=== PATIENT | male | born 1935 | race Caucasian/White ===

== ENCOUNTER → 2016-12-24 | Outpatient (CLI) | payer MEDICARE, OTHER ==
[~2016-12-24] MED LIST: AMIO400T4 PO; AML5T; AMLO10TA2 PO; AMLO10TA82 PO; APIX5TAB PO; ASP81TEC PO; ASPI-983 PO; ATOR10TA66 PO; ATOR40TA; ATOR40TA PO; ATOR80TA PO; BETH25TA PO; CHOL10003 PO; CIPR-226 PO; CIPR500T4 PO; CLOP75TA28 PO; CLPD75T; FRS325T; LEVO500T80 PO; MULT1TAB63 PO; NAPR220C PO; NITR-65 PO; NITR4.9S6 TL; NITROSPRAY; OMEP-10 PO; OMEP20CA12 PO; OMG1KC PO; PANT40TA3 PO; PEPPERMINT OIL; TAMS0.4C2 PO; TAMS0.4C98 PO; TICA90TA PO; ZLP5T
--- NOTE | 2016-12-24 13:29 | ECHOCARDIOGRAPHY REPORT ---
DATE OF SERVICE: 12/24/2016 REFERRING PHYSICIAN: Dr. Frey MEASUREMENT: LVID end diastolic 4.5. IVS thickness 0.9. LVPW thickness 1.0. Left atrial diameter 4.0. Ejection fraction 60%. FINDINGS: 1. Technical quality is good. 2. The left ventricle is normal in size with normal contractility. Systolic function appeared to be normal. Estimated ejection fraction 60%. 3. The left atrium is normal in size. No clot or thrombus was seen within the left atrium. 4. The right atrium and right ventricle are normal in size. No clot or thrombus was seen within the right side. 5. Mitral valve is normal in morphology with mild mitral regurgitation noted by color Doppler flow. No mitral valve prolapse. No mitral valve stenosis. 6. Aortic valve is trileaflet with normal opening and closing pattern. No significant aortic stenosis or regurgitation was seen. 7. Tricuspid valve is normal in morphology with mild tricuspid regurgitation noted by color Doppler flow. Doppler across the tricuspid valve estimated pulmonary artery pressure of 27 plus right atrial pressure. 8. Pulmonic valve is functioning normally. 9. No pericardial effusion. CONCLUSION: 1. Normal left ventricular size and systolic function, estimated ejection fraction 60%. 2. Mild mitral and tricuspid regurgitation. 3. Estimated pulmonary artery pressure of 35 mmHg. Job ID: [id number] DocumentID: [id number] Dictated Date: 12/24/2016 12:27:04 [employer] Date: 12/24/2016 12:57:13 Dictated By: JEFF ROMEO MD
== END ==
LOC: CARD 08:39
PROVIDERS: ATTEND Internal Medicine Cardiovascular Disease
DX: I48.0 Paroxysmal atrial fibrillation (principal); I25.10 Atherosclerotic heart disease of native coronary artery without angina pectoris; I10 Essential (primary) hypertension; E78.2 Mixed hyperlipidemia; I08.1 Rheumatic disorders of both mitral and tricuspid valves
CPT/HCPCS: 93306

== ENCOUNTER → 2016-12-28 | Outpatient (CLI) | payer MEDICARE, OTHER ==
[~2016-12-28] MED LIST changes: +REGADENOSON 0.4 MG/5 ML SYR (LEXISCAN) IV ONE
[2016-12-28] MEDS: CATHETER FLUSH 10 ML SYR IV PRN ×2 (07:58→09:23)
[2016-12-28 09:21] VITALS: BP 145/66
--- NOTE | 2016-12-29 07:45 | STRESS TEST ---
DATE OF SERVICE: 12/28/2016 PROCEDURE: Lexiscan Myoview stress test. REFERRING PHYSICIAN: Dr. Peguero INDICATION: Baseline heart rate is 47, baseline blood pressure 145/66. Baseline EKG is atrial fibrillation with bradycardia. IN SUMMARY: The patient was injected with 10.81 mCi of technetium-99 Myoview and the resting images were obtained. Then, the patient received 0.4 mg of Lexiscan followed by 31.8 mCi of technetium-99 Myoview. Throughout the test, there were no EKG changes. The resting and stress images were reviewed and compared in the short axis, horizontal long axis, and vertical long axis views. Review of the images showed diaphragmatic attenuation with typical male pattern. No significant ischemia or infarction on SPECT images. SSS is 0, TID value is 0.91. On the gated images, the left ventricle appeared to be normal size with normal contractility, calculated ejection fraction 58%. CONCLUSION: 1. The patient tolerated Lexiscan well. 2. Baseline atrial fibrillation with bradycardia at the beginning of the test, asymptomatic. 3. Typical male pattern with no significant ischemia or infarction on SPECT images. 4. Normal left ventricular size with normal contractility. Calculated ejection fraction 58%. Job ID: [id number] DocumentID: [id number] Dictated Date: 12/28/2016 16:02:24 Hourly Manager Date: 12/28/2016 22:25:21 Dictated By: JEFF ROMEO MD
== END ==
LOC: CARD 07:43
PROVIDERS: ATTEND Internal Medicine Cardiovascular Disease
DX: I48.0 Paroxysmal atrial fibrillation (principal); I25.10 Atherosclerotic heart disease of native coronary artery without angina pectoris; I10 Essential (primary) hypertension; E78.2 Mixed hyperlipidemia
CPT/HCPCS: 78452; 93017

== ENCOUNTER 2017-05-13 07:49 | Day surgery (SDC) | payer MEDICARE, OTHER ==
[~2017-05-13] VITALS: Ht 167.6 cm; Wt 68.9 kg
[~2017-05-13 07:49] MED LIST changes: -REGADENOSON 0.4 MG/5 ML SYR (LEXISCAN) IV ONE
[2017-05-13] MEDS ORDERED: NS IV 1000 ML 1,000 ML IV SCH (07:50)
[2017-05-13 08:02] VITALS: BP 154/80
[2017-05-13 08:17] LABS: MEAN PLATELET VOLUME 11.9 FL (7.4-10.4); RED BLOOD COUNT 4.28 10^6/uL (4.35-5.85); RED CELL DISTRIBUTION WIDTH 13.4 % (10.0-14.5); WHITE BLOOD COUNT 5.9 10^3/uL (4.3-11.0)
[2017-05-13] MEDS ORDERED: fentaNYL INJECTION 100 MCG/2 ML AMP ONE (08:29)
[2017-05-13] MEDS ORDERED: MIDAZOLAM 5 MG/5 ML (VERSED) VIAL ONE (08:29)
[2017-05-13] MEDS ORDERED: proPOfol 200 MG/20 ML (DIPRIVAN) VIAL IV ONE ×2 (08:29→08:40)
[2017-05-13 08:30] LABS: INR 1.4 (0.8-1.4); PROTHROMBIN TIME PATIENT 16.8 SEC (12.2-14.7)
[2017-05-13 08:37] LABS: ALBUMIN 4.1 GM/DL (3.2-4.5); BILIRUBIN,TOTAL 0.9 MG/DL (0.1-1.0); CALCIUM 9.3 MG/DL (8.5-10.1); CREATININE SERUM 1.28 MG/DL (0.60-1.30); POTASSIUM 4.3 MMOL/L (3.6-5.0); TOTAL PROTEIN 7.2 GM/DL (6.4-8.2)
[2017-05-13 09:34] VITALS: BP 166/74
[2017-05-13 09:37] VITALS: BP 148/75
[2017-05-13 09:45] VITALS: BP 154/74
--- NOTE | 2017-05-13 09:58 | Progress Note-Standard ---
Standard Progress Note Progress Notes/Assess & Plan Date Seen by Provider: May 13, 2017 Time Seen by Provider: 09:35 Progress/Assessment & Plan Anesthesia Note ([id number]) Called to shipyard laborer for sedation (MAC) for cardioversion. Pt S/E. Propofol 70 mg in divided doses for sedation. VSS and + ETCO2 throughout procedure. Cardioversion attempted x 3 without a return to SR. Will be available if needed. JESSENIA NICK DO May 13, 2017 09:58
[2017-05-13] MEDS ORDERED: DILT120T11 PO (10:02)
[2017-05-13 10:05] VITALS: BP 131/75
[2017-05-13 10:39] VITALS: BP 130/68
--- NOTE | 2017-05-13 11:49 | Cardiology Post Procedure Note ---
Post-Procedure Note Physician (s)/Digital Marketing Strategist (s) Physician Alesha SKY MD Pre-Procedure Diagnosis Pre-Procedure Diagnosis: atrial fibrillation Post-Procedure Note Procedure Start Date: May 13, 2017 Procedure Start Time: 09:30 Name of Procedure: direct electrical cardioversion Findings/Procedure Note atrial fibrillation with slow ventricular response. 3 shocks given with synchronized 200 J. Unsuccessful. Estimated blood loss (mL): none Contrast Amount: none Post-Procedure Diagnosis Post-operative diagnosis: unsuccessful electrical cardioversion. Patient continues to be in atrial fibrillation with controlled ventricular response. Alesha SKY MD May 13, 2017 11:49 am
--- NOTE | 2017-05-14 06:01 | OPERATIVE REPORT ---
DATE OF SERVICE: 05/13/2017 DIRECT ELECTRICAL CARDIOVERSION PREOPERATIVE DIAGNOSIS: Atrial fibrillation. INDICATION: Atrial fibrillation. POSTOPERATIVE DIAGNOSIS: Unsuccessful cardioversion. PROCEDURE DETAILS: The patient was brought to the lab after informed consent was taken. All the risks and complications were explained. With anesthesia support, three 200 joules synchronized shocks were given. However, the patient continued to stay in atrial fibrillation. The patient tolerated the procedure well and did not have any complications. IMPRESSION/CONCLUSION: 1. Atrial fibrillation. Three unsuccessful attempts at cardioversion with 200 joules. 2. Discontinue Multaq. Continue oral anticoagulation and rate controlling agents. Job ID: [id number] DocumentID: [id number] Dictated Date: 05/13/2017 13:14:06 Strip Catcher Date: 05/13/2017 20:01:12 Dictated By: JESSIE SKY MD
== END 2017-05-13 10:41 | disposition home or self-care (01) ==
LOC: CATH 07:49
PROVIDERS: ATTEND Internal Medicine Interventional Cardiology
DX: I48.91 Unspecified atrial fibrillation (principal); I25.10 Atherosclerotic heart disease of native coronary artery without angina pectoris; I65.23 Occlusion and stenosis of bilateral carotid arteries; I10 Essential (primary) hypertension; E78.2 Mixed hyperlipidemia; G47.33 Obstructive sleep apnea (adult) (pediatric); Z85.46 Personal history of malignant neoplasm of prostate; Z95.1 Presence of aortocoronary bypass graft; Z95.5 Presence of coronary angioplasty implant and graft; Z87.891 Personal history of nicotine dependence; Z79.01 Long term (current) use of anticoagulants; Z79.899 Other long term (current) drug therapy
CPT/HCPCS: 36415; 80053; 85027; 85610; 85730; 87081; 92960; 93005

== ENCOUNTER → 2018-03-28 | Outpatient (CLI) | payer MEDICARE, OTHER ==
[~2018-03-28] MED LIST changes: -AMIO400T4 PO; +AMIO400T5 PO; -AMLO10TA2 PO; +AMLO10TA6 PO; +DILT120T11 PO
--- NOTE | 2018-03-28 11:14 | Diagnostic Imaging Report ---
INDICATION: Chronic cough PA and lateral views of the chest were obtained with comparison made to study of 01/29/2016. Heart size and pulmonary vascularity are within normal limits. There is no evidence of pneumothorax or consolidation. Electronic device is now seen anterior to the sternum in the left chest. Otherwise mediastinal surgical findings are stable. There is no evidence of focal consolidation. Sclerotic focus in the proximal right humerus is partially visualized. IMPRESSION: No acute abnormality or significant adverse change is detected. Dictated by: Dictated on workstation # [id number]
== END ==
LOC: RAD 10:17
PROVIDERS: ATTEND Nurse Practitioner
DX: R05 Cough (principal)
CPT/HCPCS: 71046

== ENCOUNTER → 2018-09-21 | Outpatient (CLI) | payer MEDICARE, OTHER ==
[~2018-09-21] VITALS: Ht 167.6 cm; Wt 75.3 kg
[~2018-09-21] MED LIST changes: -AMLO10TA6 PO; +AMLO10TA7 PO; +CATHETER FLUSH 10 ML SYR IV PRN
[2018-09-21 09:27] VITALS: BP 150/76
--- NOTE | 2018-09-21 14:28 | STRESS TEST ---
DATE OF SERVICE: 09/21/2018 EXERCISE MYOVIEW STRESS TEST REPORT REFERRING PHYSICIAN: Dr. Frey. Baseline heart rate is 59, baseline blood pressure 135/70. Baseline EKG is sinus rhythm with no ischemic changes. In summary, the patient was injected with 10.37 mCi of technetium-99 Myoview and the resting images were obtained. Then, the patient started exercising with a baseline heart rate, blood pressure and EKG as mentioned above. The patient was able to exercise for 3 minutes on standard Avelino protocol. With peak exercise level, EKG was showing nondiagnostic changes and blood pressure 178/80. During recovery, heart rate and blood pressure returned to baseline and EKG returned to baseline. The resting and stress images were reviewed and compared in the short axis, horizontal long axis and vertical long axis views. Review of the images showed diaphragmatic attenuation with decreased uptake at the inferior wall with subtle reversibility, no significant ischemia was noted. SSS is 1, SDS 1 and TID value 1.06. On the gated images, the left ventricle appeared to be in normal size with normal contractility. Calculated ejection fraction is 75%. CONCLUSION: 1. Poor exercise tolerance, a total of 3 minutes on standard Avelino protocol, total of 4.6 METS achieving 100% of maximum expected heart rate. 2. Appropriate heart rate response to exercise with hypertensive response to exercise, peak blood pressure recorded was 199/75. 3. Diaphragmatic attenuation with typical male pattern with no significant ischemia or infarction on SPECT images. 4. Normal left ventricular size with normal contractility and calculated ejection fraction is 75%. Job ID: [id number] DocumentID: [id number] Dictated Date: 09/21/2018 11:42:53 Bench Assembly Inspector Date: 09/21/2018 12:38:06 Dictated By: JEFF ROMEO MD
== END ==
LOC: CARD 07:18
PROVIDERS: ATTEND Internal Medicine Cardiovascular Disease
DX: I25.10 Atherosclerotic heart disease of native coronary artery without angina pectoris (principal); I48.91 Unspecified atrial fibrillation; I10 Essential (primary) hypertension; E78.2 Mixed hyperlipidemia
CPT/HCPCS: 78452; 93017

== ENCOUNTER → 2019-09-13 | Outpatient (CLI) | payer MEDICARE, OTHER ==
[~2019-09-13] MED LIST changes: -CATHETER FLUSH 10 ML SYR IV PRN; -OMEP20CA12 PO; +OMEP20CA18 PO; -TAMS0.4C98 PO; +TMSL.4C PO
== END ==
LOC: CARD 08:50
PROVIDERS: ATTEND Physician Assistant
DX: I48.91 Unspecified atrial fibrillation (principal); I25.10 Atherosclerotic heart disease of native coronary artery without angina pectoris; I65.29 Occlusion and stenosis of unspecified carotid artery; I10 Essential (primary) hypertension; E78.2 Mixed hyperlipidemia; I34.0 Nonrheumatic mitral (valve) insufficiency
CPT/HCPCS: 93306

== ENCOUNTER 2019-10-30 17:20 | Emergency (ER) | payer MEDICARE, OTHER ==
[~2019-10-30] VITALS: Ht 167.6 cm; Wt 71.7 kg
[2019-10-30] MEDS ORDERED: IBUPROFEN TABLET 200 MG TAB PO STA (17:39)
[2019-10-30 17:41] LABS: BILIRUBIN,URINE NEGATIVE (NEGATIVE); CLARITY,URINE CLEAR; COLOR,URINE YELLOW; GLUCOSE, URINE (UA) NEGATIVE (NEGATIVE); KETONES,URINE NEGATIVE (NEGATIVE); LEUKOCYTE ESTERASE ,URINE NEGATIVE (NEGATIVE); NITRITE,URINE NEGATIVE (NEGATIVE); PH,URINE 5.5 (5-9); PROTEIN,URINE NEGATIVE (NEGATIVE)
--- NOTE | 2019-10-30 17:47 | ED Back Pain ---
General Chief Complaint: Back Problems Stated Complaint: BACK PAIN / FEVER History of Present Illness Date Seen by Provider: Oct 30, 2019 Time Seen by Provider: 17:30 Initial Comments 84 year old male presents for low back pain and intermittent fever today, high of 99.8* He last took Tylenol at 1200. No N/V. History of prostate Cancer and Sciatica, in the past. He did a significant of lifting for yard work last and Wed, carrying soil bags and mulch. History of 2 UTIs in the last few months, finished an antibiotic about a week ago. Location: Lumbar Spine, Paraspinous Muscles Timing/Duration: 4-6 Hours Severity: Mild Pain/Injury Location: Back Associated Symptoms: muscle spasms, fever; No numbness in legs/feet, No tingling in legs/feet, No sensory/motor loss; lower back pain; No loss of bladder control, No loss of bowel control Allergies and Home Medications Allergies Uncoded Allergies: Beta Blockers (Adverse Reaction, Mild, Intolerance, 06/23/11) Home Medications Amlodipine Besylate 10 Mg Tablet, 10 MG PO DAILY, (Reported) Apixaban 5 Mg Tablet, 5 MG PO BID, (Reported) Aspirin 81 Mg Tablet.dr, 81 MG PO DAILY, (Reported) Atorvastatin Calcium 10 Mg Tablet, 10 MG PO HS, (Reported) Cholecalciferol 1,000 Unit Tablet, 1,000 UNIT PO DAILY, (Reported) Diltiazem HCl 120 Mg Tablet, 120 MG PO DAILY, (Reported) Multivitamins/Minerals Therap 1 Ea Tablet, 1 TAB PO DAILY, (Reported) Nitroglycerin 4.9 Gm [place], 1 SPRAY TL UD PRN for CHEST PAIN, (Reported) [place] 3 Polyunsat Fatty Acids 1,000 Mg Cap, 1,000 MG PO DAILY, (Reported) Pantoprazole Sodium 40 Mg Tablet.dr, 40 MG PO DAILY, (Reported) Tamsulosin HCl 0.4 Mg Cap.er.24h, 0.4 MG PO EVERY 3 DAYS, (Reported) Patient Home Medication List Home Medication List Reviewed: Yes Review of Systems Constitutional: see HPI, fever Genitourinary: see HPI; No decreased output, No dysuria, No frequency, No hematuria, No pain Musculoskeletal: see HPI, back pain All Other Systems Reviewed Negative Unless Noted: Yes Past Yxmsxqe-Lvcgum-Mejinv Hx Past Med/Social Hx: Reviewed Nursing Past Med/Soc Hx Patient Social History Alcohol Use: Regular Use Number of Drinks Today: 1 Alcohol Beverage of Choice: Wine Recreational Drug Use: No Smoking Status: Former Smoker Type Used: Cigarettes Former Smoker, Quit: May 13, 1991 2nd Hand Smoke Exposure: No Recent Foreign Travel: No Contact w/Someone Who Travel: No Recent Hopitalizations: Yes (BY PASS 1990, HEART CATH NOVEMBER 2007, TURP 1999, RAPID HEART AUG 2004) Physical Abuse: No Sexual Abuse: No Mistreated: No Fear: No Immunizations Up To Date Tetanus Booster (TDap): Unknown Date of Pneumonia Vaccine: Apr 12, 2017 Date of Influenza Vaccine: Apr 13, 2017 Seasonal Allergies Seasonal Allergies: No Past Medical History Surgeries: Yes (nose resection, OPEN HEART, CARDIAC STENTS, TURP) CABG, Coronary Stent Respiratory: Yes Emphysema Cardiac: Yes Coronary Artery Disease, Hypertension Neurological: No Reproductive Disorders: No Sexually Transmitted Disease: No HIV/AIDS: No Bladder Infection, Kidney Stones Gastrointestinal: Yes Irritable Bowel Musculoskeletal: No Endocrine: No Loss of Vision: Denies Hearing Impairment: Hard of Hearing Cancer: Yes (with radiation IN 1999) Prostate Psychosocial: No Integumentary: No Blood Disorders: No Adverse Reaction/Blood Tranf: No Family Medical History Cardiovascular disease 19 FATHER G8 BROTHER Diabetes mellitus G8 BROTHER Hypertension 19 FATHER G8 BROTHER Neoplasm G8 BROTHER No Pertinent Family Hx Physical Exam Vital Signs Vital Signs - First Documented 10/30/19 17:31 Temp 37.4 Pulse 80 Resp 17 B/P (MAP) 182/97 (125) O2 Delivery Room Air Capillary Refill : Height, Weight, BMI Height: 5'6.00" Weight: 166lbs. 0.0oz. 75.124182mi; 26.8 BMI Method:Stated General Appearance: No Apparent Distress, WD/WN HEENT: PERRL/EOMI, TMs Normal, Normal ENT Inspection, Pharynx Normal Neck: Full Range of Motion, Normal Inspection, Non Tender, Supple Cardiovascular: Regular Rate, Rhythm, No Edema, No Murmur, Normal Peripheral Pulses Respiratory: Chest Non Tender, Lungs Clear, Normal Breath Sounds Gastrointestinal: Normal Bowel Sounds, Non Tender, Soft; No Distended, No Guarding, No Rebound, No Tenderness Back: Normal Inspection, CVA Tenderness (R); No Decreased Range of Motion; Muscle Spasm; No Vertebral Tenderness Extremity: Normal Capillary Refill, Normal Inspection, Normal Range of Motion Neurologic/Psychiatric: Alert, Oriented x3, No Motor/Sensory Deficits, Normal Mood/Affect Skin: Normal Color, Warm/Dry Progress/Results/Core Measures Results/Orders Lab Results Laboratory Tests Test 10/30/19 17:33 10/30/19 17:52 Range/Units Urine Color YELLOW Urine Clarity CLEAR Urine pH 5.5 5-9 Urine Specific [place] 1.020 1.016-1.022 Urine Protein NEGATIVE NEGATIVE Urine Glucose (UA) NEGATIVE NEGATIVE Urine Ketones NEGATIVE NEGATIVE Urine Nitrite NEGATIVE NEGATIVE Urine Bilirubin NEGATIVE NEGATIVE Urine Urobilinogen 0.2 < = 1.0 MG/DL Urine Leukocyte Esterase NEGATIVE NEGATIVE Urine RBC (Auto) TRACE-I NEGATIVE Urine RBC 0-2 /HPF Urine WBC 2-5 /HPF Urine Squamous Epithelial Cells NONE /HPF Urine Crystals NONE /LPF Urine Bacteria NEGATIVE /HPF Urine Casts NONE /LPF Urine Mucus NEGATIVE /LPF Urine Culture Indicated NO White Blood Count 13.5 H 4.3-11.0 10^3/uL Red Blood Count 4.13 L 4.35-5.85 10^6/uL Hemoglobin 12.7 L 13.3-17.7 G/DL Hematocrit 37 L 40-54 % Mean Corpuscular Volume 90 80-99 FL Mean Corpuscular Hemoglobin 31 25-34 PG Mean Corpuscular Hemoglobin Concent 34 32-36 G/DL Red Cell Distribution Width 13.0 10.0-14.5 % Platelet Count 219 130-400 10^3/uL Mean Platelet Volume 12.0 H 7.4-10.4 FL Neutrophils (%) (Auto) 87 H 42-75 % Lymphocytes (%) (Auto) 6 L 12-44 % Monocytes (%) (Auto) 7 0-12 % Eosinophils (%) (Auto) 0 0-10 % Basophils (%) (Auto) 0 0-10 % Neutrophils # (Auto) 11.7 H 1.8-7.8 X 10^3 Lymphocytes # (Auto) 0.8 L 1.0-4.0 X 10^3 Monocytes # (Auto) 0.9 0.0-1.0 X 10^3 Eosinophils # (Auto) 0.0 0.0-0.3 10^3/uL Basophils # (Auto) 0.0 0.0-0.1 10^3/uL Neutrophils % (Manual) 90 % Lymphocytes % (Manual) 2 % Monocytes % (Manual) 4 % Eosinophils % (Manual) 0 % Basophils % (Manual) 1 % Band Neutrophils 3 % Blood Morphology Comment NORMAL Sodium Level 135 135-145 MMOL/L Potassium Level 4.9 3.6-5.0 MMOL/L Chloride Level 105 98-107 MMOL/L Carbon Dioxide Level 20 L 21-32 MMOL/L Anion Gap 10 5-14 MMOL/L Blood Urea Nitrogen 29 H 7-18 MG/DL Creatinine 1.85 H 0.60-1.30 MG/DL Estimat Glomerular Filtration Rate 35 BUN/Creatinine Ratio 16 Glucose Level 139 H 70-105 MG/DL Calcium Level 9.4 8.5-10.1 MG/DL Corrected Calcium 9.4 8.5-10.1 MG/DL Total Bilirubin 0.5 0.1-1.0 MG/DL Aspartate Amino Transf (AST/SGOT) 20 5-34 U/L Alanine Aminotransferase (ALT/SGPT) 14 0-55 U/L Alkaline Phosphatase 64 40-136 U/L C-Reactive Protein High Sensitivity 1.49 H 0.00-0.50 MG/DL Total Protein 7.3 6.4-8.2 GM/DL Albumin 4.0 3.2-4.5 GM/DL My Orders Orders - GRIS PETE Ua Culture If Indicated (10/30/19 17:21) Cbc With Automated Diff (10/30/19 17:39) Comprehensive Metabolic Panel (10/30/19 17:39) Chest 1 View, Ap/Pa Only (10/30/19 17:39) Ibuprofen Tablet (Motrin Tablet) (10/30/19 17:39) Manual Differential (10/30/19 17:52) Hs C Reactive Protein (10/30/19 18:25) Ct Abd/Pelvis Wo(Kidney Stone) (10/30/19 18:28) Ed Iv/Invasive Line Start (10/30/19 18:29) Ns Iv 1000 Ml (Sodium Chloride 0.9%) (10/30/19 18:29) Ceftriaxone For Iv Use (Rocephin For I (10/30/19 19:15) Medications Given in ED Current Medications Medications Dose Ordered Sig/[place] Route Start Time Stop Time Status Last Admin Dose Admin Ceftriaxone Sodium 2000 mg/ Sterile Water 20 ml @ 240 mls/hr ONCE ONCE IV 10/30/19 19:15 10/30/19 19:19 DC 10/30/19 19:14 240 MLS/HR Vital Signs/I&O 10/30/19 17:31 Temp 37.4 Pulse 80 Resp 17 B/P (MAP) 182/97 (125) O2 Delivery Room Air Progress Progress Note : Time: 17:30 Progress Note Pt seen and evaluated, will obtain labs, chest x-ray and Ibuprofen 600 mg for pain. 1814 Will give 1 L NS per IV. UA & CXR clear. Pain better in right low back. Will get CT abd/pelvis. 1899 Rocephin 2 gm IV. [address] Tse with the CT results. Will see patient at 1pm tomorrow. Start Bactrim DS. Discharge instructions and return precautions reviewed with the patient. Discussed CT results and need for more information due to the mass in right bladder wall. Diagnostic Imaging Diagonstic Imaging: Xray Plain Films/CT/US/NM/MRI: chest Comments NAME: URSZULA MAZARIEGOS [facility] REC#: [id number] PT STATUS: REG ER : 1935 PHYSICIAN: GRIS PETE ADMIT DATE: 10/30/19/ER Draft Date of Exam:10/30/19 CHEST 1 VIEW, AP/PA ONLY INDICATION: Back pain. Single AP view of the chest is obtained with comparison made to study of 03/28/2018. Extensive surgical findings are again noted in the mediastinum. There is also persistent sclerotic focus in the proximal right humerus. No pneumothorax, consolidation or significant pleural fluid is identified. IMPRESSION: Stable overall appearance of the chest without acute abnormality or adverse change. Dictated on workstation # [id number] Dict: 10/30/19 1807 Trans: 10/30/191810 [facility] [id number] Interpreted by: DAYO MIGUEL MD Electronically signed by: Reviewed: Reviewed by Me Diagonstic Imaging: CT Plain Films/CT/US/NM/MRI: abdomen, pelvis Comments NAME: URSZULA MAZARIEGOS [facility] REC#: [id number] PT STATUS: REG ER : 1935 PHYSICIAN: GRIS PETEP ADMIT DATE: 10/30/19/ER Draft Date of Exam:10/30/19 CT ABD/PELVIS WO(KIDNEY STONE) PROCEDURE: CT urinary tract, rule out kidney stone. TECHNIQUE: Multiple contiguous axial images were obtained through the abdomen and pelvis without the use of intravenous contrast. Auto Exposure Controls were utilized during the CT exam to meet ALARA standards for radiation dose reduction. INDICATION: Posterior back pain COMPARISON is made to study of 09/30/2015. FINDINGS: There is mild hiatal hernia. Unenhanced images of the liver and spleen reveal no focal abnormality. There is calcification within the lumen or wall of the gallbladder fundus without evidence of collateral wall thickening. Dominant exophytic cyst arising from the upper pole of the left kidney. There is no definite left hydronephrosis or hydroureter however there is an approximately 0.4 cm calculus in the left hemipelvis which was not seen on the previous study which could represent distal ureteric stone. There is moderate right hydronephrosis and hydroureter with mild edema and/or inflammation surrounding the right kidney and right ureter. There is an approximately 2 cm hyperdense focus along the right bladder wall which may represent an obstructing mass. No free fluid is seen within the abdomen or pelvis. There is no evidence of pathologic adenopathy. IMPRESSION: There is a 2 cm hyperdensity in the bladder lumen may result in obstruction of the distal right ureter. This could be due to hematoma or bladder mass. Cystoscopy is recommended. In addition, there is an approximately 0.4 cm calcification to the left of the urinary bladder which could represent a distal ureteric stone without significant left hydronephrosis. Dictated on workstation # [id number] Dict: 10/30/19 1842 Trans: 10/30/19 1855 [facility] [id number] Interpreted by: DAYO MIGUEL MD Electronically signed by: Departure Impression Primary Impression: Hydronephrosis, right Additional Impression: Mass of urinary bladder Disposition: 01 HOME, SELF-CARE Condition: Improved Departure-Patient Inst. Decision time for Depature: 19:20 Referrals: ABEL MARTINEZ MD (PCP/Family) Primary Care Physician Patient Instructions: Hydronephrosis, Adult (DC), Low Back Pain (DC) Add. Discharge Instructions: Take the Bactrim antibiotic as prescribed. Alternate Tylenol 650 mg and ibuprofen 600 mg every 4 hours for pain or fever. Take the Bactrim antibiotic as prescribed. Follow-up with Dr. Tse on 10/31/19 at 1 PM. Return to the emergency department for new, urgent health care needs. All discharge instructions reviewed with patient and/or family. Voiced understanding. Copy Copies To 1: ABEL MARTINEZ MD Copies To 2: ALBA TSE MD, AMY ARNP Oct 30, 2019 17:47
[2019-10-30 17:52] LABS: BACTERIA,URINE NEGATIVE /HPF; RBC,URINE 0-2 /HPF
[2019-10-30 18:06] LABS: BASOPHILS % (AUTO) 0 % (0-10); EOSINOPHILS % (AUTO) 0 % (0-10); HEMATOCRIT 37 % (40-54); HEMOGLOBIN 12.7 G/DL (13.3-17.7); LYMPHOCYTES # (AUTO) 0.8 X 10^3 (1.0-4.0); LYMPHOCYTES % (AUTO) 6 % (12-44); MEAN CORPUSCULAR HEMOGLOBIN 31 PG (25-34); MEAN CORPUSCULAR HGB CONC 34 G/DL (32-36); MEAN CORPUSCULAR VOLUME 90 FL (80-99); MONOCYTES # (AUTO) 0.9 X 10^3 (0.0-1.0); MONOCYTES % (AUTO) 7 % (0-12); NEUTROPHILS # (AUTO) 11.7 X 10^3 (1.8-7.8); NEUTROPHILS % (AUTO) 87 % (42-75); PLATELET COUNT 219 10^3/uL (130-400); WHITE BLOOD COUNT 13.5 10^3/uL (4.3-11.0)
[2019-10-30 18:12] LABS: POTASSIUM 4.9 MMOL/L (3.6-5.0)
--- NOTE | 2019-10-30 18:12 | Diagnostic Imaging Report ---
INDICATION: Back pain. Single AP view of the chest is obtained with comparison made to study of 03/28/2018. Extensive surgical findings are again noted in the mediastinum. There is also persistent sclerotic focus in the proximal right humerus. No pneumothorax, consolidation or significant pleural fluid is identified. IMPRESSION: Stable overall appearance of the chest without acute abnormality or adverse change. Dictated by: Dictated on workstation # [id number]
[2019-10-30 18:13] LABS: CALCIUM 9.4 MG/DL (8.5-10.1)
[2019-10-30 18:15] LABS: TOTAL PROTEIN 7.3 GM/DL (6.4-8.2)
[2019-10-30 18:16] LABS: BILIRUBIN,TOTAL 0.5 MG/DL (0.1-1.0)
[2019-10-30 18:18] LABS: CREATININE SERUM 1.85 MG/DL (0.60-1.30)
[2019-10-30 18:26] LABS: BAND NEUTROPHILS 3 %; BASOPHILS % (MANUAL) 1 %; EOSINOPHILS % (MANUAL) 0 %; LYMPHOCYTES % (MANUAL) 2 %; MONOCYTES % (MANUAL) 4 %; NEUTROPHILS % (MANUAL) 90 %; RBC MORPH NORMAL
[2019-10-30] MEDS ORDERED: NS IV 1000 ML 1,000 ML IV SCH (18:29)
--- NOTE | 2019-10-30 18:56 | Diagnostic Imaging Report ---
PROCEDURE: CT urinary tract, rule out kidney stone. TECHNIQUE: Multiple contiguous axial images were obtained through the abdomen and pelvis without the use of intravenous contrast. Auto Exposure Controls were utilized during the CT exam to meet ALARA standards for radiation dose reduction. INDICATION: Posterior back pain COMPARISON is made to study of 09/30/2015. FINDINGS: There is mild hiatal hernia. Unenhanced images of the liver and spleen reveal no focal abnormality. There is calcification within the lumen or wall of the gallbladder fundus without evidence of collateral wall thickening. Dominant exophytic cyst arising from the upper pole of the left kidney. There is no definite left hydronephrosis or hydroureter however there is an approximately 0.4 cm calculus in the left hemipelvis which was not seen on the previous study which could represent distal ureteric stone. There is moderate right hydronephrosis and hydroureter with mild edema and/or inflammation surrounding the right kidney and right ureter. There is an approximately 2 cm hyperdense focus along the right bladder wall which may represent an obstructing mass. No free fluid is seen within the abdomen or pelvis. There is no evidence of pathologic adenopathy. IMPRESSION: There is a 2 cm hyperdensity in the bladder lumen may result in obstruction of the distal right ureter. This could be due to hematoma or bladder mass. Cystoscopy is recommended. In addition, there is an approximately 0.4 cm calcification to the left of the urinary bladder which could represent a distal ureteric stone without significant left hydronephrosis. Dictated by: Dictated on workstation # [id number]
[2019-10-30] MEDS ORDERED: cefTRIAXone FOR IV USE 2,000 MG in WATER (STERILE) FOR INJECTION 20 ML IV ONE (19:15)
[2019-10-30 19:45] VITALS: BP 173/82
== END 2019-10-30 19:48 | disposition home or self-care (01) ==
LOC: EDUNIT# 17:20 → ER 17:21
DX: N13.30 Unspecified hydronephrosis (principal); N32.9 Bladder disorder, unspecified; Z95.1 Presence of aortocoronary bypass graft; Z95.5 Presence of coronary angioplasty implant and graft; J43.9 Emphysema, unspecified; I25.10 Atherosclerotic heart disease of native coronary artery without angina pectoris; I10 Essential (primary) hypertension; K58.9 Irritable bowel syndrome, unspecified; Z85.46 Personal history of malignant neoplasm of prostate; Z92.3 Personal history of irradiation; Z87.891 Personal history of nicotine dependence; Z79.82 Long term (current) use of aspirin; Z79.899 Other long term (current) drug therapy
CPT/HCPCS: 36415; 71045; 74176; 80053; 81000; 85007; 85027; 86141

== ENCOUNTER 2019-11-01 07:19 | Outpatient (CLI) | payer MEDICARE, OTHER ==
[~2019-11-01] VITALS: Ht 167 cm; Wt 72.0 kg
[2019-11-01] MEDS ORDERED: LISI10TA2 PO (09:21)
== END 2019-11-01 09:39 ==
LOC: PREOP 07:19
PROVIDERS: ATTEND Urology
DX: Z01.818 Encounter for other preprocedural examination (principal)

== ENCOUNTER 2019-11-08 08:14 | Outpatient (CLI) | payer MEDICARE, OTHER ==
[~2019-11-08 08:14] MED LIST changes: +LISI10TA2 PO; +PHEN-640 PO; +SULF1TAB35 PO; +TRM50T PO
[2019-11-10] MEDS ORDERED: hydrocodone ×2 (07:50)
[2019-11-10] MEDS ORDERED: POLY17PO6 PO ×2 (07:50)
[2019-11-10] MEDS ORDERED: HYOS0.1281 PO ×2 (10:27)
== END 2019-11-09 09:22 | disposition home or self-care (01) ==
LOC: PREOP 08:14
PROVIDERS: ATTEND Urology
DX: Z01.818 Encounter for other preprocedural examination (principal)

== ENCOUNTER 2019-11-10 21:11 | Inpatient (IN) | payer MEDICARE, OTHER ==
[~2019-11-10] VITALS: Ht 167.6 cm; Wt 73.8 kg
[~2019-11-10 21:11] MED LIST changes: +HYOS0.1281 PO; +POLY17PO6 PO; +hydrocodone
--- NOTE | 2019-11-10 21:14 | NUR ---
pt in restroom when called.
--- OUTSIDE RECORDS SUMMARY | 2019-11-10 21:16 | XMS REPORT ---
Author Author [employer] Organization [employer] Address [address] [address] Care Team Providers Care Resident Surgeon Name Role Phone MARCUS LILLY Unavailable ABEL MARTINEZ Unavailable AGUEDA ROJAS, JEFF Saores Unavailable Unavailable CARMENCITA ROJAS, ALBA Francis Unavailable Unavailable AFSANEH ROJAS, JEFFERY Galindo Unavailable Unavailable CARMENCITA ROJAS, ALBA Francis Unavailable Unavailable GAGE MARROQUIN, DWAYNE Caldwell Unavailable Unavailable SUZANNE ROJAS, LIZET Borja Unavailable Unavailable KI COX APRN Unavailable Unavailable STARR MARROQUIN, ANTONIETA Nicholson Unavailable Unavailab le Allergies No Information Medications No Information Problems Active Problems Problem Normalized Date of Normalized Normalized Provider Fac ility Classification Problem(s) Problem Problem Problem Sta tus Onset/Resoluti Duration on Acute Acute Episodic Active ALBA CARMENCITA , Not Avail able posthemorrhagi posthemorrhagi (98771) c anemia (6 c anemia sources.) 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 JEFF BROWNING , Not Available atherosclerosi c heart (26249) s and other disease of heart disease apache (21 sources.) coronary artery without angina pectoris Translations: [ ATHSCL HEART DISEASE OF [place] COR ART W, CORON ATHEROSCLER NOS TYPE VESSEL, NATIV] Calculus of Calculus of Episodic Active ALBA CARMENCITA , Not Available urinary tract kidney (02560) (6 sources.) Nonspecific Chest pain, Episodic Active JEFF PRICE , Not Available chest pain (3 unspecified MD (32399) sources.) Other lower Cough Episodic Active no name no informat ion respiratory disease (2 sources.) Other diseases Cyst of Episodic Active ALBA CARMENCITA , Not Available of kidney and kidney, (23898) ureters (3 acquired sources.) Essential Essential 09-14-2019 - Chronic Active ALBA CARMENCITA , Not Available hypertension (primary) (42935) (21 sources.) hypertension Translations: [ HYPERTENSION NOS] Gangrene (3 Gangrene, not Episodic Active ALBA CARMENCITA , No t Available sources.) elsewhere (21834) classified Esophageal Gastro-esophag Chronic Active ALBA CARMENCITA , No t Available disorders (3 eal reflux (68834) sources.) disease without esophagitis Other intermodal customer service Episodic Active MD JOSE DANIEL Not Availa ble aftercare (5 (current) use (08951) sources.) of anticoagulants Other snf Episodic Active JEFFERY Not Availabl e aftercare (9 (current) use AFSANEH , (48325) sources.) of MD antithrombotic s/antiplatelet s Other intermodal customer service Episodic Active ALBA CARMENCITA , Not Avai lable aftercare (3 (current) use (36837) sources.) of aspirin Cancer of Malignant Chronic Active ALBA CARMENCITA , Not Avai lable prostate (3 neoplasm of MD (15231) sources.) prostate 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 JEFF CUNNINGHAM I , Not Available lipid hyperlipidemia (56747) metabolism (21 Translations: sources.) [ HYPERLIPIDEMIA , UNSPECIFIED, HYPERLIPIDEMIA NEC/NOS] Substance-rela Nicotine Chronic Active KI COX Not Av ailable richelle disorders dependence, (26835) (3 sources.) cigarettes, in remission Residual Obstructive Chronic Active JEFF PRICE , Not A vailable codes; sleep apnea (83441) unclassified (adult) (11 sources.) (pediatric) Residual Obstructive Chronic Active BASGEENA PRICE , Not A vailable codes; sleep apnea (74120) unclassified (adult)(pediat (3 sources.) barbie) 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 MD JOSE DANIEL Not Available 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 (8 carotid sources.) arteries Translations: [ OCCLUSION AND STENOSIS OF UNSPECIFIED [place]] Other Other long Episodic Active BASGEENA AGUEDA , Not Av ailable aftercare (11 term (current) (59866) sources.) drug therapy Other diseases Other Episodic Active JEFFERY Not Avai lable of kidney and obstructive BRUEGGEMANN , (19920) ureters (6 and reflux MD sources.) uropathy Pulmonary Other Chronic Active BASHAR AGUEDA , Not Avai 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 Other diseases Other Chronic Active ALBAJIMBO GAOL , Not Available of bladder and specified (48149) urethra (3 disorders of sources.) bladder Other diseases Other Chronic Active ALBA GAOL , Not Available of kidney and specified MD (79997) ureters (3 disorders of sources.) kidney and ureter Residual Personal Episodic Active LIZET PALACIOS Not Avail able codes; history of , (16675) unclassified irradiation (3 sources.) Cancer of Personal Episodic Active JEFFERY Not Available bladder (6 history of BRUEGGEMANN , (71361) sources.) malignant MD neoplasm of bladder Cancer of Personal Episodic Active KI COX Not Availab le prostate (14 history of (37694) sources.) malignant neoplasm of prostate Screening and Personal Episodic Active MIKEGEENA PRICE , Not Available history of history of (67340) mental health nicotine and substance dependence abuse codes (14 sources.) Coronary Presence of no information Active JEFF PRICE , Not Available atherosclerosi coronary (29197) s and other angioplasty heart disease implant and (25 sources.) graft Translations: [ PRESENCE OF AORTOCORONARY BYPASS GRAFT, ATHSCL HEART DISEASE OF [place] CORONARY , CHRONIC TOTAL OCCLUSION OF CORONARY STACY, CORONARY ANGIOPLASTY STATUS] Other injuries Radiation Episodic Active ALBA TSE , Not Available and conditions sickness, (96660) due to unspecified, external initial causes (6 encounter sources.) Heart valve Rheumatic 09-14-2019 - Chronic Active MIKEGEENA CUNNINGHAM I , Not Available disorders (13 disorders of MD (33951) sources.) both mitral and tricuspid valves Translations: [ MITRAL VALVE DISORDER, TRICUSPID VALVE DISEASE, NONRHEUMATIC MITRAL (VALVE) INSUFFICIENC] Cardiac Unspecified 09-14-2019 - Chronic Active MIKEGEENA PRICE , Not Available dysrhythmias atrial (22686) (21 sources.) fibrillation Translations: [ PAROXYSMAL ATRIAL FIBRILLATION, CARDIAC DYSRHYTHMIAS NEC, SUPRAVENTRICUL AR TACHYCARDIA] Past or Other Problems Problem Normalized Date of Normalized Normalized Provider Fac ility Classification Problem(s) Problem Problem Problem Sta tus Onset/Resoluti Duration on Other lower Other Episodic Completed JEFF PRICE , Not Av ailable respiratory respiratory (95630) disease (4 abnormalities sources.) Procedures Procedure Normalized Procedure Procedure Result Performer Facility Date DESTRUCTION OF no information no name (no phone) Not Availab le (78236) [facility] DESTRUCTION OF no information no name (no phone) Not Availab le (36754) PROSTATE, ENDO EXTIRPATION OF MATTER no information no name (no phone) Not Available (20297) FROM [facility] Immunizations No Information Results The data below is from unstructured sourcesNo Known Relevant Diagnostic Tests, Laboratory Data and/or Discharge Summary. Vital Signs The data below is from unstructured sources Vital Response Date/Time Temperature (Fahrenheit) 98 degrees F (97.6 - 99.5) 09/06/2015 10:20am Temperature (Calculated Celsius) 36. 6696 degrees C (36.4 - 37.5) 09/06/2015 10:20am Temperature Source Tympanic 08/15/2015 9:42am Pulse Rate (adult) 81 bpm (60 - 90) 09/06/2015 10:20am Respiratory Rate 18 bpm (12 - 24) 09/06/2015 10:20am O2 Sat by Pulse Oximetry 98 % (88 - 100) 09/06/2015 10:20am Blood Pressure 151/73 mm Hg 09/06/2015 10:20am Blood Pressure Mean 99 mm Hg 09/06/2015 10:20am Pain Pain Intensity 0 2015 10:20am Height (Feet) 5 feet 10:20am Height (Inches) 6 inches 09/06/2015 10:20am Height (Centimeters) 167.6 cm 08/14/2015 11:34am Height (Calculated Centimeters) 167. 603213 cm 09/06/2015 10:20am Weight (Pounds) 160 pounds 09/06/2015 10:20am Weight (Calculated Grams) 93078.000 gm 08/15/2015 6:18am Weight (Calculated Kilograms) 72.574 780 kilograms 09/06/2015 10:20am Weight (Kilograms) 74.5 kg 08/15/2015 6:18am Calculated BMI 25.82 10:20am Vital Response Date/Time Temperature (Fahrenheit) 97.4 degree s F (97.6 - 99.5) 10/20/2015 8:56am Temperature (Calculated Celsius) 36. 89353 degrees C (36.4 - 37.5) 10/20/2015 8:56am Temperature Source Tympanic 10/10/2015 2:00pm Pulse Rate (adult) 92 bpm (60 - 90) 10/20/2015 8:56am Respiratory Rate 16 bpm (12 - 24) 10/20/2015 8:56am O2 Sat by Pulse Oximetry 98 % (88 - 100) 10/20/2015 8:56am Blood Pressure 143/70 mm Hg 10/20/2015 8:56am Blood Pressure Mean 94 mm Hg 10/20/2015 8:56am Pain Pain Intensity 0 2015 8:56am Height (Feet) 5 feet 09/2015 8:56am Height (Inches) 6 inches 10/20/2015 8:56am Height (Calculated Centimeters) 167. 284370 cm 10/20/2015 8:56am Weight (Pounds) 154 pounds 10/20/2015 8:56am Weight (Ounces) 0.0 oz 0 10/03/2015 1:21pm Weight (Calculated Grams) 82846.188 gm 10/03/2015 1:21pm Weight (Calculated Kilograms) 69.853 226 kilograms 10/20/2015 8:56am Calculated BMI 25.66 1:21pm Vital Response Date/Time Temperature (Fahrenheit) 97.9 degree s F (97.6 - 99.5) 10/21/2015 7:15pm Temperature (Calculated Celsius) 36. 30001 degrees C (36.4 - 37.5) 10/21/2015 7:15pm Temperature Source Temporal 10/21/2015 7:15pm Pulse Rate (adult) 109 bpm (60 - 90) 10/21/2015 7:15pm Respiratory Rate 18 bpm (12 - 24) 10/21/2015 7:15pm O2 Sat by Pulse Oximetry 100 % (88 - 100) 10/21/2015 7:15pm Blood Pressure 158/64 mm Hg 10/21/2015 7:15pm Blood Pressure Mean 95 mm Hg 10/21/2015 7:15pm Pain Pain Intensity 0 2015 7:15pm Height (Feet) 5 feet 10/2015 7:15pm Height (Inches) 6 inches 10/21/2015 7:15pm Height (Calculated Centimeters) 167. 141774 cm 10/21/2015 7:15pm Weight (Pounds) 152 pounds 10/21/2015 7:15pm Weight (Ounces) 0.0 oz 0 10/03/2015 1:21pm Weight (Calculated Grams) 16403.188 gm 10/03/2015 1:21pm Weight (Calculated Kilograms) 68.946 041 kilograms 10/21/2015 7:15pm Calculated BMI 25.66 1:21pm Vital Response Date/Time Temperature (Fahrenheit) 98.7 degree s F (97.6 - 99.5) 10/31/2015 4:14pm Temperature (Calculated Celsius) 37. 50214 degrees C (36.4 - 37.5) 10/31/2015 2:50pm Temperature Source Tympanic 10/31/2015 4:14pm Pulse Rate (adult) 91 bpm (60 - 90) 10/31/2015 4:14pm Respiratory Rate 18 bpm (12 - 24) 10/31/2015 4:14pm O2 Sat by Pulse Oximetry 98 % (88 - 100) 10/31/2015 4:14pm Blood Pressure 146/70 mm Hg 10/31/2015 4:14pm Blood Pressure Mean 95 mm Hg 10/31/2015 2:50pm Pain Pain Intensity 0 2015 2:50pm Weight (Pounds) 158 pounds 10/30/2015 10:00pm Weight (Calculated Grams) 57162.595 gm 10/30/2015 10:00pm Weight (Calculated Kilograms) 71.667 595 kilograms 10/30/2015 10:00pm Vital Response Date/Time Temperature (Fahrenheit) 96.8 degree s F (97.6 - 99.5) 10/10/2015 2:00pm Temperature (Calculated Celsius) 36. 27459 degrees C (36.4 - 37.5) 10/10/2015 2:00pm Temperature Source Tympanic 10/10/2015 2:00pm Pulse Rate (adult) 86 bpm (60 - 90) 10/10/2015 2:00pm Respiratory Rate 16 bpm (12 - 24) 10/10/2015 2:00pm O2 Sat by Pulse Oximetry 98 % (88 - 100) 10/10/2015 2:00pm Blood Pressure 113/66 mm Hg 10/10/2015 2:00pm Blood Pressure Mean 82 mm Hg 10/10/2015 2:00pm Pain Pain Intensity 5 2015 2:00pm Height (Feet) 5 feet 1:21pm Height (Inches) 6.00 inches 10/03/2015 1:21pm Height (Calculated Centimeters) 167. 564162 cm 10/03/2015 1:21pm Weight (Pounds) 159 pounds 10/03/2015 1:21pm Weight (Ounces) 0.0 oz 0 10/03/2015 1:21pm Weight (Calculated Grams) 78265.188 gm 10/03/2015 1:21pm Weight (Calculated Kilograms) 72.121 188 kilograms 10/03/2015 1:21pm Calculated BMI 25.66 1:21pm Vital Response Date/Time Temperature Source Tympanic 08/15/2015 9:42am Pulse Rate (adult) 81 bpm (60 - 90) 08/15/2015 9:42am Respiratory Rate 22 bpm (12 - 24) 08/15/2015 9:42am O2 Sat by Pulse Oximetry 100 % (88 - 100) 08/15/2015 9:42am Blood Pressure 148/62 mm Hg 08/15/2015 9:42am Blood Pressure Mean 90 mm Hg 08/15/2015 8:27am Pain Pain Intensity 0 2015 8:27am Height (Centimeters) 167.6 cm 08/14/2015 11:34am Weight (Calculated Grams) 70352.000 gm 08/15/2015 6:18am Weight (Kilograms) 74.5 kg 08/15/2015 6:18am Calculated BMI 25.56 11:34am Vital Response Date/Time Temperature (Fahrenheit) 96.6 degree s F (97.6 - 99.5) 01/30/2016 8:00am Temperature (Calculated Celsius) 35. 51079 degrees C (36.4 - 37.5) 01/30/2016 8:00am Temperature Source Tympanic 01/30/2016 8:00am Pulse Rate (adult) 77 bpm (60 - 90) 01/30/2016 8:00am Respiratory Rate 18 bpm (12 - 24) 01/30/2016 8:00am O2 Sat by Pulse Oximetry 100 % (88 - 100) 01/30/2016 8:00am Blood Pressure 119/66 mm Hg 01/30/2016 8:00am Blood Pressure Mean 83 mm Hg 01/30/2016 8:00am Pain Numeric Pain Scale 0-No Pain 01/29/2016 2:30pm Height (Feet) 5 feet 8:45am Height (Inches) 6.00 inches 01/29/2016 8:45am Height (Calculated Centimeters) 167. 823753 cm 01/29/2016 8:45am Weight (Pounds) 169 pounds 01/30/2016 6:36am Weight (Ounces) 6.0 oz 0 01/30/2016 6:36am Weight (Calculated Grams) 16722.208 gm 01/30/2016 6:36am Weight (Calculated Kilograms) 76.827 208 kilograms 01/30/2016 6:36am Calculated BMI 25.5 01/16 8:45am Vital Response Date/Time Temperature (Fahrenheit) 98.7 degree s F (97.6 - 99.5) 10/31/2015 4:14pm Temperature (Calculated Celsius) 37. 97405 degrees C (36.4 - 37.5) 10/31/2015 2:50pm Temperature Source Tympanic 10/31/2015 4:14pm Pulse Rate (adult) 91 bpm (60 - 90) 10/31/2015 4:14pm Respiratory Rate 18 bpm (12 - 24) 10/31/2015 4:14pm O2 Sat by Pulse Oximetry 98 % (88 - 100) 10/31/2015 4:14pm Blood Pressure 146/70 mm Hg 10/31/2015 4:14pm Blood Pressure Mean 95 mm Hg 10/31/2015 2:50pm Pain Pain Intensity 0 2015 2:50pm Height (Feet) 5 feet 11/2015 5:50pm Height (Inches) 6.00 inches 10/22/2015 5:50pm Height (Calculated Centimeters) 167. 510219 cm 10/22/2015 5:50pm Weight (Pounds) 158 pounds 10/30/2015 10:00pm Weight (Ounces) 0.0 oz 0 10/22/2015 6:00pm Weight (Calculated Grams) 39577.595 gm 10/30/2015 10:00pm Weight (Calculated Kilograms) 71.667 595 kilograms 10/30/2015 10:00pm Calculated BMI 25.5 11/2015 5:50pm Vital Response Date/Time Temperature (Fahrenheit) 96.9 degree s F (97.6 - 99.5) 05/13/2017 8:02am Temperature (Calculated Celsius) 36. 72728 degrees C (36.4 - 37.5) 05/13/2017 8:02am Temperature Source Tympanic 05/13/2017 8:02am Pulse Rate (adult) 50 bpm (60 - 90) 05/13/2017 10:39am Respiratory Rate 16 bpm (12 - 24) 05/13/2017 10:39am O2 Sat by Pulse Oximetry 98 % (88 - 100) 05/13/2017 10:39am Blood Pressure 130/68 mm Hg 05/13/2017 10:39am Blood Pressure Mean 93 mm Hg 05/13/2017 10:05am Pain Numeric Pain Scale 0-No Pain 05/13/2017 10:39am Height (Feet) 5 feet 8:04am Height (Inches) 6.00 inches 05/13/2017 8:04am Height (Calculated Centimeters) 167. 809772 cm 05/13/2017 8:04am Weight (Pounds) 152 pounds 05/13/2017 8:04am Weight (Ounces) 0.0 oz 1 8:04am Weight (Calculated Grams) 41717.04 gm 05/13/2017 8:04am Weight (Calculated Kilograms) 68.946 041 kilograms 05/13/2017 8:04am Calculated BMI 24.5 04/19 8:04am Vital Response Date/Time Temperature (Fahrenheit) 96.9 degree s F (97.6 - 99.5) 05/13/2017 8:02am Temperature (Calculated Celsius) 36. 66024 degrees C (36.4 - 37.5) 05/13/2017 8:02am Temperature Source Tympanic 05/13/2017 8:02am Pulse Rate (adult) 50 bpm (60 - 90) 05/13/2017 10:39am Respiratory Rate 16 bpm (12 - 24) 05/13/2017 10:39am O2 Sat by Pulse Oximetry 98 % (88 - 100) 05/13/2017 10:39am Blood Pressure 130/68 mm Hg 05/13/2017 10:39am Blood Pressure Mean 93 mm Hg 05/13/2017 10:05am Pain Numeric Pain Scale 0-No Pain 05/13/2017 10:39am Height (Feet) 5 feet 8:04am Height (Inches) 6.00 inches 05/13/2017 8:04am Height (Calculated Centimeters) 167. 620836 cm 05/13/2017 8:04am Weight (Pounds) 152 pounds 05/13/2017 8:04am Weight (Ounces) 0.0 oz 1 8:04am Weight (Calculated Grams) 43771.04 gm 05/13/2017 8:04am Weight (Calculated Kilograms) 68.946 041 kilograms 05/13/2017 8:04am Calculated BMI 24.5 04/19 8:04am Interventions No Information Plan of Treatment The data below is from unstructured sources Discharge Date 09/06/15 11:42am Disposition 01 HOME, SELF-CARE Condition at Discharge Improved Instructions/Education Provided Acut e Urinary Retention in Women (ED) Prescriptions See Medication Section Referrals MARCUS LILLY MD Care Physician MARCUS LILLY MD - Primary Care Physician ALBA TSE MD - Additional Instructions/Education 1. Follow-up with your regular doctor next week or at your earliest convenience 2. Call Dr. Tse today to make an appoi ntment to be seen for when you return from her vacation. His number has been provided 3. Leave the catheter in place until Wed morning. At that time he may remove it herself prior to going to the airport 3. Antibiotics as directed 4. Return to the emergency room in the m eantime if you develop any bladder fullness, pain, nausea fevers or chills or if the catheter does not seem to be emptying. All discharge instructions reviewed with patient and/or family. Voiced understanding. Discharge Date 10/20/15 11:20am Disposition 01 HOME, SELF-CARE Condition at Discharge Improved Instructions/Education Provided Urin kelly Tract Infection in Men (ED) How to Care for Your Moses Catheter (ED) Prescriptions See Medication Section Referrals MARCUS LILLY MD Care Physician Additional Instructions/Education Fo llow-up with Dr. Tse tomorrow morning. Empty your catheter bag frequently and keep below the level of your waist. Return to care if symptoms worsen. Continue antibiotics as prescribed until otherwise directed by your doctor. The antibiotic your prescribed may turn your urine and orange color. Follow-up on your urine culture with Dr. Tse. All discharge instructions reviewed with patient and/or family. Voiced understanding. Discharge Date 10/21/15 8:22pm Disposition 01 HOME, SELF-CARE Condition at Discharge Improved Instructions/Education Provided How to Care for Your Moses Catheter (ED) Prescriptions See Medication Section Referrals MARCUS LILLY MD [facility] Physician Additional Instructions/Education Al l discharge instructions reviewed with patient and/or family. Voiced understanding. CONTINUE USUAL HOME MEDICATIONS AND ORDERS. FOLLOW-UP WITH DR. TSE PREVIOUSLY SCHEDULED. RETURN TO THE EMERGENCY DEPARTMENT FOR WORSENED PAIN, ABDOMINAL SWELLING, FEVER, LEAKING OF CATHETER, OR ANY OTHER CONCERNS. Prescriptions See Medication Section Discharge Date 10/10/15 3:55pm Disposition [facility] TO CODE Instructions/Education Provided Acut e Hematuria (GEN) Prescriptions See Medication Section Discharge Date 08/15/15 9:45am Instructions/Education Provided CARD IAC CATH DISCHARGE INSTRUC Prescriptions See Medication Section Discharge Date 01/30/16 10:45am Instructions/Education Provided Atri al Fibrillation (DC) Prescriptions See Medication Section Discharge Date 10/10/15 3:55pm Disposition 05 XFER OTHER Instructions/Education Provided Acut e Hematuria (GEN) Prescriptions See Medication Section Discharge Date 10/31/15 3:50pm Disposition 09 ADMITTED INPATIENT Instructions/Education Provided Acut e Hematuria (DC) Forms Provided PDI Surgical Prescriptions See Medication Section Referrals (Unspecified) - Reason(s) for Referral: FOLLOW UP WITH DR TSE ON 11/11/15 AT 3:15 PM Care Plan and Goals See Discharge In structions Section Discharge Date 05/13/17 10:41am Instructions/Education Provided Card ioversion (DC) Prescriptions See Medication Section Discharge Date 05/13/17 10:41am Instructions/Education Provided Card ioversion (DC) Prescriptions See Medication Section Goals No Information Social History The data below is from unstructured sources History Response Recorde d Date/Time Hx Family Cancer Y brother 08/13/08 4:27pm Hx Family Breast Cancer N 08/13/08 4:27pm Hx Family Lung Cancer Y brother 08/13/08 4:27pm Hx Family Colorectal Cancer N 08/13/08 4:27pm Hx Family Cardiac Disorders Y father , brother 08/13/08 4:27pm Hx Family Stroke Y father 08/13/08 4:27pm Hx Family Hypertension Y father, brother 08/13/08 4:27pm Hx Family Myocardial Infarction Y fa ther and brother 08/13/08 4:27pm Hx Family Cystic Fibrosis N 08/13/08 4:27pm Functional Status The data below is from unstructured sources Query Response Date Jim rded Patient Orientation Person Place Time Situation Eyes Open October 11, 2015 2:28pm Comprehension Ability Understands Co ncepts October 09, 2015 8:00pm Query Response Date Jim rded Patient Orientation Person Place Time Situation August 15, 2015 10:01am Comprehension Ability Understands Co ncepts August 15, 2015 8:14am Query Response Date Jim rded Patient Orientation Person Place January 30, 2016 1:17pm Comprehension Ability Understands Co ncepts January 29, 2016 12:45pm Query Response Date Jim rded Patient Orientation Person Place Time Situation Eyes Open October 10, 2015 4:03pm Comprehension Ability Understands Co ncepts October 09, 2015 8:00pm Query Response Date Jim rded Patient Orientation Person Place Time Situation October 31, 2015 4:16pm Comprehension Ability Understands Co ncepts October 30, 2015 8:00pm No functional status information available. Mental Status No Information Encounters Encounter Normalized Encounter Encounter Diagnosis Care Provi clementine Organization Date Type 03-28-2018 Patient encounter no information no name (no phone) no organization name (no phone) 05-13-2017 Patient encounter no information no name (no phone) no organization name - (no phone) 05-13-2017 12-28-2016 Patient encounter no information no name (no phone) no organization name (no phone) 12-24-2016 Patient encounter no information no name (no phone) no organization name (no phone) 01-29-2016 Patient encounter no information no name (no phone) no organization name - (no phone) 01-30-2016 11-20-2015 Patient encounter no information no name (no phone) no organization name - (no phone) 11-20-2015 08-14-2015 Patient encounter no information no name (no phone) no organization name - (no phone) 08-15-2015 09-26-2014 Patient encounter no information no name (no phone) no organization name (no phone) 09-19-2014 Patient encounter no information no name (no phone) no organization name (no phone) 01-20-2013 Patient encounter no information no name (no phone) no organization name - (no phone) 01-21-2013 09-13-2019 Patient encounter no information ANTONIETA Nicholson [facility] procedure STARR PA (no [facility] phone) (no phone) 09-21-2018 Patient encounter no information no name (no phone) no organization name procedure (no phone) 10-20-2015 Patient encounter no information no name (no phone) no organization name procedure (no phone) 08-31-2012 Patient encounter no information no name (no phone) no organization name procedure (no phone) 08-19-2012 Patient encounter no information no name (no phone) no organization name procedure (no phone) Medical Equipment No Information Payers The data below is from unstructured sources Payer Name Policy Number Subscriber Name Relationship [employer] [id number] Urszula Hsu W 01 Self / Same As Patient s Medicare [id number] Urszula Mazariegos 01 Self / Same As Patient Advance Directives Directive Response Recor ded Date/Time Advance Directives No 10:23am Health Care Power of Marine Geologist No 09/06/15 10:23am Organ Donor Yes 09/06/15 10:23am Resuscitation Status Full Code 09/06/15 10:23am Directive Response Recor ded Date/Time Advance Directives No 9:00am Health Care Power of Marine Geologist Y DAUG HTER DORON 10/20/15 9:00am Organ Donor Yes 10/20/15 9:00am Resuscitation Status Full Code 10/20/15 9:00am Directive Response Recor ded Date/Time Advance Directives No 7:15pm Health Care Power of Marine Geologist Y DAUG HTER DORON 10/21/15 7:15pm Organ Donor Yes 10/21/15 7:15pm Resuscitation Status Full Code 10/21/15 7:15pm Directive Response Recor ded Date/Time Advance Directives No 5:01pm Health Care Power of Marine Geologist Y DAUG HTER DORON 10/22/15 5:01pm Organ Donor Yes 10/22/15 5:01pm Directive Response Recor ded Date/Time Advance Directives No 1:10pm Health Care Power of Marine Geologist Y DAUG HTER DORON 10/03/15 1:10pm Organ Donor Yes 10/03/15 1:10pm Resuscitation Status Full Code 10/03/15 1:10pm Directive Response Recor ded Date/Time Advance Directives No 11:28am Health Care Power of Marine Geologist No 08/14/15 11:28am Organ Donor Yes 08/14/15 11:28am Resuscitation Status Full Code 08/14/15 11:28am Directive Response Recor ded Date/Time Advance Directives No 8:45am Health Care Power of Marine Geologist Y DAUG HTER DORON 01/29/16 8:45am Organ Donor Yes 01/29/16 8:45am Resuscitation Status Full Code 01/29/16 8:45am Directive Response Recor ded Date/Time Advance Directives No 5:01pm Health Care Power of Marine Geologist Y DAUG HTER DORON 10/22/15 5:01pm Organ Donor Yes 10/22/15 5:01pm Resuscitation Status Full Code 10/22/15 5:01pm Directive Response Recor ded Date Advance Directives N 9:04am Health Care Power of Marine Geologist N 08/13/08 4:51pm Organ Donor Y 08/31/12 9 :04am Directive Response Recor ded Date/Time Advance Directives No 8:01am Health Care Power of Marine Geologist Y - DA UGHTER DORON 05/13/17 8:01am Organ Donor Yes 05/13/17 8:01am Resuscitation Status Full Code 05/13/17 8:01am Discharge Instructions No hospital discharge instructions.No hospital discharge instructions.No hospital discharge instructions.No hospital discharge instructions.No hospital discharge instructions. Patient Instructions Physician Instructions Follow Up/Plan Appointment with Dr. Price's office in 2-4 weeks CARDIAC CATH DISCHARGE INSTRUCTIONS *Hold Metformin for 48 hours post heart cath. ACTIVITY * Go Home directly and rest. * Limit activity of the leg (or wrist if it was used) for 7 days including aerobics, swimming, jogging, bicycling, etc. * Restrict stair-climbing for 7 days if possible, if not, climb up with your non-cath leg, then bring together on the same step. * Avoid lifting, pushing, pulling or excessive movement of the affected extremity for 7 days. * Customary sexual activity may be resumed after 2 days-use caution not to use a position that strains or causes pain to the affected extremity. * No driving for 24 hours. * NO SMOKING. * Avoid straining for bowel movements for 7 days. * Gentle walking on level ground is allowed. * Returning to work will depend on the type of procedure and the results. Your doctor will discuss this with you. CALL YOUR DOCTOR FOR ANY OF THE FOLLOWING: *If bleeding from the puncture site occurs- Apply gentle pressure to site with clean cloth and call your doctor or EMS. * If a knot or lump forms under the skin, increases in size, or causes pain. * If bruising appears to be worsening or moving further down your leg instead of disappearing. * Temperature above 101 F. CARE OF YOUR GROIN INCISION; * Bruising or purple discoloration of the skin near the puncture site is common. * You may shower only, no bathtub bathing for 5 days. Be careful to avoid slipping as your leg may feel stiff. * If a closure device was used on your femoral artery, please see the attached guide regarding care of the device and your leg. * REMOVE the dressing from your groin the next day after your procedure in the shower. CARE OF YOUR WRIST INCISION; * Bruising or purple discoloration of the skin near the puncture site is common. * You may shower. * DO NOT submerge wrist. * Remove dressing in 24 hours. No hospital discharge instructions.No hospital discharge instructions. Patient Instructions Physician Instructions Plan Please make appointment to been seen in office in 10 days Discharge after hyperbaric Rx today Continue OP hyperbaric RX No more Plavix Change ASA 81mg to 325mg coated Increase oral fluids for 48 hours and then as needed. Diet and Activity as tolerated. If questions or concerns contact your physician Or seek help at emergency department. Patient Instructions Physician Instructions Follow Up/Plan Appointment with Dr. Price's office in 2-4 weeks CARDIAC CATH DISCHARGE INSTRUCTIONS *Hold Metformin for 48 hours post heart cath. ACTIVITY * Go Home directly and rest. * Limit activity of the leg (or wrist if it was used) for 7 days including aerobics, swimming, jogging, bicycling, etc. * Restrict stair-climbing for 7 days if possible, if not, climb up with your non-cath leg, then bring together on the same step. * Avoid lifting, pushing, pulling or excessive movement of the affected extremity for 7 days. * Customary sexual activity may be resumed after 2 days-use caution not to use a position that strains or causes pain to the affected extremity. * No driving for 24 hours. * NO SMOKING. * Avoid straining for bowel movements for 7 days. * Gentle walking on level ground is allowed. * Returning to work will depend on the type of procedure and the results. Your doctor will discuss this with you. CALL YOUR DOCTOR FOR ANY OF THE FOLLOWING: *If bleeding from the puncture site occurs- Apply gentle pressure to site with clean cloth and call your doctor or EMS. * If a knot or lump forms under the skin, increases in size, or causes pain. * If bruising appears to be worsening or moving further down your leg instead of disappearing. * Temperature above 101 F. CARE OF YOUR GROIN INCISION; * Bruising or purple discoloration of the skin near the puncture site is common. * You may shower only, no bathtub bathing for 5 days. Be careful to avoid slipping as your leg may feel stiff. * If a closure device was used on your femoral artery, please see the attached guide regarding care of the device and your leg. * REMOVE the dressing from your groin the next day after your procedure in the shower. CARE OF YOUR WRIST INCISION; * Bruising or purple discoloration of the skin near the puncture site is common. * You may shower. * DO NOT submerge wrist. * Remove dressing in 24 hours. No hospital discharge instruction information available. Additional Source Comments This clinical document has been generated using [employer] software that has been certified by the Office of the National Coordinator for Health Information Technology (ONC 15.99.04.3023.Diam.[id number]) and the National Committee for Devulcanizer Tender (NCQA, as an eMeasure certified technology). FOR RECORDS PERTAINING TO PATIENTS WHO ARE OR HAVE BEEN ENROLLED IN A CHEMICAL D EPENDENCY/SUBSTANCE ABUSE PROGRAM, SOME INFORMATION MAY BE OMITTED. This clinica l summary was aggregated from multiple sources. Caution should be exercised in using it in the provision of clinical care. This summary normalizes information from multiple sources, and as a consequence, information in this document may ma terially change the coding, format and clinical context of patient data. In brenda tion, data may be omitted in some cases. CLINICAL DECISIONS SHOULD BE BASED ON T HE PRIMARY CLINICAL RECORDS. [facility]. provides no warranty or guara ntee of the accuracy or completeness of information in this document.The followi ng information is based on time limited clinical information
--- OUTSIDE RECORDS SUMMARY | 2019-11-10 21:16 | XMS REPORT | Clinical Summary ---
Author Author [facility] Organization [facility] Address Unknown Phone Unavailable Care Team Providers Care Medical Office Technologist Name Role Phone Jabari Peguero MD PCP Bin Olmos MD Unavailable Enzo Cohn MD Unavailable Louie Hernandez MD Unavailable Azael Lehman MD Unavailable Source Comments Some departments are not documenting in the electronic medical record. If you d o not see the information that you expected, contact Release of Information in [facility] [employer] Information Management department at [phone] for further assistan ce in locating additional records.[facility] Allergies Comments Active Allergy Reactions Severity Noted Date Beta-Blockers DIZZINESS Low 10/10/2015 (Beta-Adrenergic Blocking Agts) Medications End Date Status Medication Sig Dispensed Refills Start Date Active amLODIPine (NORVASC) 10 Take 10 mg by 0 mg tablet mouth daily. Active aspirin EC 81 mg tablet Take 81 mg by 0 mouth daily. Active atorvastatin (LIPITOR) 10 Take 10 mg by 0 mg tabletIndications: mouth daily. Noon Indications: Noon Active levofloxacin (LEVAQUIN) Take 500 mg 0 500 mg tablet by mouth daily. Active naproxen (NAPROSYN) 250 Take 250 mg 0 mg tablet by mouth. Active omeprazole DR(+) Take 20 mg by 0 (PRILOSEC) 20 mg capsule mouth daily. Active omega 2-chg-jwc-fish oil Take 1 Cap by 0 300-1,000 mg mouth daily. capsuleIndications: Noon Indications: Noon Active vitamins, multiple tablet Take 1 Tab by 0 mouth daily. Active cholecalciferol (VITAMIN Take 1,000 0 D-3) 1,000 units tablet Units by mouth daily. Active nitroglycerin Take 1 [place] 0 (NITROLINGUAL) 400 by mouth mcg/spray translingual every 5 spray minutes as needed. Active hyoscyamine (ANASPAZ; Place 1 Tab 30 Tab 0 / NULEV; SYMAX FASTABS; under tongue 6 HYOMAX-FT; ED-SPAZ; every 4 hours OSCIMIN) 0.125 mg rapid as needed. dissolve tablet Active oxyCODONE (ROXICODONE) 5 Take 1 Tab by 30 Tab 0 mg tablet mouth every 4 6 hours as needed for Pain Earliest Fill Date: 10/13/15 Active polyethylene glycol 3350 Take 17 g by 119 g 0 (GLYCOLAX; MIRALAX) 17 mouth daily. 6 gram/dose powder Active senna/docusate (SENNA Take 1 Tab by 15 Tab 1 PLUS) 8.6/50 mg tablet mouth daily. 6 Active hyoscyamine (ANASPAZ; Take 1 Tab by 20 Tab 1 NULEV; SYMAX FASTABS; mouth every 4 6 HYOMAX-FT; ED-SPAZ; hours as OSCIMIN) 0.125 mg rapid needed for dissolve tablet Cramps. Take as needed for roa catheter related bladder discomfort and bladder spasms. Active clopiDOGrel (PLAVIX) 75 Take 1 Tab by 30 Tab 2 mg tablet mouth daily. 6 Active Problems Problem Noted Date Hemorrhagic cystitis 10/10/2015 Social History Date Tobacco Use Types Packs/Day Years Used Quit: 07/19/1996 Former Smoker Sex Assigned at Date Recorded Not on file Industry Job Start Date Occupation Not on file Not on file Not on file Travel End Travel History Travel Start No recent travel history available. Last Filed Vital Signs Reading Time Taken Comments Vital Sign 104/82 10/13/2015 12:06 PM CDT Blood Pressure 84 10/13/2015 12:06 PM CDT Pulse 36.6 C (97.9 F) 10/13/2015 12:06 PM CDT Temperature - - Respiratory Rate 100% 10/13/2015 12:06 PM CDT Oxygen Saturation - - Inhaled Oxygen Concentration 71.7 kg (158 lb) 10/11/2015 8:24 AM CDT Weight 170.2 cm (5' 7") 10/11/2015 8:24 AM CDT Height 24.75 10/11/2015 8:24 AM CDT Body Mass Index Plan of Treatment Health Maintenance Due Date Last Done Comments MEDICARE ANNUAL WELLNESS 1934 VISIT DTAP/TDAP VACCINES (1 - 02/27/1952 Tdap) PHYSICAL (COMPREHENSIVE) 02/27/1952 EXAM SHINGLES RECOMBINANT 02/27/1984 VACCINE (1 of 2) PNEUMONIA (PPSV23) 1999 VACCINE (1 of 2 - PCV13) INFLUENZA VACCINE 02/17/2020 Results Not on filefrom Last 3 Months Insurance Type Payer Benefit Subscriber ID Effective Phone Address Plan / Dates Group Medicare MEDICARE MEDICARE xxxxxxxxxx 1999-P PART A AND resent B AETNA AETNA xxxxxxxxxx 2001-P PPO/ELECT/ resent MGD CHOICE [id number] Advance Directives Patient Product Sales Engineer Explanation Type Date Recorded Advance 10/10/2015 3:46 PM Directive/DPOA Date Inactivated Comments Code Status Date Activated 10/13/2015 4:54 PM Full Code 10/10/2015 7:31 PM Provider has discussed Code Status Yes w/Patient or Family?
--- OUTSIDE RECORDS SUMMARY | 2019-11-10 21:17 | XMS REPORT | Continuity of Care Document ---
Author Organization Unknown Address Unknown Phone Unavailable Allergies Active Description Code Type Severity Reaction Onset Reported/Identified Relationship to Patient Clinical Status Yes Beta Blockers Beta Blockers Mild Intolerance 06/23/2011 Yes Beta Blockers Beta Blockers Mild SYNCOPE 11/01/2019 Yes Beta-Blockers (Beta-Adrenergic Bloc [id number] Drug Allergy Unknown SYNCOPE 11/10/2019 Medications There is no data. 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 23 OBSTRUCTIVE SLEEP APNEA (ADULT) (PEDIATR 10/16/2014 Ot 272.4 10/16/2014 Ot 401.9 10/16/2014 Ot 414.00 10/16/2014 Ot 427.89 10/18/2014 Ot 272.4 10/18/2014 Ot 401.9 10/18/2014 Ot 414.00 10/18/2014 Ot 427.89 08/14/2015 Ot 414.01 08/14/2015 Ot 786.50 08/14/2015 Ot 397.0 08/14/2015 Ot 401.9 08/14/2015 Ot 414.00 08/14/2015 Ot 416.8 08/14/2015 Ot 424.0 08/14/2015 Ot 401.9 08/14/2015 Ot 414.01 08/14/2015 Ot 397.0 08/14/2015 Ot 414.00 08/14/2015 Ot 424.0 08/14/2015 Ot 786.09 08/14/2015 Ot 414.00 08/14/2015 Ot 786.09 08/14/2015 Ot 272.4 08/14/2015 Ot 401.9 08/14/2015 Ot 414.00 08/14/2015 Ot 427.89 08/14/2015 Ot 272.4 08/14/2015 Ot 401.9 08/14/2015 Ot 414.00 08/14/2015 Ot 427.89 08/15/2015 JEFF ROMEO MD Ot E78. 5 HYPERLIPIDEMIA, UNSPECIFIED 08/15/2015 JEFF ROMEO MD Ot G47. 33 OBSTRUCTIVE SLEEP APNEA (ADULT) (PEDIATR 08/15/2015 JEFF ROMEO MD Ot I10 ESSENTIAL (PRIMARY) HYPERTENSION 08/15/2015 JEFF ROMEO MD Ot I25. 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 2 OTHER SECONDARY PULMONARY HYPERTENSION 08/15/2015 JEFF ROMEO MD Ot I47. 1 SUPRAVENTRICULAR TACHYCARDIA 08/15/2015 JEFF ROMEO MD Ot R07. 9 CHEST PAIN, UNSPECIFIED 08/15/2015 JEFF ROMEO MD Ot Z79.899 OTHER [facility] (CURRENT) DRUG THERAPY 08/15/2015 JEFF ROMEO MD Ot Z87.891 PERSONAL HISTORY OF NICOTINE DEPENDENCE 08/15/2015 JEFF ROMEO MD Ot Z95. 1 PRESENCE OF AORTOCORONARY BYPASS GRAFT 08/15/2015 JEFF ROMEO MD Ot Z98. 61 CORONARY ANGIOPLASTY STATUS 08/26/2015 Ot 414.01 08/26/2015 Ot 786.50 08/26/2015 Ot 397.0 08/26/2015 Ot 401.9 08/26/2015 Ot 414.00 08/26/2015 Ot 416.8 08/26/2015 Ot 424.0 08/26/2015 Ot 401.9 08/26/2015 Ot 414.01 08/26/2015 Ot 397.0 08/26/2015 Ot 414.00 08/26/2015 Ot 424.0 08/26/2015 Ot 786.09 08/26/2015 Ot 414.00 08/26/2015 Ot 786.09 08/26/2015 Ot 272.4 08/26/2015 Ot 401.9 08/26/2015 Ot 414.00 08/26/2015 Ot 427.89 08/26/2015 Ot 272.4 08/26/2015 Ot 401.9 08/26/2015 Ot 414.00 08/26/2015 Ot 427.89 09/06/2015 KI COX ENGINEER Ot F17.211 NICOTINE DEPENDENCE, CIGARETTES, IN AMEE 09/06/2015 KI COX ENGINEER Ot R33 .9 RETENTION OF URINE, UNSPECIFIED 09/06/2015 KI COX ENGINEER Ot Z85.46 PERSONAL HISTORY OF MALIGNANT NEOPLASM O 10/03/2015 CARMENCITA ROJAS, ALBA A Ot R31.0 10/03/2015 CARMENCITA ROJAS, ALBA A Ot R33.9 10/03/2015 CARMENCITA ROJAS, ALBA A Ot T83.018A 10/03/2015 CARMENCITA ROJAS, ALBA A Ot R31.0 10/03/2015 CARMENCITA ROJAS, ALBA A Ot R33.9 10/03/2015 CARMENCITA ROJAS, ALBA A Ot T83.018A 10/04/2015 CARMENCITA ROJAS, ALBA A Ot R31.0 10/04/2015 CARMENCITA ROJAS, ALBA A Ot R33.9 10/04/2015 CARMENCITA ROJAS, ALBA A Ot T83.018A 10/04/2015 CARMENCITA ROJAS, ALBA A Ot R31.0 10/04/2015 CARMENCITA ROJAS, ALBA A Ot R33.9 10/04/2015 CARMENCITA ROJAS, ALBA A Ot T83.018A 10/04/2015 CARMENCITA ROJAS, ALBA A Ot R31.0 10/04/2015 CARMENCITA ROJAS, ALBA A Ot R33.9 10/04/2015 CARMENCITA ROJAS, ALBA A Ot T83.018A 10/07/2015 CARMENCITA ROJAS, ALBA A Ot R31.0 10/07/2015 CARMENCITA ROJAS, ALBA A Ot R33.9 10/07/2015 CARMENCITA ROJAS, ALBA A Ot T83.018A 10/10/2015 CARMENCITA ROJAS, ALBA A Ot C61 MALIGNANT NEOPLASM OF PROSTATE 10/10/2015 CARMENCITA ROJAS, ALBA A Ot D62 ACUTE POSTHEMORRHAGIC ANEMIA 10/10/2015 CARMENCITA ROJAS, ALBA A Ot I10 ESSENTIAL (PRIMARY) HYPERTENSION 10/10/2015 ALBA TSE MD, Ot 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 10/10/2015 ALBA TSE MD, Ot K21.9 GASTRO-ESOPHAGEAL REFLUX DISEASE WITHOUT 10/10/2015 ALBA TSE MD, Ot N20.0 CALCULUS OF KIDNEY 10/10/2015 ALBA TSE MD, Ot N28.1 CYST OF KIDNEY, ACQUIRED 10/10/2015 ALBA TSE MD, Ot N30.4 1 IRRADIATION CYSTITIS WITH HEMATURIA 10/10/2015 ALAB TSE MD, Ot N32.8 9 OTHER SPECIFIED DISORDERS OF BLADDER 10/10/2015 ALBA TSE MD, Ot N39.0 URINARY TRACT INFECTION, SITE NOT SPECIF 10/10/2015 ALBA TSE MD Ot R31.0 10/10/2015 ALBA TSE MD, Ot R33.9 RETENTION OF URINE, UNSPECIFIED 10/10/2015 ALBA TSE MD Ot T83.018A BREAKDOWN (MECHANICAL) OF INDWELLING URE 10/10/2015 ALBA TSE MD, Ot Z87.8 91 PERSONAL HISTORY OF NICOTINE DEPENDENCE 10/11/2015 ALBA TSE MD Ot R31.0 10/11/2015 ALBA TSE MD Ot R33.9 10/11/2015 ALBA TSE MD, Ot T83.018A 10/20/2015 Ot I10 ESSENT IAL (PRIMARY) HYPERTENSION 10/20/2015 Ot N13.8 OTHE R OBSTRUCTIVE AND REFLUX UROPATHY 10/20/2015 Ot N39.0 URIN EVA TRACT INFECTION, SITE NOT SPECIF 10/20/2015 Ot R31.0 HYUN S HEMATURIA 10/20/2015 Ot Z79.02 TERRELL G TERM (CURRENT) USE OF ANTITHROMBOTI 10/20/2015 Ot Z85.51 PER NUNO HISTORY OF MALIGNANT NEOPLASM O 10/21/2015 DWAYNE PASTOR Ot T83.018A BREAKDOWN (MECHANICAL) OF INDWELLING URE 10/21/2015 DWAYNE PASTOR Ot Z87.891 PERSONAL HISTORY OF NICOTINE DEPENDENCE 10/22/2015 Ot I10 10/22/2015 Ot N13.8 10/22/2015 Ot N39.0 10/22/2015 Ot R31.0 10/22/2015 Ot Z79.02 10/22/2015 Ot Z85.51 10/22/2015 DWAYNE PASTOR Ot T83.018A 10/22/2015 DWAYNE PASTOR Ot Z87.891 10/22/2015 CARMENCITA ROJAS, ALBA Francis Ot R31.9 10/22/2015 CARMENCITA ROJAS, ALBA Francis Ot N20.0 10/22/2015 CARMENCITA ROJAS, ALBA Francis Ot N28.8 9 10/22/2015 CARMENCITA ROJAS, ALBA Francis Ot R31.9 10/23/2015 CARMENCITA ROJAS, ALBA Francis Ot D50.0 10/23/2015 CARMENCITA ROJAS, ALBA Francis Ot N30.4 1 10/23/2015 CARMENCITA ROJAS, ALBA A Ot Z79.0 2 10/23/2015 CARMENCITA ROJAS, ALBA A Ot Z79.8 2 10/23/2015 CARMENCITA ROJAS, ALBA A Ot Z85.4 6 10/31/2015 Ot I10 10/31/2015 Ot N13.8 10/31/2015 Ot N39.0 10/31/2015 Ot R31.0 10/31/2015 Ot Z79.02 10/31/2015 Ot Z85.51 10/31/2015 CARMENCITA ROJAS, ALBA A Ot D62 10/31/2015 CARMENCITA ROJAS, ALBA A Ot N30.4 1 10/31/2015 CARMENCITA ROJAS, ALBA Penny Ot Z79.0 2 10/31/2015 CARMENCITA ROJAS, ALBA A Ot Z79.8 2 10/31/2015 CARMENCITA ROJAS, ALBA A Ot Z85.4 6 10/31/2015 CARMENCITA ROJAS, ALBA Francis Ot D62 ACUTE POSTHEMORRHAGIC ANEMIA 10/31/2015 CARMENCITA ROJAS, ALBA Francis Ot I96 GANGRENE, NOT ELSEWHERE CLASSIFIED 10/31/2015 CARMENCITA ROJAS, ALBA Francis Ot N30.4 1 IRRADIATION CYSTITIS WITH HEMATURIA 10/31/2015 CARMENCITA ROJAS, ALBA Francis Ot T66.XXXA RADIATION SICKNESS, UNSPECIFIED, INITIAL 10/31/2015 CARMENCITA ROJAS, ALBA Francis Ot Z79.0 2 [employer] (CURRENT) USE OF ANTITHROMBOTI 10/31/2015 ALBA TSE MD Ot Z79.8 2 [facility] (CURRENT) USE OF ASPIRIN 10/31/2015 ALBA TSE MD Ot Z85.4 6 PERSONAL HISTORY OF MALIGNANT NEOPLASM O 11/20/2015 LIZET PALACIOS MD Ot 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 11/20/2015 LIZET PALACIOS MD Ot T66.XXXA RADIATION SICKNESS, UNSPECIFIED, INITIAL 11/20/2015 LIZET PALACIOS MD Ot Z85.46 PERSONAL HISTORY OF MALIGNANT NEOPLASM O 11/20/2015 LIZET PALACIOS MD Ot Z92 .3 PERSONAL HISTORY OF IRRADIATION 11/30/2015 Ot I10 ESSENT IAL (PRIMARY) HYPERTENSION 11/30/2015 Ot N13.8 OTHE R OBSTRUCTIVE AND REFLUX UROPATHY 11/30/2015 Ot N39.0 URIN EVA TRACT INFECTION, SITE NOT SPECIF 11/30/2015 Ot R31.0 HYUN S HEMATURIA 11/30/2015 Ot Z79.02 TERRELL G TERM (CURRENT) USE OF ANTITHROMBOTI 11/30/2015 Ot Z85.51 PER NUNO HISTORY OF MALIGNANT NEOPLASM O 01/30/2016 JEFF ROMEO MD Ot E78. 5 HYPERLIPIDEMIA, UNSPECIFIED 01/30/2016 JEFF ROMEO MD Ot G47. 33 OBSTRUCTIVE SLEEP APNEA (ADULT) (PEDIATR 01/30/2016 JEFF ROMEO MD Ot I10 ESSENTIAL (PRIMARY) HYPERTENSION 01/30/2016 JEFF ROMEO MD Ot I25. 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 2 OTHER SECONDARY PULMONARY HYPERTENSION 01/30/2016 JEFF ROMEO MD Ot I48. 0 PAROXYSMAL ATRIAL FIBRILLATION 01/30/2016 JEFF ROMEO MD Ot R31. 9 HEMATURIA, UNSPECIFIED 01/30/2016 JEFF ROMEO MD Ot Z79.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 01/30/2016 JEFF ROMEO MD Ot Z95. 1 PRESENCE OF AORTOCORONARY BYPASS GRAFT 01/30/2016 JEFF ROMEO MD Ot Z95. 5 PRESENCE OF CORONARY ANGIOPLASTY IMPLANT 02/17/2016 Ot I10 ESSENT IAL (PRIMARY) HYPERTENSION 02/17/2016 Ot N13.8 OTHE R OBSTRUCTIVE AND REFLUX UROPATHY 02/17/2016 Ot N39.0 URIN EVA TRACT INFECTION, SITE NOT SPECIF 02/17/2016 Ot R31.0 HYUN S HEMATURIA 02/17/2016 Ot Z79.02 TERRELL G TERM (CURRENT) USE OF ANTITHROMBOTI 02/17/2016 Ot Z85.51 PER NUNO HISTORY OF MALIGNANT NEOPLASM O 02/25/2016 JEFF ROMEO MD Ot E78. 5 HYPERLIPIDEMIA, UNSPECIFIED 02/25/2016 JEFF ROMEO MD Ot G47. 33 OBSTRUCTIVE SLEEP APNEA (ADULT) (PEDIATR 02/25/2016 JEFF ROMEO MD Ot I10 ESSENTIAL (PRIMARY) HYPERTENSION 02/25/2016 JEFF ROMEO MD Ot I25. 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 2 OTHER SECONDARY PULMONARY HYPERTENSION 02/25/2016 JEFF ROMEO MD Ot I48. 0 PAROXYSMAL ATRIAL FIBRILLATION 02/25/2016 JEFF ROMEO MD Ot R31. 9 HEMATURIA, UNSPECIFIED 02/25/2016 JEFF ROMEO MD Ot Z79.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 02/25/2016 JEFF ROMEO MD Ot Z95. 1 PRESENCE OF AORTOCORONARY BYPASS GRAFT 02/25/2016 JEFF ROMEO MD Ot Z95. 5 PRESENCE OF CORONARY ANGIOPLASTY IMPLANT 03/19/2016 Ot I10 ESSENT IAL (PRIMARY) HYPERTENSION 03/19/2016 Ot N13.8 OTHE R OBSTRUCTIVE AND REFLUX UROPATHY 03/19/2016 Ot N39.0 URIN EVA TRACT INFECTION, SITE NOT SPECIF 03/19/2016 Ot R31.0 HYUN S HEMATURIA 03/19/2016 Ot Z79.02 TERRELL G TERM (CURRENT) USE OF ANTITHROMBOTI 03/19/2016 Ot Z85.51 PER NUNO HISTORY OF MALIGNANT NEOPLASM O 04/18/2016 DWAYNE PASTOR Ot T83.018A BREAKDOWN (MECHANICAL) OF INDWELLING URE 04/18/2016 DWAYNE PASTOR Ot Z87.891 PERSONAL HISTORY OF NICOTINE DEPENDENCE 08/19/2016 Ot I10 ESSENT IAL (PRIMARY) HYPERTENSION 08/19/2016 Ot N13.8 OTHE R OBSTRUCTIVE AND REFLUX UROPATHY 08/19/2016 Ot N39.0 URIN EVA TRACT INFECTION, SITE NOT SPECIF 08/19/2016 Ot R31.0 HYUN S HEMATURIA 08/19/2016 Ot Z79.02 TERRELL G TERM (CURRENT) USE OF ANTITHROMBOTI 08/19/2016 Ot Z85.51 PER NUNO HISTORY OF MALIGNANT NEOPLASM O 12/23/2016 Ot 397.0 TRIC USPID VALVE DISEASE 12/23/2016 Ot 414.00 COR ON ATHEROSCLER NOS TYPE VESSEL, NATIV 12/23/2016 Ot 424.0 MITR AL VALVE DISORDER 12/23/2016 Ot 786.09 RES PIRATORY ABNORM NEC 12/23/2016 Ot 414.00 COR ON ATHEROSCLER NOS TYPE VESSEL, NATIV 12/23/2016 Ot 786.09 RES PIRATORY ABNORM NEC 12/23/2016 Ot 272.4 HYPE RLIPIDEMIA NEC/NOS 12/23/2016 Ot 401.9 HYPE RTENSION NOS 12/23/2016 Ot 414.00 COR ON ATHEROSCLER NOS TYPE VESSEL, NATIV 12/23/2016 Ot 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 2 MIXED HYPERLIPIDEMIA 12/25/2016 JEFF ROMEO MD Ot I08. 1 RHEUMATIC DISORDERS OF BOTH MITRAL AND T 12/25/2016 JEFF ROMEO MD Ot I10 ESSENTIAL (PRIMARY) HYPERTENSION 12/25/2016 JEFF ROMEO MD Ot I25. 10 ATHSCL HEART DISEASE OF [place] CORONARY 12/25/2016 JEFF ROMEO MD Ot I48. 0 PAROXYSMAL ATRIAL FIBRILLATION 12/25/2016 JEFF ROMEO MD Ot E78. 2 MIXED HYPERLIPIDEMIA 12/25/2016 JEFF ROMEO MD Ot I08. 1 RHEUMATIC DISORDERS OF BOTH MITRAL AND T 12/25/2016 JEFF ROMEO MD Ot I10 ESSENTIAL (PRIMARY) HYPERTENSION 12/25/2016 JEFF ROMEO MD Ot I25. 10 ATHSCL HEART DISEASE OF [place] CORONARY 12/25/2016 JEFF ROMEO MD Ot I48. 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 2 MIXED HYPERLIPIDEMIA 12/28/2016 JEFF ROMEO MD Ot I08. 1 RHEUMATIC DISORDERS OF BOTH MITRAL AND T 12/28/2016 JEFF ROMEO MD Ot I10 ESSENTIAL (PRIMARY) HYPERTENSION 12/28/2016 JEFF ROMEO MD Ot I25. 10 ATHSCL HEART DISEASE OF [place] CORONARY 12/28/2016 JEFF ROMEO MD Ot I48. 0 PAROXYSMAL ATRIAL FIBRILLATION 01/14/2017 JEFF ROMEO MD Ot E78. 2 MIXED HYPERLIPIDEMIA 01/14/2017 JEFF ROMEO MD Ot I08. 1 RHEUMATIC DISORDERS OF BOTH MITRAL AND T 01/14/2017 JEFF ROMEO MD Ot I10 ESSENTIAL (PRIMARY) HYPERTENSION 01/14/2017 JEFF ROMEO MD Ot I25. 10 ATHSCL HEART DISEASE OF [place] CORONARY 01/14/2017 JEFF ROMEO MD Ot I48. 0 PAROXYSMAL ATRIAL FIBRILLATION 01/16/2017 Ot I10 ESSENT IAL (PRIMARY) HYPERTENSION 01/16/2017 Ot N13.8 OTHE R OBSTRUCTIVE AND REFLUX UROPATHY 01/16/2017 Ot N39.0 URIN EVA TRACT INFECTION, SITE NOT SPECIF 01/16/2017 Ot R31.0 HYUN S HEMATURIA 01/16/2017 Ot Z79.02 TERRELL G TERM (CURRENT) USE OF ANTITHROMBOTI 01/16/2017 Ot Z85.51 PER NUNO HISTORY OF MALIGNANT NEOPLASM O 01/20/2017 JEFF ROMEO MD Ot E78. 2 MIXED HYPERLIPIDEMIA 01/20/2017 JEFF ROMEO MD Ot I08. 1 RHEUMATIC DISORDERS OF BOTH MITRAL AND T 01/20/2017 JEFF ROMEO MD Ot I10 ESSENTIAL (PRIMARY) HYPERTENSION 01/20/2017 JEFF ROMEO MD Ot I25. 10 ATHSCL HEART DISEASE OF [place] CORONARY 01/20/2017 JEFF ROMEO MD Ot I48. 0 PAROXYSMAL ATRIAL FIBRILLATION 01/21/2017 JEFF ROMEO MD Ot E78. 2 MIXED HYPERLIPIDEMIA 01/21/2017 JEFF ROMEO MD Ot I10 ESSENTIAL (PRIMARY) HYPERTENSION 01/21/2017 JEFF ROMEO MD Ot I25. 10 ATHSCL HEART DISEASE OF [place] CORONARY 01/21/2017 JEFF ROMEO MD Ot I48. 0 PAROXYSMAL ATRIAL FIBRILLATION 02/16/2017 Ot I10 ESSENT IAL (PRIMARY) HYPERTENSION 02/16/2017 Ot N13.8 OTHE R OBSTRUCTIVE AND REFLUX UROPATHY 02/16/2017 Ot N39.0 URIN EVA TRACT INFECTION, SITE NOT SPECIF 02/16/2017 Ot R31.0 HYUN S HEMATURIA 02/16/2017 Ot Z79.02 TERRELL G TERM (CURRENT) USE OF ANTITHROMBOTI 02/16/2017 Ot Z85.51 PER NUNO HISTORY OF MALIGNANT NEOPLASM O 02/25/2017 JEFF ROMEO MD Ot E78. 2 MIXED HYPERLIPIDEMIA 02/25/2017 JEFF ROMEO MD Ot I10 ESSENTIAL (PRIMARY) HYPERTENSION 02/25/2017 JEFF ROMEO MD Ot I25. 10 ATHSCL HEART DISEASE OF [place] CORONARY 02/25/2017 JEFF ROMEO MD Ot I48. 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 05/13/2017 Alesha SKY MD Ot Z79.01 [facility] (CURRENT) USE OF ANTICOAGULANT 05/13/2017 Alesha SKY MD, Ot 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.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 05/13/2017 Alesha SKY MD, Ot Z85.46 PERSONAL HISTORY OF MALIGNANT NEOPLASM O 05/13/2017 Alesha SKY MD, Ot Z87.891 PERSONAL HISTORY OF NICOTINE DEPENDENCE 05/13/2017 Alesha SKY MDZWAN Ot Z95 .1 PRESENCE OF AORTOCORONARY BYPASS GRAFT 05/13/2017 Alesha SKY MD Ot Z95 .5 PRESENCE OF CORONARY ANGIOPLASTY IMPLANT 03/28/2018 Ot 272.4 HYPE RLIPIDEMIA NEC/NOS 03/28/2018 Ot 401.9 HYPE RTENSION NOS 03/28/2018 Ot 414.00 COR ON ATHEROSCLER NOS TYPE VESSEL, NATIV 03/28/2018 Ot 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 2 MIXED HYPERLIPIDEMIA 03/28/2018 JEFF ROMEO MD Ot I10 ESSENTIAL (PRIMARY) HYPERTENSION 03/28/2018 JEFF ROMEO MD Ot I25. 10 ATHSCL HEART DISEASE OF [place] CORONARY 03/28/2018 JEFF ROMEO MD Ot I48. 0 PAROXYSMAL ATRIAL FIBRILLATION 03/28/2018 JEFF ROMEO MD Ot E78. 2 MIXED HYPERLIPIDEMIA 03/28/2018 JEFF ROMEO MD Ot I08. 1 RHEUMATIC DISORDERS OF BOTH MITRAL AND T 03/28/2018 JEFF ROMEO MD Ot I10 ESSENTIAL (PRIMARY) HYPERTENSION 03/28/2018 JEFF ROMEO MD Ot I25. 10 ATHSCL HEART DISEASE OF [place] CORONARY 03/28/2018 JEFF ROMEO MD Ot I48. 0 PAROXYSMAL ATRIAL FIBRILLATION 03/28/2018 JEFF ROMEO MD Ot E78. 2 MIXED HYPERLIPIDEMIA 03/28/2018 JEFF ROMEO MD Ot I10 ESSENTIAL (PRIMARY) HYPERTENSION 03/28/2018 JEFF ROMEO MD Ot I25. 10 ATHSCL HEART DISEASE OF [place] CORONARY 03/28/2018 JEFF ROMEO MD Ot I48. 0 PAROXYSMAL ATRIAL FIBRILLATION 04/26/2018 ISABELLE ROCA APRN Ot R 05 COUGH 09/22/2018 JEFF ROMEO MD Ot E78. 2 MIXED HYPERLIPIDEMIA 09/22/2018 JEFF ROMEO MD Ot I10 ESSENTIAL (PRIMARY) HYPERTENSION 09/22/2018 JEFF ROMEO MD Ot I25. 10 ATHSCL HEART DISEASE OF [place] CORONARY 09/22/2018 JEFF ROMEO MD Ot I48. 91 UNSPECIFIED ATRIAL FIBRILLATION 10/12/2018 JEFF ROMEO MD Ot E78. 2 MIXED HYPERLIPIDEMIA 10/12/2018 JEFF ROMEO MD Ot I10 ESSENTIAL (PRIMARY) HYPERTENSION 10/12/2018 JEFF ROMEO MD Ot I25. 10 ATHSCL HEART DISEASE OF [place] CORONARY 10/12/2018 JEFF ROMEO MD Ot I48. 91 UNSPECIFIED ATRIAL FIBRILLATION 09/15/2019 ANTONIETA DENG Ot E78.2 MIXED HYPERLIPIDEMIA 09/15/2019 STARR MARROQUIN, ANTONIETA Lyn Ot I10 ESSENTIAL (PRIMARY) HYPERTENSION 09/15/2019 ANTONIETA DENG Ot I25.10 ATHSCL HEART DISEASE OF [place] CORONARY 09/15/2019 ANTONIETA DENG Ot I34.0 NONRHEUMATIC MITRAL (VALVE) INSUFFICIENC 09/15/2019 ANTONIETA DENG Ot I48.91 UNSPECIFIED ATRIAL FIBRILLATION 09/15/2019 ANTONIETA EDNG Ot I65.29 OCCLUSION AND STENOSIS OF UNSPECIFIED CA 10/03/2019 AZEB DENGTH Lyn Ot E78.2 MIXED HYPERLIPIDEMIA 10/03/2019 STARR MARROQUIN, ANTONIETA K Ot I10 ESSENTIAL (PRIMARY) HYPERTENSION 10/03/2019 AZEB DENGTH K Ot I25.10 ATHSCL HEART DISEASE OF [place] CORONARY 10/03/2019 ANTONIETA DENG Ot I34.0 NONRHEUMATIC MITRAL (VALVE) INSUFFICIENC 10/03/2019 ANTONIETA DENG Ot I48.91 UNSPECIFIED ATRIAL FIBRILLATION 10/03/2019 ANTONIETA DENG Ot I65.29 OCCLUSION AND STENOSIS OF UNSPECIFIED CA 10/10/2019 ANTONIETA DENG Ot E78.2 MIXED HYPERLIPIDEMIA 10/10/2019 ANTONIETA DENG Ot I10 ESSENTIAL (PRIMARY) HYPERTENSION 10/10/2019 ANTONIETA DENG Ot I25.10 ATHSCL HEART DISEASE OF [place] CORONARY 10/10/2019 ANTONIETA DENG Ot I34.0 NONRHEUMATIC MITRAL (VALVE) INSUFFICIENC 10/10/2019 ANTONIETA DENG Ot I48.91 UNSPECIFIED ATRIAL FIBRILLATION 10/10/2019 ANTONIETA DENG Ot I65.29 OCCLUSION AND STENOSIS OF UNSPECIFIED CA 10/30/2019 YANCI, GRIS ZAMARRIPAP Ot I10 ESSENTIAL (PRIMARY) HYPERTENSION 10/30/2019 GRIS PETE Ot I25.10 ATHSCL HEART DISEASE OF [place] CORONARY 10/30/2019 YANCI, GRIS ZAMARRIPAP Ot J43.9 EMPHYSEMA, UNSPECIFIED 10/30/2019 YANCI, GRIS ACOUSTICAL TILE PATTERNMAKER Ot 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 10/30/2019 GRIS PETEP Ot M54.5 LOW BACK PAIN 10/30/2019 GRIS PETEP Ot N13.30 UNSPECIFIED HYDRONEPHROSIS 10/30/2019 GRIS PETEP Ot N32.9 BLADDER DISORDER, UNSPECIFIED 10/30/2019 YANCI GRIS ACOUSTICAL TILE PATTERNMAKER Ot Z79.82 [facility] (CURRENT) USE OF ASPIRIN 10/30/2019 YANCI GRIS ACOUSTICAL TILE PATTERNMAKER Ot Z79.899 OTHER [facility] (CURRENT) DRUG THERAPY 10/30/2019 GRIS PETE ACOUSTICAL TILE PATTERNMAKER Ot Z85.46 PERSONAL HISTORY OF MALIGNANT NEOPLASM O 10/30/2019 GRIS PETEP Ot Z87.891 PERSONAL HISTORY OF NICOTINE DEPENDENCE 10/30/2019 GRSI PETEP Ot Z92.3 PERSONAL HISTORY OF IRRADIATION 10/30/2019 YANCI, GRIS ZAMARRIPAP Ot Z95.1 PRESENCE OF AORTOCORONARY BYPASS GRAFT 10/30/2019 YANCI, GRIS ACOUSTICAL TILE PATTERNMAKER Ot Z95.5 PRESENCE OF CORONARY ANGIOPLASTY IMPLANT 10/31/2019 YANCI, GRIS ACOUSTICAL TILE PATTERNMAKER Ot I10 ESSENTIAL (PRIMARY) HYPERTENSION 10/31/2019 YANCI, GRIS ACOUSTICAL TILE PATTERNMAKER Ot I25.10 ATHSCL HEART DISEASE OF [place] CORONARY 10/31/2019 YANCI, GRSI ACOUSTICAL TILE PATTERNMAKER Ot J43.9 EMPHYSEMA, UNSPECIFIED 10/31/2019 YANCI, GRIS ACOUSTICAL TILE PATTERNMAKER Ot 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 10/31/2019 YANCI, GRIS ACOUSTICAL TILE PATTERNMAKER Ot M54.5 LOW BACK PAIN 10/31/2019 YANCI, GRIS ACOUSTICAL TILE PATTERNMAKER Ot N13.30 UNSPECIFIED HYDRONEPHROSIS 10/31/2019 YANCI, GRIS ACOUSTICAL TILE PATTERNMAKER Ot N32.9 BLADDER DISORDER, UNSPECIFIED 10/31/2019 YANCI, GRIS ACOUSTICAL TILE PATTERNMAKER Ot Z79.82 [facility] (CURRENT) USE OF ASPIRIN 10/31/2019 YANCI, GRIS ACOUSTICAL TILE PATTERNMAKER Ot Z79.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 10/31/2019 YANCI, GRIS ACOUSTICAL TILE PATTERNMAKER Ot Z85.46 PERSONAL HISTORY OF MALIGNANT NEOPLASM O 10/31/2019 YANCI, GRIS ACOUSTICAL TILE PATTERNMAKER Ot Z87.891 PERSONAL HISTORY OF NICOTINE DEPENDENCE 10/31/2019 YANCI, GRIS ACOUSTICAL TILE PATTERNMAKER Ot Z92.3 PERSONAL HISTORY OF IRRADIATION 10/31/2019 YANCI, GRIS ACOUSTICAL TILE PATTERNMAKER Ot Z95.1 PRESENCE OF AORTOCORONARY BYPASS GRAFT 10/31/2019 YANCI, GRIS ACOUSTICAL TILE PATTERNMAKER Ot Z95.5 PRESENCE OF CORONARY ANGIOPLASTY IMPLANT 11/01/2019 CARMENCITA ROJAS, ALBA Francis Ot Z01.8 18 ENCOUNTER FOR OTHER PREPROCEDURAL EXAMIN 11/02/2019 ALBA TSE MD Ot Z01.8 18 ENCOUNTER FOR OTHER PREPROCEDURAL EXAMIN 11/05/2019 YANCI, GRIS ACOUSTICAL TILE PATTERNMAKER Ot I10 ESSENTIAL (PRIMARY) HYPERTENSION 11/05/2019 YANCI, GRIS ACOUSTICAL TILE PATTERNMAKER Ot I25.10 ATHSCL HEART DISEASE OF [place] CORONARY 11/05/2019 YANCI, GRIS ACOUSTICAL TILE PATTERNMAKER Ot J43.9 EMPHYSEMA, UNSPECIFIED 11/05/2019 YANCI, GRIS ACOUSTICAL TILE PATTERNMAKER Ot 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 11/05/2019 YANCI, GRIS ACOUSTICAL TILE PATTERNMAKER Ot M54.5 LOW BACK PAIN 11/05/2019 YANCI, GRIS ACOUSTICAL TILE PATTERNMAKER Ot N13.30 UNSPECIFIED HYDRONEPHROSIS 11/05/2019 YANCI, GRIS ACOUSTICAL TILE PATTERNMAKER Ot N32.9 BLADDER DISORDER, UNSPECIFIED 11/05/2019 YANCI, GRIS ZAMARRIPAP Ot Z79.82 [facility] (CURRENT) USE OF ASPIRIN 11/05/2019 YANCI, GRIS ACOUSTICAL TILE PATTERNMAKER Ot 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 2 MIXED HYPERLIPIDEMIA 11/06/2019 JEFF ROMEO MD Ot I10 ESSENTIAL (PRIMARY) HYPERTENSION 11/06/2019 JEFF ROMEO MD Ot I25. 10 ATHSCL HEART DISEASE OF [place] CORONARY 11/06/2019 JEFF ROMEO MD Ot I48. 0 PAROXYSMAL ATRIAL FIBRILLATION 11/06/2019 ISABELLE ROCA ENGINEER Ot R 05 COUGH 11/06/2019 JEFF ROMEO MD, Ot E78. 2 MIXED HYPERLIPIDEMIA 11/06/2019 JEFF ROMEO MD Ot I10 ESSENTIAL (PRIMARY) HYPERTENSION 11/06/2019 JEFF ROMEO MD Ot I25. 10 ATHSCL HEART DISEASE OF [place] CORONARY 11/06/2019 JEFF ROMEO MD Ot I48. 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 11/09/2019 ALBA TSE MD, Ot G47.3 3 OBSTRUCTIVE SLEEP APNEA (ADULT) (PEDIATR 11/09/2019 ALBA TSE MD, Ot I10 ESSENTIAL (PRIMARY) HYPERTENSION 11/09/2019 ALBA TSE MD, Ot I25.1 0 ATHSCL HEART DISEASE OF [place] CORONARY 11/09/2019 ALBA TSE MD, Ot I48.9 1 UNSPECIFIED ATRIAL FIBRILLATION 11/09/2019 ALBA TSE MD, Ot N13.5 CROSSING VESSEL AND STRICTURE OF URETER 11/09/2019 ALBA TSE MD, Ot 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, MALE, UN 11/09/2019 ALBA TSE MD, Ot Z79.0 1 [facility] (CURRENT) USE OF ANTICOAGULANT 11/09/2019 ALBA TSE MD, Ot Z79.8 99 OTHER [facility] (CURRENT) DRUG THERAPY 11/09/2019 ALBA TSE MD, Ot Z87.8 91 PERSONAL HISTORY OF NICOTINE DEPENDENCE 11/09/2019 ALBA TSE MD, Ot Z88.8 ALLERGY STATUS TO OT DRUG/MEDS/BIOL SUB 11/09/2019 ALBA TSE MD, Ot Z90.7 9 ACQUIRED ABSENCE OF OTHER GENITAL ORGAN( 11/09/2019 ALBA TSE MD, Ot Z90.8 9 ACQUIRED ABSENCE OF OTHER ORGANS 11/09/2019 ALBA TSE MD, Ot Z95.1 PRESENCE OF AORTOCORONARY BYPASS GRAFT Procedures Code Description Performed By Per formed On [id number] DE STRUCTION OF BLADDER, ENDO 10/04/2015 [id number] EX TIRPATION OF MATTER FROM BLADDER, ENDO 10/04/2015 [id number] DE STRUCTION OF PROSTATE, ENDO 10/04/2015 [id number] DE STRUCTION OF BLADDER, ENDO 10/27/2015 [id number] EX TIRPATION OF MATTER FROM BLADDER, ENDO 10/27/2015 Results Test Result Range Automated blood complete blood count (he mogram) panel - 05/13/17 08:10 Blood leukocytes automated count (number/volume) 5.9 10*3/uL 4.3-11.0 Blood erythrocytes automated count (number/volume) 4.28 10*6/uL 4.35-5.85 Venous blood hemoglobin measurement (mass/volume) 13.6 g/dL 13.3-17.7 Blood hematocrit (volume fraction) 40 % 40-54 Automated erythrocyte mean corpuscular volume 93 [ foz_us] 80-99 Automated erythrocyte mean corpuscular h emoglobin (mass per erythrocyte) 32 pg 25-34 Automated erythrocyte mean corpuscular h emoglobin concentration measurement (mass/volume) 34 g/dL 32-36 Automated erythrocyte distribution width ratio 13. 4 % 10.0- 14.5 Automated blood platelet count (count/volume) 188 10*3/uL 130-400 Automated blood platelet mean volume measurement 11.9 [foz_us] 7.4-10.4 PT panel in platelet poor plasma by coag ulation assay - 05/13/17 08:10 Prothrombin time (PT) in platelet poor plasma by coagu lation assay 16.8 s 12.2-14.7 INR in platelet poor plasma or blood by coagulation as say 1.4 0.8-1.4 Activated partial thromboplastin time (a PTT) in platelet poor plasma bycoagulation assay - 05/13/17 08:10 Activated partial thromboplastin time (a PTT) in platelet poor plasma bycoagulation assay 30 s 24-35 Comprehensive metabolic panel - 05/13/17 08:10 Serum or plasma sodium measurement (moles/volume) 139 mmol/L 135-145 Serum or plasma potassium measurement (moles/volume) 4.3 mmol/L 3.6-5.0 Serum or plasma chloride measurement (moles/volume) 108 mmol/L 98-107 Carbon dioxide 24 mmol/L 21-32 Serum or plasma anion gap determination (moles/volume) 7 mmol/L 5-14 Serum or plasma urea nitrogen measurement (mass/volume ) 21 mg/dL 7-18 Serum or plasma creatinine measurement (mass/volume) 1.28 mg/dL 0.60-1.30 Serum or plasma urea nitrogen/creatinine mass ratio 16 NRG Serum or plasma creatinine measurement w ith calculation of estimated glomerular filtration rate 54 NRG Serum or plasma glucose measurement (mass/volume) 107 mg/dL 70-105 Serum or plasma calcium measurement (mass/volume) 9.3 mg/dL 8.5-10.1 Serum or plasma total bilirubin measurement (mass/volu me) 0.9 mg/dL 0.1-1.0 Serum or plasma alkaline phosphatase kun surement (enzymatic activity/volume) 67 U/L 40-136 Serum or plasma aspartate aminotransfera se measurement (enzymatic activity/volume) 22 U/L 5-34 Serum or plasma alanine aminotransferase measurement (enzymatic activity/volume) 20 U/L 0-55 Serum or plasma protein measurement (mass/volume) 7.2 g/dL 6.4-8.2 Serum or plasma albumin measurement (mass/volume) 4.1 g/dL 3.2-4.5 Methicillin resistant Staphylococcus aur eus (MRSA) screening culture - 05/13/17 08:10 Methicillin resistant Staphylococcus aureus (MRSA) scr eening culture NEG NRG Complete urinalysis with reflex to cultu re - 10/30/19 17:33 Urine color determination YELLOW NRG Urine clarity determination CLEAR NR G Urine pH measurement by test strip 5.5 5-9 Specific gravity of urine by test strip 1.020 1.016-1.022 Urine protein assay by test strip, semi-quantitative NEGATIVE NEGATIVE Urine glucose detection by automated test strip NE GATIVE NEGATIVE Erythrocytes detection in urine sediment by light micr oscopy TRACE-I NEGATIVE Urine ketones detection by automated test strip NE GATIVE NEGATIVE Urine nitrite detection by test strip NEGATIVE NEGATIVE Urine total bilirubin detection by test strip NEGA TIVE NEGATIVE Urine urobilinogen measurement by automated test strip (mass/volume) 0.2 mg/dL < = 1.0 Urine leukocyte esterase detection by dipstick NEG ATIVE NEGATIVE Automated urine sediment erythrocyte cou nt by microscopy (number/high power field) [HPF] NRG Automated urine sediment leukocyte count by microscopy (number/high power field) [HPF] NRG Bacteria detection in urine sediment by light microsco py NEGATIVE NRG Squamous epithelial cells detection in u rine sediment by light microscopy NONE NRG Crystals detection in urine sediment by light microsco py NONE NRG Casts detection in urine sediment by light microscopy NONE NRG Mucus detection in urine sediment by light microscopy NEGATIVE NRG Complete urinalysis with reflex to culture NO NRG Complete blood count (CBC) with automate d white blood cell (WBC) differential - 10/30/19 17:52 Blood leukocytes automated count (number/volume) 13.5 10*3/uL 4.3-11.0 Blood erythrocytes automated count (number/volume) 4.13 10*6/uL 4.35-5.85 Venous blood hemoglobin measurement (mass/volume) 12.7 g/dL 13.3-17.7 Blood hematocrit (volume fraction) 37 % 40-54 Automated erythrocyte mean corpuscular volume 90 [ foz_us] 80-99 Automated erythrocyte mean corpuscular h emoglobin (mass per erythrocyte) 31 pg 25-34 Automated erythrocyte mean corpuscular h emoglobin concentration measurement (mass/volume) 34 g/dL 32-36 Automated erythrocyte distribution width ratio 13. 0 % 10.0- 14.5 Automated blood platelet count (count/volume) 219 10*3/uL 130-400 Automated blood platelet mean volume measurement 12.0 [foz_us] 7.4-10.4 Automated blood neutrophils/100 leukocytes 87 % 42-75 Automated blood lymphocytes/100 leukocytes 6 % 12-44 Blood monocytes/100 leukocytes 7 % 0-12 Automated blood eosinophils/100 leukocytes 0 % 0-10 Automated blood basophils/100 leukocytes 0 % 0-10 Blood neutrophils automated count (number/volume) 11.7 10*3 1.8-7.8 Blood lymphocytes automated count (number/volume) 0.8 10*3 1.0-4.0 Blood monocytes automated count (number/volume) 0. 9 10*3 0.0-1.0 Automated eosinophil count 0.0 10*3/uL 0 .0-0.3 Automated blood basophil count (count/volume) 0.0 10*3/uL 0.0-0.1 Comprehensive metabolic panel - 10/30/19 17:52 Serum or plasma sodium measurement (moles/volume) 135 mmol/L 135-145 Serum or plasma potassium measurement (moles/volume) 4.9 mmol/L 3.6-5.0 Serum or plasma chloride measurement (moles/volume) 105 mmol/L 98-107 Carbon dioxide 20 mmol/L 21-32 Serum or plasma anion gap determination (moles/volume) 10 mmol/L 5-14 Serum or plasma urea nitrogen measurement (mass/volume ) 29 mg/dL 7-18 Serum or plasma creatinine measurement (mass/volume) 1.85 mg/dL 0.60-1.30 Serum or plasma urea nitrogen/creatinine mass ratio 16 NRG Serum or plasma creatinine measurement w ith calculation of estimated glomerular filtration rate 35 NRG Serum or plasma glucose measurement (mass/volume) 139 mg/dL 70-105 Serum or plasma calcium measurement (mass/volume) 9.4 mg/dL 8.5-10.1 Serum or plasma total bilirubin measurement (mass/volu me) 0.5 mg/dL 0.1-1.0 Serum or plasma alkaline phosphatase kun surement (enzymatic activity/volume) 64 U/L 40-136 Serum or plasma aspartate aminotransfera se measurement (enzymatic activity/volume) 20 U/L 5-34 Serum or plasma alanine aminotransferase measurement (enzymatic activity/volume) 14 U/L 0-55 Serum or plasma protein measurement (mass/volume) 7.3 g/dL 6.4-8.2 Serum or plasma albumin measurement (mass/volume) 4.0 g/dL 3.2-4.5 CALCIUM CORRECTED 9.4 mg/dL 8.5-10.1 Manual absolute plasma cell count - 10/17 10/05 17:52 Blood monocytes/100 leukocytes 4 % NRG Manual blood segmented neutrophils/100 leukocytes 90 % NRG Blood band neutrophils/100 leukocytes 3 % NRG Manual blood lymphocytes/100 leukocytes 2 % NRG Manual eosinophils/100 leukocytes in nose 0 % NRG Manual blood basophils/100 leukocytes 1 % NRG Blood erythrocyte morphology finding identification NORMAL NRG Serum or plasma C reactive protein measu rement (mass/volume) - 10/30/19 17:52 Serum or plasma C reactive protein measurement (mass/v olume) 1.49 mg/dL 0.00-0.50 Methicillin resistant Staphylococcus aur eus (MRSA) screening culture - 11/06/19 08:10 Methicillin resistant Staphylococcus aureus (MRSA) scr eening culture NEG NRG Encounters ACCT No. Visit Date/Time Discharge Status Pt. Type Provider Facility Loc./Unit Complaint [id number] 11/10/2019 07:01:00 020 12:30:00 DIS Outpatient ALBA TSE MD [facility] BLADDER TUMOR, POSSIBLE LEFT URETERAL STONE [id number] 11/08/2019 08:14:00 020 09:22:00 DIS Outpatient ALBA TSE MD [facility] PREOP TURBT, LEFT URETEROSCOP Y [id number] 11/06/2019 07:26:00 12:20:00 DIS Outpatient ALBA TSE MD [facility] SDC BLADDER MASS [id number] 11/01/2019 07:19:00 23:59:59 CLS Outpatient ALBA TSE MD [facility] PREOP BLADDER MASS [id number] 10/30/2019 17:21:00 19:48:00 DIS Emergency YANCIGRIS Gómez [facility] ER BACK PAIN / FEVER [id number] 09/13/2019 08:50:00 23:59:59 CLS Outpatient JOSSELIN DENG [facility] CARD AFIB,CAD,HT N [id number] 09/21/2018 07:18:00 019 23:59:59 CLS Outpatient JEFF ROMEO MD [facility] CARD CAD,HTN [id number] 08/16/2018 16:25:00 019 23:59:59 CLS Preadmit JEFF ROMEO MD [facility] CARD CAD, AFIB, CAROTID STACY RY STENOSIS, HTN [id number] 03/28/2018 10:17:00 018 23:59:59 CLS Outpatient ISABELLE ROCA APRN [facility] RAD R05 [id number] 05/13/2017 07:49:00 017 10:41:00 DIS Outpatient JOSE DANIEL ROJAS, Alesha FERRARI [facility] CATH ATRIAL FIBRILLATION [id number] 12/28/2016 07:43:00 017 23:59:59 CLS Outpatient JEFF ROMEO MD [facility] CARD I48.0,I25.10,I10 [id number] 12/24/2016 08:39:00 017 23:59:59 CLS Outpatient JEFF ROMEO MD [facility] CARD I48.0,I25.10,I10 [id number] 01/29/2016 07:59:00 016 10:45:00 DIS Outpatient JEFF ROMEO MD [facility] CATH AFIB W/RVR,DYSPNEA,CAD, HTN [id number] 11/20/2015 12:40:00 15:00:00 DIS Outpatient LIZET PALACIOS MD [facility] WOUNDCARE [id number] 10/22/2015 16:59:00 016 15:50:00 DIS Inpatient ALBA TSE MD [facility] 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, CA OF PROSTRATE [id number] 10/21/2015 19:03:00 016 20:22:00 DIS Emergency DWAYNE PASTOR [facility] ER CATHETER ISSUES [id number] 10/07/2015 08:55:00 Juan 15:55:00 DIS Inpatient ALBA TSE MD [facility] 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;UTI [id number] 09/30/2015 08:34:00 016 23:59:59 CLS Outpatient ALBA TSE MD [facility] RAD RT RENAL MASS, LT RENAL STONE [id number] 09/26/2015 08:54:00 Juan 23:59:59 CLS Outpatient ALBA TSE MD [facility] RAD HEMATURIA [id number] 09/06/2015 08:58:00 Juan 11:42:00 DIS Emergency KI COX ENGINEER [facility] ER UNABLE TO URINATE [id number] 08/14/2015 07:22:00 016 23:59:59 CLS Outpatient JEFF ROMEO MD [facility] CATH HTN,HLP,CHEST PAIN,CAD [id number] 01/20/2013 20:00:00 013 06:25:00 DIS Outpatient JEFF ROMEO MD [facility] SLEEP SHENA [id number] 11/10/2019 21:13:[address] Emergency BRENNA ROJAS, MARCELLE Muñiz [facility] ER SURGERY TODAY, UNABLE TO MICHELL MORALES, LEG SWELLING [id number] 10/20/2015 08:20:00 Document Registration [id number] 08/14/2015 07:22:00 Document Registration [id number] 09/26/2014 08:20:00 Document Registration [id number] 09/19/2014 08:00:00 Document Registration [id number] 08/31/2012 07:30:00 Document Registration [id number] 08/19/2012 09:49:00 Document Registration [id number] 06/23/2011 10:47:00 Document Registration [id number] 06/22/2011 09:11:00 Document Registration [id number] 07/02/2010 07:34:00 Document Registration
[2019-11-10] MEDS ORDERED: LACTATED RINGERS 1,000 ML IV STA (21:30)
[2019-11-10] MEDS ORDERED: LIDOCAINE UROJET 2% GEL 10 ML PKG TOP ONE (21:45)
[2019-11-10 21:49] LABS: BASOPHILS # (AUTO) 0.1 10^3/uL (0.0-0.1); BASOPHILS % (AUTO) 1 % (0-10); EOSINOPHILS # (AUTO) 0.3 10^3/uL (0.0-0.3); EOSINOPHILS % (AUTO) 3 % (0-10); HEMATOCRIT 32 % (40-54); HEMOGLOBIN 10.5 G/DL (13.3-17.7); LYMPHOCYTES # (AUTO) 0.9 X 10^3 (1.0-4.0); LYMPHOCYTES % (AUTO) 9 % (12-44); MEAN CORPUSCULAR HEMOGLOBIN 31 PG (25-34); MEAN CORPUSCULAR HGB CONC 33 G/DL (32-36); MEAN CORPUSCULAR VOLUME 92 FL (80-99); MEAN PLATELET VOLUME 11.3 FL (7.4-10.4); MONOCYTES # (AUTO) 1.1 X 10^3 (0.0-1.0); MONOCYTES % (AUTO) 10 % (0-12); NEUTROPHILS % (AUTO) 77 % (42-75); PLATELET COUNT 257 10^3/uL (130-400); RED CELL DISTRIBUTION WIDTH 13.2 % (10.0-14.5); WHITE BLOOD COUNT 10.4 10^3/uL (4.3-11.0)
--- NOTE | 2019-11-10 21:51 | ED General ---
General Chief Complaint: - Urinary Stated Complaint: SURGERY TODAY, UNABLE TO URINATE, LEG SWELLING Source of Information: Patient Exam Limitations: No Limitations History of Present Illness Date Seen by Provider: Nov 10, 2019 Time Seen by Provider: 21:25 Initial Comments Here with report of urinary retention, weakness and fever. He called his urologist as he had bladder tumor debulking procedure today. He was able to urinate without bloody urine after the procedure. He was sent home. He started having the symptoms previously stated and called his urologist who recommended he come here for further evaluation. I did speak with Dr. Michelle regarding the patient as he called me to give him a heads up that he was coming. The patient has had seizures in the last week. 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 Concerns of sepsis given fever after procedures. Also concerns of obstruction versus retention. Patient denies nausea, vomiting, breathing problems, chest pain, upper respiratory symptoms or shortness of breath. Timing/Duration: 4-6 Hours, Getting Worse Severity: Moderate Associated Systoms: No Chest Pain, No Cough; Fever/Chills; No Nausea/Vomiting, No Shortness of Air; Weakness Allergies and Home Medications Allergies Coded Allergies: Beta-Blockers (Beta-Adrenergic Bloc (Verified Adverse Reaction, Unknown, SYNCOPE, 11/10/19) Home Medications Diltiazem HCl 120 Mg Tablet, 120 MG PO DAILY, (Reported) Hyoscyamine Sulfate 0.125 Mg Tablet, 1-2 TAB PO Q4H PRN for PAIN-MODERATE (5-7) Prescribed by: GRIS VELAZQUEZ on 11/10/19 1027 Lisinopril 10 Mg Tablet, 10 MG PO DAILY, (Reported) Phenazopyridine HCl 200 Mg Tablet, 1 TAB PO TID Prescribed by: MAXWELL GARNETT on 11/06/19 1121 Sulfamethoxazole/Trimethoprim 1 Each Tablet, 1 EACH PO BID Prescribed by: MAXWELL GARNETT on 11/06/19 1118 Tramadol HCl 50 Mg Tablet, 1-2 TAB PO Q4H PRN for PAIN Prescribed by: MAXWELL GARNETT on 11/06/19 1121 Patient Home Medication List Home Medication List Reviewed: Yes Review of Systems Review of Systems Constitutional: see HPI EENTM: no symptoms reported Respiratory: no symptoms reported Cardiovascular: No chest pain, No edema, No palpitations Gastrointestinal: abdominal pain (fullness especially suprapubic); No diarrhea, No nausea, No vomiting Genitourinary: decreased output; No hematuria; other (retention) Musculoskeletal: no symptoms reported Skin: no symptoms reported Psychiatric/Neurological: See HPI; Denies Headache; Weakness Hematologic/Lymphatic: No Symptoms Reported All Other Systems Reviewed Negative Unless Noted: Yes Past Pbogkmm-Fdijfn-Hgstza Hx Past Med/Social Hx: Reviewed Nursing Past Med/Soc Hx Patient Social History Alcohol Use: Occasionally Uses Alcohol Beverage of Choice: Wine Recreational Drug Use: No Smoking Status: Former Smoker Type Used: Cigarettes Former Smoker, Quit: Jul 19, 1996 2nd Hand Smoke Exposure: Yes Recent Hopitalizations: No Immunizations Up To Date Tetanus Booster (TDap): Unknown Date of Pneumonia Vaccine: Apr 12, 2017 Date of Influenza Vaccine: Apr 24, 2019 Seasonal Allergies Seasonal Allergies: Yes Past Medical History Surgeries: Yes (NASAL, OPEN HEART, CARDIAC STENTS, BRACHY THERAPY-PROSTATE) Bladder Surgery, CABG, Coronary Stent Respiratory: Yes Sleep Apnea, Emphysema Currently Using CPAP: No Currently Using BIPAP: No Cardiac: Yes Atrial Fibrillation, Coronary Artery Disease, Hypertension Neurological: No Reproductive Disorders: No Sexually Transmitted Disease: No HIV/AIDS: No Genitourinary: Yes Bladder Infection, Kidney Stones Gastrointestinal: Yes Irritable Bowel Musculoskeletal: Yes Chronic Back Pain Endocrine: No HEENT: Yes (GLASSES) Loss of Vision: Denies Hearing Impairment: Hard of Hearing, Bilateral Hearing Aide 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 0.0oz. 75.734160pl; 25.63 BMI Method:Stated General Appearance: No Apparent Distress, WD/WN HEENT: PERRL/EOMI, Pharynx Normal Neck: Non Tender, Supple Respiratory: Lungs Clear, Normal Breath Sounds Cardiovascular: Regular Rate, Rhythm, No Murmur Gastrointestinal: Soft, Distended (suprapubic region), Tenderness (suprapubic) Back: Normal Inspection, No CVA Tenderness, No Vertebral Tenderness Extremity: Normal Range of Motion, Non Tender Neurologic/Psychiatric: Alert, Oriented x3 Skin: normal color, warm/dry Focused Exam Lactate Level 11/10/19 21:30: Lactic Acid Level 1.29 Lactic Acid Level Laboratory Tests Test 11/10/19 21:30 Lactic Acid Level 1.29 MMOL/L (0.50-2.00) Progress/Results/Core Measures Suspected Sepsis SIRS Temperature: Pulse: Respiratory Rate: Laboratory Tests 11/10/19 21:30: White Blood Count 10.4 Blood Pressure / Mean: 11/10/19 21:30: Lactic Acid Level 1.29 Laboratory Tests 11/10/19 21:30: Creatinine 3.17H, INR Comment 1.1, Platelet Count 257, Total Bilirubin 0.3 Results/Orders Lab Results Laboratory Tests Test 11/10/19 21:30 11/10/19 22:00 Range/Units White Blood Count 10.4 4.3-11.0 10^3/uL Red Blood Count 3.44 L 4.35-5.85 10^6/uL Hemoglobin 10.5 L 13.3-17.7 G/DL Hematocrit 32 L 40-54 % Mean Corpuscular Volume 92 80-99 FL Mean Corpuscular Hemoglobin 31 25-34 PG Mean Corpuscular Hemoglobin Concent 33 32-36 G/DL Red Cell Distribution Width 13.2 10.0-14.5 % Platelet Count 257 130-400 10^3/uL Mean Platelet Volume 11.3 H 7.4-10.4 FL Neutrophils (%) (Auto) 77 H 42-75 % Lymphocytes (%) (Auto) 9 L 12-44 % Monocytes (%) (Auto) 10 0-12 % Eosinophils (%) (Auto) 3 0-10 % Basophils (%) (Auto) 1 0-10 % Neutrophils # (Auto) 8.0 H 1.8-7.8 X 10^3 Lymphocytes # (Auto) 0.9 L 1.0-4.0 X 10^3 Monocytes # (Auto) 1.1 H 0.0-1.0 X 10^3 Eosinophils # (Auto) 0.3 0.0-0.3 10^3/uL Basophils # (Auto) 0.1 0.0-0.1 10^3/uL Prothrombin Time 14.5 12.2-14.7 SEC INR Comment 1.1 0.8-1.4 Activated Partial Thromboplast Time 28 24-35 SEC Sodium Level 130 L 135-145 MMOL/L Potassium Level 6.7 #*H 3.6-5.0 MMOL/L Chloride Level 104 98-107 MMOL/L Carbon Dioxide Level 17 L 21-32 MMOL/L Anion Gap 9 5-14 MMOL/L Blood Urea Nitrogen 46 H 7-18 MG/DL Creatinine 3.17 H 0.60-1.30 MG/DL Estimat Glomerular Filtration Rate 19 BUN/Creatinine Ratio 15 Glucose Level 106 H 70-105 MG/DL Lactic Acid Level 1.29 0.50-2.00 MMOL/L Calcium Level 9.0 8.5-10.1 MG/DL Corrected Calcium 9.4 8.5-10.1 MG/DL Total Bilirubin 0.3 0.1-1.0 MG/DL Aspartate Amino Transf (AST/SGOT) 21 5-34 U/L Alanine Aminotransferase (ALT/SGPT) 17 0-55 U/L Alkaline Phosphatase 68 40-136 U/L C-Reactive Protein High Sensitivity 6.17 H 0.00-0.50 MG/DL Total Protein 6.9 6.4-8.2 GM/DL Albumin 3.5 3.2-4.5 GM/DL Urine Color BROWN H Urine Clarity TURBID Urine pH 6.0 5-9 Urine Specific [place] 1.025 H 1.016-1.022 Urine Protein 3+ H NEGATIVE Urine Glucose (UA) NEGATIVE NEGATIVE Urine Ketones NEGATIVE NEGATIVE Urine Nitrite NEGATIVE NEGATIVE Urine Bilirubin NEGATIVE NEGATIVE Urine Urobilinogen 0.2 < = 1.0 MG/DL Urine Leukocyte Esterase 1+ H NEGATIVE Urine RBC (Auto) 3+ H NEGATIVE Urine RBC TNTC H /HPF Urine WBC TNTC H /HPF Urine Squamous Epithelial Cells NONE /HPF Urine Crystals NONE /LPF Urine Bacteria MODERATE H /HPF Urine Casts NONE /LPF Urine Mucus SMALL H /LPF Urine Culture Indicated CULTURE PENDING My Orders Orders - MARCELLE CEJA MD Lactated Ringers (Lr 1000 Ml Iv Solution (11/10/19 21:30) Catheter(Urinary) Insert & Ass 03,15 (11/10/19 21:30) Cbc With Automated Diff (11/10/19 21:30) Comprehensive Metabolic Panel (11/10/19 21:30) Blood Culture (11/10/19 21:30) Sputum Culture (11/10/19 21:30) Urinalysis (11/10/19 21:30) Urine Culture (11/10/19 21:30) Protime With Inr (11/10/19 21:30) Partial Thromboplastin Time (11/10/19 21:30) Chest 1 View, Ap/Pa Only (11/10/19 21:30) Ed Iv/Invasive Line Start (11/10/19 21:30) Vital Signs Adult Sepsis Patie Q15M (11/10/19 21:30) O2 (11/10/19 21:30) Remove Rings In Anticipation O (11/10/19 21:30) Lactic Acid Analyzer (11/10/19 21:30) Hs C Reactive Protein (11/10/19 21:30) Lidocaine 2% (Urojet) (Xylocaine Urojet) (11/10/19 21:45) Ekg Tracing (11/10/19 22:07) Ceftriaxone For Iv Use (Rocephin For I (11/10/19 22:34) Ct Abd/Pelvis Wo(Kidney Stone) (11/10/19 22:54) Medications Given in ED Current Medications Medications Dose Ordered Sig/[place] Route Start Time Stop Time Status Last Admin Dose Admin Lidocaine HCl 10 ml ONCE ONCE TOP 11/10/19 21:45 11/10/19 21:46 DC 11/10/19 21:48 10 ML Vital Signs/I&O 11/10/19 21:18 Temp 36.9 Pulse 88 Resp 18 B/P (MAP) 137/63 (87) Pulse Ox 97 O2 Delivery Room Air 11/11/19 00:00 Intake Total 1010 ml Output Total 612 ml Balance 398 ml Capillary Refill : Progress Note : Progress Note Seen and evaluated. Sepsis order set initiated. Bladder scan performed and shows greater than 600 mL. Three-way Moses catheter ordered with anticipation of possible bladder irrigation requirement. Monitor patient. 2215: Patient noted to have elevated potassium of 6.7. EKG done and reviewed. No QRS widening. Serum creatinine elevated. I believe this is all related to postobstructive concerns and he has good urine flow now with Moses catheter placed. No significant blood clots on placement so we will not do irrigation at this point. It is available if needed. Monitor patient. 2300: I did discuss the case with Dr. Michelle. We will get CT abdomen and pelvis without contrast to evaluate the left renal collection system to ensure that there is no obstruction there. 0020: I have discussed the case with Dr. Montoya and she accepts patient for admission for urinary tract infection and hyperkalemia. Patient is receiving fluids currently. He did get Rocephin 1 g IV for urinary tract infection. EKG is without changes. We will admit the patient and recheck labs and EKG in the morning. Dr. Michelle will see the patient in the morning as well. ECG Initial ECG Impression Date: Nov 10, 2019 Initial ECG Impression Time: 22:08 Initial ECG Rate: 72 Initial ECG Rhythm: Normal Sinus Comment Sinus rhythm with normal axis. No evidence of ST elevation [place]. QRS complex is similar to previous of 05/13/17 although A. fib noted at that time. No QRS widening. Interpreted by me. Diagnostic Imaging Diagonstic Imaging: Xray Plain Films/CT/US/NM/MRI: chest Comments No acute findings Diagonstic Imaging: CT Plain Films/CT/US/NM/MRI: abdomen, pelvis Comments Mild to moderate right-sided hydronephrosis without definite evidence for ureteral stone. This was also seen on the prior exam. The hydronephrosis is likely related to the soft tissue density mass in the region of the right UVJ which was seen on the prior exam. He soft tissue density mass is not clearly appreciated on the current exam, however, this may be related to the bladder being decompressed. Mild increased density within a right lower pole renal calyx. A mass cannot be excluded. Evaluation is limited without IV contrast. Small gallstones suspected in the gallbladder. No definite CT evidence for pericholecystic inflammatory changes. Diverticulosis without evidence of diverticulitis. Departure Communication (Admissions) Time/Spoke to Admitting Phy: 00:20 Time/Spoke to Consulting Phy: 23:00 Impression Primary Impression: Urinary tract infection Qualified Codes: N30.00 - Acute cystitis without hematuria Additional Impressions: Hyperkalemia Bladder neoplasm Urinary retention Disposition: ADMITTED INPATIENT Condition: Stable Admissions Decision to Admit Reason: Admit from ER (Trauma) Decision to Admit/Date: Nov 10, 2019 Time/Decision to Admit Time: 23:00 Departure-Patient Inst. Referrals: ABEL MARTINEZ MD (PCP/Family) Primary Care Physician MARCELLE CEJA MD Nov 10, 2019 21:51
[2019-11-10 21:53] LABS: ALBUMIN 3.5 GM/DL (3.2-4.5); INR 1.1 (0.8-1.4); PROTHROMBIN TIME PATIENT 14.5 SEC (12.2-14.7)
[2019-11-10 21:55] LABS: TOTAL PROTEIN 6.9 GM/DL (6.4-8.2)
[2019-11-10 21:57] LABS: BILIRUBIN,TOTAL 0.3 MG/DL (0.1-1.0)
[2019-11-10 21:59] LABS: CREATININE SERUM 3.17 MG/DL (0.60-1.30)
[2019-11-10 22:06] LABS: POTASSIUM 6.7 MMOL/L (3.6-5.0)
[2019-11-10 22:12] LABS: BILIRUBIN,URINE NEGATIVE (NEGATIVE); CLARITY,URINE TURBID; COLOR,URINE BROWN; GLUCOSE, URINE (UA) NEGATIVE (NEGATIVE); KETONES,URINE NEGATIVE (NEGATIVE); LEUKOCYTE ESTERASE ,URINE 1+ (NEGATIVE); NITRITE,URINE NEGATIVE (NEGATIVE); PROTEIN,URINE 3+ (NEGATIVE)
[2019-11-10 22:28] LABS: BACTERIA,URINE MODERATE /HPF; RBC,URINE TNTC /HPF; WBC,URINE TNTC /HPF
[2019-11-10] MEDS ORDERED: cefTRIAXone FOR IV USE 1,000 MG in WATER (STERILE) FOR INJECTION 10 ML IV STA (22:34)
--- OUTSIDE RECORDS SUMMARY | 2019-11-11 00:52 | XMS REPORT | Clinical Summary ---
Author Author [facility] Organization [facility] Address Unknown Phone Unavailable Care Team Providers Care Driver Helper Name Role Phone Jabari Peguero MD PCP Bin Olmos MD Unavailable Enzo Cohn MD Unavailable Louie Hernandez MD Unavailable Azael Lehman MD Unavailable Source Comments Some departments are not documenting in the electronic medical record. If you d o not see the information that you expected, contact Release of Information in [facility] [employer] Information Management department at [phone] for further assistan ce in locating additional records.[facility] Allergies Comments Active Allergy Reactions Severity Noted [...] 20 mg capsule mouth daily. Active omega 1-uud-ezj-fish oil Take 1 Cap by 0 300-1,000 mg mouth daily. capsuleIndications: Noon Indications: Noon Active vitamins, multiple tablet Take 1 Tab by 0 mouth daily. Active cholecalciferol (VITAMIN Take 1,000 0 D-3) 1,000 units tablet Units by mouth daily. 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
--- OUTSIDE RECORDS SUMMARY | 2019-11-11 00:52 | XMS REPORT ---
Author Author [employer] Organization [employer] Address [address] [address] Care Team Providers Care Hardware Trainer Name Role Phone MARCUS LILLY Unavailable ABEL MARTINEZ Unavailable AGUEDA ROJAS, JEFF Soares Unavailable Unavailable CARMENCITA ROJAS, ALBA Francis Unavailable Unavailable AFSANEH ROJAS, JEFFERY Galindo Unavailable Unavailable CARMENCITA ROJAS, ALBA Francis Unavailable Unavailable GGAE MARROQUIN, DWAYNE Caldwell Unavailable Unavailable SUZANNE ROJAS, LIZET Borja Unavailable Unavailable KI COX APRN Unavailable Unavailable STARR MARROQUIN, ANTONIETA Nicholson Unavailable Unavailab le Allergies No Information Medications No Information Problems Active Problems Problem Normalized Date of Normalized Normalized Provider Fac ility Classification Problem(s) Problem Problem Problem Sta tus Onset/Resoluti Duration on Acute Acute Episodic Active ALBA CARMENCITA , Not Avail able posthemorrhagi posthemorrhagi (72870) c anemia (6 c anemia sources.) 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 JEFF BROWNING , Not Available atherosclerosi c heart (57375) s and other disease of heart disease absentee-shawnee (21 sources.) coronary artery without angina pectoris Translations: [ ATHSCL HEART DISEASE OF [place] COR ART W, CORON ATHEROSCLER NOS TYPE VESSEL, NATIV] Calculus of Calculus of Episodic Active ALBA CARMENCITA , Not Available urinary tract kidney (61705) (6 sources.) Nonspecific Chest pain, Episodic Active JEFF PRICE , Not Available chest pain (3 unspecified MD (09350) sources.) Other lower Cough Episodic Active no name no informat ion respiratory disease (2 sources.) Other diseases Cyst of Episodic Active ALBA CARMENCITA , Not Available of kidney and kidney, (78157) ureters (3 acquired sources.) Essential Essential 09-14-2019 - Chronic Active ALBA CARMENCITA , Not Available hypertension (primary) (70176) (21 sources.) hypertension Translations: [ HYPERTENSION NOS] Gangrene (3 Gangrene, not Episodic Active ALBA CARMENCITA , No t Available sources.) elsewhere (64708) classified Esophageal Gastro-esophag Chronic Active ALBA CARMENCITA , No t Available disorders (3 eal reflux (19216) sources.) disease without esophagitis Other joint terminal attack controller Episodic Active MD JOSE DANIEL Not Availa ble aftercare (5 (current) use (27339) sources.) of anticoagulants Other long-term Episodic Active JEFFERY Not Availabl e aftercare (9 (current) use AFSANEH , (09923) sources.) of MD antithrombotic s/antiplatelet s Other joint terminal attack controller Episodic Active ALBA CARMENCITA , Not Avai lable aftercare (3 (current) use (41455) sources.) of aspirin Cancer of Malignant Chronic Active ALBA CARMENCITA , Not Avai lable prostate (3 neoplasm of MD (16125) sources.) prostate 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 JEFF CUNNINGHAM I , Not Available lipid hyperlipidemia (45192) metabolism (21 Translations: sources.) [ HYPERLIPIDEMIA , UNSPECIFIED, HYPERLIPIDEMIA NEC/NOS] Substance-rela Nicotine Chronic Active KI COX Not Av ailable richelle disorders dependence, (92214) (3 sources.) cigarettes, in remission Residual Obstructive Chronic Active JEFF PRICE , Not A vailable codes; sleep apnea (56948) unclassified (adult) (11 sources.) (pediatric) Residual Obstructive Chronic Active BASGEENA PRICE , Not A vailable codes; sleep apnea (26052) unclassified (adult)(pediat (3 sources.) barbie) 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 MD JOSE DANIEL Not Available 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 (8 carotid sources.) arteries Translations: [ OCCLUSION AND STENOSIS OF UNSPECIFIED CA] Other Other long Episodic Active BASGEENA AGUEDA , Not Av ailable aftercare (11 term (current) (33657) sources.) drug therapy Other diseases Other Episodic Active JEFFERY Not Avai lable of kidney and obstructive BRUEGGEMANN , (47863) ureters (6 and reflux MD sources.) uropathy Pulmonary Other Chronic Active BASHAR AGUEDA , Not Avai lable heart 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 Other diseases Other Chronic Active ALBAJIMBO GAOL , Not Available of bladder and specified (13953) urethra (3 disorders of sources.) bladder Other diseases Other Chronic Active ALBA GAOL , Not Available of kidney and specified MD (64888) ureters (3 disorders of sources.) kidney and ureter Residual Personal Episodic Active LIZET PALACIOS Not Avail able codes; history of , (68057) unclassified irradiation (3 sources.) Cancer of Personal Episodic Active JEFFERY Not Available bladder (6 history of BRUEGGEMANN , (72537) sources.) malignant MD neoplasm of bladder Cancer of Personal Episodic Active KI COX Not Availab le prostate (14 history of (96910) sources.) malignant neoplasm of prostate Screening and Personal Episodic Active MIKEGEENA PRICE , Not Available history of history of (84366) mental health nicotine and substance dependence abuse codes (14 sources.) Coronary Presence of no information Active JEFF PRICE , Not Available atherosclerosi coronary (99938) s and other angioplasty heart disease implant and (25 sources.) graft Translations: [ PRESENCE OF AORTOCORONARY BYPASS GRAFT, ATHSCL HEART DISEASE OF [place] CORONARY , CHRONIC TOTAL OCCLUSION OF CORONARY STACY, CORONARY ANGIOPLASTY STATUS] Other injuries Radiation Episodic Active ALBA TSE , Not Available and conditions sickness, (06715) due to unspecified, external initial causes (6 encounter sources.) Heart valve Rheumatic 09-14-2019 - Chronic Active MIKEGEENA CUNNINGHAM I , Not Available disorders (13 disorders of MD (08379) sources.) both mitral and tricuspid valves Translations: [ MITRAL VALVE DISORDER, TRICUSPID VALVE DISEASE, NONRHEUMATIC MITRAL (VALVE) INSUFFICIENC] Cardiac Unspecified 09-14-2019 - Chronic Active MIKEGEENA PRICE , Not Available dysrhythmias atrial (75914) (21 sources.) fibrillation Translations: [ PAROXYSMAL ATRIAL FIBRILLATION, CARDIAC DYSRHYTHMIAS NEC, SUPRAVENTRICUL AR TACHYCARDIA] Past or Other Problems Problem Normalized Date of Normalized Normalized Provider Fac ility Classification Problem(s) Problem Problem Problem Sta tus Onset/Resoluti Duration on Other lower Other Episodic Completed JEFF PRICE , Not Av ailable respiratory respiratory (19553) disease (4 abnormalities sources.) Procedures Procedure Normalized Procedure Procedure Result Performer Facility Date DESTRUCTION OF no information no name (no phone) Not Availab le (44830) [facility] DESTRUCTION OF no information no name (no phone) Not Availab le (57934) PROSTATE, ENDO EXTIRPATION OF MATTER no information no name (no phone) Not Available (54649) FROM [facility] Immunizations No Information Results [...] cm 08/14/2015 11:34am Height (Calculated Centimeters) 167. 528666 cm 09/06/2015 10:20am Weight (Pounds) 160 pounds 09/06/2015 10:20am Weight (Calculated Grams) 48636.000 gm 08/15/2015 6:18am Weight (Calculated Kilograms) 72.574 780 kilograms 09/06/2015 10:20am Weight (Kilograms) 74.5 kg 08/15/2015 6:18am Calculated BMI 25.82 10:20am Vital Response Date/Time Temperature (Fahrenheit) 97.4 degree s F (97.6 - 99.5) 10/20/2015 8:56am Temperature (Calculated Celsius) 36. 14636 degrees C (36.4 - 37.5) 10/20/2015 8:56am [...] inches 10/20/2015 8:56am Height (Calculated Centimeters) 167. 832513 cm 10/20/2015 8:56am Weight (Pounds) 154 pounds 10/20/2015 8:56am Weight (Ounces) 0.0 oz 0 10/03/2015 1:21pm Weight (Calculated Grams) 57185.188 gm 10/03/2015 1:21pm Weight (Calculated Kilograms) 69.853 226 kilograms 10/20/2015 8:56am Calculated BMI 25.66 1:21pm Vital Response Date/Time Temperature (Fahrenheit) 97.9 degree s F (97.6 - 99.5) 10/21/2015 7:15pm Temperature (Calculated Celsius) 36. 99803 degrees C (36.4 - 37.5) 10/21/2015 7:15pm [...] inches 10/21/2015 7:15pm Height (Calculated Centimeters) 167. 837839 cm 10/21/2015 7:15pm Weight (Pounds) 152 pounds 10/21/2015 7:15pm Weight (Ounces) 0.0 oz 0 10/03/2015 1:21pm Weight (Calculated Grams) 65203.188 gm 10/03/2015 1:21pm Weight (Calculated Kilograms) 68.946 041 kilograms 10/21/2015 7:15pm Calculated BMI 25.66 1:21pm Vital Response Date/Time Temperature (Fahrenheit) 98.7 degree s F (97.6 - 99.5) 10/31/2015 4:14pm Temperature (Calculated Celsius) 37. 76801 degrees C (36.4 - 37.5) 10/31/2015 2:50pm [...] 158 pounds 10/30/2015 10:00pm Weight (Calculated Grams) 93710.595 gm 10/30/2015 10:00pm Weight (Calculated Kilograms) 71.667 595 kilograms 10/30/2015 10:00pm Vital Response Date/Time Temperature (Fahrenheit) 96.8 degree s F (97.6 - 99.5) 10/10/2015 2:00pm Temperature (Calculated Celsius) 36. 20456 degrees C (36.4 - 37.5) 10/10/2015 2:00pm [...] inches 10/03/2015 1:21pm Height (Calculated Centimeters) 167. 494313 cm 10/03/2015 1:21pm Weight (Pounds) 159 pounds 10/03/2015 1:21pm Weight (Ounces) 0.0 oz 0 10/03/2015 1:21pm Weight (Calculated Grams) 88885.188 gm 10/03/2015 1:21pm Weight (Calculated Kilograms) 72.121 [...] 167.6 cm 08/14/2015 11:34am Weight (Calculated Grams) 57617.000 gm 08/15/2015 6:18am Weight (Kilograms) 74.5 kg 08/15/2015 6:18am Calculated BMI 25.56 11:34am Vital Response Date/Time Temperature (Fahrenheit) 96.6 degree s F (97.6 - 99.5) 01/30/2016 8:00am Temperature (Calculated Celsius) 35. 99304 degrees C (36.4 - 37.5) 01/30/2016 8:00am [...] inches 01/29/2016 8:45am Height (Calculated Centimeters) 167. 187586 cm 01/29/2016 8:45am Weight (Pounds) 169 pounds 01/30/2016 6:36am Weight (Ounces) 6.0 oz 0 01/30/2016 6:36am Weight (Calculated Grams) 88348.208 gm 01/30/2016 6:36am Weight (Calculated Kilograms) 76.827 208 kilograms 01/30/2016 6:36am Calculated BMI 25.5 01/16 8:45am Vital Response Date/Time Temperature (Fahrenheit) 98.7 degree s F (97.6 - 99.5) 10/31/2015 4:14pm Temperature (Calculated Celsius) 37. 56483 degrees C (36.4 - 37.5) 10/31/2015 2:50pm [...] inches 10/22/2015 5:50pm Height (Calculated Centimeters) 167. 655553 cm 10/22/2015 5:50pm Weight (Pounds) 158 pounds 10/30/2015 10:00pm Weight (Ounces) 0.0 oz 0 10/22/2015 6:00pm Weight (Calculated Grams) 35324.595 gm 10/30/2015 10:00pm Weight (Calculated Kilograms) 71.667 595 kilograms 10/30/2015 10:00pm Calculated BMI 25.5 11/2015 5:50pm Vital Response Date/Time Temperature (Fahrenheit) 96.9 degree s F (97.6 - 99.5) 05/13/2017 8:02am Temperature (Calculated Celsius) 36. 17548 degrees C (36.4 - 37.5) 05/13/2017 8:02am [...] inches 05/13/2017 8:04am Height (Calculated Centimeters) 167. 288507 cm 05/13/2017 8:04am Weight (Pounds) 152 pounds 05/13/2017 8:04am Weight (Ounces) 0.0 oz 1 8:04am Weight (Calculated Grams) 46405.04 gm 05/13/2017 8:04am Weight (Calculated Kilograms) 68.946 041 kilograms 05/13/2017 8:04am Calculated BMI 24.5 04/19 8:04am Vital Response Date/Time Temperature (Fahrenheit) 96.9 degree s F (97.6 - 99.5) 05/13/2017 8:02am Temperature (Calculated Celsius) 36. 09427 degrees C (36.4 - 37.5) 05/13/2017 8:02am [...] inches 05/13/2017 8:04am Height (Calculated Centimeters) 167. 205124 cm 05/13/2017 8:04am Weight (Pounds) 152 pounds 05/13/2017 8:04am Weight (Ounces) 0.0 oz 1 8:04am Weight (Calculated Grams) 33289.04 gm 05/13/2017 8:04am Weight (Calculated Kilograms) 68.946 [...] See Medication Section Referrals MARCUS LILLY MD [facility] Physician Additional Instructions/Education Al l discharge instructions reviewed with patient and/or family. Voiced understanding. CONTINUE USUAL HOME MEDICATIONS AND ORDERS. FOLLOW-UP WITH DR. TSE PREVIOUSLY SCHEDULED. RETURN TO THE EMERGENCY DEPARTMENT FOR WORSENED PAIN, ABDOMINAL SWELLING, FEVER, LEAKING OF CATHETER, OR ANY OTHER CONCERNS. Prescriptions See Medication Section Discharge Date 10/10/15 3:55pm Disposition [facility] TO CODE Instructions/Education Provided Acut [...] no information ANTONIETA Nicholson [facility] Memie procedure STARR PA (no [facility] phone) (no phone) 09-21-2018 Patient encounter no [...] Name Policy Number Subscriber Name Relationship [employer] [id number] Urszula Hsu W 01 Self / Same As Patient s Medicare [id number] Urszula Mazariegos 01 Self / Same As Patient Advance Directives Directive Response Recor ded Date/Time Advance Directives No 10:23am Health Care Power of Automation Mechanic No 09/06/15 10:23am Organ Donor Yes 09/06/15 10:23am Resuscitation Status Full Code 09/06/15 10:23am Directive Response Recor ded Date/Time Advance Directives No 9:00am Health Care Power of Automation Mechanic Y DAUG HTER DORON 10/20/15 9:00am Organ Donor Yes 10/20/15 9:00am Resuscitation Status Full Code 10/20/15 9:00am Directive Response Recor ded Date/Time Advance Directives No 7:15pm Health Care Power of Automation Mechanic Y DAUG HTER DORON 10/21/15 7:15pm Organ Donor Yes 10/21/15 7:15pm Resuscitation Status Full Code 10/21/15 7:15pm Directive Response Recor ded Date/Time Advance Directives No 5:01pm Health Care Power of Automation Mechanic Y DAUG HTER DORON 10/22/15 5:01pm Organ Donor Yes 10/22/15 5:01pm Directive Response Recor ded Date/Time Advance Directives No 1:10pm Health Care Power of Automation Mechanic Y DAUG HTER DOORN 10/03/15 1:10pm Organ Donor Yes 10/03/15 1:10pm Resuscitation Status Full Code 10/03/15 1:10pm Directive Response Recor ded Date/Time Advance Directives No 11:28am Health Care Power of Automation Mechanic No 08/14/15 11:28am Organ Donor Yes 08/14/15 11:28am Resuscitation Status Full Code 08/14/15 11:28am Directive Response Recor ded Date/Time Advance Directives No 8:45am Health Care Power of Automation Mechanic Y DAUG HTER DORON 01/29/16 8:45am Organ Donor Yes 01/29/16 8:45am Resuscitation Status Full Code 01/29/16 8:45am Directive Response Recor ded Date/Time Advance Directives No 5:01pm Health Care Power of Automation Mechanic Y DAUG HTER DORON 10/22/15 5:01pm Organ Donor Yes 10/22/15 5:01pm Resuscitation Status Full Code 10/22/15 5:01pm Directive Response Recor ded Date Advance Directives N 9:04am Health Care Power of Automation Mechanic N 08/13/08 4:51pm Organ Donor Y 08/31/12 9 :04am Directive Response Recor ded Date/Time Advance Directives No 8:01am Health Care Power of Automation Mechanic Y - DA UGHTER DORON 05/13/17 8:01am [...] This clinical document has been generated using [employer] software that has been certified by the Office of the National Coordinator for Health Information Technology (ONC 15.99.04.3023.Diam.31.00.0.420610) and the National Committee for Spray Cementer (NCQA, as an eMeasure certified technology). FOR [...] BASED ON T HE PRIMARY CLINICAL RECORDS. [employer] [facility]. provides no warranty or guara ntee of the accuracy or completeness of information in this document.The followi ng information is based on time limited clinical information
--- OUTSIDE RECORDS SUMMARY | 2019-11-11 00:53 | XMS REPORT | Continuity of Care Document ---
Author Organization Unknown Address Unknown Phone Unavailable Allergies Active Description Code Type Severity Reaction Onset Reported/Identified Relationship to Patient Clinical Status Yes Beta Blockers Beta Blockers Mild Intolerance 06/23/2011 Yes Beta Blockers Beta Blockers Mild SYNCOPE 11/01/2019 Yes Beta-Blockers (Beta-Adrenergic Bloc [id number] Drug Allergy Unknown SYNCOPE 11/10/2019 Medications There [...] Ot I25. 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 2 OTHER SECONDARY PULMONARY HYPERTENSION 08/15/2015 JEFF ROMEO MD Ot I47. 1 SUPRAVENTRICULAR TACHYCARDIA 08/15/2015 JEFF ROMEO MD Ot R07. 9 CHEST PAIN, UNSPECIFIED 08/15/2015 JEFF ROMEO MD Ot Z79.899 OTHER DETENTION (CURRENT) DRUG THERAPY 08/15/2015 JEFF ROMEO MD [...] 414.00 08/26/2015 Ot 427.89 09/06/2015 KI COX ROSS LIFT OPERATOR Ot F17.211 NICOTINE DEPENDENCE, CIGARETTES, IN [place] 09/06/2015 KI COX ROSS LIFT OPERATOR Ot R33 .9 RETENTION OF URINE, UNSPECIFIED 09/06/2015 KI COX ROSS LIFT OPERATOR Ot Z85.46 PERSONAL HISTORY OF MALIGNANT NEOPLASM [...] CARMENCITA ROJAS, ALBA A Ot T83.018A 10/04/2015 CAREMNCITA ROJAS, ALBA A Ot R31.0 10/04/2015 CARMENCITA [...] Ot I25.1 19 ATHSCL HEART DISEASE OF [place] COR ART W 10/10/2015 ALBA TSE MD, Ot K21.9 GASTRO-ESOPHAGEAL REFLUX DISEASE WITHOUT 10/10/2015 ALBA TSE MD, Ot N20.0 CALCULUS OF KIDNEY 10/10/2015 ALBA TSE MD, Ot N28.1 CYST OF KIDNEY, ACQUIRED 10/10/2015 ALBA TSE MD, Ot 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 2 OTHER SECONDARY PULMONARY HYPERTENSION 01/30/2016 JEFF ROMEO MD Ot I48. 0 PAROXYSMAL ATRIAL FIBRILLATION 01/30/2016 JEFF ROMEO MD Ot R31. 9 HEMATURIA, UNSPECIFIED 01/30/2016 JEFF ROMEO MD Ot Z79.899 OTHER INTERNATIONAL SALES MANAGER (CURRENT) DRUG THERAPY 01/30/2016 JEFF ROMEO MD [...] Ot I25. 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 2 OTHER SECONDARY PULMONARY HYPERTENSION 02/25/2016 JEFF ROMEO MD Ot I48. 0 PAROXYSMAL ATRIAL FIBRILLATION 02/25/2016 JEFF ROMEO MD Ot R31. 9 HEMATURIA, UNSPECIFIED 02/25/2016 JEFF ROMEO MD Ot Z79.899 OTHER INTERNATIONAL SALES MANAGER (CURRENT) DRUG THERAPY 02/25/2016 JEFF ROMEO MD [...] Ot I25. 10 ATHSCL HEART DISEASE OF [place] CORONARY 12/25/2016 JEFF ROMEO MD Ot I48. 0 PAROXYSMAL ATRIAL FIBRILLATION 12/25/2016 JEFF ROMEO MD Ot E78. 2 MIXED HYPERLIPIDEMIA 12/25/2016 JEFF ROMEO MD Ot I08. 1 RHEUMATIC DISORDERS OF BOTH MITRAL AND T 12/25/2016 JEFF ROMEO MD Ot I10 ESSENTIAL (PRIMARY) HYPERTENSION 12/25/2016 JEFF ROMEO MD Ot I25. 10 ATHSCL HEART DISEASE OF [place] CORONARY 12/25/2016 JEFF ROMEO MD Ot I48. [...] Ot I25. 10 ATHSCL HEART DISEASE OF [place] CORONARY 12/28/2016 JEFF ROMEO MD Ot I48. 0 PAROXYSMAL ATRIAL FIBRILLATION 01/14/2017 JEFF ROMEO MD Ot E78. 2 MIXED HYPERLIPIDEMIA 01/14/2017 JEFF ROMEO MD Ot I08. 1 RHEUMATIC DISORDERS OF BOTH MITRAL AND T 01/14/2017 JEFF ROMEO MD Ot I10 ESSENTIAL (PRIMARY) HYPERTENSION 01/14/2017 JEFF ROMEO MD Ot I25. 10 ATHSCL HEART DISEASE OF [place] CORONARY 01/14/2017 JEFF ROMEO MD Ot I48. [...] Ot I25. 10 ATHSCL HEART DISEASE OF [place] CORONARY 01/20/2017 JEFF ROMEO MD Ot I48. 0 PAROXYSMAL ATRIAL FIBRILLATION 01/21/2017 JEFF ROMEO MD Ot E78. 2 MIXED HYPERLIPIDEMIA 01/21/2017 JEFF ROMEO MD Ot I10 ESSENTIAL (PRIMARY) HYPERTENSION 01/21/2017 JEFF ROMEO MD Ot I25. 10 ATHSCL HEART DISEASE OF [place] CORONARY 01/21/2017 JEFF ROMEO MD Ot I48. [...] Ot I25. 10 ATHSCL HEART DISEASE OF [place] CORONARY 02/25/2017 JEFF ROMEO MD Ot I48. [...] MD Ot I25.10 ATHSCL HEART DISEASE OF [place] CORONARY 05/13/2017 Alesha SKY MD Ot I48.91 UNSPECIFIED ATRIAL FIBRILLATION 05/13/2017 Alesha SKY MD Ot I65.23 OCCLUSION AND STENOSIS OF BILATERAL [place] 05/13/2017 Alesha SKY MD Ot Z79.01 DETENTION (CURRENT) USE OF ANTICOAGULANT 05/13/2017 Alesha SKY MD, Ot Z79.899 OTHER INTERNATIONAL SALES MANAGER (CURRENT) DRUG THERAPY 05/13/2017 Alesha SKY MD, [...] Ot I25. 10 ATHSCL HEART DISEASE OF [place] CORONARY 03/28/2018 JEFF ROMEO MD Ot I48. 0 PAROXYSMAL ATRIAL FIBRILLATION 03/28/2018 JEFF ROMEO MD Ot E78. 2 MIXED HYPERLIPIDEMIA 03/28/2018 JEFF ROMEO MD Ot I08. 1 RHEUMATIC DISORDERS OF BOTH MITRAL AND T 03/28/2018 JEFF ROMEO MD Ot I10 ESSENTIAL (PRIMARY) HYPERTENSION 03/28/2018 JEFF ROMEO MD Ot I25. 10 ATHSCL HEART DISEASE OF [place] CORONARY 03/28/2018 JEFF ROMEO MD Ot I48. 0 PAROXYSMAL ATRIAL FIBRILLATION 03/28/2018 JEFF ROMEO MD Ot E78. 2 MIXED HYPERLIPIDEMIA 03/28/2018 JEFF ROMEO MD Ot I10 ESSENTIAL (PRIMARY) HYPERTENSION 03/28/2018 JEFF ROMEO MD Ot I25. 10 ATHSCL HEART DISEASE OF [place] CORONARY 03/28/2018 JEFF ROMEO MD Ot I48. 0 PAROXYSMAL ATRIAL FIBRILLATION 04/26/2018 ISABELLE ROCA APRN Ot R 05 COUGH 09/22/2018 JEFF ROMEO MD Ot E78. 2 MIXED HYPERLIPIDEMIA 09/22/2018 JEFF ROMEO MD Ot I10 ESSENTIAL (PRIMARY) HYPERTENSION 09/22/2018 JEFF ROMEO MD Ot I25. 10 ATHSCL HEART DISEASE OF [place] CORONARY 09/22/2018 JEFF ROMEO MD Ot I48. 91 UNSPECIFIED ATRIAL FIBRILLATION 10/12/2018 JEFF ROMEO MD Ot E78. 2 MIXED HYPERLIPIDEMIA 10/12/2018 JEFF ROMEO MD Ot I10 ESSENTIAL (PRIMARY) HYPERTENSION 10/12/2018 JEFF ROMEO MD Ot I25. 10 ATHSCL HEART DISEASE OF [place] CORONARY 10/12/2018 JEFF ROMEO MD Ot I48. 91 UNSPECIFIED ATRIAL FIBRILLATION 09/15/2019 ANTONIETA DENG Ot E78.2 MIXED HYPERLIPIDEMIA 09/15/2019 STARR MARROQUIN, ANTONIETA Lyn Ot I10 ESSENTIAL (PRIMARY) HYPERTENSION 09/15/2019 ANTONIETA DENG Ot I25.10 ATHSCL HEART DISEASE OF [place] CORONARY 09/15/2019 ANTONIETA DENG Ot I34.0 NONRHEUMATIC MITRAL (VALVE) INSUFFICIENC 09/15/2019 ANTONIETA DENG Ot I48.91 UNSPECIFIED ATRIAL FIBRILLATION 09/15/2019 ANTONIETA DENG Ot I65.29 OCCLUSION AND STENOSIS OF UNSPECIFIED CA 10/03/2019 AZEB DENGTH Lyn Ot E78.2 MIXED HYPERLIPIDEMIA 10/03/2019 STARR MARROQUIN, ANTONIETA K Ot I10 ESSENTIAL (PRIMARY) HYPERTENSION 10/03/2019 AZEB DENGTH K Ot I25.10 ATHSCL HEART DISEASE OF [place] CORONARY 10/03/2019 ANTONIETA DENG Ot I34.0 NONRHEUMATIC MITRAL (VALVE) INSUFFICIENC 10/03/2019 ANTONIETA DENG Ot I48.91 UNSPECIFIED ATRIAL FIBRILLATION 10/03/2019 ANTONIETA DENG Ot I65.29 OCCLUSION AND STENOSIS OF UNSPECIFIED CA 10/10/2019 ANTONIETA DENG Ot E78.2 MIXED HYPERLIPIDEMIA 10/10/2019 ANTONIETA DENG Ot I10 ESSENTIAL (PRIMARY) HYPERTENSION 10/10/2019 ANTONIETA DENG Ot I25.10 ATHSCL HEART DISEASE OF [place] CORONARY 10/10/2019 ANTONIETA DENG Ot I34.0 NONRHEUMATIC MITRAL (VALVE) INSUFFICIENC 10/10/2019 ANTONIETA DENG Ot I48.91 UNSPECIFIED ATRIAL FIBRILLATION 10/10/2019 ANTONIETA DENG Ot I65.29 OCCLUSION AND STENOSIS OF UNSPECIFIED CA 10/30/2019 YANCI, GRIS ZAMARRIPAP Ot I10 ESSENTIAL (PRIMARY) HYPERTENSION 10/30/2019 GRIS PETE Ot I25.10 ATHSCL HEART DISEASE OF [place] CORONARY 10/30/2019 YANCI, GRIS ZAMARRIPAP Ot J43.9 EMPHYSEMA, UNSPECIFIED 10/30/2019 YANCI, GRIS ENTRY LEVEL INSTALLATION TECHNICIAN Ot 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 10/30/2019 GRIS PETEP Ot M54.5 LOW BACK PAIN 10/30/2019 GRIS PETEP Ot N13.30 UNSPECIFIED HYDRONEPHROSIS 10/30/2019 GRIS PETEP Ot N32.9 BLADDER DISORDER, UNSPECIFIED 10/30/2019 YANCI GRIS ENTRY LEVEL INSTALLATION TECHNICIAN Ot Z79.82 DETENTION (CURRENT) USE OF ASPIRIN 10/30/2019 YANCI GRIS ENTRY LEVEL INSTALLATION TECHNICIAN Ot Z79.899 OTHER DETENTION (CURRENT) DRUG THERAPY 10/30/2019 GRIS PETE ENTRY LEVEL INSTALLATION TECHNICIAN Ot Z85.46 PERSONAL HISTORY OF MALIGNANT NEOPLASM O 10/30/2019 GRIS PETEP Ot Z87.891 PERSONAL HISTORY OF NICOTINE DEPENDENCE 10/30/2019 GRIS PETEP Ot Z92.3 PERSONAL HISTORY OF IRRADIATION 10/30/2019 YANCI, GRIS ZAMARRIPAP Ot Z95.1 PRESENCE OF AORTOCORONARY BYPASS GRAFT 10/30/2019 YANCI, GRIS ENTRY LEVEL INSTALLATION TECHNICIAN Ot Z95.5 PRESENCE OF CORONARY ANGIOPLASTY IMPLANT 10/31/2019 YANCI, GRIS ENTRY LEVEL INSTALLATION TECHNICIAN Ot I10 ESSENTIAL (PRIMARY) HYPERTENSION 10/31/2019 YANCI, GRIS ENTRY LEVEL INSTALLATION TECHNICIAN Ot I25.10 ATHSCL HEART DISEASE OF [place] CORONARY 10/31/2019 YANCI, GRIS ENTRY LEVEL INSTALLATION TECHNICIAN Ot J43.9 EMPHYSEMA, UNSPECIFIED 10/31/2019 YANCI, GRIS ENTRY LEVEL INSTALLATION TECHNICIAN Ot 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 10/31/2019 YANCI, GRIS ENTRY LEVEL INSTALLATION TECHNICIAN Ot M54.5 LOW BACK PAIN 10/31/2019 YANCI, GRIS ENTRY LEVEL INSTALLATION TECHNICIAN Ot N13.30 UNSPECIFIED HYDRONEPHROSIS 10/31/2019 YANCI, GRIS ENTRY LEVEL INSTALLATION TECHNICIAN Ot N32.9 BLADDER DISORDER, UNSPECIFIED 10/31/2019 YANCI, GRIS ENTRY LEVEL INSTALLATION TECHNICIAN Ot Z79.82 DETENTION (CURRENT) USE OF ASPIRIN 10/31/2019 YANCI, GRIS ENTRY LEVEL INSTALLATION TECHNICIAN Ot Z79.899 OTHER INTERNATIONAL SALES MANAGER (CURRENT) DRUG THERAPY 10/31/2019 YANCI, GRIS ENTRY LEVEL INSTALLATION TECHNICIAN Ot Z85.46 PERSONAL HISTORY OF MALIGNANT NEOPLASM O 10/31/2019 YANCI, GRIS ENTRY LEVEL INSTALLATION TECHNICIAN Ot Z87.891 PERSONAL HISTORY OF NICOTINE DEPENDENCE 10/31/2019 YANCI, GRIS ENTRY LEVEL INSTALLATION TECHNICIAN Ot Z92.3 PERSONAL HISTORY OF IRRADIATION 10/31/2019 YANCI, GRIS ENTRY LEVEL INSTALLATION TECHNICIAN Ot Z95.1 PRESENCE OF AORTOCORONARY BYPASS GRAFT 10/31/2019 YANCI, GRIS ENTRY LEVEL INSTALLATION TECHNICIAN Ot Z95.5 PRESENCE OF CORONARY ANGIOPLASTY IMPLANT 11/01/2019 CARMENCITA ROJAS, ALBA Francis Ot Z01.8 18 ENCOUNTER FOR OTHER PREPROCEDURAL EXAMIN 11/02/2019 ALBA TSE MD Ot Z01.8 18 ENCOUNTER FOR OTHER PREPROCEDURAL EXAMIN 11/05/2019 YANCI, GRIS ENTRY LEVEL INSTALLATION TECHNICIAN Ot I10 ESSENTIAL (PRIMARY) HYPERTENSION 11/05/2019 YANCI, GRIS ENTRY LEVEL INSTALLATION TECHNICIAN Ot I25.10 ATHSCL HEART DISEASE OF [place] CORONARY 11/05/2019 YANCI, GRIS ENTRY LEVEL INSTALLATION TECHNICIAN Ot J43.9 EMPHYSEMA, UNSPECIFIED 11/05/2019 YANCI, GRSI ENTRY LEVEL INSTALLATION TECHNICIAN Ot 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 11/05/2019 YANCI, GRIS ENTRY LEVEL INSTALLATION TECHNICIAN Ot M54.5 LOW BACK PAIN 11/05/2019 YANCI, GRIS ENTRY LEVEL INSTALLATION TECHNICIAN Ot N13.30 UNSPECIFIED HYDRONEPHROSIS 11/05/2019 YANCI, GRIS ENTRY LEVEL INSTALLATION TECHNICIAN Ot N32.9 BLADDER DISORDER, UNSPECIFIED 11/05/2019 YANCI, GRIS ZAMARRIPAP Ot Z79.82 INTERNATIONAL SALES MANAGER (CURRENT) USE OF ASPIRIN 11/05/2019 YANCI, GRIS ENTRY LEVEL INSTALLATION TECHNICIAN Ot Z79.899 OTHER INTERNATIONAL SALES MANAGER (CURRENT) DRUG THERAPY 11/05/2019 YANCI GRIS ENTRY LEVEL INSTALLATION TECHNICIAN Ot Z85.46 PERSONAL HISTORY OF MALIGNANT NEOPLASM O 11/05/2019 YANCI GRIS ZAMARRIPAP Ot Z87.891 PERSONAL HISTORY OF NICOTINE DEPENDENCE 11/05/2019 YANCI, GRIS ENTRY LEVEL INSTALLATION TECHNICIAN Ot Z92.3 PERSONAL HISTORY OF IRRADIATION 11/05/2019 YANCI, GRIS JENSEN Ot Z95.1 PRESENCE OF AORTOCORONARY BYPASS GRAFT 11/05/2019 YANCI, GRIS JENSEN Ot Z95.5 PRESENCE OF CORONARY ANGIOPLASTY IMPLANT 11/06/2019 AGUEDA ROJAS, JEFF Soares Ot E78. 2 MIXED HYPERLIPIDEMIA 11/06/2019 JFEF ROMEO MD Ot I10 ESSENTIAL (PRIMARY) HYPERTENSION 11/06/2019 JEFF ROMEO MD Ot I25. 10 ATHSCL HEART DISEASE OF [place] CORONARY 11/06/2019 JEFF ROMEO MD Ot I48. 0 PAROXYSMAL ATRIAL FIBRILLATION 11/06/2019 ISABELLE ROCA ROSS LIFT OPERATOR Ot R 05 COUGH 11/06/2019 JEFF ROMEO MD, Ot E78. 2 MIXED HYPERLIPIDEMIA 11/06/2019 JEFF ROMEO MD Ot I10 ESSENTIAL (PRIMARY) HYPERTENSION 11/06/2019 JEFF ROMEO MD Ot I25. 10 ATHSCL HEART DISEASE OF [place] CORONARY 11/06/2019 JEFF ROMEO MD Ot I48. 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, MALE, UN 11/09/2019 ALBA TSE MD, Ot Z79.0 1 DETENTION (CURRENT) USE OF ANTICOAGULANT 11/09/2019 ALBA TSE MD, Ot Z79.8 99 OTHER DETENTION (CURRENT) DRUG THERAPY 11/09/2019 ALBA TSE MD, [...] Code Description Performed By Per formed On [id number] DE STRUCTION OF BLADDER, ENDO 10/04/2015 [id number] EX TIRPATION OF MATTER FROM BLADDER, ENDO 10/04/2015 [id number] DE STRUCTION OF PROSTATE, ENDO 10/04/2015 [id number] DE STRUCTION OF BLADDER, ENDO 10/27/2015 [id number] EX TIRPATION OF MATTER FROM BLADDER, ENDO [...] (MRSA) scr eening culture NEG NRG Complete blood count (CBC) with automate d white blood cell (WBC) differential - 11/10/19 21:30 Blood leukocytes automated count (number/volume) 10.4 10*3/uL 4.3-11.0 Blood erythrocytes automated count (number/volume) 3.44 10*6/uL 4.35-5.85 Venous blood hemoglobin measurement (mass/volume) 10.5 g/dL 13.3-17.7 Blood hematocrit (volume fraction) 32 % 40-54 Automated erythrocyte mean corpuscular volume 92 [ foz_us] 80-99 Automated erythrocyte mean corpuscular h emoglobin (mass per erythrocyte) 31 pg 25-34 Automated erythrocyte mean corpuscular h emoglobin concentration measurement (mass/volume) 33 g/dL 32-36 Automated erythrocyte distribution width ratio 13. 2 % 10.0- 14.5 Automated blood platelet count (count/volume) 257 10*3/uL 130-400 Automated blood platelet mean volume measurement 11.3 [foz_us] 7.4-10.4 Automated blood neutrophils/100 leukocytes 77 % 42-75 Automated blood lymphocytes/100 leukocytes 9 % 12-44 Blood monocytes/100 leukocytes 10 % 0-12 Automated blood eosinophils/100 leukocytes 3 % 0-10 Automated blood basophils/100 leukocytes 1 % 0-10 Blood neutrophils automated count (number/volume) 8.0 10*3 1.8-7.8 Blood lymphocytes automated count (number/volume) 0.9 10*3 1.0-4.0 Blood monocytes automated count (number/volume) 1. 1 10*3 0.0-1.0 Automated eosinophil count 0.3 10*3/uL 0 .0-0.3 Automated blood basophil count (count/volume) 0.1 10*3/uL 0.0-0.1 Comprehensive metabolic panel - 11/10/19 21:30 Serum or plasma sodium measurement (moles/volume) 130 mmol/L 135-145 Serum or plasma potassium measurement (moles/volume) 6.7 mmol/L 3.6-5.0 Serum or plasma chloride measurement (moles/volume) 104 mmol/L 98-107 Carbon dioxide 17 mmol/L 21-32 Serum or plasma anion gap determination (moles/volume) 9 mmol/L 5-14 Serum or plasma urea nitrogen measurement (mass/volume ) 46 mg/dL 7-18 Serum or plasma creatinine measurement (mass/volume) 3.17 mg/dL 0.60-1.30 Serum or plasma urea nitrogen/creatinine mass ratio 15 NRG Serum or plasma creatinine measurement w ith calculation of estimated glomerular filtration rate 19 NRG Serum or plasma glucose measurement (mass/volume) 106 mg/dL 70-105 Serum or plasma calcium measurement (mass/volume) 9.0 mg/dL 8.5-10.1 Serum or plasma total bilirubin measurement (mass/volu me) 0.3 mg/dL 0.1-1.0 Serum or plasma alkaline phosphatase ukn surement (enzymatic activity/volume) 68 U/L 40-136 Serum or plasma aspartate aminotransfera se measurement (enzymatic activity/volume) 21 U/L 5-34 Serum or plasma alanine aminotransferase measurement (enzymatic activity/volume) 17 U/L 0-55 Serum or plasma protein measurement (mass/volume) 6.9 g/dL 6.4-8.2 Serum or plasma albumin measurement (mass/volume) 3.5 g/dL 3.2-4.5 CALCIUM CORRECTED 9.4 mg/dL 8.5-10.1 PT panel in platelet poor plasma by coag ulation assay - 11/10/19 21:30 Prothrombin time (PT) in platelet poor plasma by coagu lation assay 14.5 s 12.2-14.7 INR in platelet poor plasma or blood by coagulation as say 1.1 0.8-1.4 Activated partial thromboplastin time (a PTT) in platelet poor plasma bycoagulation assay - 11/10/19 21:30 Activated partial thromboplastin time (a PTT) in platelet poor plasma bycoagulation assay 28 s 24-35 Blood lactic acid measurement (moles/vol ume) - 11/10/19 21:30 Blood lactic acid measurement (moles/volume) 1.29 mmol/L 0.50-2.00 Serum or plasma C reactive protein measu rement (mass/volume) - 11/10/19 21:30 Serum or plasma C reactive protein measurement (mass/v olume) 6.17 mg/dL 0.00-0.50 Complete urinalysis with reflex to cultu re - 11/10/19 22:00 Urine color determination BROWN NRG Urine clarity determination TURBID NR G Urine pH measurement by test strip 6.0 5-9 Specific gravity of urine by test strip 1.025 1.016-1.022 Urine protein assay by test strip, semi-quantitative 3+ NEGATIVE Urine glucose detection by automated test strip NE GATIVE NEGATIVE Erythrocytes detection in urine sediment by light micr oscopy 3+ NEGATIVE Urine ketones detection by automated test strip NE GATIVE NEGATIVE Urine nitrite detection by test strip NEGATIVE NEGATIVE Urine total bilirubin detection by test strip NEGA TIVE NEGATIVE Urine urobilinogen measurement by automated test strip (mass/volume) 0.2 mg/dL < = 1.0 Urine leukocyte esterase detection by dipstick 1+ NEGATIVE Automated urine sediment erythrocyte cou nt by microscopy (number/high power field) TNTC NRG Automated urine sediment leukocyte count by microscopy (number/high power field) TNTC NRG Bacteria detection in urine sediment by light microsco py MODERATE NRG Squamous epithelial cells detection in u rine sediment by light microscopy NONE NRG Crystals detection in urine sediment by light microsco py NONE NRG Casts detection in urine sediment by light microscopy NONE NRG Mucus detection in urine sediment by light microscopy SMALL NRG Complete urinalysis with reflex to culture CULTURE PENDING NRG Encounters ACCT No. Visit Date/Time Discharge Status Pt. Type Provider Facility Loc./Unit Complaint [id number] 11/10/2019 07:01:00 12:30:00 DIS Outpatient ALBA TSE MD [facility] BLADDER TUMOR, POSSIBLE LEFT URETERAL STONE [id number] 11/08/2019 08:14:00 09:22:00 DIS Outpatient ALBA TSE MD [facility] PREOP TURBT, LEFT URETEROSCOP Y [id number] 11/06/2019 07:26:00 12:20:00 [facility] [id number] 11/01/2019 07:19:00 23:59:59 CLS Outpatient ALBA TSE MD [facility] PREOP BLADDER MASS [id number] 10/30/2019 17:21:00 19:48:00 DIS Emergency YANCIGRIS [facility] ER BACK PAIN / FEVER [id number] 09/13/2019 08:50:00 23:59:59 CLS Outpatient STARR MARROQUIN, JOSSELIN Nicholson [facility] CARD AFIB,CAD,HT N [id number] 09/21/2018 07:18:00 23:59:59 CLS Outpatient JEFF ROMEO MD [facility] CARD CAD,HTN [id number] 08/16/2018 16:25:00 019 23:59:59 CLS Preadmit JEFF ROMEO MD [facility] CARD CAD, AFIB, CAROTID STACY RY STENOSIS, HTN [id number] 03/28/2018 10:17:00 018 23:59:59 CLS Outpatient ISABELLE ROCA APRN [facility] RAD R05 [id number] 05/13/2017 07:49:00 017 10:41:00 DIS Outpatient JOSE DANIEL ROJAS, Alesha FERRARI [facility] ATRIAL FIBRILLATION [id number] 12/28/2016 07:43:00 017 23:59:59 CLS Outpatient JEFF ROMEO MD [facility] CARD I48.0,I25.10,I10 [id number] 12/24/2016 08:39:00 017 23:59:59 CLS Outpatient JEFF ROMEO MD [facility] CARD I48.0,I25.10,I10 [id number] 01/29/2016 07:59:00 016 10:45:00 DIS Outpatient JEFF ROMEO MD [facility] AFIB W/RVR,DYSPNEA,CAD, HTN [id number] 11/20/2015 12:40:00 016 15:00:00 DIS Outpatient LIZET PALACIOS MD [facility] WOUNDCARE [id number] 10/22/2015 16:59:00 016 15:50:00 DIS Inpatient ALBA TSE MD [facility] 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, CA OF PROSTRATE [id number] 10/21/2015 19:03:00 016 20:22:00 DIS Emergency DWAYNE PASOTR [facility] ER CATHETER ISSUES [id number] 10/07/2015 08:55:00 016 15:55:00 DIS Inpatient ALBA TSE MD [facility] 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;UTI [id number] 09/30/2015 08:34:00 016 23:59:59 CLS Outpatient ALBA TSE MD [facility] RAD RT RENAL MASS, LT RENAL STONE [id number] 09/26/2015 08:54:00 016 23:59:59 CLS Outpatient ALBA TSE MD [facility] RAD HEMATURIA [id number] 09/06/2015 08:58:00 016 11:42:00 DIS Emergency KI COX ROSS LIFT OPERATOR [facility] ER UNABLE TO URINATE [id number] 08/14/2015 07:22:00 016 23:59:59 CLS Outpatient JEFF ROMEO MD [facility] CATH HTN,HLP,CHEST PAIN,CAD [id number] 01/20/2013 20:00:00 013 06:25:00 DIS Outpatient JEFF ROMEO MD [facility] SLEEP SHENA [id number] 11/10/2019 21:13:[address] Emergency MARCELLE CEJA MD [facility] ER SURGERY TODAY, UNABLE TO URI ANDREW, LEG SWELLING [id number] 10/20/2015 08:20:00 Document Registration [id number] 08/14/2015 07:22:00 Document Registration [id number] 09/26/2014 08:20:00 Document Registration [id number] 09/19/2014 08:00:00 Document Registration [id number] 08/31/2012 07:30:00 Document Registration [id number] 08/19/2012 09:49:00 Document Registration [id number] 06/23/2011 10:47:00 Document Registration [id number] 06/22/2011 09:11:00 Document Registration [id number] 07/02/2010 07:34:00 Document Registration
--- NOTE | 2019-11-11 01:20 | NUR ---
URSZULA MAZARIEGOS admitted to room 407-1, with an admitting diagnosis of UTI, URINARY RETENTION, BLADDER MASS, on 11/11/19 from ED via [facility], accompanied by STAFF.URSZULA MAZARIEGOS introduced to surroundings, call light, bed controls, phone, TV, temperature control, lights, meal times, smoking policy, visitor policy, side rail policy, bathrooms and showers. Patient Rights given to patient in the handbook. URSZULA MAZARIEGOS verbalizes understanding that [facility] is not responsible for the loss or damage to any personal effects or valuables that are kept in the patients possession during their hospitalization. THE PATIENT'S PLAN OF CARE WAS DISCUSSED WITH THE PATIENT. URSZULA MAZARIEGOS verbalizes understanding of Interdisciplinary Patient Education. Patient and/or family were informed about the Rapid Response Team and its purpose.
[2019-11-11 01:54] VITALS: BP 159/79
[2019-11-11] MEDS ORDERED: NS IV 1000 ML 1,000 ML ONE (02:06)
[2019-11-11] MEDS ORDERED: ACETAMINOPHEN 500 MG TAB (TYLENOL) PO PRN (03:00)
[2019-11-11] MEDS ORDERED: ONDANSETRON 4 MG/2 ML (SDV) Z0FRAN IV PRN (03:00)
[2019-11-11] MEDS: NS IV 1000 ML 1,000 ML IV SCH ×2 (03:03→13:53)
[2019-11-11 04:09] VITALS: BP 162/74
[2019-11-11 06:10] LABS: BASOPHILS # (AUTO) 0.1 10^3/uL (0.0-0.1); BASOPHILS % (AUTO) 1 % (0-10); EOSINOPHILS # (AUTO) 0.4 10^3/uL (0.0-0.3); EOSINOPHILS % (AUTO) 4 % (0-10); HEMATOCRIT 31 % (40-54); HEMOGLOBIN 10.2 G/DL (13.3-17.7); LYMPHOCYTES # (AUTO) 1.1 X 10^3 (1.0-4.0); LYMPHOCYTES % (AUTO) 12 % (12-44); MEAN CORPUSCULAR HEMOGLOBIN 31 PG (25-34); MEAN CORPUSCULAR HGB CONC 33 G/DL (32-36); MEAN CORPUSCULAR VOLUME 93 FL (80-99); MEAN PLATELET VOLUME 11.2 FL (7.4-10.4); MONOCYTES # (AUTO) 0.9 X 10^3 (0.0-1.0); MONOCYTES % (AUTO) 9 % (0-12); NEUTROPHILS # (AUTO) 7.1 X 10^3 (1.8-7.8); NEUTROPHILS % (AUTO) 75 % (42-75); PLATELET COUNT 217 10^3/uL (130-400); RED CELL DISTRIBUTION WIDTH 13.2 % (10.0-14.5); WHITE BLOOD COUNT 9.5 10^3/uL (4.3-11.0)
[2019-11-11 06:19] LABS: ALBUMIN 3.3 GM/DL (3.2-4.5); POTASSIUM 5.9 MMOL/L (3.6-5.0)
[2019-11-11 06:20] LABS: CALCIUM 8.8 MG/DL (8.5-10.1)
--- NOTE | 2019-11-11 06:20 | Diagnostic Imaging Report ---
PROCEDURE: CT urinary tract, rule out kidney stone. TECHNIQUE: Multiple contiguous axial images were obtained through the abdomen and pelvis without the use of intravenous contrast. Auto Exposure Controls were utilized during the CT exam to meet ALARA standards for radiation dose reduction. INDICATION: Fever. Unable to urinate. Reported transurethral resection of the prostate today. COMPARISON: CT abdomen and pelvis without contrast 10/30/2019. FINDINGS: The bladder is mostly decompressed by urinary catheter. There remains moderate right ureteral pyelocaliectasis. A possible soft tissue mass seen near the right UVJ within the bladder measuring up to 2.0 cm is not as evident on this examination, likely due to bladder decompression. No left hydronephrosis. No renal stones are identified. 1.0 cm hyperintensity and a lower right renal calyx was not seen on the prior exam. Lung bases are clear. Tiny gallstone without secondary findings of cholecystitis. The pancreas, spleen and adrenals are negative. No evidence of appendicitis. No free intraperitoneal air or fluid. No lymphadenopathy. Mild colonic diverticulosis. No evidence of bowel obstruction. Age-appropriate spondylotic changes in the spine. No acute osseous findings. IMPRESSION: 1. There remains moderate right hydronephrosis. The hyperattenuating mass seen near the right UVJ within the bladder seen on the prior exam is not well seen on this exam likely due to decompression of the urinary bladder. 2. A 1.0 cm region of hyperattenuation within the lower right renal calyx was not as evident on the prior exam. Findings could represent an additional soft tissue mass, possibly blood products. No renal stones are identified. 3. Cholelithiasis without secondary findings of cholecystitis. 4. Mild colonic diverticulosis without evidence of active diverticulitis. Dictated by: Dictated on workstation # [id number]
[2019-11-11 06:22] LABS: TOTAL PROTEIN 6.6 GM/DL (6.4-8.2)
[2019-11-11 06:23] LABS: BILIRUBIN,TOTAL 0.3 MG/DL (0.1-1.0)
[2019-11-11 06:25] LABS: CREATININE SERUM 3.05 MG/DL (0.60-1.30)
--- NOTE | 2019-11-11 06:39 | Diagnostic Imaging Report ---
EXAM: CHEST 1 VIEW, AP/PA ONLY INDICATION: Fever. Unable to urinate. COMPARISON: 10/30/2019. FINDINGS: Normal heart size and central pulmonary vascularity. Sternotomy with CABG. Implantable loop recorder. No focal pulmonary opacities. No pleural effusion or pneumothorax. No acute osseous findings. No significant change. IMPRESSION: No acute cardiopulmonary findings. Dictated by: Dictated on workstation # [id number]
--- NOTE | 2019-11-11 07:38 | NUR ---
pt's last bm 11/04- this rn contacted dr. santos about pt last bm & to address dvt. this rn was informed that the DVT would be addressed when she arrives & miralax PO BID PRN.
[2019-11-11] MEDS ORDERED: polyethylene glycoL POWDER 17 GM (MIRALAX) PACK PO PRN (07:45)
[2019-11-11 07:56] VITALS: BP 171/67
--- NOTE | 2019-11-11 10:56 | Progress Note - Urology ---
Progress Note-Urology Progress Notes/Assess & Plan Progress/Assessment & Plan DOING, FEELING, AND LOOKING BETTER. LABS IMPROVING. CT FINDINGS SHARED WITH PATIENT AND DAUGHTER. NO STONES. OBSERVE RT KIDNEY FINDINGS. PLAN RECHECK BMP IN AM AND DC AMADOR AND PLAN DISCHARGE ACCORDINGLY Final Diagnosis CA BLADDER, UTI, RT RENAL OBSTRUCTION, AND RENAL FAILURE ALBA TSE MD Nov 11, 2019 10:56
[2019-11-11 11:12] VITALS: BP 173/76
--- NOTE | 2019-11-11 13:19 | History & Physical-Hospitalist ---
History of Present Illness HPI/Chief Complaint Pt is an 84yoCM with a PMH of CAD s/p CABG, bladder cancer, HTN, HLD who presented to the ER due to urinary retention, fever, and weakness. He underwent debulking of a bladder tumor yesterday with Dr Michelle and did well in PACU and was sent home. When he got home he was no long able to urinate and called Dr Michelle who recommended evaluation in the ER. CT was done which showed known hydronephrosis without stone. A catheter was placed which revealed the obstruction and UA showed a UTI. Labs revealed a significant ENRIQUETA. He was admitted for ENRIQUETA. This morning he reports feeling much better. His catheter is still in place. His only concern is about having a BM. Source: patient Date Seen 11/11/19 Time Seen by a Provider: 13:09 Attending Physician Chanelle Montoya MD PCP Zeke Frey MD Referring Physician Date of Admission Nov 11, 2019 at 00:26 Home Medications & Allergies Home Medications Reviewed patient Home Medication Reconciliation performed by pharmacy medication reconciliations bmw service technician and/or nursing. Patients Allergies have been reviewed. Allergies Allergies Coded Allergies Beta-Blockers (Beta-Adrenergic Bloc (Verified Adverse Reaction, Unknown, SYNCOPE, 11/10/19) Past Qfmfsbb-Swnbsg-Dftczq Hx Past Med/Social Hx: Reviewed Nursing Past Med/Soc Hx Patient Social History Employed/Student: retired Alcohol Use: Regular Use Alcohol Beverage of Choice: Wine (daily, 2 glasses) Recreational Drug Use: No Smoking Status: Former Smoker Former Smoker, Quit: Jul 19, 1996 Type Used: Cigarettes 2nd Hand Smoke Exposure: Yes Recent Foreign Travel: No Contact w/other who traveled: No Recent Hopitalizations: Yes (turp 11/10/19) Recent Infectious Disease Expo: No Immunizations Up To Date Tetanus Booster (TDap): Unknown Date of Pneumonia Vaccine: Apr 12, 2017 Date of Influenza Vaccine: Apr 24, 2019 Seasonal Allergies Seasonal Allergies: Yes Past Medical History Surgeries: Bladder Surgery, CABG, Coronary Stent Currently Using CPAP: No Currently Using BIPAP: No Cardiac: Atrial Fibrillation, Coronary Artery Disease, Hypertension Reproductive: No Sexually Transmitted Disease: No HIV/AIDS: No Genitourinary: Prostate Problems, Bladder Infection, Kidney Stones Gastrointestinal: Gastroesophageal Reflux, Chronic Constipation, Irritable Bowel Musculoskeletal: Chronic Back Pain Loss of Vision: Denies Hearing Impairment: Hard of Hearing, Bilateral Hearing Aide Cancer: Prostate History of Blood Disorders: No Adverse Reaction to Blood Villanueva: No (HAS HAD BLOOD WITH NO REACTION) Family History Reviewed Nursing Family Hx Cardiovascular disease 19 FATHER G8 BROTHER Diabetes mellitus G8 BROTHER Hypertension 19 FATHER G8 BROTHER Neoplasm G8 BROTHER No Pertinent Family Hx Review of Systems Constitutional: fever, malaise EENTM: no symptoms reported Respiratory: No cough, No short of breath Cardiovascular: No chest pain, No edema; Hx of Intervention Gastrointestinal: abdominal pain, constipation; No nausea, No vomiting Genitourinary: see HPI Musculoskeletal: no symptoms reported Skin: no symptoms reported Psychiatric/Neurological: No Symptoms Reported Physical Exam Physical Exam Vital Signs Vital Signs - First Documented 11/10/19 21:18 Temp 36.9 Pulse 88 Resp 18 B/P (MAP) 137/63 (87) Pulse Ox 97 O2 Delivery Room Air Capillary Refill : Less Than 3 SecondsLess Than 3 Seconds Height, Weight, BMI Height: 5'6.00" Weight: 166lbs. 0.0oz. 75.503125zr; 26.27 BMI Method:Stated General Appearance: No Apparent Distress, WD/WN HEENT: PERRL/EOMI, Moist Mucous Membranes; No Scleral Icterus (L), No Scleral Icterus (R); Other (arcus senilis) Neck: Normal Inspection, Supple; No Thyromegaly Respiratory: Lungs Clear, No Accessory Muscle Use, No Respiratory Distress Cardiovascular: Regular Rate, Rhythm, No Murmur, Other (vertical scar consistent with previous CABG) Gastrointestinal: Normal Bowel Sounds, Non Tender, Soft Genital/Rectal: Other (roa in place with clear urine) Extremity: No Calf Tenderness, No Pedal Edema Neurologic/Psychiatric: Alert, Oriented x3, Normal Mood/Affect Skin: Normal Color, Warm/Dry Results Results/Procedures Labs Laboratory Tests 11/10/19 21:30 11/11/19 05:46 Patient resulted labs reviewed. Imaging: Reviewed Imaging Report Imaging Date of Exam:11/10/19 CT ABD/PELVIS WO(KIDNEY STONE) PROCEDURE: CT urinary tract, rule out kidney stone. TECHNIQUE: Multiple contiguous axial images were obtained through the abdomen and pelvis without the use of intravenous contrast. Auto Exposure Controls were utilized during the CT exam to meet ALARA standards for radiation dose reduction. INDICATION: Fever. Unable to urinate. Reported transurethral resection of the prostate today. COMPARISON: CT abdomen and pelvis without contrast 10/30/2019. FINDINGS: The bladder is mostly decompressed by urinary catheter. There remains moderate right ureteral pyelocaliectasis. A possible soft tissue mass seen near the right UVJ within the bladder measuring up to 2.0 cm is not as evident on this examination, likely due to bladder decompression. No left hydronephrosis. No renal stones are identified. 1.0 cm hyperintensity and a lower right renal calyx was not seen on the prior exam. Lung bases are clear. Tiny gallstone without secondary findings of cholecystitis. The pancreas, spleen and adrenals are negative. No evidence of appendicitis. No free intraperitoneal air or fluid. No lymphadenopathy. Mild colonic diverticulosis. No evidence of bowel obstruction. Age-appropriate spondylotic changes in the spine. No acute osseous findings. IMPRESSION: 1. There remains moderate right hydronephrosis. The hyperattenuating mass seen near the right UVJ within the bladder seen on the prior exam is not well seen on this exam likely due to decompression of the urinary bladder. 2. A 1.0 cm region of hyperattenuation within the lower right renal calyx was not as evident on the prior exam. Findings could represent an additional soft tissue mass, possibly blood products. No renal stones are identified. 3. Cholelithiasis without secondary findings of cholecystitis. 4. Mild colonic diverticulosis without evidence of active diverticulitis. Assessment/Plan Admission Diagnosis UTI Admission Status: Inpatient Order (span 2 midnights) Reason for Inpatient Admission: IV abx, failed outpatient management Assessment and Plan UTI Acute on Chronic Kidney Failure with hyperkalemia Urinary Retention Bladder Cancer urology consulted, appreciate recs Continue catheter today ENRIQUETA likely post obstructive Creatinine on 10/29 was 1.85 Continue IVF, trend Potassium improving Check BMP in AM Continue Rocephin, await cultures CAD s/p CABG HTN a fib Continue home diltiazem, hold lisinopril for ENRIQUETA BP elevated, trend Resume statin Has Eliquis in fill history- hold given surgery Clinical Quality Measures DVT/VTE Risk/Contraindication: Risk Factor Score Per Nursin RFS Level Per Nursing on Admit: 4+=Very High CHANELLE MONTOYA MD Nov 11, 2019 13:19
[2019-11-11] MEDS ORDERED: dilTIAZem120 MG (CARDIZEM CD) CAP PO SCH (13:30)
[2019-11-11] MEDS ORDERED: ANTACID SUSP 30 ML UDC (MYLANTA) PO PRN (14:30)
[2019-11-11] MEDS ORDERED: MELATONIN 3 MG TABLET PO PRN (14:30)
[2019-11-11] MEDS ORDERED: MILK OF MAGNESIA 400 MG/5 ML 30 ML UDC PO PRN (14:30)
[2019-11-11] MEDS ORDERED: BISACODYL 10 MG SUPP (DULCOLAX) PR PRN (14:30)
[2019-11-11] MEDS ORDERED: BENZONATATE 100 MG (TESSALON) CAPSULE PO PRN (14:30)
[2019-11-11 16:00] VITALS: BP 184/76
[2019-11-11 19:47] VITALS: BP 177/72
[2019-11-11] MEDS ORDERED: cefTRIAXone 1,000 MG/SWFI 10 ML IV PUSH IV SCH ×2 (21:00)
[2019-11-12 00:30] VITALS: BP 125/63
--- NOTE | 2019-11-12 00:30 | NUR ---
ICU CALLED THIS RN AND SAID PT TELEMETRY SHOWED HR IN THE MID-40s. PT RESTING COMFORTABLY AT THIS TIME W/O S/S OF DISTRESS OR DISCOMFORT.
--- NOTE | 2019-11-12 01:29 | NUR ---
ICU CALLED THIS RN AND SAID PT HR WAS MID-30s. THIS RN IMMEDIATELY CHECKED ON PT. RESTING COMFORTABLY AT THIS TIME. WOKE PT UP. PT DENIES SOB, CHEST PAIN, DIZZINESS, OR ANY OTHER SYMPTOM. THIS RN INFORMED PT THAT HIS HR HAD DROPPED INTO THE 30s AND THAT I WANTED TO MAKE SURE PT WAS ALRIGHT. PT THANKED THIS RN AND WENT BACK TO SLEEP. IMMEDIATELY CALLED ICU BACK AFTER AND THEY SAID THAT PT'S HR WENT BACK UP TO MID 50s. WILL CONTINUE TO MONITOR.
[2019-11-12 04:00] VITALS: BP 146/71
[2019-11-12 05:26] LABS: CALCIUM 8.4 MG/DL (8.5-10.1); CREATININE SERUM 2.44 MG/DL (0.60-1.30); POTASSIUM 5.9 MMOL/L (3.6-5.0)
[2019-11-12] MEDS: NS IV 1000 ML 1,000 ML IV SCH (06:17)
[2019-11-12 07:39] VITALS: BP 154/64
--- NOTE | 2019-11-12 10:47 | Discharge Inst-Simple/Standard ---
Discharge Inst-Standard Patient Instructions/Follow Up Plan of Care/Instructions/FU: Please continue to take your medications as written. Please follow up with Dr Michelle as scheduled. Activity as Tolerated: Yes Discharge Diet: Cardiac Diet Return to The Hospital For: Fever, chest pain, shortness of breath, abdominal pain, decreased urine output, if you feel you are getting worse. CHANELLE KEYES MD Nov 12, 2019 10:47
--- NOTE | 2019-11-12 10:52 | Progress Note - Urology ---
Progress Note-Urology Progress Notes/Assess & Plan Progress/Assessment & Plan CONTINUES WELL. KIDNEY FUNCTIONS BETTER. URINE CLEAR . VOIDED ONCE WITHOUT PROBLEM. OK TO DISCHARGE WITH SAME POSTOP PLANS Final Diagnosis CA BLADDER ALBA TSE MD Nov 12, 2019 10:52
[2019-11-12 11:00] VITALS: BP 154/64
[2019-11-12 11:08] VITALS: BP 164/61
[2019-11-12] MEDS ORDERED: TMSL.4C PO (18:05)
[2019-11-12] MEDS ORDERED: BTH10T PO (18:05)
== END 2019-11-12 11:55 | disposition home or self-care (01) | DRG 690 ==
LOC: EDUNIT# 21:11 → ER 21:13 → 4TH 11-11 00:26
PROVIDERS: ADMIT Family Medicine; ATTEND Family Medicine
DX: N13.6 Pyonephrosis (principal); N28.89 Other specified disorders of kidney and ureter; R33.9 Retention of urine, unspecified; N17.9 Acute kidney failure, unspecified; C67.9 Malignant neoplasm of bladder, unspecified; E87.5 Hyperkalemia; I12.9 Hypertensive chronic kidney disease with stage 1 through stage 4 chronic kidney disease, or unspecified chronic kidney disease; N18.9 Chronic kidney disease, unspecified; J43.9 Emphysema, unspecified; G40.909 Epilepsy, unspecified, not intractable, without status epilepticus; I25.10 Atherosclerotic heart disease of native coronary artery without angina pectoris; G47.30 Sleep apnea, unspecified; I48.91 Unspecified atrial fibrillation; K58.9 Irritable bowel syndrome, unspecified; M54.9 Dorsalgia, unspecified; E78.5 Hyperlipidemia, unspecified; K21.9 Gastro-esophageal reflux disease without esophagitis; Z85.46 Personal history of malignant neoplasm of prostate; Z87.891 Personal history of nicotine dependence; Z95.1 Presence of aortocoronary bypass graft; Z95.5 Presence of coronary angioplasty implant and graft; Z97.4 Presence of external hearing-aid
CPT/HCPCS: 36415; 51702; 71045; 74176; 80048; 80053; 81000; 83605; 85025; 85610; 85730; 86141; 87040; 87088; 93005

== ENCOUNTER 2019-11-12 17:43 | Emergency (ER) | payer MEDICARE, OTHER ==
[~2019-11-12] VITALS: Ht 167 cm; Wt 72.7 kg
[2019-11-12] MEDS ORDERED: LIDOCAINE UROJET 2% GEL 10 ML PKG TOP ONE (18:00)
[2019-11-12 18:04] VITALS: BP 163/96
[2019-11-12] MEDS ORDERED: TMSL.4C PO (18:05)
[2019-11-12] MEDS ORDERED: BTH10T PO (18:05)
--- NOTE | 2019-11-12 18:05 | ED GU-Female ---
General Chief Complaint: - Urinary Stated Complaint: TOOK CATHETER OUT/UNABLE TO URINATE Source: patient Exam Limitations: no limitations History of Present Illness Date Seen by Provider: Nov 12, 2019 Time Seen by Provider: 18:03 Initial Comments ER with reports of inability to urinate since having his Moses catheter removed this morning at about 10 AM. He was admitted to the hospital and discharge this morning at [address] Tse has called to request prescription of Flomax, Urecholine and reinsertion of Moses catheter, he'll see the patient tomorrow at 1:30 PM for recheck. Timing/Duration: just prior to arrival Severity/Quality: moderate Location: suprapubic Radiation: none Activities at Onset: none Prior Genitourinary Problems: none Associated Symptoms: dysuria Allergies and Home Medications Allergies Coded Allergies: Beta-Blockers (Beta-Adrenergic Bloc (Verified Adverse Reaction, Unknown, SYNCOPE, 11/10/19) Home Medications Bethanechol Chloride 10 Mg Tablet, 10 MG PO ACHS Prescribed by: KI COX on 11/12/19 180 Diltiazem HCl 120 Mg Tablet, 120 MG PO DAILY, (Reported) Hyoscyamine Sulfate 0.125 Mg Tablet, 1-2 TAB PO Q4H PRN for PAIN-MODERATE (5-7) Prescribed by: GRIS VELAZQUEZ on 11/10/19 1027 Lisinopril 10 Mg Tablet, 10 MG PO DAILY, (Reported) Phenazopyridine HCl 200 Mg Tablet, 1 TAB PO TID Prescribed by: MAXWELL GARNETT on 11/06/19 1121 Sulfamethoxazole/Trimethoprim 1 Each Tablet, 1 EACH PO BID Prescribed by: MAXWELL GARNETT on 11/06/19 1118 Tamsulosin HCl 0.4 Mg Cap, 0.4 MG PO DAILY Prescribed by: KI COX on 11/12/19 1805 Tramadol HCl 50 Mg Tablet, 1-2 TAB PO Q4H PRN for PAIN Prescribed by: MAXWELL GARNETT on 11/06/19 1121 Patient Home Medication List Home Medication List Reviewed: Yes Review of Systems Review of Systems Constitutional: see HPI; No chills, No fever EENTM: see HPI Respiratory: no symptoms reported Cardiovascular: no symptoms reported Genitourinary: see HPI, other (retention) Musculoskeletal: no symptoms reported Skin: no symptoms reported Psychiatric/Neurological: No Symptoms Reported Endocrine: No Symptoms Reported Past Muogznk-Zecuvb-Exaowx Hx Patient Social History Alcohol Beverage of Choice: Wine Type Used: Cigarettes Former Smoker, Quit: Jul 19, 1996 2nd Hand Smoke Exposure: Yes Recent Foreign Travel: No Contact w/Someone Who Travel: No Recent Hopitalizations: Yes (turp 11/10/19) Immunizations Up To Date Tetanus Booster (TDap): Unknown Date of Pneumonia Vaccine: Apr 12, 2017 Date of Influenza Vaccine: Apr 24, 2019 Seasonal Allergies Seasonal Allergies: Yes Past Medical History Surgeries: Yes (NASAL, OPEN HEART, CARDIAC STENTS, BRACHY THERAPY-PROSTATE, turp) Bladder Surgery, CABG, Coronary Stent Respiratory: Yes Sleep Apnea, Emphysema Currently Using CPAP: No Currently Using BIPAP: No Cardiac: Yes Atrial Fibrillation, Coronary Artery Disease, Hypertension Neurological: No Reproductive Disorders: No Sexually Transmitted Disease: No HIV/AIDS: No Genitourinary: Yes Prostate Problems, Bladder Infection, Kidney Stones Gastrointestinal: Yes Gastroesophageal Reflux, Chronic Constipation, Irritable Bowel Musculoskeletal: Yes Chronic Back Pain Endocrine: No HEENT: Yes (GLASSES) Loss of Vision: Denies Hearing Impairment: Hard of Hearing, Bilateral Hearing Aide Cancer: Yes (with radiation IN 1999) Prostate Psychosocial: No Integumentary: No Blood Disorders: No Adverse Reaction/Blood Tranf: No (HAS HAD BLOOD WITH NO REACTION) Family Medical History Cardiovascular disease 19 FATHER G8 BROTHER Diabetes mellitus G8 BROTHER Hypertension 19 FATHER G8 BROTHER Neoplasm G8 BROTHER No Pertinent Family Hx Physical Exam Vital Signs Capillary Refill : Height, Weight, BMI Height: 5'6.00" Weight: 166lbs. 0.0oz. 75.679450dz; 26.27 BMI Method:Stated General Appearance: WD/WN, no apparent distress HEENT: PERRL/EOMI, normal ENT inspection Respiratory: no respiratory distress, no accessory muscle use Gastrointestinal: normal bowel sounds, soft Neurologic/Psychiatric: alert, normal mood/affect, oriented x 3 Skin: normal color, warm/dry Progress/Results/Core Measures Suspected Sepsis SIRS Temperature: Pulse: Respiratory Rate: Blood Pressure / Mean: Results/Orders My Orders Orders - KI COX APRN Lidocaine 2% (Urojet) (Xylocaine Urojet) (11/12/19 18:00) Bethanechol Tablet (Urecholine Tablet) (11/12/19 18:15) Tamsulosin Capsule (Flomax Capsule) (11/12/19 18:15) Ua Culture If Indicated (11/12/19 18:06) Medications Given in ED Current Medications Medications Dose Ordered Sig/[place] Route Start Time Stop Time Status Last Admin Dose Admin Lidocaine HCl 10 ml ONCE ONCE TOP 11/12/19 18:00 11/12/19 18:01 DC 11/12/19 18:06 10 ML Vital Signs/I&O Capillary Refill : Departure Communication (Admissions) Dr. Tse called, he would like Urecholine 10 mg 4 times a day, Flomax 0.4 mg daily, he'll see the patient tomorrow at 1:30 PM in the office Impression Primary Impression: Urinary retention Disposition: HOME, SELF-CARE Condition: Stable Departure-Patient Inst. Decision time for Depature: 18:04 Referrals: ABEL MARTINEZ MD (PCP/Family) Primary Care Physician Patient Instructions: Urinary Obstruction (DC) Add. Discharge Instructions: 1. Return to ER for any concerns 2. Follow-up with Dr. Tse tomorrow at 1:30. Start the 2 new medications as directed. All discharge instructions reviewed with patient and/or family. Voiced understanding. Scripts Tamsulosin HCl (Flomax) 0.4 Mg Cap 0.4 MG PO DAILY, #14 CAP Prov: KI COX APRN 11/12/19 Bethanechol Chloride (Urecholine) 10 Mg Tablet 10 MG PO ACHS, #40 TAB Prov: KI COX APRN 11/12/19 Copy Copies To 1: ALBA TSE MD, PETER J APRN Nov 12, 2019 18:05
[2019-11-12] MEDS ORDERED: TAMSULOSIN 0.4 MG (FLOMAX) CAP PO SCH (18:15)
[2019-11-12] MEDS ORDERED: BETHANECHOL 10 MG (URECHOLINE) TAB PO ONE (18:15)
[2019-11-12 18:24] LABS: BILIRUBIN,URINE NEGATIVE (NEGATIVE); CLARITY,URINE CLOUDY; COLOR,URINE YELLOW; GLUCOSE, URINE (UA) NEGATIVE (NEGATIVE); KETONES,URINE NEGATIVE (NEGATIVE); LEUKOCYTE ESTERASE ,URINE TRACE (NEGATIVE); NITRITE,URINE NEGATIVE (NEGATIVE); PROTEIN,URINE 2+ (NEGATIVE)
[2019-11-12 18:33] LABS: BACTERIA,URINE MODERATE /HPF; RBC,URINE TNTC /HPF; WBC,URINE 25-50 /HPF
== END 2019-11-12 18:47 | disposition home or self-care (01) ==
LOC: EDUNIT# 17:43 → ER 17:44
DX: R33.9 Retention of urine, unspecified (principal); I10 Essential (primary) hypertension; I25.10 Atherosclerotic heart disease of native coronary artery without angina pectoris; J43.9 Emphysema, unspecified; I48.91 Unspecified atrial fibrillation; Z85.46 Personal history of malignant neoplasm of prostate; Z88.8 Allergy status to other drugs, medicaments and biological substances; Z87.891 Personal history of nicotine dependence; Z77.22 Contact with and (suspected) exposure to environmental tobacco smoke (acute) (chronic); Z95.5 Presence of coronary angioplasty implant and graft; Z95.1 Presence of aortocoronary bypass graft; Z82.49 Family history of ischemic heart disease and other diseases of the circulatory system
CPT/HCPCS: 81000; 87088; 99283

== ENCOUNTER 2019-11-18 01:00 | Emergency (ER) | payer MEDICARE, OTHER ==
[~2019-11-18] VITALS: Ht 167.7 cm; Wt 71.6 kg
[~2019-11-18 01:00] MED LIST changes: +BTH10T PO
--- OUTSIDE RECORDS SUMMARY | 2019-11-18 01:07 | XMS REPORT ---
Author Author [facility] Organization [facility] Address [address] [address] Care Team Providers Care Hotel Engineer Name Role Phone MARCUS LILLY Unavailable ABEL MARTINEZ Unavailable AGUEDA ROJAS, JEFF Soares Unavailable Unavailable CARMENCITA ROJAS, ALBA Francis Unavailable Unavailable AFSANEH ROJAS, JEFFERY Galindo Unavailable Unavailable CARMENCITA ROJAS, ALBA Francis Unavailable Unavailable GAGE MARROQUIN, DWAYNE Caldwell Unavailable Unavailable SUZANNE ROJAS, LIZET Borja Unavailable Unavailable IK COX APRN Unavailable Unavailable STARR MARROQUIN, ANTONIETA Nicholson Unavailable Unavailab le Allergies No Information Medications No Information Problems Active Problems Problem Normalized Date of Normalized Normalized Provider Fac ility Classification Problem(s) Problem Problem Problem Sta tus Onset/Resoluti Duration on Acute Acute Episodic Active ALBA CARMENCITA , Not Avail able posthemorrhagi posthemorrhagi (31998) c anemia (6 c anemia sources.) 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 JEFF BROWNING , Not Available atherosclerosi c heart (39726) s and other disease of heart disease curyung (21 sources.) coronary artery without angina pectoris Translations: [ ATHSCL HEART DISEASE OF [place] COR ART W, CORON ATHEROSCLER NOS TYPE VESSEL, NATIV] Calculus of Calculus of Episodic Active ALBA CARMENCITA , Not Available urinary tract kidney (03134) (6 sources.) Nonspecific Chest pain, Episodic Active JEFF PRICE , Not Available chest pain (3 unspecified MD (16416) sources.) Other lower Cough Episodic Active no name no informat ion respiratory disease (2 sources.) Other diseases Cyst of Episodic Active ALBA CARMENCITA , Not Available of kidney and kidney, (28887) ureters (3 acquired sources.) Essential Essential 09-14-2019 - Chronic Active ALBA CARMENCITA , Not Available hypertension (primary) (30847) (21 sources.) hypertension Translations: [ HYPERTENSION NOS] Gangrene (3 Gangrene, not Episodic Active ALBA CARMENCITA , No t Available sources.) elsewhere (77467) classified Esophageal Gastro-esophag Chronic Active ALBA CARMENCITA , No t Available disorders (3 eal reflux (09621) sources.) disease without esophagitis Other oil heaterman Episodic Active MD JOSE DANIEL Not Availa ble aftercare (5 (current) use (50214) sources.) of anticoagulants Other [facility] Episodic Active JEFFERY Not Availabl e aftercare (9 (current) use AFSANEH , (29049) sources.) of MD antithrombotic s/antiplatelet s Other oil heaterman Episodic Active ALBA CARMENCTIA , Not Avai lable aftercare (3 (current) use (63048) sources.) of aspirin Cancer of Malignant Chronic Active ALBA CARMENCITA , Not Avai lable prostate (3 neoplasm of MD (20012) sources.) prostate 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 JEFF CUNNINGHAM I , Not Available lipid hyperlipidemia (20328) metabolism (21 Translations: sources.) [ HYPERLIPIDEMIA , UNSPECIFIED, HYPERLIPIDEMIA NEC/NOS] Substance-rela Nicotine Chronic Active KI COX 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 ailable richelle disorders dependence, (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) (3 sources.) cigarettes, in remission Residual Obstructive Chronic Active JEFF PRICE , Not A vailable codes; sleep apnea (67641) unclassified (adult) (11 sources.) (pediatric) Residual Obstructive Chronic Active BASGEENA PRICE , Not A vailable codes; sleep apnea (13010) unclassified (adult)(pediat (3 sources.) barbie) 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 MD JOSE DANIEL Not Available 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 (8 carotid sources.) arteries Translations: [ OCCLUSION AND STENOSIS OF UNSPECIFIED CA] Other Other long Episodic Active BASGEENA AGUEDA , Not Av ailable aftercare (11 term (current) (92927) sources.) drug therapy Other diseases Other Episodic Active JEFFERY Not Avai lable of kidney and obstructive BRUEGGEMANN , (49915) ureters (6 and reflux MD sources.) uropathy Pulmonary Other Chronic Active BASHAR AGUEDA , Not Avai 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 Other diseases Other Chronic Active ALBAJIMBO GAOL , Not Available of bladder and specified (90825) urethra (3 disorders of sources.) bladder Other diseases Other Chronic Active ALBA GAOL , Not Available of kidney and specified MD (91604) ureters (3 disorders of sources.) kidney and ureter Residual Personal Episodic Active LIZET PALACIOS Not Avail able codes; history of , (23203) unclassified irradiation (3 sources.) Cancer of Personal Episodic Active JEFFERY Not Available bladder (6 history of BRUEGGEMANN , (82425) sources.) malignant MD neoplasm of bladder Cancer of Personal Episodic Active KI COX Not Availab le prostate (14 history of (23903) sources.) malignant neoplasm of prostate Screening and Personal Episodic Active MIKEGEENA PRICE , Not Available history of history of (21808) mental health nicotine and substance dependence abuse codes (14 sources.) Coronary Presence of no information Active JEFF PRICE , Not Available atherosclerosi coronary (47672) s and other angioplasty heart disease implant and (25 sources.) graft Translations: [ PRESENCE OF AORTOCORONARY BYPASS GRAFT, ATHSCL HEART DISEASE OF [place] CORONARY , CHRONIC TOTAL OCCLUSION OF CORONARY STACY, CORONARY ANGIOPLASTY STATUS] Other injuries Radiation Episodic Active ALBA TSE , Not Available and conditions sickness, (53838) due to unspecified, external initial causes (6 encounter sources.) Heart valve Rheumatic 09-14-2019 - Chronic Active MIKEGEENA CUNNINGHAM I , Not Available disorders (13 disorders of MD (09446) sources.) both mitral and tricuspid valves Translations: [ MITRAL VALVE DISORDER, TRICUSPID VALVE DISEASE, NONRHEUMATIC MITRAL (VALVE) INSUFFICIENC] Cardiac Unspecified 09-14-2019 - Chronic Active MIKEGEENA PRICE , Not Available dysrhythmias atrial (75236) (21 sources.) fibrillation Translations: [ PAROXYSMAL ATRIAL FIBRILLATION, CARDIAC DYSRHYTHMIAS NEC, SUPRAVENTRICUL AR TACHYCARDIA] Past or Other Problems Problem Normalized Date of Normalized Normalized Provider Fac ility Classification Problem(s) Problem Problem Problem Sta tus Onset/Resoluti Duration on Other lower Other Episodic Completed JEFF PRICE , Not Av ailable respiratory respiratory (08104) disease (4 abnormalities sources.) Procedures Procedure Normalized Procedure Procedure Result Performer Facility Date DESTRUCTION OF no information no name (no phone) Not Availab le (61467) [facility] DESTRUCTION OF no information no name (no phone) Not Availab le (16336) PROSTATE, ENDO EXTIRPATION OF MATTER no information no name (no phone) Not Available (85677) FROM [facility] Immunizations No Information Results [...] cm 08/14/2015 11:34am Height (Calculated Centimeters) 167. 275430 cm 09/06/2015 10:20am Weight (Pounds) 160 pounds 09/06/2015 10:20am Weight (Calculated Grams) 37138.000 gm 08/15/2015 6:18am Weight (Calculated Kilograms) 72.574 780 kilograms 09/06/2015 10:20am Weight (Kilograms) 74.5 kg 08/15/2015 6:18am Calculated BMI 25.82 10:20am Vital Response Date/Time Temperature (Fahrenheit) 97.4 degree s F (97.6 - 99.5) 10/20/2015 8:56am Temperature (Calculated Celsius) 36. 85282 degrees C (36.4 - 37.5) 10/20/2015 8:56am [...] inches 10/20/2015 8:56am Height (Calculated Centimeters) 167. 949227 cm 10/20/2015 8:56am Weight (Pounds) 154 pounds 10/20/2015 8:56am Weight (Ounces) 0.0 oz 0 10/03/2015 1:21pm Weight (Calculated Grams) 00080.188 gm 10/03/2015 1:21pm Weight (Calculated Kilograms) 69.853 226 kilograms 10/20/2015 8:56am Calculated BMI 25.66 1:21pm Vital Response Date/Time Temperature (Fahrenheit) 97.9 degree s F (97.6 - 99.5) 10/21/2015 7:15pm Temperature (Calculated Celsius) 36. 94566 degrees C (36.4 - 37.5) 10/21/2015 7:15pm [...] inches 10/21/2015 7:15pm Height (Calculated Centimeters) 167. 967776 cm 10/21/2015 7:15pm Weight (Pounds) 152 pounds 10/21/2015 7:15pm Weight (Ounces) 0.0 oz 0 10/03/2015 1:21pm Weight (Calculated Grams) 54405.188 gm 10/03/2015 1:21pm Weight (Calculated Kilograms) 68.946 041 kilograms 10/21/2015 7:15pm Calculated BMI 25.66 1:21pm Vital Response Date/Time Temperature (Fahrenheit) 98.7 degree s F (97.6 - 99.5) 10/31/2015 4:14pm Temperature (Calculated Celsius) 37. 69407 degrees C (36.4 - 37.5) 10/31/2015 2:50pm [...] 158 pounds 10/30/2015 10:00pm Weight (Calculated Grams) 30273.595 gm 10/30/2015 10:00pm Weight (Calculated Kilograms) 71.667 595 kilograms 10/30/2015 10:00pm Vital Response Date/Time Temperature (Fahrenheit) 96.8 degree s F (97.6 - 99.5) 10/10/2015 2:00pm Temperature (Calculated Celsius) 36. 03410 degrees C (36.4 - 37.5) 10/10/2015 2:00pm [...] inches 10/03/2015 1:21pm Height (Calculated Centimeters) 167. 633992 cm 10/03/2015 1:21pm Weight (Pounds) 159 pounds 10/03/2015 1:21pm Weight (Ounces) 0.0 oz 0 10/03/2015 1:21pm Weight (Calculated Grams) 94745.188 gm 10/03/2015 1:21pm Weight (Calculated Kilograms) 72.121 [...] 167.6 cm 08/14/2015 11:34am Weight (Calculated Grams) 18860.000 gm 08/15/2015 6:18am Weight (Kilograms) 74.5 kg 08/15/2015 6:18am Calculated BMI 25.56 11:34am Vital Response Date/Time Temperature (Fahrenheit) 96.6 degree s F (97.6 - 99.5) 01/30/2016 8:00am Temperature (Calculated Celsius) 35. 45137 degrees C (36.4 - 37.5) 01/30/2016 8:00am [...] inches 01/29/2016 8:45am Height (Calculated Centimeters) 167. 656642 cm 01/29/2016 8:45am Weight (Pounds) 169 pounds 01/30/2016 6:36am Weight (Ounces) 6.0 oz 0 01/30/2016 6:36am Weight (Calculated Grams) 09311.208 gm 01/30/2016 6:36am Weight (Calculated Kilograms) 76.827 208 kilograms 01/30/2016 6:36am Calculated BMI 25.5 01/16 8:45am Vital Response Date/Time Temperature (Fahrenheit) 98.7 degree s F (97.6 - 99.5) 10/31/2015 4:14pm Temperature (Calculated Celsius) 37. 24391 degrees C (36.4 - 37.5) 10/31/2015 2:50pm [...] inches 10/22/2015 5:50pm Height (Calculated Centimeters) 167. 095824 cm 10/22/2015 5:50pm Weight (Pounds) 158 pounds 10/30/2015 10:00pm Weight (Ounces) 0.0 oz 0 10/22/2015 6:00pm Weight (Calculated Grams) 87828.595 gm 10/30/2015 10:00pm Weight (Calculated Kilograms) 71.667 595 kilograms 10/30/2015 10:00pm Calculated BMI 25.5 11/2015 5:50pm Vital Response Date/Time Temperature (Fahrenheit) 96.9 degree s F (97.6 - 99.5) 05/13/2017 8:02am Temperature (Calculated Celsius) 36. 97456 degrees C (36.4 - 37.5) 05/13/2017 8:02am [...] inches 05/13/2017 8:04am Height (Calculated Centimeters) 167. 279448 cm 05/13/2017 8:04am Weight (Pounds) 152 pounds 05/13/2017 8:04am Weight (Ounces) 0.0 oz 1 8:04am Weight (Calculated Grams) 39878.04 gm 05/13/2017 8:04am Weight (Calculated Kilograms) 68.946 041 kilograms 05/13/2017 8:04am Calculated BMI 24.5 04/19 8:04am Vital Response Date/Time Temperature (Fahrenheit) 96.9 degree s F (97.6 - 99.5) 05/13/2017 8:02am Temperature (Calculated Celsius) 36. 69676 degrees C (36.4 - 37.5) 05/13/2017 8:02am [...] inches 05/13/2017 8:04am Height (Calculated Centimeters) 167. 423652 cm 05/13/2017 8:04am Weight (Pounds) 152 pounds 05/13/2017 8:04am Weight (Ounces) 0.0 oz 1 8:04am Weight (Calculated Grams) 25851.04 gm 05/13/2017 8:04am Weight (Calculated Kilograms) 68.946 [...] See Medication Section Referrals MARCUS LILLY MD [facility] Physician Additional Instructions/Education Al l discharge instructions reviewed with patient and/or family. Voiced understanding. CONTINUE USUAL HOME MEDICATIONS AND ORDERS. FOLLOW-UP WITH DR. TSE PREVIOUSLY SCHEDULED. RETURN TO THE EMERGENCY DEPARTMENT FOR WORSENED PAIN, ABDOMINAL SWELLING, FEVER, LEAKING OF CATHETER, OR ANY OTHER CONCERNS. Prescriptions See Medication Section Discharge Date 10/10/15 3:55pm Disposition IP-[facility] TO CODE Instructions/Education Provided Acut e [...] V ia Emmie procedure STARR PA (no [facility] phone) (no phone) 09-21-2018 Patient encounter [...] Name Policy Number Subscriber Name Relationship [employer]ET[employer] [id number] Urszula Hsu W 01 Self / Same As Patient s Medicare [id number] Urszula Mazariegos 01 Self / Same As Patient Advance Directives Directive Response Recor ded Date/Time Advance Directives No 10:23am Health Care Power of Surveillance Technician No 09/06/15 10:23am Organ Donor Yes 09/06/15 10:23am Resuscitation Status Full Code 09/06/15 10:23am Directive Response Recor ded Date/Time Advance Directives No 9:00am Health Care Power of Surveillance Technician Y DAUG HTER DORON 10/20/15 9:00am Organ Donor Yes 10/20/15 9:00am Resuscitation Status Full Code 10/20/15 9:00am Directive Response Recor ded Date/Time Advance Directives No 7:15pm Health Care Power of Surveillance Technician Y DAUG HTER DORON 10/21/15 7:15pm Organ Donor Yes 10/21/15 7:15pm Resuscitation Status Full Code 10/21/15 7:15pm Directive Response Recor ded Date/Time Advance Directives No 5:01pm Health Care Power of Surveillance Technician Y DAUG HTER DORON 10/22/15 5:01pm Organ Donor Yes 10/22/15 5:01pm Directive Response Recor ded Date/Time Advance Directives No 1:10pm Health Care Power of Surveillance Technician Y DAUG HTER DORON 10/03/15 1:10pm Organ Donor Yes 10/03/15 1:10pm Resuscitation Status Full Code 10/03/15 1:10pm Directive Response Recor ded Date/Time Advance Directives No 11:28am Health Care Power of Surveillance Technician No 08/14/15 11:28am Organ Donor Yes 08/14/15 11:28am Resuscitation Status Full Code 08/14/15 11:28am Directive Response Recor ded Date/Time Advance Directives No 8:45am Health Care Power of Surveillance Technician Y DAUG HTER DORON 01/29/16 8:45am Organ Donor Yes 01/29/16 8:45am Resuscitation Status Full Code 01/29/16 8:45am Directive Response Recor ded Date/Time Advance Directives No 5:01pm Health Care Power of Surveillance Technician Y DAUG HTER DORON 10/22/15 5:01pm Organ Donor Yes 10/22/15 5:01pm Resuscitation Status Full Code 10/22/15 5:01pm Directive Response Recor ded Date Advance Directives N 9:04am Health Care Power of Surveillance Technician N 08/13/08 4:51pm Organ Donor Y 08/31/12 9 :04am Directive Response Recor ded Date/Time Advance Directives No 8:01am Health Care Power of Surveillance Technician Y - DA UGHTER DORON 05/13/17 8:01am [...] This clinical document has been generated using transOMIC software that has been certified by the Office of the National Coordinator for Health Information Technology (ONC 15.99.04.3023.Diam.31.00.0.450793) and the National Committee for Digital Marketing Project Manager (NCQA, as an eMeasure certified technology). FOR [...] BASED ON T HE PRIMARY CLINICAL RECORDS. [facility]. provides no warranty or guara ntee of the accuracy or completeness of information in this document.The followi ng information is based on time limited clinical information
--- OUTSIDE RECORDS SUMMARY | 2019-11-18 01:07 | XMS REPORT | Clinical Summary ---
Author Author [facility] Organization [facility] Address Unknown Phone Unavailable Care Team Providers Care Logistics Service Representative Name Role Phone Jabari Peguero MD PCP Bin Olmos MD Unavailable Enzo Cohn MD Unavailable Louie Hernandez MD Unavailable Azael Lehman MD Unavailable Source Comments Some departments are not documenting in the electronic medical record. If you d o not see the information that you expected, contact Release of Information in [facility] [employer] Information Management department at [phone] for further assistan ce in locating additional records.[facility] Allergies Comments Active Allergy Reactions Severity Noted [...] 20 mg capsule mouth daily. Active omega 8-guy-olb-fish oil Take 1 Cap by 0 300-1,000 mg mouth daily. capsuleIndications: Noon Indications: Noon Active vitamins, multiple tablet Take 1 Tab by 0 mouth daily. Active cholecalciferol (VITAMIN Take 1,000 0 D-3) 1,000 units tablet Units by mouth daily. Active nitroglycerin Take 1 [place] 0 (NITROLINGUAL) 400 by mouth mcg/spray translingual [...] 2) PNEUMONIA (PPSV23) 1999 VACCINE (1 of 1 - PPSV23) INFLUENZA VACCINE 04/18/2020 Results Not on filefrom Last 3 Months Insurance Type Payer Benefit Subscriber ID Effective Phone Address Plan / Dates Group Medicare MEDICARE MEDICARE xxxxxxxxxx 1999-P PART A AND resent B AETNA AETNA xxxxxxxxxx 2001-P PPO/ELECT/ resent MGD CHOICE [id number] Advance Directives Patient Co Founder And Chairman Explanation Type Date Recorded Advance 10/10/2015 3:46 PM Directive/DPOA Date Inactivated Comments Code Status Date Activated 10/13/2015 4:54 PM Full Code 10/10/2015 7:31 PM Provider has discussed Code Status Yes w/Patient or Family?
--- OUTSIDE RECORDS SUMMARY | 2019-11-18 01:08 | XMS REPORT | Continuity of Care Document ---
Author Organization Unknown Address Unknown Phone Unavailable Allergies Active Description Code Type Severity Reaction Onset Reported/Identified Relationship to Patient Clinical Status Yes Beta Blockers Beta Blockers Mild Intolerance 06/23/2011 Yes Beta Blockers Beta Blockers Mild SYNCOPE 11/01/2019 Yes Beta-Blockers (Beta-Adrenergic Bloc [id number] Drug Allergy Unknown SYNCOPE 11/10/2019 Medications There [...] Ot I25. 10 ATHSCL HEART DISEASE OF [place] CORONARY 08/15/2015 JEFF ROMEO MD Ot I25. 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 2 OTHER SECONDARY PULMONARY HYPERTENSION 01/30/2016 JEFF ROMEO MD Ot I48. 0 PAROXYSMAL ATRIAL FIBRILLATION 01/30/2016 JEFF ROMEO MD Ot R31. 9 HEMATURIA, UNSPECIFIED 01/30/2016 JEFF ROMEO MD Ot Z79.899 OTHER [facility] (CURRENT) DRUG THERAPY 01/30/2016 JEFF ROMEO MD Ot Z95. 1 PRESENCE OF AORTOCORONARY BYPASS GRAFT 01/30/2016 JEFF ROMEO MD Ot Z95. 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 2 OTHER SECONDARY PULMONARY HYPERTENSION 02/25/2016 JEFF ROMEO MD Ot I48. 0 PAROXYSMAL ATRIAL FIBRILLATION 02/25/2016 JEFF ROMEO MD Ot R31. 9 HEMATURIA, UNSPECIFIED 02/25/2016 JEFF ROMEO MD Ot Z79.899 OTHER [facility] (CURRENT) DRUG THERAPY 02/25/2016 JEFF ROMEO MD [...] Ot I25. 10 ATHSCL HEART DISEASE OF [place] CORONARY 12/25/2016 JEFF ROMEO MD Ot I48. 0 PAROXYSMAL ATRIAL FIBRILLATION 12/25/2016 JEFF ROMEO MD Ot E78. 2 MIXED HYPERLIPIDEMIA 12/25/2016 JEFF ROMEO MD Ot I08. 1 RHEUMATIC DISORDERS OF BOTH MITRAL AND T 12/25/2016 JEFF ROMEO MD Ot I10 ESSENTIAL (PRIMARY) HYPERTENSION 12/25/2016 JEFF ROMEO MD Ot I25. 10 ATHSCL HEART DISEASE OF [place] CORONARY 12/25/2016 JEFF ROMEO MD Ot I48. [...] Ot I25. 10 ATHSCL HEART DISEASE OF [place] CORONARY 12/28/2016 JEFF ROMEO MD Ot I48. 0 PAROXYSMAL ATRIAL FIBRILLATION 01/14/2017 JEFF ROMEO MD Ot E78. 2 MIXED HYPERLIPIDEMIA 01/14/2017 JEFF ROMEO MD Ot I08. 1 RHEUMATIC DISORDERS OF BOTH MITRAL AND T 01/14/2017 JEFF ROMEO MD Ot I10 ESSENTIAL (PRIMARY) HYPERTENSION 01/14/2017 JEFF ROMEO MD Ot I25. 10 ATHSCL HEART DISEASE OF [place] CORONARY 01/14/2017 JEFF ROMEO MD Ot I48. [...] Ot I25. 10 ATHSCL HEART DISEASE OF [place] CORONARY 01/20/2017 JEFF ROMEO MD Ot I48. 0 PAROXYSMAL ATRIAL FIBRILLATION 01/21/2017 JEFF ROMEO MD Ot E78. 2 MIXED HYPERLIPIDEMIA 01/21/2017 JEFF ROMEO MD Ot I10 ESSENTIAL (PRIMARY) HYPERTENSION 01/21/2017 JEFF ROMEO MD Ot I25. 10 ATHSCL HEART DISEASE OF [place] CORONARY 01/21/2017 JEFF ROMEO MD Ot I48. [...] Ot I25. 10 ATHSCL HEART DISEASE OF [place] CORONARY 02/25/2017 JEFF ROMEO MD Ot I48. 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 10 ATHSCL HEART DISEASE OF [place] CORONARY 03/28/2018 JEFF ROMEO MD Ot I48. 0 PAROXYSMAL ATRIAL FIBRILLATION 03/28/2018 JEFF ROMEO MD Ot E78. 2 MIXED HYPERLIPIDEMIA 03/28/2018 JEFF ROMEO MD Ot I08. 1 RHEUMATIC DISORDERS OF BOTH MITRAL AND T 03/28/2018 JEFF ROMEO MD Ot I10 ESSENTIAL (PRIMARY) HYPERTENSION 03/28/2018 JEFF ROMEO MD Ot I25. 10 ATHSCL HEART DISEASE OF [place] CORONARY 03/28/2018 JEFF ROMEO MD Ot I48. 0 PAROXYSMAL ATRIAL FIBRILLATION 03/28/2018 JEFF ROMEO MD Ot E78. 2 MIXED HYPERLIPIDEMIA 03/28/2018 JEFF ROMEO MD Ot I10 ESSENTIAL (PRIMARY) HYPERTENSION 03/28/2018 JEFF ROMEO MD Ot I25. 10 ATHSCL HEART DISEASE OF [place] CORONARY 03/28/2018 JEFF ROMEO MD Ot I48. 0 PAROXYSMAL ATRIAL FIBRILLATION 04/26/2018 ISABELLE ROCA APRN Ot R 05 COUGH 09/22/2018 JEFF ROMEO MD Ot E78. 2 MIXED HYPERLIPIDEMIA 09/22/2018 JEFF ROMEO MD Ot I10 ESSENTIAL (PRIMARY) HYPERTENSION 09/22/2018 JEFF ROMEO MD Ot I25. 10 ATHSCL HEART DISEASE OF [place] CORONARY 09/22/2018 JEFF ROMEO MD Ot I48. 91 UNSPECIFIED ATRIAL FIBRILLATION 10/12/2018 JEFF ROMEO MD Ot E78. 2 MIXED HYPERLIPIDEMIA 10/12/2018 JEFF ROMEO MD Ot I10 ESSENTIAL (PRIMARY) HYPERTENSION 10/12/2018 JEFF ROMEO MD Ot I25. 10 ATHSCL HEART DISEASE OF [place] CORONARY 10/12/2018 JEFF ROMEO MD Ot I48. 91 UNSPECIFIED ATRIAL FIBRILLATION 09/15/2019 ANTONIETA DENG Ot E78.2 MIXED HYPERLIPIDEMIA 09/15/2019 STARR MARROQUIN, ANTONIETA Lyn Ot I10 ESSENTIAL (PRIMARY) HYPERTENSION 09/15/2019 ANTONIETA DENG Ot I25.10 ATHSCL HEART DISEASE OF [place] CORONARY 09/15/2019 ANTONIETA DENG Ot I34.0 NONRHEUMATIC MITRAL (VALVE) INSUFFICIENC 09/15/2019 ANTONIETA DENG Ot I48.91 UNSPECIFIED ATRIAL FIBRILLATION 09/15/2019 ANTONIETA DENG Ot I65.29 OCCLUSION AND STENOSIS OF UNSPECIFIED CA 10/03/2019 AZEB DENGTH Lyn Ot E78.2 MIXED HYPERLIPIDEMIA 10/03/2019 STARR MARROQUIN, ANTONIETA K Ot I10 ESSENTIAL (PRIMARY) HYPERTENSION 10/03/2019 AZEB DENGTH K Ot I25.10 ATHSCL HEART DISEASE OF [place] CORONARY 10/03/2019 ANTONIETA DENG Ot I34.0 NONRHEUMATIC MITRAL (VALVE) INSUFFICIENC 10/03/2019 ANTONIETA DENG Ot I48.91 UNSPECIFIED ATRIAL FIBRILLATION 10/03/2019 ANTONIETA DENG Ot I65.29 OCCLUSION AND STENOSIS OF UNSPECIFIED CA 10/10/2019 ANTONIETA DENG Ot E78.2 MIXED HYPERLIPIDEMIA 10/10/2019 ANTONIETA DENG Ot I10 ESSENTIAL (PRIMARY) HYPERTENSION 10/10/2019 ANTONIETA DENG Ot I25.10 ATHSCL HEART DISEASE OF [place] CORONARY 10/10/2019 ANTONIETA DENG Ot I34.0 NONRHEUMATIC MITRAL (VALVE) INSUFFICIENC 10/10/2019 ANTONIETA DENG Ot I48.91 UNSPECIFIED ATRIAL FIBRILLATION 10/10/2019 ANTONIETA DENG Ot I65.29 OCCLUSION AND STENOSIS OF UNSPECIFIED CA 10/30/2019 YANCI, GRIS ZAMARRIPAP Ot I10 ESSENTIAL (PRIMARY) HYPERTENSION 10/30/2019 GRIS PETE Ot I25.10 ATHSCL HEART DISEASE OF [place] CORONARY 10/30/2019 YANCI, GRIS ZAMARRIPAP Ot J43.9 EMPHYSEMA, UNSPECIFIED 10/30/2019 YANCI, GRIS DOCK COORDINATOR Ot 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 10/30/2019 GRIS PETEP Ot M54.5 LOW BACK PAIN 10/30/2019 GRIS PETEP Ot N13.30 UNSPECIFIED HYDRONEPHROSIS 10/30/2019 GRIS PETEP Ot N32.9 BLADDER DISORDER, UNSPECIFIED 10/30/2019 YANCI GRIS DOCK COORDINATOR Ot Z79.82 [facility] (CURRENT) USE OF ASPIRIN 10/30/2019 YANCI GRIS DOCK COORDINATOR Ot Z79.899 OTHER [facility] (CURRENT) DRUG THERAPY 10/30/2019 GRIS PETE DOCK COORDINATOR Ot Z85.46 PERSONAL HISTORY OF MALIGNANT NEOPLASM O 10/30/2019 GRIS PETEP Ot Z87.891 PERSONAL HISTORY OF NICOTINE DEPENDENCE 10/30/2019 GRIS PETEP Ot Z92.3 PERSONAL HISTORY OF IRRADIATION 10/30/2019 YANCI, GRIS ZAMARRIPAP Ot Z95.1 PRESENCE OF AORTOCORONARY BYPASS GRAFT 10/30/2019 YANCI, GRIS DOCK COORDINATOR Ot Z95.5 PRESENCE OF CORONARY ANGIOPLASTY IMPLANT 10/31/2019 YANCI, GRIS DOCK COORDINATOR Ot I10 ESSENTIAL (PRIMARY) HYPERTENSION 10/31/2019 YANCI, GRIS DOCK COORDINATOR Ot I25.10 ATHSCL HEART DISEASE OF [place] CORONARY 10/31/2019 YANCI, GRIS DOCK COORDINATOR Ot J43.9 EMPHYSEMA, UNSPECIFIED 10/31/2019 YANCI, GRIS DOCK COORDINATOR Ot 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 10/31/2019 YANCI, GRIS DOCK COORDINATOR Ot M54.5 LOW BACK PAIN 10/31/2019 YANCI, GRIS DOCK COORDINATOR Ot N13.30 UNSPECIFIED HYDRONEPHROSIS 10/31/2019 YANCI, GRIS DOCK COORDINATOR Ot N32.9 BLADDER DISORDER, UNSPECIFIED 10/31/2019 YANCI, GRIS DOCK COORDINATOR Ot Z79.82 [facility] (CURRENT) USE OF ASPIRIN 10/31/2019 YANCI, GRIS DOCK COORDINATOR Ot Z79.899 OTHER HYPERBARIC [facility] (CURRENT) DRUG THERAPY 10/31/2019 YANCI, GRIS DOCK COORDINATOR Ot Z85.46 PERSONAL HISTORY OF MALIGNANT NEOPLASM O 10/31/2019 YANCI, GRIS DOCK COORDINATOR Ot Z87.891 PERSONAL HISTORY OF NICOTINE DEPENDENCE 10/31/2019 YANCI, GRIS DOCK COORDINATOR Ot Z92.3 PERSONAL HISTORY OF IRRADIATION 10/31/2019 YANCI, GRIS DOCK COORDINATOR Ot Z95.1 PRESENCE OF AORTOCORONARY BYPASS GRAFT 10/31/2019 YANCI, GRIS DOCK COORDINATOR Ot Z95.5 PRESENCE OF CORONARY ANGIOPLASTY IMPLANT 11/01/2019 CARMENCITA ROJAS, ALBA Francis Ot Z01.8 18 ENCOUNTER FOR OTHER PREPROCEDURAL EXAMIN 11/02/2019 ALBA TSE MD Ot Z01.8 18 ENCOUNTER FOR OTHER PREPROCEDURAL EXAMIN 11/05/2019 YANCI, GRIS DOCK COORDINATOR Ot I10 ESSENTIAL (PRIMARY) HYPERTENSION 11/05/2019 YANCI, GRIS DOCK COORDINATOR Ot I25.10 ATHSCL HEART DISEASE OF [place] CORONARY 11/05/2019 YANCI, GRIS DOCK COORDINATOR Ot J43.9 EMPHYSEMA, UNSPECIFIED 11/05/2019 YANCI, GRIS DOCK COORDINATOR Ot 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 11/05/2019 YANCI, GRIS DOCK COORDINATOR Ot M54.5 LOW BACK PAIN 11/05/2019 YANCI, GRIS DOCK COORDINATOR Ot N13.30 UNSPECIFIED HYDRONEPHROSIS 11/05/2019 YANCI, GRIS DOCK COORDINATOR Ot N32.9 BLADDER DISORDER, UNSPECIFIED 11/05/2019 YANCI, GRIS ZAMARRIPAP Ot Z79.82 [facility] (CURRENT) USE OF ASPIRIN 11/05/2019 YANCI, GRIS DOCK COORDINATOR Ot Z79.899 OTHER [facility] (CURRENT) DRUG THERAPY 11/05/2019 YANCI GRIS DOCK COORDINATOR Ot Z85.46 PERSONAL HISTORY OF MALIGNANT NEOPLASM O 11/05/2019 YANCI GRIS ZAMARRIPAP Ot Z87.891 PERSONAL HISTORY OF NICOTINE DEPENDENCE 11/05/2019 YANCI, GRIS DOCK COORDINATOR Ot Z92.3 PERSONAL HISTORY OF IRRADIATION 11/05/2019 YANCI, GRIS JENSEN Ot Z95.1 PRESENCE OF AORTOCORONARY BYPASS GRAFT 11/05/2019 YANCI, GRIS JENSEN Ot Z95.5 PRESENCE OF CORONARY ANGIOPLASTY IMPLANT 11/06/2019 AGUEDA ROJAS, JEFF Soares Ot E78. 2 MIXED HYPERLIPIDEMIA 11/06/2019 JEFF ROMEO MD Ot I10 ESSENTIAL (PRIMARY) HYPERTENSION 11/06/2019 JEFF ROMEO MD Ot I25. 10 ATHSCL HEART DISEASE OF [place] CORONARY 11/06/2019 JEFF ROMEO MD Ot I48. 0 PAROXYSMAL ATRIAL FIBRILLATION 11/06/2019 ISABELLE ROCA LATEX CASTER Ot R 05 COUGH 11/06/2019 JEFF ROMEO MD, Ot E78. 2 MIXED HYPERLIPIDEMIA 11/06/2019 JEFF ROMEO MD Ot I10 ESSENTIAL (PRIMARY) HYPERTENSION 11/06/2019 JEFF ROMEO MD Ot I25. 10 ATHSCL HEART DISEASE OF [place] CORONARY 11/06/2019 JEFF ROMEO MD Ot I48. 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 11/06/2019 ALBA TSE MD, Ot G47.3 3 OBSTRUCTIVE SLEEP APNEA (ADULT) (PEDIATR 11/06/2019 ALBA TSE MD, Ot I10 ESSENTIAL (PRIMARY) HYPERTENSION 11/06/2019 ALBA TSE MD, Ot I25.1 0 ATHSCL HEART DISEASE OF [place] CORONARY 11/06/2019 ALBA TSE MD Ot I48.9 1 UNSPECIFIED ATRIAL FIBRILLATION 11/06/2019 ALBA TSE MD, Ot N13.5 CROSSING VESSEL AND STRICTURE OF URETER 11/06/2019 ALBA TSE MD, Ot 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 11/09/2019 ALBA TSE MD, Ot G47.3 3 OBSTRUCTIVE SLEEP APNEA (ADULT) (PEDIATR 11/09/2019 ALBA TSE MD, Ot I10 ESSENTIAL (PRIMARY) HYPERTENSION 11/09/2019 ALBA TSE MD, Ot I25.1 0 ATHSCL HEART DISEASE OF [place] CORONARY 11/09/2019 ALBA TSE MD, Ot I48.9 1 UNSPECIFIED ATRIAL FIBRILLATION 11/09/2019 ALBA TSE MD, Ot N13.5 CROSSING VESSEL AND STRICTURE OF URETER 11/09/2019 ALBA TSE MD Ot 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, MALE, [...] Ot Z95.1 PRESENCE OF AORTOCORONARY BYPASS GRAFT 11/09/2019 ALBA TSE MD, Ot Z01.8 18 ENCOUNTER FOR OTHER PREPROCEDURAL EXAMIN 11/12/2019 CHANELLE KEYES MD Ot C67. 9 MALIGNANT NEOPLASM OF BLADDER, UNSPECIFI 11/12/2019 CHANELLE KEYES MD Ot E78. 5 HYPERLIPIDEMIA, UNSPECIFIED 11/12/2019 CHANELLE KEYES MD Ot E87. 5 HYPERKALEMIA 11/12/2019 CHANELLE KEYES MD Ot G40.909 EPILEPSY, UNSP, NOT INTRACTABLE, WITHOUT 11/12/2019 CHANELLE KEYES MD Ot G47. 30 SLEEP APNEA, UNSPECIFIED 11/12/2019 CHANELLE KEYES MD Ot I12. 9 HYPERTENSIVE CHRONIC KIDNEY DISEASE W ST 11/12/2019 CHANELLE KEYES MD Ot I25. 10 ATHSCL HEART DISEASE OF [place] CORONARY 11/12/2019 CHANELLE KEYES MD Ot I48. 91 UNSPECIFIED ATRIAL FIBRILLATION 11/12/2019 CHANELLE KEYES MD Ot J43. 9 EMPHYSEMA, UNSPECIFIED 11/12/2019 CHANELLE KEYES MD Ot K21. 9 GASTRO-ESOPHAGEAL REFLUX DISEASE WITHOUT 11/12/2019 CHANELLE KEYES MD Ot K58. 9 IRRITABLE BOWEL SYNDROME WITHOUT DIARRHE 11/12/2019 CHANELLE KEYES MD Ot M54. 9 DORSALGIA, UNSPECIFIED 11/12/2019 CHANELLE KEYES MD Ot N13. 6 PYONEPHROSIS 11/12/2019 CHANELLE KEYES MD Ot N17. 9 ACUTE KIDNEY FAILURE, UNSPECIFIED 11/12/2019 CHANELLE KEYES MD Ot N18. 9 CHRONIC KIDNEY DISEASE, UNSPECIFIED 11/12/2019 CHANELLE KEYES MD Ot N28. 89 OTHER SPECIFIED DISORDERS OF KIDNEY AND 11/12/2019 CHANELLE KEYES MD Ot R33. 9 RETENTION OF URINE, UNSPECIFIED 11/12/2019 CHANELLE KEYES MD Ot Z85. 46 PERSONAL HISTORY OF MALIGNANT NEOPLASM O 11/12/2019 CHANELLE KEYES MD Ot Z87.891 PERSONAL HISTORY OF NICOTINE DEPENDENCE 11/12/2019 CHANELLE KEYES MD Ot Z95. 1 PRESENCE OF AORTOCORONARY BYPASS GRAFT 11/12/2019 CHANELLE KEYES MD Ot Z95. 5 PRESENCE OF CORONARY ANGIOPLASTY IMPLANT 11/12/2019 CHANELLE KEYES MD Ot Z97. 4 PRESENCE OF EXTERNAL HEARING-AID 11/12/2019 JEFF ROMEO MD Ot E78. 2 MIXED HYPERLIPIDEMIA 11/12/2019 JEFF ROMEO MD Ot I10 ESSENTIAL (PRIMARY) HYPERTENSION 11/12/2019 JEFF ROMEO MD Ot I25. 10 ATHSCL HEART DISEASE OF [place] CORONARY 11/12/2019 JEFF ROMEO MD Ot I48. 0 PAROXYSMAL ATRIAL FIBRILLATION 11/12/2019 ISABELLE ROCA APRN Ot R 05 COUGH 11/12/2019 JEFF ROMEO MD Ot E78. 2 MIXED HYPERLIPIDEMIA 11/12/2019 JEFF ROMEO MD Ot I10 ESSENTIAL (PRIMARY) HYPERTENSION 11/12/2019 JEFF ROMEO MD Ot I25. 10 ATHSCL HEART DISEASE OF [place] CORONARY 11/12/2019 JEFF ROMEO MD Ot I48. 91 UNSPECIFIED ATRIAL FIBRILLATION 11/12/2019 ANTONIETA DENG Ot E78.2 MIXED HYPERLIPIDEMIA 11/12/2019 ANTONIETA DENG Ot I10 ESSENTIAL (PRIMARY) HYPERTENSION 11/12/2019 ANTONIETA DENG Ot I25.10 ATHSCL HEART DISEASE OF [place] CORONARY 11/12/2019 ANTONIETA DENG Ot I34.0 NONRHEUMATIC MITRAL (VALVE) INSUFFICIENC 11/12/2019 ANTONIETA DENG Ot I48.91 UNSPECIFIED ATRIAL FIBRILLATION 11/12/2019 ANTONIETA DENG Ot I65.29 OCCLUSION AND STENOSIS OF UNSPECIFIED CA 11/14/2019 KI COX APRN Ot I10 ESSENTIAL (PRIMARY) HYPERTENSION 11/14/2019 KI COX APRN Ot I25.10 ATHSCL HEART DISEASE OF [place] CORONARY 11/14/2019 KI COX APRN Ot I48.91 UNSPECIFIED ATRIAL FIBRILLATION 11/14/2019 KI COX APRN Ot J43 .9 EMPHYSEMA, UNSPECIFIED 11/14/2019 KI COX APRN Ot R33 .9 RETENTION OF URINE, UNSPECIFIED 11/14/2019 KI COX APRN Ot Z77.22 CNTCT W AND EXPSR TO ENVIRON TOBACCO SMO 11/14/2019 KI COX APRN Ot Z82.49 FAMILY HX OF ISCHEM HEART DIS AND OTH DI 11/14/2019 KI COX APRN Ot Z85.46 PERSONAL HISTORY OF MALIGNANT NEOPLASM O 11/14/2019 KI COX APRN Ot Z87.891 PERSONAL HISTORY OF NICOTINE DEPENDENCE 11/14/2019 KI COX APRN Ot Z88 .8 ALLERGY STATUS TO OT DRUG/MEDS/BIOL SUB 11/14/2019 KI COX APRN Ot Z95 .1 PRESENCE OF AORTOCORONARY BYPASS GRAFT 11/14/2019 KI COX APRN Ot Z95 .5 PRESENCE OF CORONARY ANGIOPLASTY IMPLANT 11/14/2019 ALBA TSE MD Ot Z01.8 18 ENCOUNTER FOR OTHER PREPROCEDURAL EXAMIN 11/17/2019 ALBA TSE MD Ot C7A.8 OTHER MALIGNANT NEUROENDOCRINE TUMORS 11/17/2019 ALBA TSE MD Ot G47.3 3 OBSTRUCTIVE SLEEP APNEA (ADULT) (PEDIATR 11/17/2019 ALBA TSE MD Ot I10 ESSENTIAL (PRIMARY) HYPERTENSION 11/17/2019 CARMENCITA ROJAS, ALBA Francis Ot I25.1 0 ATHSCL HEART DISEASE OF [place] CORONARY 11/17/2019 ALBA TSE MD, Ot I48.9 1 UNSPECIFIED ATRIAL FIBRILLATION 11/17/2019 ALBA TSE MD, Ot Z79.0 1 [facility] (CURRENT) USE OF ANTICOAGULANT 11/17/2019 ALBA TSE MD, Ot Z79.8 99 OTHER [facility] (CURRENT) DRUG THERAPY 11/17/2019 ALBA TSE MD, Ot Z87.8 91 PERSONAL HISTORY OF NICOTINE DEPENDENCE 11/17/2019 ALBA TSE MD, Ot Z88.8 ALLERGY STATUS TO OT DRUG/MEDS/BIOL SUB 11/17/2019 ALBA TSE MD, Ot Z95.1 PRESENCE OF AORTOCORONARY BYPASS GRAFT Procedures Code Description Performed By Per formed On [id number] DE STRUCTION OF BLADDER, ENDO 10/04/2015 [id number] EX TIRPATION OF MATTER FROM BLADDER, ENDO 10/04/2015 [id number] DE STRUCTION OF PROSTATE, ENDO 10/04/2015 [id number] DE STRUCTION OF BLADDER, ENDO 10/27/2015 [id number] EX TIRPATION OF MATTER FROM BLADDER, ENDO [...] aureus (MRSA) scr eening culture NEG NRG Methicillin resistant Staphylococcus aur eus (MRSA) screening culture - 11/10/19 09:22 Methicillin resistant Staphylococcus aureus (MRSA) scr eening [...] plasma alkaline phosphatase kun surement (enzymatic activity/volume) 68 U/L 40-136 Serum [...] protein measurement (mass/v olume) 6.17 mg/dL 0.00-0.50 Bacterial blood culture - 11/10/19 21:30 Bacterial blood culture NG NRG Bacterial blood culture - 11/10/19 21:48 Bacterial blood culture NG NRG Complete urinalysis with reflex to cultu [...] urinalysis with reflex to culture CULTURE PENDING [facility] Bacterial urine culture - 11/10/19 22:00 Bacterial urine culture NG [facility] Complete blood count (CBC) with automate d white blood cell (WBC) differential - 11/11/19 05:46 Blood leukocytes automated count (number/volume) 9.5 10*3/uL 4.3-11.0 Blood erythrocytes automated count (number/volume) 3.32 10*6/uL 4.35-5.85 Venous blood hemoglobin measurement (mass/volume) 10.2 g/dL 13.3-17.7 Blood hematocrit (volume fraction) 31 % 40-54 Automated erythrocyte mean corpuscular volume 93 [ foz_us] 80-99 Automated erythrocyte mean corpuscular h emoglobin (mass per erythrocyte) 31 pg 25-34 Automated erythrocyte mean corpuscular h emoglobin concentration measurement (mass/volume) 33 g/dL 32-36 Automated erythrocyte distribution width ratio 13. 2 % 10.0- 14.5 Automated blood platelet count (count/volume) 217 10*3/uL 130-400 Automated blood platelet mean volume measurement 11.2 [foz_us] 7.4-10.4 Automated blood neutrophils/100 leukocytes 75 % 42-75 Automated blood lymphocytes/100 leukocytes 12 % 12-44 Blood monocytes/100 leukocytes 9 % 0-12 Automated blood eosinophils/100 leukocytes 4 % 0-10 Automated blood basophils/100 leukocytes 1 % 0-10 Blood neutrophils automated count (number/volume) 7.1 10*3 1.8-7.8 Blood lymphocytes automated count (number/volume) 1.1 10*3 1.0-4.0 Blood monocytes automated count (number/volume) 0. 9 10*3 0.0-1.0 Automated eosinophil count 0.4 10*3/uL 0 .0-0.3 Automated blood basophil count (count/volume) 0.1 10*3/uL 0.0-0.1 Comprehensive metabolic panel - 11/11/19 05:46 Serum or plasma sodium measurement (moles/volume) 134 mmol/L 135-145 Serum or plasma potassium measurement (moles/volume) 5.9 mmol/L 3.6-5.0 Serum or plasma chloride measurement (moles/volume) 105 mmol/L 98-107 Carbon dioxide 19 mmol/L 21-32 Serum or plasma anion gap determination (moles/volume) 10 mmol/L 5-14 Serum or plasma urea nitrogen measurement (mass/volume ) 42 mg/dL 7-18 Serum or plasma creatinine measurement (mass/volume) 3.05 mg/dL 0.60-1.30 Serum or plasma urea nitrogen/creatinine mass ratio 14 NRG Serum or plasma creatinine measurement w ith calculation of estimated glomerular filtration rate 20 NRG Serum or plasma glucose measurement (mass/volume) 96 mg/dL 70-105 Serum or plasma calcium measurement (mass/volume) 8.8 mg/dL 8.5-10.1 Serum or plasma total bilirubin measurement (mass/volu me) 0.3 mg/dL 0.1-1.0 Serum or plasma alkaline phosphatase kun surement (enzymatic activity/volume) 64 U/L 40-136 Serum or plasma aspartate aminotransfera se measurement (enzymatic activity/volume) 21 U/L 5-34 Serum or plasma alanine aminotransferase measurement (enzymatic activity/volume) 15 U/L 0-55 Serum or plasma protein measurement (mass/volume) 6.6 g/dL 6.4-8.2 Serum or plasma albumin measurement (mass/volume) 3.3 g/dL 3.2-4.5 CALCIUM CORRECTED 9.4 mg/dL 8.5-10.1 Whole blood basic metabolic panel - 10/18 01/05 04:15 Serum or plasma sodium measurement (moles/volume) 136 mmol/L 135-145 Serum or plasma potassium measurement (moles/volume) 5.9 mmol/L 3.6-5.0 Serum or plasma chloride measurement (moles/volume) 111 mmol/L 98-107 Carbon dioxide 18 mmol/L 21-32 Serum or plasma anion gap determination (moles/volume) 7 mmol/L 5-14 Serum or plasma urea nitrogen measurement (mass/volume ) 35 mg/dL 7-18 Serum or plasma creatinine measurement (mass/volume) 2.44 mg/dL 0.60-1.30 Serum or plasma urea nitrogen/creatinine mass ratio 14 NRG Serum or plasma creatinine measurement w ith calculation of estimated glomerular filtration rate 25 NRG Serum or plasma glucose measurement (mass/volume) 95 mg/dL 70-105 Serum or plasma calcium measurement (mass/volume) 8.4 mg/dL 8.5-10.1 Complete urinalysis with reflex to cultu re - 11/12/19 18:13 Urine color determination YELLOW NRG Urine clarity determination CLOUDY NR G Urine pH measurement by test strip 6.0 5-9 Specific gravity of urine by test strip 1.015 1.016-1.022 Urine protein assay by test strip, semi-quantitative 2+ NEGATIVE Urine glucose detection by automated test [...] 1.0 Urine leukocyte esterase detection by dipstick TRA CE NEGATIVE Automated urine sediment erythrocyte cou nt by microscopy (number/high power field) TNTC NRG Automated urine sediment leukocyte count by microscopy (number/high power field) [HPF] NRG Bacteria detection in urine sediment by light microsco py MODERATE NRG Squamous epithelial cells detection in u rine sediment by light microscopy 5-10 NRG Crystals detection in urine sediment by light microsco py NONE NRG Casts detection in urine sediment by light microscopy NONE NRG Mucus detection in urine sediment by light microscopy NEGATIVE NRG Complete urinalysis with reflex to culture YES NRG Bacterial urine culture - 11/12/19 18:15 Bacterial urine culture NG NRG Encounters ACCT No. Visit Date/Time Discharge Status Pt. Type Provider Facility Loc./Unit Complaint [id number] 11/12/2019 17:44:00 18:47:00 DIS Outpatient KI COX APRN [facility] ER TOOK CATHETER OUT/UNABL E TO URINATE [id number] 11/11/2019 00:26:00 11:55:00 DIS Outpatient STEPHY ROJAS, CHANELLE Eduardo [facility] 4TH UTI,URINARY RETENTION,B LADDER MASS [id number] 11/10/2019 07:01:00 12:30:00 DIS Outpatient ALBA TSE MD [facility] BLADDER TUMOR, POSSIBLE LEFT URETERAL STONE [id number] 11/08/2019 08:14:00 09:22:00 DIS Outpatient ALBA TSE MD [facility] PREOP TURBT, LEFT URETEROSCOP Y [id number] 11/06/2019 07:26:00 12:20:00 DIS Outpatient ALBA TSE MD [facility] SDC BLADDER MASS [id number] 11/01/2019 07:19:00 23:59:59 CLS Outpatient ALBA TSE MD [facility] PREOP BLADDER MASS [id number] 10/30/2019 17:21:00 19:48:00 DIS Emergency GRIS PETE [facility] ER BACK PAIN / FEVER [id number] 09/13/2019 08:50:00 23:59:59 CLS Outpatient JOSSELIN DENG [facility] CARD AFIB,CAD,HT N [id number] 09/21/2018 07:18:00 019 23:59:59 CLS Outpatient JEFF ROMEO MD [facility] CARD CAD,HTN [id number] 08/16/2018 16:25:00 019 23:59:59 CLS Preadmit JEFF ROMEO MD [facility] CARD CAD, AFIB, CAROTID STACY RY STENOSIS, HTN [id number] 03/28/2018 10:17:00 018 23:59:59 CLS Outpatient ISABELLE ROCA APRN [facility] RAD R05 [id number] 05/13/2017 07:49:00 017 10:41:00 DIS Outpatient Alesha SKY MD [facility] CATH ATRIAL FIBRILLATION [id number] 12/28/2016 07:43:00 017 23:59:59 CLS Outpatient JEFF ROMEO MD [facility] CARD I48.0,I25.10,I10 [id number] 12/24/2016 08:39:00 017 23:59:59 CLS Outpatient JEFF ROMEO MD [facility] CARD I48.0,I25.10,I10 [id number] 01/29/2016 07:59:00 016 10:45:00 DIS Outpatient JEFF ROMEO MD [facility] CATH AFIB W/RVR,DYSPNEA,CAD, HTN [id number] 11/20/2015 12:40:00 15:00:00 DIS Outpatient LIZET PALACIOS MD [facility] WOUNDCARE [id number] 10/22/2015 16:59:00 15:50:00 DIS Inpatient ALBA TSE MD [facility] 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, CA OF PROSTRATE [id number] 10/21/2015 19:03:00 016 20:22:00 DIS Emergency DWAYNE PASTOR [facility] ER CATHETER ISSUES [id number] 10/07/2015 08:55:00 016 15:55:00 DIS Inpatient ALBA TSE MD [facility] 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;UTI [id number] 09/30/2015 08:34:00 016 23:59:59 CLS Outpatient ALBA TSE MD [facility] RAD RT RENAL MASS, LT RENAL STONE [id number] 09/26/2015 08:54:00 23:59:59 CLS Outpatient ALBA TSE MD [facility] RAD HEMATURIA [id number] 09/06/2015 08:58:00 11:42:00 DIS Emergency KI COX LATEX CASTER [facility] ER UNABLE TO URINATE [id number] 08/14/2015 07:22:00 016 23:59:59 CLS Outpatient JEFF ROMEO MD [facility] CATH HTN,HLP,CHEST PAIN,CAD [id number] 01/20/2013 20:00:00 013 06:25:00 DIS Outpatient AGUEDA ROJAS, JEFF Soares [facility] SLEEP SHENA [id number] 11/22/2019 13:42:00 P EN Preadmit SEKOU AL [facility] [id number] 10/20/2015 08:20:00 Document Registration [id number] 08/14/2015 07:22:00 Document Registration [id number] 09/26/2014 08:20:00 Document Registration [id number] 09/19/2014 08:00:00 Document Registration [id number] 08/31/2012 07:30:00 Document Registration [id number] 08/19/2012 09:49:00 Document Registration [id number] 06/23/2011 10:47:00 Document Registration [id number] 06/22/2011 09:11:00 Document Registration [id number] 07/02/2010 07:34:00 Document Registration
[2019-11-18] MEDS ORDERED: LIDOCAINE UROJET 2% GEL 10 ML PKG TOP ONE (01:15)
[2019-11-18 01:29] LABS: BILIRUBIN,URINE NEGATIVE (NEGATIVE); CLARITY,URINE CLEAR; COLOR,URINE YELLOW; GLUCOSE, URINE (UA) NEGATIVE (NEGATIVE); KETONES,URINE NEGATIVE (NEGATIVE); LEUKOCYTE ESTERASE ,URINE 1+ (NEGATIVE); NITRITE,URINE NEGATIVE (NEGATIVE); PROTEIN,URINE TRACE (NEGATIVE)
[2019-11-18 01:52] LABS: BACTERIA,URINE NEGATIVE /HPF; SQUAMOUS EPITHELIAL CELL,UR 0-2 /HPF; WBC,URINE 0-2 /HPF
--- NOTE | 2019-11-18 02:09 | ED GU-Male ---
General Chief Complaint: - Urinary Stated Complaint: CAN'T URINATE Nursing Triage Note: catheter removed by dr love's office wednesday morning and patient has not been able to void since. c/o pain in the lower abdomen. Source: patient, old records Exam Limitations: no limitations History of Present Illness Date Seen by Provider: November 18, 2019 Time Seen by Provider: 01:11 Initial Comments This 84-year-old gentleman presents to the emergency room with inability to urinate after having his catheter removed Wednesday morning. He recently had a bladder tumor resection by Dr. Love. He experienced retention and had a Moses catheter placed after surgery. This was removed on Wednesday morning. Patient has fullness in significant discomfort of the pelvic region. Allergies and Home Medications Allergies Coded Allergies: Beta-Blockers (Beta-Adrenergic Bloc (Verified Adverse Reaction, Unknown, SYNCOPE, 11/10/19) Home Medications Bethanechol Chloride 10 Mg Tablet, 10 MG PO ACHS Prescribed by: KI COX on 11/12/19 1805 Diltiazem HCl 120 Mg Tablet, 120 MG PO DAILY, (Reported) Hyoscyamine Sulfate 0.125 Mg Tablet, 1-2 TAB PO Q4H PRN for PAIN-MODERATE (5-7) Prescribed by: GRIS VELAZQUEZ on 11/10/19 1027 Lisinopril 10 Mg Tablet, 10 MG PO DAILY, (Reported) Phenazopyridine HCl 200 Mg Tablet, 1 TAB PO TID Prescribed by: MAXWELL GARNETT on 11/06/19 1121 Sulfamethoxazole/Trimethoprim 1 Each Tablet, 1 EACH PO BID Prescribed by: MAXWELL GARNETT on 11/06/19 1118 Tamsulosin HCl 0.4 Mg Cap, 0.4 MG PO DAILY Prescribed by: KI COX on 11/12/19 1805 Tramadol HCl 50 Mg Tablet, 1-2 TAB PO Q4H PRN for PAIN Prescribed by: MAXWELL GARNETT on 11/06/19 1121 Patient Home Medication List Home Medication List Reviewed: Yes Review of Systems Review of Systems Constitutional: no symptoms reported Respiratory: no symptoms reported Cardiovascular: no symptoms reported Gastrointestinal: no symptoms reported Genitourinary: see HPI Psychiatric/Neurological: See HPI Past Wbipril-Zrkekh-Fwqodv Hx Past Med/Social Hx: Reviewed Nursing Past Med/Soc Hx Patient Social History Alcohol Beverage of Choice: Wine Type Used: Cigarettes Former Smoker, Quit: Jul 19, 1996 2nd Hand Smoke Exposure: Yes Recent Foreign Travel: No Contact w/Someone Who Travel: No Recent Infectious Disease Expo: No Recent Hopitalizations: Yes (TURP 11/10/19) Immunizations Up To Date Tetanus Booster (TDap): Unknown Date of Pneumonia Vaccine: Apr 12, 2017 Date of Influenza Vaccine: Apr 24, 2019 Seasonal Allergies Seasonal Allergies: Yes Past Medical History Surgeries: Yes (NASAL, OPEN HEART, CARDIAC STENTS, BRACHY THERAPY-PROSTATE, turp) Bladder Surgery, CABG, Coronary Stent Respiratory: Yes Sleep Apnea, Emphysema Currently Using CPAP: No Currently Using BIPAP: No Cardiac: Yes Atrial Fibrillation, Coronary Artery Disease, Hypertension Neurological: No Reproductive Disorders: No Sexually Transmitted Disease: No HIV/AIDS: No Genitourinary: Yes Prostate Problems, Bladder Infection, Kidney Stones Gastrointestinal: Yes Gastroesophageal Reflux, Chronic Constipation, Irritable Bowel Musculoskeletal: Yes Chronic Back Pain Endocrine: No HEENT: Yes (GLASSES) Loss of Vision: Denies Hearing Impairment: Hard of Hearing, Bilateral Hearing Aide Cancer: Yes (with radiation [place] 1999) Prostate Psychosocial: No Integumentary: No Blood Disorders: No Adverse Reaction/Blood Tranf: No (HAS HAD BLOOD WITH NO REACTION) Family Medical History Cardiovascular disease 19 FATHER G8 BROTHER Diabetes mellitus G8 BROTHER Hypertension 19 FATHER G8 BROTHER Neoplasm G8 BROTHER No Pertinent Family Hx Physical Exam Vital Signs Vital Signs - First Documented 11/18/19 01:10 Temp 36.7 Pulse 86 Resp 18 B/P (MAP) 182/81 (114) Pulse Ox 99 Capillary Refill : Less Than 3 Seconds Height, Weight, BMI Height: 5'6.00" Weight: 166lbs. 0.0oz. 75.161503gl; 25.00 BMI Method:Stated General Appearance: WD/WN, no apparent distress HEENT: normal ENT inspection Cardiovascular: regular rate, rhythm, no edema, no murmur Respiratory: lungs clear, normal breath sounds, no respiratory distress Gastrointestinal: normal bowel sounds, soft, tenderness Neurologic/Psychiatric: alert, normal mood/affect, oriented x 3 Skin: normal color, warm/dry Progress/Results/Core Measures Suspected Sepsis Recent Fever Within 48 Hours: No Infection Criteria Present: None New/Unexplained Altered Menta: No Sepsis Screen: No Definite Risk SIRS Temperature: Pulse: 86 Respiratory Rate: 18 Blood Pressure 182 /81 Mean: 114 Results/Orders Lab Results Laboratory Tests Test 11/18/19 01:17 Range/Units Urine Color YELLOW Urine Clarity CLEAR Urine pH 6.0 5-9 Urine Specific [place] 1.010 L 1.016-1.022 Urine Protein TRACE H NEGATIVE Urine Glucose (UA) NEGATIVE NEGATIVE Urine Ketones NEGATIVE NEGATIVE Urine Nitrite NEGATIVE NEGATIVE Urine Bilirubin NEGATIVE NEGATIVE Urine Urobilinogen 0.2 < = 1.0 MG/DL Urine Leukocyte Esterase 1+ H NEGATIVE Urine RBC (Auto) 3+ H NEGATIVE Urine RBC 2-5 H /HPF Urine WBC 0-2 /HPF Urine Squamous Epithelial Cells 0-2 /HPF Urine Crystals NONE /LPF Urine Bacteria NEGATIVE /HPF Urine Casts NONE /LPF Urine Mucus NEGATIVE /LPF Urine Culture Indicated NO My Orders Orders - JEFFERY SHELBY MD Ua Culture If Indicated (11/18/19 01:11) Catheter(Urinary) Insert & Ass 03,15 (11/18/19 01:11) Lidocaine 2% (Urojet) (Xylocaine Urojet) (11/18/19 01:15) Vital Signs/I&O 11/18/19 11/18/19 01:10 02:30 Temp 36.7 Pulse 86 80 Resp 18 20 B/P (MAP) 182/81 (114) 170/77 (114) Pulse Ox 99 98 Capillary Refill : Less Than 3 Seconds Blood Pressure Mean: 114 Progress Note : Progress Note Moses catheter was placed using Urojet. About 800 mL of urine was drained. Patient felt relief. Departure Impression Primary Impression: Urinary obstruction Disposition: 01 HOME, SELF-CARE Condition: Improved Departure-Patient Inst. Decision time for Depature: 02:09 Referrals: ABEL MARTINEZ MD (PCP/Family) Primary Care Physician Patient Instructions: Moses Catheter, Male, Urinary Obstruction (DC) Add. Discharge Instructions: Follow-up with Dr. Love on Wednesday. Empty your catheter bag often and keep the catheter and bag below the level or you bladder as much as possible. Return to the ER if you have any other concerns or worsening symptoms. All discharge instructions reviewed with patient and/or family. Voiced understanding. JEFFERY SHELBY MD November 18, 2019 02:09
[2019-11-18 02:30] VITALS: BP 170/77
== END 2019-11-18 02:30 | disposition home or self-care (01) ==
LOC: EDUNIT# 01:00 → ER 01:02
DX: N13.9 Obstructive and reflux uropathy, unspecified (principal); I10 Essential (primary) hypertension; I25.10 Atherosclerotic heart disease of native coronary artery without angina pectoris; I48.91 Unspecified atrial fibrillation; Z85.46 Personal history of malignant neoplasm of prostate; Z88.8 Allergy status to other drugs, medicaments and biological substances; Z77.22 Contact with and (suspected) exposure to environmental tobacco smoke (acute) (chronic); Z95.1 Presence of aortocoronary bypass graft; Z95.5 Presence of coronary angioplasty implant and graft; Z82.49 Family history of ischemic heart disease and other diseases of the circulatory system
CPT/HCPCS: 51702; 81000

== ENCOUNTER → 2019-11-21 | Outpatient (CLI) | payer MEDICARE, OTHER ==
--- NOTE | 2019-11-21 15:30 | Diagnostic Imaging Report ---
EXAMINATION: PET/CT. INDICATION: Bladder cancer. EXAMINATION: After intravenous administration of 13.99 mCi of F18-FDG in the right antecubital fossa, a series of overlapping emission and transmission PET images was obtained. In the coronal, transaxial and sagittal planes, the area imaged extended from the skull base through the upper thighs. HEIGHT: 5' 6". WEIGHT: 115#. BLOOD GLUCOSE: 120. COMPARISON: There are no prior PET/CT examinations available for comparison. FINDINGS: The CT abdomen/pelvis exam of 10/30/2019 did note a 2 cm hyperdensity within the bladder on the right. There was also hydronephrosis and hydroureter on the right. Reportedly, in the interval since the prior exam, a diagnosis of bladder carcinoma has been established. The CT images show that there is now a Moses catheter within the bladder. The bladder is partially decompressed and consequently difficult to evaluate. There is persistent hydronephrosis and hydroureter of the right collecting system and there is radiopharmaceutical throughout the dilated right collecting system and right ureter. The bladder is also partially filled with the radiopharmaceutical. There is excretion of the radiopharmaceutical by the left kidney as well. There is no hypermetabolic focus to suggest metastatic disease. There is physiologic activity in the brain, heart, and bowel. There is a small area of slightly increased hypermetabolic activity along the superior margin of the heart. This has a maximum SUV of 3.3. This is of uncertain etiology but unlikely related to malignancy. The CT images fail to show any sign of an acute abnormality. The heart is borderline enlarged and there are coronary calcifications evident. There has also been a prior sternotomy and there are numerous radiopaque clips along the anterior chest wall on the left. IMPRESSION: 1. There is persistent dilatation of the right collecting system. The suspected neoplastic mass involving the bladder seen on the prior study is not well visualized, however. 2. There is no other hypermetabolic activity to suggest the presence of malignancy. 3. There is no sign of an acute abnormality. Dictated by: Dictated on workstation # [id number]
== END ==
LOC: RAD 10:43
PROVIDERS: ATTEND Urology
DX: C67.9 Malignant neoplasm of bladder, unspecified (principal)

== ENCOUNTER 2019-12-01 08:01 | Outpatient (RCR) | payer MEDICARE, OTHER ==
[~2019-12-01] VITALS: Ht 167.7 cm; Wt 73.2 kg
== END 2019-12-01 16:00 | disposition home or self-care (01) ==
LOC: PREOP 08:01
PROVIDERS: ATTEND Surgery
DX: Z01.812 Encounter for preprocedural laboratory examination (principal); Z11.59 Encounter for screening for other viral diseases; C67.9 Malignant neoplasm of bladder, unspecified
CPT/HCPCS: 87635

== ENCOUNTER 2019-12-06 06:16 | Day surgery (SDC) | payer MEDICARE, OTHER ==
[2019-12-06] VITALS (7 sets, daily range): BP systolic 112–146; BP diastolic 57–87
[~2019-12-06] VITALS: Ht 167 cm; Wt 73.2 kg
--- OUTSIDE RECORDS SUMMARY | 2019-12-06 06:19 | XMS REPORT | Encounter Summary ---
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 Name Role Phone Jabari Peguero MD PCP Reason for Visit * Reason Comments Follow Up Carotid stenosis, reevaluat e for peripheral arterial disease Encounter Details Care Team Description Date Type Department Ramila Lu FNP NO ADDRESS ON FILE Coronary artery disease (Primary Dx); Sleep apnea 03/02/2013 Office Visit [facility] Cardia c Thoracic and Vasc Surg[facility] [address] [place] [address] Social History Date Tobacco Use Types Packs/Day Years Used Quit: 07/19/1996 Former Smoker Cigarettes 1 45 Drinks/Week oz/Week Comments Alcohol Use 1-2 Glasses of wine 0.0 each evening Yes Sex Assigned at Date Recorded Not on file documented as of this encounter Last Filed Vital Signs Reading Time Taken Comments Vital Sign 130/62 03/02/2013 11:30 AM CDT right and 120/60 left Blood Pressure 72 03/02/2013 11:30 AM CDT Pulse - - Temperature 16 03/02/2013 11:30 AM CDT Respiratory Rate - - Oxygen Saturation - - Inhaled Oxygen Concentration 70.8 kg (156 lb) 03/02/2013 11:30 AM CDT Weight 167.6 cm (5' 6") 03/02/2013 11:30 AM CDT Height 25.18 03/02/2013 11:30 AM CDT Body Mass Index documented in this encounter Progress Notes * Ramila Lu FNP - 03/02/2013 11:40 AM CDT Chief Complaint Patient presents with Follow Up Carotid stenosis, reevaluate for peripheral arterial disease Current outpatient prescriptions:OTHER, Vit D3 1000 units daily, Disp: , Rfl: ; nitroglycerin (NITROLINGUAL) 0.4 mg/dose TL [place], Place 1 [place] under tongue ev mike 5 minutes as needed., Disp: , Rfl: ; atorvastatin (LIPITOR) 80 mg Oral tabl et, Take 80 mg by mouth Daily LATE., Disp: , Rfl: ; atorvastatin (LIPITOR) 80 m g Oral tablet, Take 80 mg by mouth Daily LATE., Disp: , Rfl: aspirin (ARTEMIO) 81 mg Oral Tab, Take 1 Tab by mouth daily., Disp: , Rfl: ; Omep razole-Sodium Bicarbonate 20-1,680 mg Oral Pack, Take by mouth daily. powder, D isp: , Rfl: ; MULTIVITAMIN (MULTIPLE VITAMIN ORAL), Take 1 Tab by mouth daily., Disp: , Rfl: ; 0mega-3 fatty acids-vitamin E (FISH OIL) 1,000 mg Oral Cap, Take 1 Cap by mouth daily., Disp: , Rfl: ; amLODIPine (NORVASC) 10 mg Oral tablet, Take 1 Tab by mouth daily., Disp: , Rfl: Medicine reviewed. Social/Family/Medical history reviewed. History of Present Illness: Mr Fraser returns for follow up of the above vascular issues. Denies amaurosis fugax or lateralizing signs suggestive of TIA/stroke. Denies chest pain, chest p ounding or palpitations. DENNIS with moderate- heavy exertion; shoveling walking up hill. Denies orthopnea or PND. Denies abdominal pain suggestive of intestinal ischemia. Tries to walk 2 miles a day 5 days a week. Denies aching, cramping, we akness or fatigue of the lower extremities suggestive of intermittent claudicati on. Reports in January he was evaluated with sleep study, he is now wearing a CPAP and following with Dr Saldana' office. Reports he is sleeping "much better." Foll ows with Dr Price and Dr Peguero; although he admits he has not seen Dr Gomez's i n a while- encouraged to call for a routine office visit. Review of Systems: Constitutional: Denies weight gain or loss. Denies weakness, fever or chills. De nies change in appetite or anorexia. Skin: Denies rashes, lumps, sores or itching. Denies change in hair or nails. De nies jaundice or skin cancers. Eyes: Cataracts removed 2002. Recent eye exam.Denies pain, redness, excessive te aring, double vision, blurred spots, glaucoma. Ears: Deaf right ear; following a cold since the age of 19; hearing aide. Denies earaches, infection, discharge, or dizziness. Nose/Sinus: Allergic to grass and dust. Denies frequent colds, nasal stuffiness, hay fever or nosebleeds. Mouth/Throat: Denies tooth decay, gum infection, bleeding gums, sore tongue, dry mouth, frequent sore throats and hoarseness. Cardiac: CAD hx CABG x Aug 31, 1990, with 3 cardiac stent follows with Dr Price, CVI, HLP, HTN. DENNIS with walking up hill. . Denies rheumatic fever, heart murmur s, chest pain, shortness of breath, shortness of breath when lying down, chest p ounding, fast heart rate, paroxysmal nocturnal dyspnea or peripheral edema. Respiratory: Sleep apnea- nasal mask CPAP. Denies cough, hemoptysis, wheezing, a sthma, bronchitis, emphysema, pneumonia, tuberculosis or pleurisy. Gastrointestinal: Hemorrhoids/IBS. Denies trouble swallowing, heartburn, nausea, vomiting or hematemesis. Denies change in bowel habits, melena, rectal bleeding, abdominal pain or food intolerance. Urinary:Prostate cancer, radiation tx, 2000. Denies frequent urination, bladder or kidney infection, incontinence or nephrolithiasis. 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 Neurologic: Denies fainting, blackouts, seizures, weakness, headaches, paralysis , numbness, tremors or memory loss. Vascular: CVD, nild. Denies claudication, varicose veins, deep vein thrombosis or aneurysms. Hematologic/Lymphatic:Hx in the past iron def anemia. Easy bruising on ASA. Jamison es bleeding, past blood transfusions, or enlarged lymph nodes. Endocrine: Denies thyroid disorders, heat or cold intolerance, excessive sweatin g, diabetes, excessive thirst or hunger, decreased energy, goiter, unexplained c hanges in height or weight. Psychiatric: Denies significant depression, past treatment for psychiatric probl ems, alcohol addiction, anxiety requiring treatment, or hallucinations or delusi ons. Allergic/Immunologic: Denies treatment for allergic reactions. Denies HIV. Shai s splenectomy . Physical Examination: Filed Vitals: 03/02/13 1130 BP: 130/62 Pulse: 72 Resp: 16 Height: 5' 6" (1.676 m) Weight: 156 lb (70.761 kg) Constitutional: This is a well developed, well nourished 78 y.o. male who appear s in no acute distress. Eyes: The sclerae are non icteric, with normal conjunctiva and lids. The pupils are equal and reactive. Ears/Nose/Mouth/Throat: The external auditory canals are without lesion, as well as the nose. The lips are without obvious lesions. Gums appear healthy, without abscess. Neck: Supple, symmetric without masses. The thyroid has no palpable masses. The trachea is midline. There is no stridor. Chest: There are no chest wall deformities. Evidence of prior sternotomy. Respiratory: Symmetric with no accessory muscles used for respiration. There ar e no palpable lesions. Auscultation reveals equal breath sounds without wheezing , rhonchi or rales. Cardiac: Upon auscultation, a regular rate and rhythm, S1, S2, without murmurs, rubs or gallops. Vascular: The carotids are full, without bruits. Abdominal aorta is not felt to be enlarged, and is without bruits. Pulses continued: L subclavian 3+ R subclavian 3+ L radial 3+ R radial 3+ L femoral 3+ R femoral 3+ L popliteal 3+ R popliteal 3+ L posterior tibial 3+ R posterior tibial 3+ L dorsalis pedis 3+ R dorsalis pedis 3+ Gastrointestinal: The abdomen is flat, soft and without palpable mass or tendern ess. The liver and spleen appear normal in size, without tenderness. There is no ventral or inguinal hernia present. Lymphatic: There are no palpable lymph nodes in the neck or groin. Musculoskeletal: The gait appears normal in stride. The digits are without clubb ing or cyanosis. The joints are without obvious arthritis or deformities. Range of motion is normal for age. Muscle strength and tone is normal for age. Extremities: There is no cyanosis, clubbing. Mild bilateral ankle edema. Skin: Without rashes or obvious infections or lesions. Tissue turgor is normal. Neurologic: Cranial nerves appear intact and without deficit. Sensation is intac t and without deficit. Motor strength appears equal bilaterally. Psychiatric: The patient is oriented to time, place, and person. They appear to have adequate judgement and insight into their problem. Test Results and Reviewed Materials: Office note 03/03/12/ Last aorta survey 2010 was reported within normal limits. Plan: Carotid scan is obtained with the following results reported Right: Mild disease of 1-39% with mild velocities. Antegrade vertebral flow. Left: Mild disease of 1-39% with mild velocities. Antegrade vertebral flow. Based on today's results, a one year follow up is recommended if patient remains asymptomatic. Ankle brachial indices are obtained and reported within normal limits in the 1.0 range bilaterally. Continue with medications, including current anti-lipid and antiplatelet therapy . He is noted to have mild Bilateral ankle swelling. Informed this is most like ly a side effect of his amlodipine. Continue with routine exercise and low fat d iet. At the end of the discussion an opportunity was provided to the patient, who ind icated all questions had been addressed to their satisfaction and no further que stions remain. Follow up: 1 yr carotid scan and NICHOLE NATI Dan, 03/02/2013 11:40 AM documented in this encounter Miscellaneous Notes * Patient Instructions - Ramila Lu FNP - 03/02/2013 12:04 PM CDT [place] Patient Instructions Carotid Stenosis: After Your Visit Your Care Instructions Carotid stenosis is narrowing of one or both of the carotid arteries. These rosalino eloy take blood from the heart to the brain. One carotid artery is on each side of the neck. A substance called plaque builds up inside an artery, making it too narrow. Plaque comes from damage to the artery over time. This damage may be ca used by high blood pressure, high cholesterol, diabetes, or smoking. Sometimes p laque can break loose from the carotid artery and move to the brain, causing a s troke or transient ischemic attack (TIA). Treatment includes medicines to reduce the risk of blood clots, such as aspirin. Sometimes carotid surgery is needed to take out the plaque. Follow-up care is a betancourt part of your treatment and safety. Be sure to make and g o to all appointments, and call your doctor if you are having problems. Its a lso a good idea to know your test results and keep a list of the medicines you t yen. How can you care for yourself at home? Take your medicines exactly as prescribed. Call your doctor if you think you are having a problem with your medicine. You may take medicine to lower your blo od pressure, to lower your cholesterol, or to prevent blood clots. Do not smoke. People who smoke have a higher chance of stroke than those who quit. If you need help quitting, talk to your doctor about stop-smoking programs and medicines. These can increase your chances of quitting for good. Eat a healthy diet that is low in cholesterol, saturated fat, and salt. Eat l ots of fresh fruits and vegetables and foods high in fiber. Talk to your doctor about starting an exercise program. Regular exercise lowe rs your chance of stroke. Limit alcohol to 2 drinks a day for men and 1 drink a day for women. Too much alcohol can cause health problems. Work with your doctor to control high blood pressure, high cholesterol, diabe elpidio, and other conditions that increase your chance of a stroke. A healthy diet, exercise, weight loss (if needed), and medicines can help. When should you call for help? Call 911 anytime you think you may need emergency care. For example, call if: You passed out (lost consciousness). You have signs of a stroke. These may include: Sudden numbness, paralysis, or weakness in your face, arm, or leg, especially on only one side of your body. New problems with walking or balance. Sudden vision changes. Drooling or slurred speech. New problems speaking or understanding simple statements, or feeling confused . A sudden, severe headache that is different from past headaches. Call your doctor now or seek immediate medical care if: You are dizzy or lightheaded, or you feel like you may faint. Watch closely for changes in your health, and be sure to contact your doctor if you have any problems. Where can you learn more? Go to www.[employer] in the Health Information search box. Enter Y756 in the search box to learn more about "Carotid Stenosis: After Your V isit." Last Revised: May 18, [id number] [employer]. Care instructions adapted under license b y [place]. [employer] disclaims any warranty or liability for your use of this informat ion. This information is not intended to represent the ethical and hinduism bel iefs of [facility]. This care instruction is for use with your licensed healthcare [facility]. If you have questions about a medical condition or this instruction, always ask your healthcare professional. [employer] [place] disclaims any warranty or liability for your use of this information. documented in this encounter Plan of Treatment Care Team Description Date Type Specialty Daisy Palomo FNP [address] [facility] [address] [place] [address] 07/25/2020 Ancillary Cardiovascular Surg mike Procedure 07/25/2020 Office Visit Cardiovascular Surg mike documented as of this encounter Visit Diagnoses Diagnosis Coronary artery disease Coronary atherosclerosis of unspecified type of vessel, citizen [place] or graft Sleep apnea Unspecified sleep apnea documented in this encounter
--- OUTSIDE RECORDS SUMMARY | 2019-12-06 06:19 | XMS REPORT | Encounter Summary ---
Author Author [facility], [place], [place], [facility] Organization [facility] [place], [place], [facility] Address Unknown Phone Unavailable Care Team Providers Care Dairy Science Teacher Name Role Phone Zeke Frey MD PCP Reason for Referral * Outpatient Services (Routine) Referred By Contact Referred To Contact Status Reason Specialty Diagnoses / Procedures Daisy Palomo FNP [address] [place] [address] [place] [phone] Closed Diagnoses Bilateral carotid artery stenosis P rocedures US CAROTID DOPPLER Reason for Visit * Reason Onset Date Comments Follow Up 02/04/2018 test results from Encounter Details Care Team Description Date Type Department Daisy Palomo FNP [address] [place] [address] [place] [phone] Follow Up (test results from 02/03/18) 02/04/2018 Telephone [facility] Cardia c Thoracic and Vasc Surg [address] [place] [address] Social History Date Tobacco Use Types Packs/Day Years Used Quit: 07/19/1996 Former Smoker Cigarettes 1 45 Drinks/Week oz/Week Comments Alcohol Use 1-2 Glasses of wine 0.0 each evening Yes Sex Assigned at Date Recorded Not on file documented as of this encounter Miscellaneous Notes * Telephone Encounter - Daisy Palomo FNP - 02/04/2018 9:09 AM CDT Discuss test results with Mr. Fraser from yesterday. Carotid scan continues to reveal mild disease bilaterally. Ankle arm indices are within normal limits. Aorta screening was obtained and reveals no evidence of abdominal aortic dilatat ion. Mr. Fraser reports he is doing well and offers no new concerns. Plan is to reevaluate his cerebrovascular disease in 1 year. He wishes to wait about 18 months. We will mail him an appointment card for follow-up. He was encouraged to follow-up sooner with any questions or concerns. documented in this encounter Plan of Treatment Care Team Description Date Type Specialty Daisy Palomo FNP [address] [facility] [address] [place] [id number] 07/25/2020 Ancillary Cardiovascular Surg mike Procedure 07/25/2020 Office Visit Cardiovascular Surg mike documented as of this encounter Results * US CAROTID DOPPLER (07/20/2019 9:03 AM ERP BUSINESS ANALYST) Specimen Narrative Performed At This result has an attachment that is n ot available. Extracranial Duplex Examination using B -Mode,Color Flow and Spectral Doppler [] [place] [] [place] [] [place] [x] [place] [] [place] [] [place] Prior Exam: 02/02 Vascular Surgery: - Symptoms Vascular History [x] Known Carotid Disease [x] Hyperli pidemia [] Speech Disturbance [x] Hypertensio n [] Unsteady Gait [] Transient Ischemi c Attack [] Loss of Function [] Stroke [] Vertigo / Dizziness [] Heart Attac k [] Visual Disturbance [] Syncope [] Weakness Extremity [] Angina [] Numbness / Tingling [x] History of Carotid Tobacco Use: [] Never [] Current [x ] Past Diabetes: [] Insulin [] Non-insulin [] Overweight: [] <50# [] >50# [] Right Brachial: 142/70 Left Brachial: 144/76 Right Carotid Velocities Peak Systolic End Diastolic CCA Proximal Artery 92 14 Distal 63 13 Bifurcation / Bulb ICA Proximal Artery 65 16 Mid 50 14 Distal 58 16 External Carotid 87 12 Ratio ICA / CCA 1.0 1.2 Vertebral [x] Forward [] Reversed [] No t Obtained Left Carotid Velocities Peak Systolic End Diastolic CCA Proximal Artery 68 11 Distal 68 13 Bifurcation / Bulb ICA Proximal Artery 45 11 Mid 56 15 Distal 49 12 External Carotid 126 19 Ratio ICA / CCA .82 1.2 Vertebral [x] Forward [] Reversed [] No t Obtained Vessel Characteristics Right Left Tortuous [] [] Intimal Thickening [x] [x] Wall Roughening [] [] Smooth [x] [x] Irregular [] [] Dense [x] [x] Soft [x] [x] Calcific [] [] Non-Calcific [] [] Ulcerated [] [] Intra Plaque Hemorr [] [] Disease Classification Right Left Normal [] [] Mild Stenosis [x] [x] Moderate Stenosis [] [] Severe (non-critical) Stenosis [] [] Critical Stenosis [] [] Occluded [] [] Velocity Classification Mild <110 PSV, <40 EDV, <1.8 SVR, <2.6 DVR [x] [x] Moderate < 130 PSV, <40 EDV, <1.8 SVR, <2.6 DVR [] [] Severe > 130 PSV, >40 EDV, >1.8 SVR, >2 .6 DVR [] [] Critical >250 PSV, >100 EDV, > 3.7 SVR, > 5.5 DVR [] [] Impression: Right: Mild disease of 1-39% with mil d velocities. Antegrade vertebral flow. Left: Mild disease of 1-39% with mild velocities. Antegrade vertebral flow. Essentially unchanged. Based on today's results, a one year fo llow up is recommended if patient remains asymptomatic. Tech: TI Machine: M Image Quality: [x] Good [] Fair [] Poor Reason: documented in this encounter Visit Diagnoses Diagnosis Screening for AAA (aortic abdominal ane urysm) Screening for other and unspecified car diovascular conditions Bilateral carotid artery stenosis Occlusion and stenosis of multiple and bilateral precerebral arteries without mention of cerebral infarction documented in this encounter
--- OUTSIDE RECORDS SUMMARY | 2019-12-06 06:19 | XMS REPORT | Clinical Summary ---
Author Author [facility], [place], [place], [place], [facility] Organization [facility], [place], [place], [facility] Address Unknown Phone Unavailable Care Team Providers Care Check Scaler Name Role Phone Zeke Frey MD PCP Allergies Comments Active Allergy Reactions Severity Noted Date Betablocker- "didn't tolerate well, got me down." Unclassified Drug Other (See 03/02/2013 Comments) Medications End Date Status Medication Sig Dispensed Refills Start Date Active nitroglycerin Place 1 [place] 0 (NITROLINGUAL) 0.4 under tongue mg/dose TL [place] every 5 minutes as needed. Active atorvastatin (LIPITOR) 80 Take 10 mg by 0 mg Oral tablet mouth Daily LATE . Active OTHER Vit D3 1000 0 units daily Active apixaban (Eliquis) 5 mg Take 5 mg by 0 tablet mouth 2 times daily. Active lisinopril (PRINIVIL) 2.5 Take 2.5 mg 0 mg tablet by mouth daily. Active diltiaZEM (CARDIZEM) 120 Take 120 mg 0 mg Tablet by mouth every 6 hours. Active Problems Problem Noted Date Screening for AAA (aortic abdominal aneurysm) 2015 Overview: Reevaluate in 01/2023 Coronary atherosclerosis of [place] coronary artery 0 08/22/2009 Essential hypertension 11/04/2007 Mixed hyperlipidemia 10/18/2007 Other and unspecified hyperlipidemia 09/03/2004 Coronary artery disease 09/03/2004 Overview: S/p CABG x4 1990, coronary stents 11/23. Follows with Dr Price. Bilateral carotid artery stenosis 09/03/2004 Overview: Mild disease bilaterally. Reevaluate in 06/2020 Sleep apnea Overview: CPAP compliant Encounters Care Team Description Date Type Specialty 11/22/2019 Travel from Last 3 Months Family History Medical History Relation Name Comments Lung Cancer Brother Diabetes Brother Heart Disease Brother Heart Disease Father dementia Lung Cancer Mother Relation Name Status Comments Brother Brother Father dementia Mother Social History Date Tobacco Use Types Packs/Day Years Used Quit: 07/19/1996 Former Smoker Cigarettes 1 45 Drinks/Week oz/Week Comments Alcohol Use 1-2 Glasses of wine 0.0 each evening Yes Sex Assigned at Date Recorded Not on file Date Recorded COVID-19 Exposure Response 11/22/2019 11:03 AM CDT In the last month, have you been in contact with Sugey ble to assess someone who was confirmed or suspected to have Coronavirus / COVID-19? Last Filed Vital Signs Reading Time Taken Comments Vital Sign 142/70 07/20/2019 9:04 AM EXCHANGE MECHANIC Blood Pressure 61 07/20/2019 9:04 AM EXCHANGE MECHANIC Pulse - - Temperature 16 07/20/2019 9:04 AM EXCHANGE MECHANIC Respiratory Rate 97% 07/20/2019 9:04 AM EXCHANGE MECHANIC Oxygen Saturation - - Inhaled Oxygen Concentration 70.8 kg (156 lb) 07/20/2019 9:04 AM EXCHANGE MECHANIC Weight 167.6 cm (5' 6") 07/20/2019 9:04 AM EXCHANGE MECHANIC Height 25.18 07/20/2019 9:04 AM EXCHANGE MECHANIC Body Mass Index Plan of Treatment Care Team Description Date Type Specialty Daisy Palomo, OVEN WORKER [address] [facility] [address] [place] [phone] 07/25/2020 Ancillary Cardiovascular Surg mike Procedure 07/25/2020 Office Visit Cardiovascular Surg mike Health Maintenance Due Date Last Done Comments ZOSTER VACCINE (1 of 2) 02/27/1984 PNEUMOCOCCAL VACCINE 65+ 1999 YEARS (1 of 2 - PCV13) INFLUENZA VACCINE 02/16/2019 Results Not on filefrom Last 3 Months Insurance Type Payer Benefit Subscriber ID Effective Phone Address Plan / Dates Group Medicare MEDICARE MEDICARE [id number] 2004- PART A AND Present [place] [id number] [id number] NETWORK resent Advance Directives For more information, please contact: [phone] 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
--- OUTSIDE RECORDS SUMMARY | 2019-12-06 06:19 | XMS REPORT | Encounter Summary ---
Author Author [facility], [place], [place], [place], [facility] Organization [facility] [place], [place], [facility] Address Unknown Phone Unavailable Care Team Providers Care Navigating Officer Name Role Phone Zeke Frey MD PCP Reason for Visit * Outpatient Services (Routine) Referred By Contact Referred To Contact Status Reason Specialty Diagnoses / Procedures Daisy Palomo FNP [address] [place] [address] [address] [place] [phone] [facility] Cardiac Thor And Vasc Surgery [address] [address] Closed Cardiovascular Diagnoses Surgery Screening for AAA (aortic abdominal aneurysm) P rocedures US SCREENING AORTA Encounter Details Care Team Description Date Type Department Daisy Palomo FNP [address] [place] [address] [place] [address] Screening for AAA (aortic abdominal aneu rysm) 02/03/2018 Ancillary [facility] Cardia c Procedure Thoracic and Vas Surgery [address] [address] Social History Date Tobacco Use Types Packs/Day Years Used Quit: 07/19/1996 Former Smoker Cigarettes 1 45 Drinks/Week oz/Week Comments Alcohol Use 1-2 Glasses of wine 0.0 each evening Yes Sex Assigned at Date Recorded Not on file documented as of this encounter Plan of Treatment Care Team Description Date Type Specialty Daisy Palomo FNP [address] [facility] [address] [place] [address] 07/25/2020 Ancillary Cardiovascular Surg mike Procedure 07/25/2020 Office Visit Cardiovascular Surg mike documented as of this encounter Procedures Comments Procedure Name Priority Date/Time Associated Diag nosis US SCREENING AORTA Routine 02/03/2018 Screening f or AAA (aortic 2:20 PM CDT abdominal aneurysm) documented in this encounter Results * US SCREENING AORTA (02/03/2018 2:20 PM CDT) Specimen Narrative Performed At This result has an attachment that is n ot available. [x] Aorta Screening Duplex examination (exam checked above) using B-mode, color flow and spectral doppler [] [place] [] [place] [] [place] [x] [place] [] [place] [] [place] Impression: Screening ultrasound of abdominal ao rta reveals no evidence of aortoiliac dilatation. Tech: DC Machine: 18-M MR Image Quality: [x] Good [] Fair [] Poor Reason: documented in this encounter Visit Diagnoses Diagnosis Screening for AAA (aortic abdominal ane urysm) Screening for other and unspecified car diovascular conditions documented in this encounter
--- OUTSIDE RECORDS SUMMARY | 2019-12-06 06:19 | XMS REPORT | Encounter Summary ---
Author Author [facility], [place], [place], [facility] Organization [facility] [place], [facility] Address Unknown Phone Unavailable Care Team Providers Care Spudder Name Role Phone Jabari Peguero MD PCP Reason for Referral * Outpatient Services (Routine) Referred By Contact Referred To Contact Status Reason Specialty Diagnoses / Procedures Daisy Palomo FN[address] [place] [address] [facility] Cardiac Thor And Vasc Surgery [place] [phone] Closed Cardiovascular Diagnoses Surgery Screening for AAA (aortic abdominal aneurysm) P rocedures US SCREENING AORTA * Outpatient Services (Routine) Referred By Contact Referred To Contact Status Reason Specialty Diagnoses / Procedures Daisy Palomo [address] [address] [facility] Cardiac Thor And Vasc Surgery [address] [address] Closed Cardiovascular Diagnoses Surgery Bilateral carotid artery stenosis P rocedures US CAROTID DOPPLER Reason for Visit * Reason Comments Follow Up carotid, AAI Encounter Details Care Team Description Date Type Department Daisy Palomo [address] [place] [address] Bilateral carotid artery stenosis (Prima ry Dx); Mixed hyperlipidemia; Screening for AAA (aortic abdominal aneurysm) 07/09/2016 Office Visit [facility] Cardia c Thoracic and Vas Surgery [place] [address] [place] [address] Social History Date Tobacco Use Types Packs/Day Years Used Quit: 07/19/1996 Former Smoker Cigarettes 1 45 Drinks/Week oz/Week Comments Alcohol Use 1-2 Glasses of wine 0.0 each evening Yes Sex Assigned at Date Recorded Not on file documented as of this encounter Last Filed Vital Signs Reading Time Taken Comments Vital Sign 142/68 07/09/2016 10:02 AM ACOUSTIC ENGINEER Blood Pressure 68 07/09/2016 10:02 AM ACOUSTIC ENGINEER Pulse - - Temperature 16 07/09/2016 10:02 AM ACOUSTIC ENGINEER Respiratory Rate - - Oxygen Saturation - - Inhaled Oxygen Concentration 71.7 kg (158 lb) 07/09/2016 10:02 AM ACOUSTIC ENGINEER Weight 165.1 cm (5' 5") 07/09/2016 10:02 AM ACOUSTIC ENGINEER Height 26.29 07/09/2016 10:02 AM ACOUSTIC ENGINEER Body Mass Index documented in this encounter Progress Notes * Daisy Palomo FNP - 07/09/2016 10:00 AM ACOUSTIC ENGINEER Chief Complaint Patient presents with Follow Up carotid, AAI Subjective: Stephen Fraser is a 81 y.o. male presents Today for his annual follow-up of hi s mild cerebrovascular disease bilaterally. Mr. Fraser is status post coronary artery bypass surgery in 1990. Mr. Fraser continues to follow with Dr. Marielena lal or primary care and Dr. Price for routine cardiology care. Reports had coronary stents in August 2015 and had significant bleeding issues post op. He currentl y has an event recorder in place and is no longer on antiplatelets. Mr. Fraser denies any lower extremity claudication symptoms with ambulation. He denies any signs or symptoms of a stroke. Mr. Fraser continues to take Lipitor 80 mg daily with no obvious side effects. Mr. Fraser reports he enjoys playing golf and tr aveling to his condo in [place] several times a year. Mr. Fraser reports he's b een doing well and offers no new concerns at today's visit. Patient Active Problem List Diagnosis Date Noted Screening for AAA (aortic abdominal aneurysm) 07/09/2016 Priority: High Coronary atherosclerosis of cheesh-na coronary artery 08/22/2009 Priority: High Mixed hyperlipidemia 10/18/2007 Priority: High Other and unspecified hyperlipidemia 09/03/2004 Priority: High Coronary artery disease 09/03/2004 Priority: High Overview Note: S/p CABG x4 1990, coronary stents 11/23. Follows with Dr Price. Sleep apnea Priority: Low Overview Note: CPAP compliant Essential hypertension 11/04/2007 Priority: Low Bilateral carotid artery stenosis 09/03/2004 Priority: Low Overview Note: Mild disease bilaterally. Reevaluate in 06/2017. Past Medical History Diagnosis Date CAD (coronary artery disease) Cancer CVD (cerebrovascular disease) HTN (hypertension) Hyperlipidemia Peptic ulcer disease Sleep apnea Past Surgical History Procedure Laterality Date Hx coronary artery bypass graft 08/31/1990 Hx tonsillectomy Hx vasectomy Hx turp Current Outpatient Prescriptions: pantoprazole (PROTONIX) 40 mg Tablet, Delayed Release (E.C.), Take 40 mg by mouth daily., Disp: , Rfl: OTHER, Vit D3 1000 units daily, Disp: , Rfl: nitroglycerin (NITROLINGUAL) 0.4 mg/dose TL [place], Place 1 Gazelle under tongu e every 5 minutes as needed., Disp: , Rfl: atorvastatin (LIPITOR) 80 mg Oral tablet, Take 10 mg by mouth Daily LATE . , Disp: , Rfl: aspirin (ARTEMIO) 81 mg Oral Tab, Take 1 Tab by mouth daily., Disp: , Rfl: Omeprazole-Sodium Bicarbonate 20-1,680 mg Oral Pack, Take by mouth daily. powder, Disp: , Rfl: 0mega-3 fatty acids-vitamin E (FISH OIL) 1,000 mg Oral Cap, Take 1 Cap by m outh daily., Disp: , Rfl: amLODIPine (NORVASC) 10 mg Oral tablet, Take 1 Tab by mouth daily., Disp: , Rfl: [DISCONTINUED] atorvastatin (LIPITOR) 80 mg Oral tablet, Take 80 mg by mout h Daily LATE., Disp: , Rfl: Allergies Allergen Reactions Other Drug [Unclassified Drug] Other (See Comments) Betablocker- "didn't tolerate well, got me down." Social History Substance Use Topics Smoking status: Former Smoker Packs/day: 1.00 Years: 45.00 Types: Cigarettes Quit date: 07/19/1996 Smokeless tobacco: Not on file Alcohol use 0.0 oz/week 1 - 2 Glasses of wine per week Comment: each evening Family History Problem Relation Age of Onset Heart Disease Father Lung Cancer Mother Lung Cancer Brother Diabetes Brother Heart Disease Brother Review of Systems: Constitutional: Denies weight gain or loss. Denies weakness, fever or chills. De nies change in appetite or anorexia. Skin: Denies rashes, lumps, sores or itching. Denies change in hair or nails. De nies jaundice. Skin lesions removed from head. Eyes: Positive for history of cataract extractions in 2002. Denies pain, rednes s, excessive tearing, double vision, blurred spots, glaucoma. 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 Denies earaches, infection, discharge, or dizzi ness. Nose/Sinus: Denies frequent colds, nasal stuffiness, hay fever or nosebleeds. Mouth/Throat: Denies tooth decay, gum infection, bleeding gums, sore tongue, dry mouth, frequent sore throats and hoarseness. Cardiac: Positive for CAD, status post coronary artery bypass surgery in y 1990. With 3 cardiac stent post coronary artery bypass surgery, Reports loomis ry stents in August 2015 and had significant bleeding issues post op and is no longer on an antiplatelet for his atrial fib. follows with Dr Price. Reports has an Event recorder. Positive for HTN and hyperlipidemia. Denies rheumatic fever, heart murmurs, chest pain, shortness of breath, shortness of breath when lying down, chest pounding, fast heart rate, paroxysmal nocturnal dyspnea or periphe ral edema. Respiratory: Positive for sleep apnea- reports compliance with nasal mask CPAP. Denies cough, hemoptysis, wheezing, asthma, bronchitis, emphysema, pneumonia, t uberculosis or pleurisy. Gastrointestinal: Positive for hemorrhoids and IBS. Denies trouble swallowing, heartburn, nausea, vomiting or hematemesis. Denies change in bowel habits, melen a, rectal bleeding, abdominal pain or food intolerance. Urinary: Positive for history of prostate cancer, with radiation treatments in 2 001. Denies frequent urination, bladder or kidney infection, incontinence or nep hrolithiasis. 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 Denies muscle pain s, stiffness, gout or frequent fractures. Neurologic: Reports mild memory loss. Denies fainting, blackouts, seizures, weak ness, headaches, paralysis, numbness, tremors. Vascular: Positive for mild cerebrovascular disease.Denies claudication, varic ose veins, deep vein thrombosis or aneurysms. Hematologic/Lymphatic: History of iron deficiency anemia. Reports easy bruising on ASA. Denies bleeding, past blood transfusions, or enlarged lymph nodes. Endocrine: Denies thyroid disorders, heat or cold intolerance, excessive sweatin g, diabetes, excessive thirst or hunger, decreased energy, goiter, unexplained c hanges in height or weight. Psychiatric: Denies significant depression, past treatment for psychiatric probl ems, alcohol addiction, anxiety requiring treatment, or hallucinations or delusi ons. Allergic/Immunologic: Denies treatment for allergic reactions. Denies HIV. Denie s splenectomy . Objective: Vitals: 07/09/16 1002 BP: (!) 142/68 Pulse: 68 Resp: 16 Weight: 71.7 kg (158 lb) Height: 5' 5" (1.651 m) Constitutional: This is a well developed, well nourished 81 y.o. male who appear s in no acute distress. Eyes: The sclerae are non icteric, with normal conjunctiva and lids. The pupils are equal and reactive. Ears/Nose/Mouth/Throat: The external auditory canals are without lesion, as well as the nose. The lips are without obvious lesions. Gums appear healthy, without abscess. Neck: Supple, symmetric without masses. The trachea is midline. There is no stri santino. Chest: There are no chest wall deformities.Evidence of prior sternotomy. Respiratory: Symmetric with no accessory muscles used for respiration. There ar e no palpable lesions. Auscultation reveals equal breath sounds without wheezing , rhonchi or rales. Cardiac: Upon auscultation, a regular rate and rhythm, S1, S2, without murmurs, rubs or gallops. Vascular: The abdominal aorta is not felt to be enlarged. Pulses: Right Left Carotid 3/3 without bruit 3/3 without bruit Brachial 3 3 Radial 3 3 Femoral 3 3 Popliteal 3 3 Dorsalis pedis 3 3 Posterior tibial 3 3 Gastrointestinal: The abdomen is soft and without palpable mass or tenderness. T he liver and spleen appear normal in size, without tenderness. There is no ventr al or inguinal hernia present. Lymphatic: There are no palpable lymph nodes in the neck or groin. Musculoskeletal: The gait appears normal in stride. The digits are without clubb ing or cyanosis. The joints are without obvious arthritis or deformities. Range of motion is normal for age. Muscle strength and tone is normal for age. Extremities: There is no cyanosis, clubbing or edema. Feet are warm without wou nds or sores. Skin: Without rashes or obvious infections or lesions. Tissue turgor is normal. Neurologic: Cranial nerves appear intact and without deficit. Sensation is intac t and without deficit. Motor strength appears equal bilaterally. Psychiatric: The patient is oriented to time, place, and person. They appear to have adequate judgement and insight into their problem. Assessment: Encounter Diagnoses Name Primary? Bilateral carotid artery stenosis Yes Mixed hyperlipidemia Screening for AAA (aortic abdominal aneurysm) Orders Placed This Encounter US CAROTID DOPPLER US SCREENING AORTA pantoprazole (PROTONIX) 40 mg Tablet, Delayed Release (E.C.) 1. A carotid scan was obtained today and reveals on the right mild disease of 1- 39% with mild velocities. Antegrade vertebral flow. On the left there is mild disease of 1-39% with mild velocities. Antegrade verte bral flow. Essentially unchanged. 2. Ankle arm indices were obtained today and reveals normal indices with biphasi c waveforms noted bilaterally. Recommendations: 1. Discussed today's carotid scan with Mr. Fraser. Discussed signs and symptoms of a stroke with Mr. Fraser. They were encouraged to go to the ED should they develop any of these symptoms. Plan is to reevaluate his cerebrovascular diseas e in one year. 2. Discussed signs and symptoms of peripheral vascular disease and he was instru cted to notify our office should he experience any of these signs or symptoms. Alesha Fraser denies any lower extremity claudication symptoms with ambulation at t michele's visit. 3. Discussed with Mr. Fraser the benefits of continuing his statin therapy. 4. Mr. Fraser verbalizes understanding of today's test and test results and is agreeable to the follow up. Follow-up: 1. Mr. Fraser is to follow-up in one year with a carotid scan to reevaluate his cerebrovascular disease and ankle arm indices. Will also obtain an aorta survey. 2. Mr. Fraser was encouraged to follow-up sooner if needed. Return in about 1 year (around 07/09/2017). NATI Vogt, 07/09/2016 10:17 AM STIC ENGINEER documented in this encounter Miscellaneous Notes * Patient Instructions - Daisy Palomo FNP - 07/09/2016 9:43 AM ACOUSTIC ENGINEER [employer] Carotid Stenosis: Care Instructions Your Care Instructions Carotid stenosis is narrowing of one or both of the carotid arteries. These rosalino eloy take blood from the heart to the brain. There is one on each side of the ne ck. A substance called plaque builds up inside an artery. This makes it too narrow. Plaque comes from damage to the artery over time. This damage may be caused by h igh blood pressure, high cholesterol, diabetes, or smoking. Sometimes plaque can break loose from the carotid artery and move to the brain. This can cause a str edgardo or transient ischemic attack (TIA). The goal of treatment is to lower your risk of having a stroke or TIA. You can l ower your risk by making healthy lifestyle changes and taking medicine. Sometime s a surgery or procedure is done. Follow-up care is a betancourt part of your treatment and safety. Be sure to make and g o to all appointments, and call your doctor if you are having problems. It's als o a good idea to know your test results and keep a list of the medicines you rene e. How can you care for yourself at home? Take your medicines exactly as prescribed. Call your doctor if you think you are having a problem with your medicine. You may take medicine to lower your blo od pressure, to lower your cholesterol, or to prevent blood clots. If you take a blood thinner, such as aspirin, be sure to get instructions abo ut how to take your medicine safely. Blood thinners can cause serious bleeding p rashad. Do not smoke. People who smoke have a higher chance of stroke than those who quit. If you need help quitting, talk to your doctor about stop-smoking programs and medicines. These can increase your chances of quitting for good. Eat a healthy diet that is low in saturated fat and salt. Eat lots of fresh f ruits and vegetables and foods high in fiber. Stay at a healthy weight. Lose weight if you need to. Talk to your doctor about starting an [...] loss (if needed), and medicines can help. Avoid colds and flu. Get the flu vaccine every year. When should you call for help? Call 911 anytime you think you may need emergency care. For example, call if: You passed out (lost consciousness). You have symptoms of a stroke. These may include: Sudden numbness, tingling, weakness, or loss of movement in your face, arm, o r leg, especially on only one side of your body. Sudden vision changes. Sudden trouble speaking. Sudden confusion or trouble understanding simple statements. Sudden problems with walking or balance. A sudden, severe headache that is different from past headaches. Call your doctor now or seek immediate medical care if: You are dizzy or lightheaded, or you feel like you may faint. Watch closely for changes in your health, and be sure to contact your doctor if you have any problems. Where can you learn more? Go to https://www.[employer].net/patientEd. Enter Y756 in the search box to learn more about "Carotid Stenosis: Care Instruc tions." Current as of: August 14, 2015 Content Version: .[id number] [employer]. Care instructions adapted under license b y your healthcare professional. If you have questions about a medical condition or this instruction, always ask your healthcare professional. These instructions may not represent the values of this healthcare organization. [employer] disclaims any warranty or liability for your use of this information. [employer] Learning About FAST: Stroke Warning Signs What is FAST? FAST is a simple way to remember the main symptoms of stroke. Recognizing these symptoms helps you know when to call for medical help. FAST stands for: Face drooping. Arm weakness. Speech difficulty. Time to call 911. What happens when you have a stroke? A stroke occurs when a blood vessel to the brain bursts or is blocked by a blood clot. Within minutes, the nerve cells in that part of the brain . As a resul t, the part of the body controlled by those cells cannot work properly. The effects of a stroke may range from mild to severe. They may get better, or t hey may last the rest of your life. A stroke can affect vision, speech, behavior , thought processes, and your ability to move. It can cause symptoms that may include: Sudden numbness, tingling, weakness, or loss of movement in your face, arm, o r leg, especially on only one side of your body. Sudden vision changes. Sudden trouble speaking. Sudden confusion or trouble understanding simple statements. Sudden problems with walking or balance. A sudden, severe headache that is different from past headaches. Why is it important to get help FAST? Quick treatment may save your life. And it may reduce the damage in your brain s o that you have fewer problems after the stroke. When you know the FAST symptoms, you will know when it's important to call for m edical help. Where can you learn more? Go to https://www.[employer].net/patientEd. Enter E640 in the search box to learn more about "Learning About FAST: Stroke Wa rning Signs." Current as of: December 21, 2015 Content Version: [id number] [employer]. Care instructions adapted under license b y your healthcare professional. If you have questions about a medical condition or this instruction, always ask your healthcare professional. These instructions may not represent the values of this healthcare organization. [employer] disclaims any warranty or liability for your use of this information. STIC ENGINEER documented in this encounter Plan of Treatment Care Team Description Date Type Specialty Daisy Palomo FNP 100 [facility] [address] [place] [id number] 07/25/2020 Ancillary Cardiovascular Surg mike Procedure 07/25/2020 Office Visit Cardiovascular Surg mike documented as of this encounter Results * US SCREENING AORTA (02/03/2018 2:20 PM CDT) Specimen Narrative Performed At This result has an attachment that is n ot available. [x] Aorta Screening Duplex examination (exam checked above) using B-mode, color flow and spectral doppler [] [place] [] [place] [] [place] [x] [place] [] [place] [] [place] Impression: Screening ultrasound of abdominal ao rta reveals no evidence of aortoiliac dilatation. Tech: DC Machine: 18-M MR Image Quality: [x] Good [] Fair [] Poor Reason: * US CAROTID DOPPLER (02/03/2018 2:20 PM CDT) Specimen Narrative Performed At This result has an attachment that is n ot available. Extracranial Duplex Examination using B -Mode,Color Flow and Spectral Doppler [] [place] [] [place] [] [place] [x] [place] [] [place] [] [place] Prior Exam: 07/09/16 Vascular Surgery: 08/31/1990 CABG Symptoms Vascular History [x] Known Carotid Disease [...] [] <50# [] >50# [] Right Brachial: 130/doppler Left Brachial: 134/doppler Right Carotid Velocities Peak Systolic End Diastolic CCA Proximal Artery 128 17 Distal 70 12 Bifurcation / Bulb ICA Proximal Artery 73 17 Mid 91 25 Distal 93 26 External Carotid 109 13 Ratio ICA / CCA 1.3 2.2 Vertebral [x] Forward [] Reversed [] No t Obtained Left Carotid Velocities Peak Systolic End Diastolic CCA Proximal Artery 109 14 Distal 92 20 Bifurcation / Bulb ICA Proximal Artery 50 12 Mid 45 13 Distal 49 12 External Carotid 116 10 Ratio ICA / CCA 0.54 0.60 Vertebral [x] Forward [] Reversed [] No [...] [] [] Occluded [] [] Velocity Classification [] [] Mild <110 PSV, <40 EDV, <1.8 SRV, <2.6 DVR [x] [x] Moderate < 130 [...] is recommended if patient remains asymptomatic. Tech: DC Machine: 18-M MR Image Quality: [x] Good [] Fair [] Poor Reason: documented in this encounter Visit Diagnoses Diagnosis Bilateral carotid artery stenosis Occlusion and stenosis of multiple and bilateral precerebral arteries without mention of cerebral infarction Mixed hyperlipidemia Screening for AAA (aortic abdominal ane urysm) Screening for other and unspecified car diovascular conditions documented in this encounter
--- OUTSIDE RECORDS SUMMARY | 2019-12-06 06:19 | XMS REPORT | Encounter Summary ---
Author Author [facility], [place], [place], [place], [place] Organization [facility] [place], [place], [place], [facility] Address Unknown Phone Unavailable Care Team Providers Care Deputy Sheriff Lieutenant Name Role Phone Zeke Frey MD PCP Encounter Details Care Team Description Date Type Department Daisy Palomo SYSTEM DISPATCHER [address] [place] [address] [address] [place] [phone] Bilateral carotid artery stenosis 07/20/2019 Ancillary [facility] Cardia c Procedure Thoracic and Vas Surgery [address] [phone] Social History Date Tobacco Use Types Packs/Day Years Used Quit: 07/19/1996 Former Smoker Cigarettes 1 45 Drinks/Week oz/Week Comments Alcohol Use 1-2 Glasses of wine 0.0 each evening Yes Sex Assigned at Date Recorded Not on file documented as of this encounter Plan of Treatment Care Team Description Date Type Specialty Daisy Palomo [address] [place] [address] 07/25/2020 Ancillary Cardiovascular Surg mike Procedure 07/25/2020 Office Visit Cardiovascular Surg mike documented as of this encounter Procedures Comments Procedure Name Priority Date/Time Associated Diag nosis US CAROTID DOPPLER Routine 07/20/2019 Bilateral c arotid artery 9:03 AM BRIDGE EXPERT stenosis documented in this encounter Results * US CAROTID DOPPLER (07/20/2019 9:03 AM BRIDGE EXPERT) Specimen Narrative Performed At This result has an attachment that is n ot available. Extracranial Duplex Examination using B -Mode,Color Flow and Spectral Doppler [] [place] [] [place] [] [place] [x] [place] [] [place] [] [place] Prior Exam: 02/02 Vascular Surgery: - Symptoms [...]
--- OUTSIDE RECORDS SUMMARY | 2019-12-06 06:19 | XMS REPORT | Encounter Summary ---
Author Author [facility] [place], [place], [facility] Organization [facility] [place] Address Unknown Phone Unavailable Care Team Providers Care Croze Cutter Helper Name Role Phone Zeke Frey MD PCP Reason for Visit * Outpatient Services (Routine) Referred By Contact Referred To Contact Status Reason Specialty Diagnoses / Procedures Daisy Palomo FNP [address] [place] [address] [place] [phone] [facility] Cardiac Thor And Vasc Surgery [address] [address] Closed Cardiovascular Diagnoses Surgery Bilateral carotid artery stenosis P rocedures US CAROTID DOPPLER Encounter Details Care Team Description Date Type Department Daisy Palomo FNP [address] [place] [address] [place] [phone] Bilateral carotid artery stenosis 02/03/2018 Ancillary [facility] Cardia c Procedure Thoracic and Vas Surgery [address] [phone] Social History Date Tobacco Use Types Packs/Day Years Used Quit: 07/19/1996 Former Smoker Cigarettes 1 45 Drinks/Week oz/Week Comments Alcohol Use 1-2 Glasses of wine 0.0 each evening Yes Sex Assigned at Date Recorded Not on file documented as of this encounter Plan of Treatment Care Team Description Date Type Specialty Daisy Palomo FNP [address] [place] [address] [place] [phone] 07/25/2020 Ancillary Cardiovascular Surg mike Procedure 07/25/2020 Office Visit Cardiovascular Surg mike documented as of this encounter Procedures Comments Procedure Name Priority Date/Time Associated Diag nosis US CAROTID DOPPLER Routine 02/03/2018 Bilateral c arotid artery 2:20 PM CDT stenosis documented in this encounter Results * US CAROTID DOPPLER (02/03/2018 2:20 PM CDT) Specimen Narrative Performed At This result has an attachment that is n ot available. Extracranial Duplex Examination using B -Mode,Color Flow and Spectral Doppler [] [place] [] [place] [] [place] [x] [place] [] [place] [] [place] Prior Exam: 07/09/16 Vascular Surgery: 08/31/1990 CABG [...]
--- OUTSIDE RECORDS SUMMARY | 2019-12-06 06:19 | XMS REPORT | Encounter Summary ---
Author Author [facility] [place], [place], [facility] Organization [facility] [place], [facility] Address Unknown Phone Unavailable Care Team Providers Care Rn Perioperative Name Role Phone Zeke Frey MD PCP Reason for Referral * Radiology Services (Routine) Referred By Contact Referred To Contact Status Reason Specialty Diagnoses / Procedures Daisy Palomo FNP [address] [facility] [address] [place] [address] Authorized Diagnoses Bilateral carotid artery stenosis P rocedures US CAROTID DOPPLER Reason for Visit * Reason Comments Follow Up carotid, AAI Encounter Details Care Team Description Date Type Department Daisy Palomo FNP [address] [facility] [address] [place] [address] Bilateral carotid artery stenosis (Prima ry Dx); Mixed hyperlipidemia 07/20/2019 Office Visit [facility]3] Cardia c Thoracic and Vas Surgery [place] [address] [place] [address] Social History Date Tobacco Use Types Packs/Day Years Used Quit: 07/19/1996 Former Smoker Cigarettes 1 45 Drinks/Week oz/Week Comments Alcohol Use 1-2 Glasses of wine 0.0 each evening Yes Sex Assigned at Date Recorded Not on file documented as of this encounter Last Filed Vital Signs Reading Time Taken Comments Vital Sign 142/70 07/20/2019 9:04 AM INVENTORY CONTROL ASSOCIATE Blood Pressure 61 07/20/2019 9:04 AM INVENTORY CONTROL ASSOCIATE Pulse - - Temperature 16 07/20/2019 9:04 AM INVENTORY CONTROL ASSOCIATE Respiratory Rate 97% 07/20/2019 9:04 AM INVENTORY CONTROL ASSOCIATE Oxygen Saturation - - Inhaled Oxygen Concentration 70.8 kg (156 lb) 07/20/2019 9:04 AM INVENTORY CONTROL ASSOCIATE Weight 167.6 cm (5' 6") 07/20/2019 9:04 AM INVENTORY CONTROL ASSOCIATE Height 25.18 07/20/2019 9:04 AM INVENTORY CONTROL ASSOCIATE Body Mass Index documented in this encounter Progress Notes * Daisy Palomo, AQUATIC CENTRE MANAGER - 07/20/2019 8:38 AM INVENTORY CONTROL ASSOCIATE Chief Complaint Patient presents with Follow Up carotid, AAI Subjective: Stephen Fraser is a 84 y.o. male presents for his annual follow-up of his mild cerebrovascular disease bilaterally. Mr. Fraser is status post coronary artery bypass surgery in 1990. Mr. Fraser continues to follow with Dr. Peguero for primary care and Dr. Dee lal or routine cardiology care. Mr. Fraser continues to use Lipitor 10 mg daily wi thout any obvious side effects. Mr. Fraser denies any lower extremity claudication symptoms with ambulation. He denies any symptoms of a stroke. He reports he continues to remain very acti ve and enjoys playing golf. Mr. Fraser offers no new concerns at today's visit . Patient Active Problem List Diagnosis Date Noted Screening for AAA (aortic abdominal aneurysm) 07/09/2016 Priority: High Overview Note: Reevaluate in 01/2023 Coronary atherosclerosis of belk[place]ski coronary artery 08/22/2009 Priority: High Mixed hyperlipidemia 10/18/2007 Priority: High Other and unspecified hyperlipidemia 09/03/2004 Priority: High Coronary artery disease 09/03/2004 Priority: High Overview Note: S/p CABG x4 1990, coronary stents 11/23. Follows with Dr Price. Sleep apnea Priority: Low Overview Note: CPAP compliant Essential hypertension 11/04/2007 Priority: Low Bilateral carotid artery stenosis 09/03/2004 Priority: Low Overview Note: Mild disease bilaterally. Reevaluate in 06/2020 Past Medical History: Diagnosis Date CAD (coronary artery disease) Cancer CVD (cerebrovascular disease) HTN (hypertension) Hyperlipidemia Peptic ulcer disease Sleep apnea Past Surgical History: Procedure Laterality Date HX CORONARY ARTERY BYPASS GRAFT 08/31/1990 HX TONSILLECTOMY HX TURP HX VASECTOMY Current Outpatient Medications: apixaban (Eliquis) 5 mg tablet, Take 5 mg by mouth 2 times daily., Disp: , Rfl: lisinopril (PRINIVIL) 2.5 mg tablet, Take 2.5 mg by mouth daily., Disp: , R fl: diltiaZEM (CARDIZEM) 120 mg Tablet, Take 120 mg by mouth every 6 hours., Di sp: , Rfl: atorvastatin (LIPITOR) 80 mg Oral tablet, Take 10 mg by mouth Daily LATE . , Disp: , Rfl: OTHER, Vit D3 1000 units daily, Disp: , Rfl: nitroglycerin (NITROLINGUAL) 0.4 mg/dose TL [place], Place [address] [place] under tongu e every 5 minutes as needed., Disp: , Rfl: Allergies Allergen Reactions Other Drug [Unclassified Drug] Other (See Comments) Betablocker- "didn't tolerate well, got me down." Social History Tobacco Use Smoking status: Former Smoker Packs/day: 1.00 Years: 45.00 Pack years: 45.00 Types: Cigarettes Last attempt to quit: 07/19/1996 Years since quittin.0 Substance Use Topics Alcohol use: Yes Alcohol/week: 0.0 standard drinks Types: 1 - 2 Glasses of wine per week Comment: each evening Family History Problem Relation Name Age of Onset Heart Disease Father dementia Lung Cancer Mother Lung Cancer Brother ##Brother1 Diabetes Brother ##Brother2 Heart Disease Brother ##Brother2 Review of Systems: Constitutional: Denies weight gain [...] his atrial fib. follows with Dr Price. Positive for HTN and hyperlipidemia. Denies rheumatic fever, heart murmurs, chest pain, s hortness of breath, shortness of breath when lying down, chest pounding, fast he art rate, paroxysmal nocturnal dyspnea or peripheral edema. Respiratory: Positive for sleep apnea- reports [...] headaches, paralysis, numbness, tremors. Vascular: Positive for cerebrovascular disease.Denies claudication, varicose v eins, deep vein thrombosis or aneurysms. Hematologic/Lymphatic: History [...] HIV. Denie s splenectomy . Objective: Vitals: 07/20/19 0904 BP: (!) 142/70 Pulse: 61 Resp: 16 SpO2: 97% Weight: 70.8 kg (156 lb) Height: 5' 6" (1.676 m) Constitutional: This is a well developed, well nourished 84 y.o. male who appear s in no [...] santino. Chest: There are no chest wall deformities. Evidence of prior sternotomy. Respiratory: Symmetric with no accessory muscles used for respiration. There ar e no palpable lesions. Auscultation reveals clear and equal breath sounds withou t wheezing, rhonchi or rales. Cardiac: Upon auscultation, a regular rate and rhythm, S1, S2, without murmurs, rubs or gallops. Vascular: The abdominal aorta is not felt to be enlarged. Pulses: Right Left Carotid 3/3 without bruit 3/3 without bruit Brachial 3 3 Radial 3 3 Femoral 3 3 Popliteal 1 1 Dorsalis pedis 3 3 Posterior tibial 3 3 Gastrointestinal: The abdomen is full, soft and without palpable mass or tendern [...] no cyanosis, clubbing or edema. Feet are pink and warm. Skin: Without rashes or obvious infections or [...] Bilateral carotid artery stenosis Yes Mixed hyperlipidemia Orders Placed This Encounter US CAROTID DOPPLER apixaban (Eliquis) 5 mg tablet lisinopril (PRINIVIL) 2.5 mg tablet diltiaZEM (CARDIZEM) 120 mg Tablet 1. A carotid scan was obtained today and reveals on the right mild disease of 1- 39% with mild velocities. Antegrade vertebral flow. On the left there is mild disease of 1-39% with mild velocities. Antegrade verte bral flow. Today's scan is compared to January 2018 and is essentially unchanged. 2. Ankle arm indices were obtained today and reveals indices on the right 1.1/1. 2 and on the left 1.1/1.2. Recommendations: 1. Discuss today's carotid scan results with Mr. Fraser. Discussed signs and s ymptoms of a stroke with Mr. Fraser. They were encouraged to go to the ED shoul d they develop any of these symptoms. Plan is to reevaluate his cerebrovascular disease in 1 year. 2. Discussed signs and symptoms of peripheral vascular disease and he was instru cted to notify our office should he experience any of these signs or symptoms. 3. Discussed the benefits of continuing his statin therapy. 4. TOBACCO COUNSELING He is not a tobacco user. 5. Mr. Fraser verbalizes understanding of today's test and test results and is agreeable to the follow up. Follow-up: 1. Mr. Fraser is to follow-up in 1 year with a carotid scan to reevaluate his c erebrovascular disease and ankle arm indices. 2. Mr. Fraser was encouraged to follow-up sooner if needed. Return in about 1 year (around 07/20/2020). NATI Vogt, 07/20/2019 9:38 AM NTORY CONTROL ASSOCIATE documented in this encounter Miscellaneous Notes * Patient Instructions - Daisy Palomo FNP - 07/20/2019 8:40 AM INVENTORY CONTROL ASSOCIATE Carotid Stenosis: Care Instructions Your Care Instructions [...] When should you call for help? Call anytime you think you may need emergency care. For example, call if: You passed out (lost consciousness). You have symptoms of a stroke. These may include: Sudden numbness, tingling, weakness, or loss of movement in your face, arm , or leg, especially on only one side [...] and be sure to contact your doctor i f you have any problems. Where can you learn more? Go to https://www.Career[employer]wise.net/patiented Enter Y756 in the search box to learn more about "Carotid Stenosis: Care Instruc tions." Current as of: October 25, 2018 Content Version: 12.3 0949-9913 [employer]. Care instructions adapted under license by your healthcare professional. If you have questions about a medical condition or this instruction, always ask your he althcare professional. These instructions may not represent the values of this [facility] organization. [employer] disclaims any warranty or liabi lity for your use of this information. NTORY CONTROL ASSOCIATE documented in this encounter Plan of Treatment Care Team Description Date Type Specialty Daisy Palomo FNP [address] [facility] [address] [place] [phone] 07/25/2020 Ancillary Cardiovascular Surg mike Procedure 07/25/2020 Office Visit Cardiovascular Surg mike Order Schedule Name Type Priority Associated Diag noses Expected: 08/03/2020 (Approximate), Expi res: 08/23/2020 US CAROTID DOPPLER Imaging Routine Bilateral c arotid artery stenosis documented as of this encounter Visit Diagnoses Diagnosis Bilateral carotid artery stenosis Occlusion and stenosis of multiple and bilateral precerebral arteries without mention of cerebral infarction Mixed hyperlipidemia documented in this encounter
--- OUTSIDE RECORDS SUMMARY | 2019-12-06 06:19 | XMS REPORT | Encounter Summary ---
Author Author [facility] [place] [place], [facility] Address Unknown Phone Unavailable Care Team Providers Care Housekeeper/Laundry Assistant Name Role Phone Zeke Frey MD PCP Encounter Details Care Team Description Date Type Department 11/22/2019 Travel Social History Date Tobacco Use Types Packs/Day Years Used Quit: 07/19/1996 Former Smoker Cigarettes 1 45 Drinks/Week oz/Week Comments Alcohol Use 1-2 Glasses of wine 0.0 each evening Yes Sex Assigned at Date Recorded Not on file Date Recorded COVID-19 Exposure Response 11/22/2019 11:03 AM CDT In the last month, have you been in contact with [facility] to assess someone who was confirmed or suspected to have Coronavirus / COVID-19? documented as of this encounter Plan of Treatment Care Team Description Date Type Specialty Daisy Palomo, NATI [address] [facility] [address] [place] [id number] 07/25/2020 Ancillary Cardiovascular Surg mike Procedure 07/25/2020 Office Visit Cardiovascular Surg mike documented as of this encounter Visit Diagnoses Not on filedocumented in this encounter
--- OUTSIDE RECORDS SUMMARY | 2019-12-06 06:19 | XMS REPORT | Encounter Summary ---
Author Author [facility], [place], [place], [place], [facility] Organization [facility] [place], [place], [place], [facility] Address Unknown Phone Unavailable Care Team Providers Care Scientist/Engineer Name Role Phone Jabari Peguero MD PCP Reason for Visit * Reason Comments Follow Up carotid stenosis Encounter Details Care Team Description Date Type Department Ramila Lu FNP NO ADDRESS ON FILE Bilateral carotid artery stenosis (Prima ry Dx); Essential hypertension; Arthritis of left shoulder region; Mixed hyperlipidemia 07/09/2015 Office Visit [facility] Cardia c Thoracic and Vasc Surg-[place] [address] [place] [address] Social History Date Tobacco Use Types Packs/Day Years Used Quit: 07/19/1996 Former Smoker Cigarettes 1 45 Drinks/Week oz/Week Comments Alcohol Use 1-2 Glasses of wine 0.0 each evening Yes Sex Assigned at Date Recorded Not on file documented as of this encounter Last Filed Vital Signs Reading Time Taken Comments Vital Sign 118/70 07/09/2015 10:32 AM RADIO AERIAL INSTALLER Blood Pressure 80 07/09/2015 10:13 AM RADIO AERIAL INSTALLER Pulse - - Temperature 16 07/09/2015 10:13 AM RADIO AERIAL INSTALLER Respiratory Rate - - Oxygen Saturation - - Inhaled Oxygen Concentration 71.7 kg (158 lb) 07/09/2015 10:13 AM RADIO AERIAL INSTALLER Weight 167.6 cm (5' 6") 07/09/2015 10:13 AM RADIO AERIAL INSTALLER Height 25.5 07/09/2015 10:13 AM RADIO AERIAL INSTALLER Body Mass Index documented in this encounter Progress Notes * Ramila Lu FNP - 07/09/2015 10:19 AM RADIO AERIAL INSTALLER Chief Complaint Patient presents with Follow Up carotid stenosis Subjective: Stephen Fraser is a 80 y.o. male presents with carotid stenosis.Patient denies amaurosis fugax, diplopia, dysarthria or unilateral weakness. Denies abdominal pain or post prandial pain suggestive of intestinal ischemia. Denies intermitte nt claudication symptoms of upper or lower extremities. Reports left arm discomf ort from the left shoulder about 6 weeks ago occurred at rest, following stirrin g a large pot, relieved with 1 Nitro reports lasted about 30 minutes, without re -occurrence. Denies associated nausea, shortness of beath or chest pain. He wal [place]ed in the mall his morning for exercise denies any anginal symptoms. States drew e left hip pain with walking and sitting. Following with Dr Price in the cardiol ogy service and Dr Salinass, for primary care. Patient Active Problem List Diagnosis Date Noted Coronary atherosclerosis of [place] coronary artery 08/22/2009 Priority: High Essential hypertension 11/04/2007 Priority: High Mixed hyperlipidemia 10/18/2007 Priority: High Other and unspecified hyperlipidemia 09/03/2004 Priority: High Coronary artery disease 09/03/2004 Priority: High Overview Note: S/p CABG x4 1990, coronary stents 11/23. Follows with Dr Price. Sleep apnea Priority: Low Overview Note: CPAP compliant Bilateral carotid artery stenosis 09/03/2004 Priority: Low Past Medical History Diagnosis Date Cancer CAD (coronary artery disease) HTN (hypertension) Hyperlipidemia Peptic ulcer disease CVD (cerebrovascular disease) Sleep apnea Past Surgical History Procedure Laterality Date Hx coronary artery bypass graft 08/31/1990 Hx tonsillectomy Hx vasectomy Hx turp Current outpatient prescriptions: OTHER, Vit D3 1000 units daily, Disp: , Rfl: ; atorvastatin (LIPITOR) 80 mg Oral tablet, Take 10 mg by mouth Daily LATE . , D isp: , Rfl: ; atorvastatin (LIPITOR) 80 mg Oral tablet, Take 80 mg by mouth Aimee ly LATE., Disp: , Rfl: ; aspirin (ARTEMIO) 81 mg Oral Tab, Take 1 Tab by mouth da renee., Disp: , Rfl: ; Omeprazole-Sodium Bicarbonate 20-1,680 mg Oral Pack, Take by mouth daily. powder, Disp: , Rfl: 0mega-3 fatty acids-vitamin E (FISH OIL) 1,000 mg Oral Cap, Take 1 Cap by mouth daily., Disp: , Rfl: ; amLODIPine (NORVASC) 10 mg Oral tablet, Take 1 Tab by mo uth daily., Disp: , Rfl: ; nitroglycerin (NITROLINGUAL) 0.4 mg/dose TL [place], Pl shae 1 [place] under tongue every 5 minutes as needed., Disp: , Rfl: Allergies Allergen Reactions Other Drug [Unclassified Drug] Other (See Comments) Betablocker- "didn't tolerate well, got me down." History Substance Use Topics Smoking status: Former Smoker -- 1.00 packs/day for 45 years Types: Cigarettes Quit date: 07/19/1996 Smokeless tobacco: Not on file Alcohol Use: 0.0 oz/week 1-2 Glasses of wine per week Comment: each [...] jaundice. Skin lesions removed from head. Eyes: Cataracts removed 2002. Denies pain, redness, excessive tearing, double vi pratima, blurred spots, glaucoma. 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 Denies earaches, inf ection, discharge, or dizziness. Nose/Sinus: Sinus allergies, allergic to grass and dust. Denies frequent colds, nasal stuffiness, hay fever or nosebleeds. Mouth/Throat: Denies tooth decay, gum infection, bleeding gums, sore tongue, dry mouth, frequent sore throats and hoarseness. Cardiac: CAD hx CABG x Aug 31, 1990, with 3 cardiac stent follows with Dr Price, CVI, HLP, HTN. Denies rheumatic fever, heart murmurs, chest pain, shortness of breath, shortness of breath when lying down, chest pounding, fast heart rate, pa roxysmal nocturnal dyspnea or peripheral edema. Respiratory: Sleep apnea- nasal mask CPAP, compliant. DENNIS with heavy exertion, d igging or using an axe. Denies cough, hemoptysis, wheezing, asthma, bronchitis, emphysema, pneumonia, tuberculosis or pleurisy. Gastrointestinal: Hemorrhoids/IBS, improved. Denies trouble swallowing, heartbu rn, nausea, vomiting or hematemesis. Denies change in bowel habits, melena, rect al bleeding, abdominal pain or food intolerance. Urinary:Prostate cancer, radiation tx, 2000. Denies frequent urination, bladder or kidney infection, incontinence or nephrolithiasis. 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 Denies muscle or join t pains, stiffness, gout or frequent fractures. Neurologic: Memory loss. Denies fainting, blackouts, seizures, weakness, headach es, paralysis, numbness, tremors. Vascular: CVD, mild. Denies claudication, varicose veins, deep vein thrombosis or aneurysms. Hematologic/Lymphatic:Hx in the past iron deficiency anemia. Easy bruising on A. Denies bleeding, past blood transfusions, or enlarged [...] Denies HIV. Denie s splenectomy . Objective: Filed Vitals: 07/09/15 1013 07/09/15 1032 BP: 120/68 118/70 Pulse: 80 Resp: 16 Height: 5' 6" (1.676 m) Weight: 158 lb (71.668 kg) Constitutional: This is a well developed, well nourished 80 y.o. male who appear s in no [...] strength and tone is normal for age. Crepitu s noted in left shoulder on with raising left arm. Extremities: There is no cyanosis, clubbing or edema. Skin: Without rashes or obvious infections or lesions. Tissue turgor is normal. Neurologic: Cranial nerves appear intact and without deficit. Sensation is intac t and without deficit. Motor strength appears equal bilaterally. Psychiatric: The patient is oriented to time, place, and person. They appear to have adequate judgement and insight into their problem. . Assessment: Encounter Diagnoses Name Primary? Bilateral carotid artery stenosis Yes Essential hypertension Arthritis of left shoulder region Mixed hyperlipidemia Orders Placed This Encounter US CAROTID DOPPLER Studies reviewed: Carotid scan 07/09/15 Right: Mild disease of 1-39% with mild velocities. Antegrade vertebral flow. Left: Mild disease of 1-39% with mild velocities. Antegrade vertebral flow. Ankle brachial indices are obtained and reported within normal limits in the 1.0 range bilaterally. Recommendations: Mr Frasre returns for reevaluation of his carotid stenosis. He has stable mild disease based on his carotid duplex scan today.Based on today's results, a one y ear follow up is recommended if patient remains asymptomatic. Continue with med ications, including current anti-lipid and antiplatelet therapy.Continue with ro utine exercise and low fat diet. Discussed anginal symptoms and to seek medical attention for the following; base d on his exam with crepitus in his left shoulder I suspect he was experiencing o rthopedic pain regarding his left arm pain 6 weeks ago. However he is advised to seek medical attention for any increasing chest pain that is accompanied by the symptoms below. Chest pain or pressure is the most common symptom of angina. But some people hav e other symptoms, like: Pain, pressure, or a strange feeling in the back, neck, jaw, or upper belly, or in one or both shoulders or arms. Shortness of breath. Nausea or vomiting. Lightheadedness or sudden weakness. Fast or irregular heartbeat Given the name Dr Kirkland if he wanted to make an appointment for his hip and le ft shoulder pain. He reports his spouse that passed, had bilateral total shoulde r replacements and did not recover well following the proceedures. At the end of the discussion an opportunity was provided to the patient, who indicated all qu estions had been addressed to their satisfaction and no further questions remain Follow-up: 1 year carotid scan and [facility] Dr Dee Peguero. NATI Dan, 07/09/2015 12:32 PM O AERIAL INSTALLER documented in this encounter Miscellaneous Notes * Patient Instructions - Ramila Lu FNP - 07/09/2015 12:23 PM RADIO AERIAL INSTALLER Angina: Care Instructions Your Care Instructions You have a problem called angina. Angina happens when there is not enough blood flow to your heart muscle. Angina is a sign of coronary artery disease (CAD). CA D occurs when blood vessels that supply the heart become narrowed. Having CAD in creases your risk of a heart attack. Chest pain or pressure is the most common symptom of angina. But some people hav e other symptoms, like: Pain, pressure, or a strange feeling in the back, neck, jaw, or upper belly, or in one or both shoulders or arms. Shortness of breath. Nausea or vomiting. Lightheadedness or sudden weakness. Fast or irregular heartbeat. Women are somewhat more likely than men to have angina symptoms like shortness o f breath, nausea, and back or jaw pain. Angina can be dangerous. That's why it is important to pay attention to your sym ptoms. Know what is typical for you, learn how to control your symptoms, and und erstand when you need to get treatment. A change in your usual pattern of symptoms is an emergency. It may mean that you are having a heart attack. The doctor has checked you carefully, but problems can develop later. If you not ice any problems or new symptoms, get medical treatment right away. Follow-up care is a betancourt part of your treatment and safety. Be sure to make and g o to all appointments, and call your doctor if you are having problems. It's als o a good idea to know your test results and keep a list of the medicines you rene e. How can you care for yourself at home? Medicines If your doctor has given you nitroglycerin for angina symptoms, keep it with you at all times. If you have symptoms, sit down and rest, and take the first do se of nitroglycerin as directed. If your symptoms get worse or are not getting b afsaneh within 5 minutes, call 911 right away. Stay on the phone. The emergency op erator will give you further instructions. If your doctor advises it, take 1 low-dose aspirin a day to prevent heart att ack. Be safe with medicines. Take your medicines exactly as prescribed. Call your doctor if you think you are having a problem with your medicine. You will get mo re details on the specific medicines your doctor prescribes. Lifestyle changes Do not smoke. If you need help quitting, talk to your doctor about stop-smoki ng programs and medicines. These can increase your chances of quitting for good. Eat a heart-healthy diet that is low in cholesterol, saturated fat, and salt, and is high in fiber. Talk to your doctor or a dietitian about healthy eating. Stay at a healthy weight. Or lose weight if you need to. Activity Talk to your doctor about a level of activity that is safe for you. If an activity causes angina symptoms, slow down. Talk to your doctor before you do that activity again. When should you call for help? Call 911 anytime you think you may need emergency care. For example, call if: You passed out (lost consciousness). You have symptoms of a heart attack. These may include: Chest pain or pressure, or a strange feeling in the chest. Sweating. Shortness of breath. Nausea or vomiting. Pain, pressure, or a strange feeling in the back, neck, jaw, or upper belly o r in one or both shoulders or arms. Lightheadedness or sudden weakness. A fast or irregular heartbeat. After you call 911, the separating machine operator may tell you to chew 1 adult-strength or 2 to 4 low-dose aspirin. Wait for an ambulance. Do not try to drive yourself. You have angina symptoms that do not go away with rest or are not getting bet ter within 5 minutes after you take a dose of nitroglycerin. Call your doctor now or seek immediate medical care if: You are having angina symptoms more often than usual, or they are different o r worse than usual. You feel dizzy or lightheaded, or you feel like you may faint. Watch closely for changes in your health, and be sure to contact your doctor if you have any problems. Where can you learn more? Go to http://www.[employer].net/patiented. Enter H129 in the search box to learn more about "Angina: Care Instructions." Current as of: September 07, 2014 Content Version: 107 6754-6268 [employer]. Care instructions adapted under license b y your healthcare professional. If you have questions about a medical condition or this instruction, always ask your healthcare professional. [employer], [facility] disclaims any warranty or liability for your use of this information. O AERIAL INSTALLER documented in this encounter Plan of Treatment Care Team Description Date Type Specialty Daisy Palomo FNP [address] [facility] [address] [place] [address] 07/25/2020 Ancillary Cardiovascular Surg mike Procedure 07/25/2020 Office Visit Cardiovascular Surg mike documented as of this encounter Visit Diagnoses Diagnosis Bilateral carotid artery stenosis Occlusion and stenosis of multiple and bilateral precerebral arteries without mention of cerebral infarction Essential hypertension Unspecified essential hypertension Arthritis of left shoulder region Unspecified arthropathy, shoulder regio n Mixed hyperlipidemia documented in this encounter
--- NOTE | 2019-12-06 06:20 | NUR ---
PATIENT HAS RIGHT NEPHROSTOMY
--- OUTSIDE RECORDS SUMMARY | 2019-12-06 06:20 | XMS REPORT | Encounter Summary ---
Author Author [facility], [place], [place], [place], [place] [facility] Organization [facility], [place], [place], [place], [facility] Address Unknown Phone Unavailable Care Team Providers Care Assistant Restaurant General Manager Name Role Phone Jabari Peguero MD PCP Encounter Details Care Team Description Date Type Department Ramila Lu FNP NO ADDRESS ON FILE Hypoxemia requiring supplemental oxygen 04/22/2012 Orders Only [facility] Cardia c Thoracic and Vasc Surgery-[address] [phone] Social History Date Tobacco Use Types Packs/Day Years Used Quit: 07/19/1996 Former Smoker Cigarettes 1 45 Drinks/Week oz/Week Comments Alcohol Use 1 Glasses of wine 0.8 each evening Yes Sex Assigned at Date Recorded Not on file documented as of this encounter Plan of Treatment Care Team Description Date Type Specialty Daisy Palomo FNP [address] [facility] [address] [place] [phone] 07/25/2020 Ancillary Cardiovascular Surg mike Procedure 07/25/2020 Office Visit Cardiovascular Surg mike documented as of this encounter Procedures Comments Procedure Name Priority Date/Time Associated Diag nosis MA NONINVASV OXYGEN Routine 04/20/2012 Hypoxemia requiring SATUT,CONTINUOUS supplemental oxygen documented in this encounter Visit Diagnoses Diagnosis Hypoxemia requiring supplemental oxygen Hypoxemia documented in this encounter
--- OUTSIDE RECORDS SUMMARY | 2019-12-06 06:20 | XMS REPORT | Encounter Summary ---
Author Author [facility], [place], [place], [place], [facility] Organization [facility], [place], [place], [place], [facility] Address Unknown Phone Unavailable Care Team Providers Care Sales Representative Meats Name Role Phone Jabari Peguero MD PCP Encounter Details Care Team Description Date Type Department Ramila Lu FNP NO ADDRESS ON FILE 03/30/2012 Orders Only [facility] Cardia c Thoracic and Vasc Surgery-[address] [place] [phone] Social History Date Tobacco Use Types Packs/Day Years Used Quit: 07/19/1996 Former Smoker Cigarettes 1 45 Drinks/Week oz/Week Comments Alcohol Use 1 Glasses of wine 0.8 each evening Yes Sex Assigned at Date Recorded Not on file documented as of this encounter Progress Notes * Ramila Lu FNP - 03/30/2012 11:14 AM CDT Entered in error documented in this encounter Plan of Treatment Care Team Description Date Type Specialty Daisy Palomo FNP [address] [place] [phone] 07/25/2020 Ancillary Cardiovascular Surg mike Procedure 07/25/2020 Office Visit Cardiovascular Surg mike documented as of this encounter Visit Diagnoses Not on filedocumented in this encounter
--- OUTSIDE RECORDS SUMMARY | 2019-12-06 06:20 | XMS REPORT | Encounter Summary ---
Author Author [facility], [place], [place], [place], [facility] Organization [facility] [place], [place], [place], [facility] Address Unknown Phone Unavailable Care Team Providers Care Inspector General Name Role Phone Jabari Peguero MD PCP Reason for Visit * Reason Onset Date Comments Follow Up 04/20/2012 SpO2 monitor questi on Encounter Details Care Team Description Date Type Department Ramila Lu FNP NO ADDRESS ON FILE Follow Up (SpO2 monitor question) 04/20/2012 Telephone [facility] Cardia c Thoracic and Vasc Surgery-[address] [place] [address] Social History Date Tobacco Use Types Packs/Day Years Used Quit: 07/19/1996 Former Smoker Cigarettes 1 45 Drinks/Week oz/Week Comments Alcohol Use 1 Glasses of wine 0.8 each evening Yes Sex Assigned at Date Recorded Not on file documented as of this encounter Miscellaneous Notes * Telephone Encounter - Ramila Lu FNP - 04/20/2012 3:57 PM CDT Stephen called to clarify order for Sp02 monitoring following overnight oxygen t reatment. He is to wear the 02 and use the Sp02 monitor to determine if his 0xyg en levels are staying up during treatment. He verbalized understanding and reque sts a call back on his cell phone when results are available. [phone]. documented in this encounter Plan of Treatment Care Team Description Date Type Specialty Daisy Palomo FNP [address] [place] [address] [address] [place] [phone] 07/25/2020 Ancillary Cardiovascular Surg mike Procedure 07/25/2020 Office Visit Cardiovascular Surg mike documented as of this encounter Visit Diagnoses Not on filedocumented in this encounter
--- OUTSIDE RECORDS SUMMARY | 2019-12-06 06:20 | XMS REPORT | Encounter Summary ---
Author Author [facility], [place], [place], [place], [place] Organization [facility], [place], [place], [place], [place] Address Unknown Phone Unavailable Care Team Providers Care Exercise Physiologist Certified Name Role Phone Jabari Peguero MD PCP Reason for Visit * Reason Onset Date Comments Results 04/25/2012 Sp02 Encounter Details Care Team Description Date Type Department Ramila Lu FNP NO ADDRESS ON FILE Results (Sp02) 04/25/2012 Telephone [facility] Cardia c Thoracic and Vasc Surgery-[address] [place] [phone] Social History Date Tobacco Use Types Packs/Day Years Used Quit: 07/19/1996 Former Smoker Cigarettes 1 45 Drinks/Week oz/Week Comments Alcohol Use 1 Glasses of wine 0.8 each evening Yes Sex Assigned at Date Recorded Not on file documented as of this encounter Miscellaneous Notes * Telephone Encounter - Ramila Lu FNP - 04/25/2012 8:45 AM CDT Called Stephen with results of follow up Sp02, he has a significant improvement w ith no hypoxemia results with the 02 on at night, would recommend he continue wi th the supplemental overnight oxygen. Call back for any further questions or fu rther discussion. documented in this encounter Plan of Treatment Care Team Description Date Type Specialty Daisy Palomo FNP [address] [address] [place] [phone] 07/25/2020 Ancillary Cardiovascular Surg mike Procedure 07/25/2020 Office Visit Cardiovascular Surg mike documented as of this encounter Visit Diagnoses Not on filedocumented in this encounter
--- OUTSIDE RECORDS SUMMARY | 2019-12-06 06:20 | XMS REPORT | Encounter Summary ---
Author Author [facility], [place], [place], [place], [facility] Organization [facility] [place], [place], [place], [facility] Address Unknown Phone Unavailable Care Team Providers Care Community Mental Health Worker Name Role Phone Zeke Frey MD PCP Encounter Details Care Team Description Date Type Department Gunner Preston MD [address] [facility] [address] [place] [phone] Mulu Price MD [address] [place] [address] Coronary Atherosclerosis of [place] Coron kelly Artery (Primary Dx) 12/07/2007 Inpatient [facility] [address] Historical MEDICAL CARDIAC [address] [facility] [place] [address] Social History Date Tobacco Use Types Packs/Day Years Used Never Assessed Sex Assigned at Date Recorded Not on file documented as of this encounter Plan of Treatment Care Team Description Date Type Specialty Daisy Palomo FNP [address] [facility] [address] [place] [phone] 07/25/2020 Ancillary Cardiovascular Surg mike Procedure 07/25/2020 Office Visit Cardiovascular Surg mike documented as of this encounter Visit Diagnoses Diagnosis Coronary atherosclerosis of [place] artery documented in this encounter
--- OUTSIDE RECORDS SUMMARY | 2019-12-06 06:20 | XMS REPORT | Encounter Summary ---
Author [facility] [place] Organization [facility] Address Unknown Phone Unavailable Care Team Providers Care Newspaper Illustrator Name Role Phone Zeke Frey MD PCP Encounter Details Care Team Description Date Type Department Cruzito Terrazas MD [address] [facility] [address] [place], [place] [address] 08/29/1990 Inpatient Historical Social History Date Tobacco Use Types Packs/Day Years Used Never Assessed Sex Assigned at Date Recorded Not on file documented as of this encounter Plan of Treatment Care Team Description Date Type Specialty Daisy Palomo, NATI [address] [facility] [address] [place] [phone] 07/25/2020 Ancillary Cardiovascular Surg mike Procedure 07/25/2020 Office Visit Cardiovascular Surg mike documented as of this encounter Visit Diagnoses Not on filedocumented in this encounter
--- OUTSIDE RECORDS SUMMARY | 2019-12-06 06:20 | XMS REPORT | Encounter Summary ---
Author Author [facility], [place], [place], [facility] Organization [facility] [place], [place], [facility] Address Unknown Phone Unavailable Care Team Providers Care Stabber Name Role Phone Jabari Peguero MD PCP Encounter Details Care Team Description Date Type Department Provider, Abstract Spg 03/18/2012 Abstract [facility] Cardia c Thoracic and Vasc Surgery-[address] [place] [address] Social History Date Tobacco Use Types Packs/Day Years Used Quit: 07/19/1996 Former Smoker Cigarettes 1 45 Drinks/Week oz/Week Comments Alcohol Use 1 Glasses of wine 0.8 each evening Yes Sex Assigned at Date Recorded Not on file documented as of this encounter Plan of Treatment Care Team Description Date Type Specialty Daisy Palomo, BASKETBALL REFEREE 100 [facility] [address] [place] [address] 07/25/2020 Ancillary Cardiovascular Surg mike Procedure 07/25/2020 Office Visit Cardiovascular Surg mike documented as of this encounter Visit Diagnoses Not on filedocumented in this encounter
--- OUTSIDE RECORDS SUMMARY | 2019-12-06 06:20 | XMS REPORT | Encounter Summary ---
Author Author [facility] Organization 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; Unspecified essential hypertension; Mixed hyperlipidemia; Coronary atherosclerosis of alutiiq coronary artery 02/22/2012 Abstract [facility] Cardia c Thoracic and Vasc Surgery-[address] [place] [id number] Social History Date Tobacco Use Types Packs/Day Years Used Never Assessed Sex Assigned at Date Recorded Not on file documented as of this encounter Last Filed Vital Signs Reading Time Taken Comments Vital Sign 138/62 11/24/2010 7:39 AM CDT Blood Pressure 80 11/24/2010 7:39 AM CDT Pulse - - Temperature - - Respiratory Rate - - Oxygen Saturation - - Inhaled Oxygen Concentration 68.9 kg (152 lb) 11/24/2010 7:39 AM CDT Weight 165.1 cm (5' 5") 11/24/2010 7:39 AM CDT Height 25.29 11/24/2010 7:39 AM CDT Body Mass Index documented in this encounter Plan of Treatment Care Team Description Date Type Specialty Daisy Palomo, NATI [address] [facility] [address] [place] [id number] 07/25/2020 Ancillary Cardiovascular Surg mike Procedure 07/25/2020 Office Visit Cardiovascular Surg miek documented as of this encounter Visit Diagnoses Diagnosis Other and unspecified hyperlipidemia Coronary artery disease Coronary atherosclerosis of unspecified type of vessel, alutiiq or graft Occlusion and stenosis of carotid arter y without mention of cerebral infarction Unspecified essential hypertension Mixed hyperlipidemia Coronary atherosclerosis of alutiiq rosalie nary artery documented in this encounter
--- OUTSIDE RECORDS SUMMARY | 2019-12-06 06:20 | XMS REPORT | Encounter Summary ---
Author Author [facility] [place] [place], [facility] Address Unknown Phone Unavailable Care Team Providers Care Bee Tender Name Role Phone Jabari Peguero MD PCP Encounter Details Care Team Description Date Type Department Provider, Abstract Spg 02/19/2012 Abstract [facility] Cardia c Thoracic and Vasc Surgery-[address] [place] [address] Social History Date Tobacco Use Types Packs/Day Years Used Never Assessed Sex Assigned at Date Recorded Not on file documented as of this encounter Plan of Treatment Care Team Description Date Type Specialty Daisy Palomo, NATI 100 [facility] [address] [place] [address] 07/25/2020 Ancillary Cardiovascular Surg mike Procedure 07/25/2020 Office Visit Cardiovascular Surg mike documented as of this encounter Visit Diagnoses Not on filedocumented in this encounter
--- OUTSIDE RECORDS SUMMARY | 2019-12-06 06:20 | XMS REPORT | Encounter Summary ---
Author Author [facility], [place], [place], [facility] Organization [facility], [place], [facility] Address Unknown Phone Unavailable Care Team Providers Care Golf Course Laborer Name Role Phone Jabari Peguero MD PCP Encounter Details Care Team Description Date Type Department Provider, Abstract Spg 12/13/2012 Abstract [facility] Cardia c Thoracic and Vasc Surgery-[address] [place] [address] Social History Date Tobacco Use Types Packs/Day Years Used Quit: 07/19/1996 Former Smoker Cigarettes 1 45 Drinks/Week oz/Week Comments Alcohol Use 1 Glasses of wine 0.8 each evening Yes Sex Assigned at Date Recorded Not on file documented as of this encounter Plan of Treatment Care Team Description Date Type Specialty Daisy Palomo, GI PHYSICIAN 100 [facility] [address] [place] [address] 07/25/2020 Ancillary Cardiovascular Surg mike Procedure 07/25/2020 Office Visit Cardiovascular Surg mike documented as of this encounter Visit Diagnoses Not on filedocumented in this encounter
--- OUTSIDE RECORDS SUMMARY | 2019-12-06 06:20 | XMS REPORT | Clinical Summary ---
Author Author [facility] Organization [facility] Address Unknown Phone Unavailable Care Team Providers Care Welder Plasma Arc Name Role Phone Jabari Peguero MD PCP Bin Olmos MD Unavailable Enzo Cohn MD Unavailable Louie Hernandez MD Unavailable Azael Lehman MD Unavailable Source Comments Some departments are not documenting in the electronic medical record. If you d o not see the information that you expected, contact Release of Information in [facility] [employer] Information Management department at [phone] for further assistan ce in locating additional records.[facility] Allergies Comments Active Allergy Reactions Severity [...] 20 mg capsule mouth daily. Active omega 5-ovm-vdn-fish oil Take 1 Cap by 0 300-1,000 mg mouth daily. capsuleIndications: Noon Indications: Noon Active vitamins, multiple tablet Take 1 Tab by 0 mouth daily. Active cholecalciferol (VITAMIN Take 1,000 0 D-3) 1,000 units tablet Units by mouth daily. Active nitroglycerin Take 1 [place] 0 (NITROLINGUAL) 400 by mouth mcg/spray translingual [...] [employer] xxxxxxxxxx 2001-P PPO/ELECT/ resent MGD CHOICE -[id number] Advance Directives Patient Secondary English Teacher Explanation Type Date Recorded Advance 10/10/2015 3:46 PM Directive/DPOA Date Inactivated Comments Code Status Date Activated 10/13/2015 4:54 PM Full Code 10/10/2015 7:31 PM Provider has discussed Code Status Yes w/Patient or Family?
--- OUTSIDE RECORDS SUMMARY | 2019-12-06 06:20 | XMS REPORT | Encounter Summary ---
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; Sleep - wake disorder; Unspecified essential hypertension; Mixed hyperlipidemia 03/03/2012 Office Visit [facility] Cardia c Thoracic and Vasc Surg-[place] [address] [place] [address] Social History Date Tobacco Use Types Packs/Day Years Used Quit: 07/19/1996 Former Smoker Cigarettes 1 45 Drinks/Week oz/Week Comments Alcohol Use 1 Glasses of wine 0.8 each evening Yes Sex Assigned at Date Recorded Not on file documented as of this encounter Last Filed Vital Signs Reading Time Taken Comments Vital Sign 138/78 03/03/2012 3:15 PM CDT Blood Pressure 60 03/03/2012 3:15 PM CDT Pulse - - Temperature 16 03/03/2012 3:15 PM CDT Respiratory Rate - - Oxygen Saturation - - Inhaled Oxygen Concentration 71.7 kg (158 lb) 03/03/2012 3:15 PM CDT Weight 165.1 cm (5' 5") 03/03/2012 3:15 PM CDT Height 26.29 03/03/2012 3:15 PM CDT Body Mass Index documented in this encounter Progress Notes * Ramila Lu FNP - 03/03/2012 2:44 PM CDT Chief Complaint Patient presents with Carotid Stenosis follow up Outpatient Prescriptions Prior to Visit Medication Sig Dispense Refill aspirin (ARTEMIO) 81 mg Oral Tab Take 1 Tab by mouth daily. zolpidem (AMBIEN) 5 mg Oral tablet Take 1 Tab by mouth daily. Omeprazole-Sodium Bicarbonate 20-1,680 mg Oral Pack Take by mouth daily. po wder MULTIVITAMIN (MULTIPLE VITAMIN ORAL) Take 1 Tab by mouth daily. 0mega-3 fatty acids-vitamin E (FISH OIL) 1,000 mg Oral Cap Take 1 Cap by alisha th daily. amLODIPine (NORVASC) 10 mg Oral tablet Take 1 Tab by mouth daily. CALCIFEROL, VITAMIN D2, (VITAMIN D ORAL) Take 1 Cap by mouth daily. 1000 Nitroglycerin 0.4mg prn As needed for chest pain ferrous sulfate (IRON) 325 mg (65 mg iron) Oral tablet Take 1 Tab by mouth d aily. Lipitor 80 mg Peppermint oil Take 1 Tab by mouth daily. 1 capsule daily Medicine reviewed. Social/Family/Medical history reviewed. History of Present Illness: Denies amaurosis fugax or lateralizing signs suggestive of TIA/stroke. Denies ch est pain, chest pounding or palpitations. Denies dyspnea, orthopnea or PND. Reports he is awakened at night, sometimes has to urinate- then after he does he begins to sweat. He denies any dysuria symptoms. Reports this has been going on for 2-3 years. Denies problems with his thyroid. Reports he is not sleeping wel l. He wakes up frequently, denies excessive daytime sleepiness. Reports he does snore, reports he is a restless sleeper. States if he puts a nasal strip on he d oes sleep better. Nocturnal leg cramping. He is leaving town and will be back t he 15 of March and is willing to accept recommendation, for overnight Sa02. D enies abdominal pain suggestive of intestinal ischemia. Denies aching, cramping, weakness or fatigue of the lower extremities suggestive of intermittent claudic ation. Review of Systems: Constitutional: Denies weight gain or loss. Denies weakness, fever or chills. De nies change in appetite or anorexia. Skin: Denies rashes, lumps, sores or itching. Denies change in hair or nails. De nies jaundice or skin cancers. Eyes: Cataracts removed 2002. Denies pain, redness, excessive tearing, double vision, blurred spots, glaucoma. 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 Denies earaches, in fection, discharge, or dizziness. Nose/Sinus: Allergic to grass and dust. Denies frequent colds, nasal stuffiness, hay fever or nosebleeds. Mouth/Throat: Denies tooth decay, gum infection, bleeding gums, sore tongue, dr y mouth, frequent sore throats and hoarseness. Cardiac: CAD hx CABG x Aug 31, 1990, with 3 cardiac stent follows with Dr Price , CVI, HLP, HTN. DENNIS with walking up hill. Tries to walk 2 miles a day 5 days a week. Denies rheumatic fever, heart murmurs, chest pain, shortness of breath, shortness of breath when lying down, chest pounding, fast heart rate, paroxysmal nocturnal dyspnea or peripheral edema. Respiratory: Denies cough, hemoptysis, wheezing, asthma, bronchitis, emphysema, pneumonia, tuberculosis or pleurisy. Gastrointestinal: Hemorrhoids/IBS. Denies trouble swallowing, heartburn, nausea , vomiting or hematemesis. Denies change in bowel habits, melena, rectal bleedin g, abdominal pain or food intolerance. Urinary:Prostate cancer, radiation tx, 2000; follows with Dr Yanez. Denies fr equent urination, bladder or kidney infection, incontinence or nephrolithiasis. 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 Neurologic: Denies fainting, blackouts, seizures, weakness, headaches, paralysis , numbness, tremors or memory loss. Vascular: CVD, Denies claudication, varicose veins, deep vein thrombosis or ane urysms. Hematologic/Lymphatic:Hx in the past iron def anemia. Easy bruising on ASA. Den ies bleeding, past blood transfusions, or enlarged lymph [...] reactions. Denies HIV. Denie s splenectomy . Physical Examination: Filed Vitals: 03/03/12 1515 BP: 138/78 Pulse: 60 Resp: 16 Height: 5' 5" (1.651 m) Weight: 158 lb (71.668 kg) Constitutional: This is a well developed, well nourished 77 y.o. male who appear s in no [...] no chest wall deformities. Evidence of prior sternotomy, sternu m stable. Respiratory: Symmetric with no accessory muscles used [...] adequate judgement and insight into their problem. Encounter Diagnoses Name Primary? 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 Right: Mild disease of 1-39% with mild velocities. Antegrade vertebral flow. Left: Mild disease of 1-39% with mild velocities. Antegrade vertebral flow. Based on today's results, a one year follow up is recommended if patient remains asymptomatic. Ankle brachial indices were obtained and reported within normal limits. Mr Fraser reports waking up frequently through the night for the past several y ears. He reports restless sleep that improves if he uses a "breathing strip" on his nose. He admits to snoring. Will obtain an overnight Sa02. He is agreeable t o following up with pulmonology consult if the Sa02 indicates a positive REBECCA sco re. Risk modification was addressed, he continues to remain active walking daily. He continues on cholesterol medication and follows routinely with cardiology. His blood pressure is well controlled on his current medication. He remains on aspir in therapy. Regarding sweating following urination. He denies any kidney or dysuria symptom s. He has planned to see Dr Yanez for follow up appointment for is prostate c ancer but Dr Yanez had emergency surgery and appointment will be rescheduled. Recommend he follow up there. Follow up: 1 yr [employer]PLIED BEH[employer]IOR SPECIALIST carotid duplex scan ANTI Dan, 03/03/2012 3:[address] Marielena Price documented in this encounter Miscellaneous Notes * Patient Instructions - Ramila Lu FNP - 03/03/2012 3:53 PM CDT 1. Overnight Sa02 (oxygen finger test), call back [phone] if you have not h eard from me after taking your test. 2. Regarding sweating following urination. He denies any kidney or dysuria sympt oms. He has planned to see Dr Yanez for follow up appointment for is prostate cancer but Dr Yanez had emergency surgery and appointment will be reschedule d.Please follow up with Dr Yanez.. [place] Patient Instructions Learning About Sleeping Well What does sleeping well mean? Sleeping well means getting enough sleep. How much sleep is enough varies among people. The number of hours you sleep is not as important as how you feel when you wake up. If you do not feel refreshed, you probably need more sleep. Another sign of not getting enough sleep is feeling tired during the day. The average total nightly sleep time is 7 to 8 hours. Healthy adults may need a little more or a little less than this. Why is getting enough sleep important? Getting enough quality sleep is a basic part of good health. When your sleep suf fers, your mood and your thoughts can suffer too. You may find yourself feeling more grumpy or stressed. Not getting enough sleep also can lead to serious probl ems, including injury, accidents, anxiety, and depression. What might cause poor sleeping? Many things can cause sleep problems, including: Stress. Stress can be caused by fear about a single event, such as giving a s peech. Or you may have ongoing stress, such as worry about work or school. Depression, anxiety, and other mental or emotional conditions. Changes in your sleep habits or surroundings. This includes changes that happ en where you sleep, such as noise, light, or sleeping in a different bed. It als o includes changes in your sleep pattern, such as having jet lag or working a la te shift. Health problems, such as pain, breathing problems, and restless legs syndrome . Lack of regular exercise. How can you help yourself? Here are some tips that may help you sleep more soundly and wake up feeling more refreshed. Your sleeping area Use your bedroom only for sleeping and sex. A bit of light reading may help y ou fall asleep. But if it doesn't, do your reading elsewhere in the house. Don't watch TV in bed. Be sure your bed is big enough to stretch out comfortably, especially if you have a sleep partner. Keep your bedroom quiet, dark, and cool. Use curtains, blinds, or a sleep mas k to block out light. To block out noise, use earplugs, soothing music, or a "wh ite noise" machine. Your evening and bedtime routine Get regular exercise, but not within 3 to 4 hours before your bedtime. Create a relaxing bedtime routine. You might want to take a warm shower or ba th, listen to soothing music, or drink a cup of noncaffeinated tea. Go to bed at the same time every night. And get up at the same time every mor ruth, even if you feel tired. What to avoid Limit caffeine (coffee, tea, caffeinated sodas) during the day, and don't hav e any for at least 4 to 6 hours before bedtime. Don't drink alcohol before bedtime. Alcohol can cause you to wake up more oft en during the night. Don't smoke or use tobacco, especially in the evening. Nicotine can keep you awake. Don't take naps during the day, especially close to bedtime. Don't lie in bed awake for too long. If you can't fall asleep, or if you wake up in the middle of the night and can't get back to sleep within 15 minutes or so, get out of bed and go to another room until you feel sleepy. Don't take medicine right before bed that may keep you awake or make you feel hyper or energized. Your doctor can tell you if your medicine may do this and if you can take it earlier in the day. If you can't sleep Imagine yourself in a peaceful, pleasant scene. Focus on the details and feel ings of being in a place that is relaxing. Get up and do a quiet or boring activity until you feel sleepy. Don't drink any liquids after 6 p.m. if you wake up often because you have to go to the bathroom. Where can you learn more? Go to www.[employer].SmartRx in the Health Information search box Enter J942 in the search box to learn more about "Learning About Sleeping Well." [id number] [employer]. Care instructions adapted under license b y [place]. [employer] disclaims any warranty or liability for your use of this informat ion. This information is not intended to represent the ethical and sikh bel iefs of [employer]. This care instruction is for use with your licensed healthcare pr ofessional. If you have questions about a medical condition or this instruction, always ask your healthcare professional. [employer] disclaims any warranty or liability for your use of this information. Content Version: 9.3.40647; Last Revised: June 23, 2011 Spanish | Telugu [place] Patient Instructions Carotid Stenosis: After Your Visit Your Care Instructions: Stephen, your blockage is considered Mild or less than 4 0% please follow up in one year. Carotid stenosis is narrowing of one or [...] Where can you learn more? Go to www.[employer].SmartRx in the Health Information search box Enter Y756 in the search box to learn more about "Carotid Stenosis: After Your V isit." [phone] [employer]. Care instructions adapted under license b ayush [place]. [place] disclaims any warranty or liability for your use of this informat ion. This information is not intended to represent the ethical and sikh bel iefs of [place]. This care instruction is for use with your licensed healthcare [facility]. If you have questions about a medical condition or this instruction, always ask your healthcare professional. [employer] disclaims any warranty or liability for your use of this information. Content Version: 9.3.12813; Last Revised: May 18, 2011 documented in this encounter Plan of Treatment Care Team Description Date Type Specialty Daisy Palomo FNP 100 [facility] [address] [place] [phone] 07/25/2020 Ancillary Cardiovascular Surg mike Procedure 07/25/2020 Office Visit Cardiovascular Surg mike documented as of this encounter Results * US CAROTID DOPPLER (03/02/2013 11:26 AM CDT) Specimen Narrative Performed At [facility] Prior Exam: 03/03/12 Vascular Surgery: CABG 08/31/90 Symptoms Vascular History Known Carotid Disease Hyperlipidemia Speech Disturbance Hypertension Unsteady Gait Transient Ischemic Att ack Loss of Function Stroke Vertigo / Dizziness Heart Attack Visual Disturbance Syncope Weakness Extremity Angina Numbness / Tingling History of Carot id Tobacco Use: Never Current Past Diabetes: Insulin Non-insulin Overweight: <50# >50# Right Brachial: 127/doppler Left Brachial: 124/doppler Right Carotid Velocities Peak Systolic End Diastolic CCA Proximal Artery 76 16 Distal 88 19 Bifurcation / Bulb ICA Proximal Artery 51 14 Mid 62 19 Distal 80 19 External Carotid 71 11 Ratio ICA / CCA .91 1.0 Vertebral Forward Reversed Not Ob tained Left Carotid Velocities Peak Systolic End Diastolic CCA Proximal Artery 109 18 Distal 84 18 Bifurcation / Bulb ICA Proximal Artery 52 15 Mid 58 15 Distal 63 18 External Carotid 83 12 Ratio ICA / CCA .8 1.0 Vertebral Forward Reversed Not Ob tained Vessel Characteristics Right Left Tortuous Intimal Thickening Wall Roughening Smooth Irregular Dense Soft Calcific Non-Calcific Ulcerated Intra Plaque Hemorr Disease Classification Right Left Normal Mild Stenosis Moderate Stenosis Severe (non-critical) Stenosis Critical Stenosis Occluded Velocity Classification Mild <110 PSV, <40 EDV, <1.8 SRV, <2.6 DVR Moderate < 130 PSV, <40 EDV, <1.8 SVR, <2.6 DVR Severe > 130 PSV, >40 EDV, >1.8 SVR, >2 .6 DVR Critical >250 PSV, >100 EDV, > 3.7 SVR, > 5.5 DVR Impression: Right: Mild disease of 1-39% with mild velocities. Antegrade vertebral flow. Left: Mild disease of 1-39% with mild v elocities. Antegrade vertebral flow. Essentially unchanged. Based on today's results, a one year fo llow up is recommended if patient remains asymptomatic. Tech: DC Machine: 13-M Disc: 136 Image Quality: Good Fair Poor Reason: Procedure Note Kevin Frey, - 03/03/2013 1:37 PM CDT [] [place] [] [place] [] [place] [x] [place] [] [place] [] [place] Prior Exam: 03/03/12 Vascular Surgery: CABG 08/31/90 Symptoms Vascular History [x] Known Carotid Disease [x] Hyperlipidemia [] Speech Disturbance [x] Hypertension [] Unsteady Gait [] Transient Ischemic Attack [] Loss of Function [] Stroke [] Vertigo / Dizziness [] Heart Attack [] Visual Disturbance [] Syncope [] Weakness Extremity [] Angina [] Numbness / Tingling [] History of Carotid Tobacco Use: [] Never [] Current [x] Past Diabetes: [] Insulin [] Non-insulin [] Overweight: [] <50# [] >50# [] Right Brachial: 127/doppler Left Brachial: 124/doppler Right Carotid Velocities Peak Systolic End Diastolic CCA Proximal Artery 76 16 Distal 88 19 Bifurcation / Bulb ICA Proximal Artery 51 14 Mid 62 19 Distal 80 19 External Carotid 71 11 Ratio ICA / CCA .91 1.0 Vertebral [x] Forward [] Reversed [] Not Obtained Left Carotid Velocities Peak Systolic End Diastolic CCA Proximal Artery 109 18 Distal 84 18 Bifurcation / Bulb ICA Proximal Artery 52 15 Mid 58 15 Distal 63 18 External Carotid 83 12 Ratio ICA / CCA .8 1.0 Vertebral [x] Forward [] Reversed [] Not Obtained Vessel Characteristics Right Left Tortuous [] [] Intimal Thickening [] [] Wall Roughening [] [] Smooth [x] [x] [...] > 130 PSV, >40 EDV, >1.8 SVR, >2.6 DVR [] [] Critical >250 PSV, >100 EDV, > 3.7 SVR, > 5.5 DVR [] [] Impression: Right: Mild disease of 1-39% with mild velocities. Antegrade vertebral flow. Left: Mild disease of 1-39% with mild velocities. Antegrade vertebral flow. Essentially unchanged. Based on today's results, a one year follow up is recommended if patient remains asymptomatic. 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
--- OUTSIDE RECORDS SUMMARY | 2019-12-06 06:20 | XMS REPORT | Encounter Summary ---
Author Author [facility], [place], [place], [facility] Organization [facility] [place], [place], [place], [facility] Address Unknown Phone Unavailable Care Team Providers Care Senior Datastage Developer Name Role Phone Jabari Peguero MD PCP Reason for Referral * Outpatient Services (Routine) Referred By Contact Referred To Contact Status Reason Specialty Diagnoses / Procedures Ramila Lu FNP NO ADDRESS ON FILE Closed Diagnoses Snoring disorder P rocedures PULSE OXIMETRY, OVERNIGHT Encounter Details Care Team Description Date Type Department Ramila Lu FNP NO ADDRESS ON FILE Snoring disorder (Primary Dx) 03/11/2012 Orders Only [facility] Cardia c Thoracic and Vasc Surgery-[address] [phone] Social History Date Tobacco Use Types Packs/Day Years Used Quit: 07/19/1996 Former Smoker Cigarettes 1 45 Drinks/Week oz/Week Comments Alcohol Use 1 Glasses of wine 0.8 each evening Yes Sex Assigned at Date Recorded Not on file documented as of this encounter Plan of Treatment Care Team Description Date Type Specialty Daisy Palomo FNP [address] [phone] 07/25/2020 Ancillary Cardiovascular Surg mike Procedure 07/25/2020 Office Visit Cardiovascular Surg mike documented as of this encounter Visit Diagnoses Diagnosis Snoring disorder Other dyspnea and respiratory abnormali ty documented in this encounter
--- OUTSIDE RECORDS SUMMARY | 2019-12-06 06:20 | XMS REPORT | Encounter Summary ---
Author Author [facility], [place], [place], [place], [place] Organization [facility], [place], [place], [place], [place] Address Unknown Phone Unavailable Care Team Providers Care Stapler Machine Name Role Phone Jabari Peguero MD PCP Reason for Visit * Reason Onset Date Comments Results 03/17/2012 Encounter Details Care Team Description Date Type Department Ramila Lu FNP NO ADDRESS ON FILE Results 03/17/[address] [facility] Cardia c Thoracic and Vasc Surgery-[address] [place] [phone] Social History Date Tobacco Use Types Packs/Day Years Used Quit: 07/19/1996 Former Smoker Cigarettes 1 45 Drinks/Week oz/Week Comments Alcohol Use 1 Glasses of wine 0.8 each evening Yes Sex Assigned at Date Recorded Not on file documented as of this encounter Miscellaneous Notes * Telephone Encounter - Ramila Lu FNP - 03/17/2012 5:42 PM CDT Called Stephen with his Sp02 results did not indicate sleep apnea but hypoxemia. Will try 2 liters at HS via nasal cannula and see if it helps. Will plan to repe at Sp02 with oxygen in place. Pt is agreeable to plan. documented in this encounter Plan of Treatment Care Team Description Date Type Specialty Daisy Palomo FNP [address] [place] [address] [place] [phone] 07/25/2020 Ancillary Cardiovascular Surg mike Procedure 07/25/2020 Office Visit Cardiovascular Surg mike documented as of this encounter Visit Diagnoses Not on filedocumented in this encounter
--- OUTSIDE RECORDS SUMMARY | 2019-12-06 06:20 | XMS REPORT | Encounter Summary ---
Author Author [facility], [place], [place], [place], [place] Areas Organization [facility], [place], [place], [place], [facility] Address Unknown Phone Unavailable Care Team Providers Care Occupational Therapy Aides Teacher Name Role Phone Jabari Peguero MD PCP Reason for Visit * Reason Onset Date Comments Durable Medical Equipment 04/19/2012 Encounter Details Care Team Description Date Type Department Ramila Lu FNP NO ADDRESS ON FILE Durable Medical Equipment 04/19/2012 Telephone [facility] Cardia c Thoracic and Vasc Surgery-[address] [place] [phone] Social History Date Tobacco Use Types Packs/Day Years Used Quit: 07/19/1996 Former Smoker Cigarettes 1 45 Drinks/Week oz/Week Comments Alcohol Use 1 Glasses of wine 0.8 each evening Yes Sex Assigned at Date Recorded Not on file documented as of this encounter Plan of Treatment Care Team Description Date Type Specialty Daisy Palomo FNP [address] [address] [place] [phone] 07/25/2020 Ancillary Cardiovascular Surg mike Procedure 07/25/2020 Office Visit Cardiovascular Surg mike documented as of this encounter Visit Diagnoses Not on filedocumented in this encounter
--- OUTSIDE RECORDS SUMMARY | 2019-12-06 06:20 | XMS REPORT | Encounter Summary ---
Author Author [facility], [place], [place], [place], [place] Organization [facility], [place], [place], [place], [place] Address Unknown Phone Unavailable Care Team Providers Care Deicer Kit Assembler Name Role Phone Jabari Peguero MD PCP Encounter Details Care Team Description Date Type Department Ramila Lu FNP NO ADDRESS ON FILE 12/13/2012 Chart Note [facility] Cardia c Thoracic and Vasc Surgery-[address] [place] [address] Social History Date Tobacco Use Types Packs/Day Years Used Quit: 07/19/1996 Former Smoker Cigarettes 1 45 Drinks/Week oz/Week Comments Alcohol Use 1 Glasses of wine 0.8 each evening Yes Sex Assigned at Date Recorded Not on file documented as of this encounter Progress Notes * Ramila Lu FNP - 12/13/2012 10:55 AM CDT Patient has decided to change to another oxygen company, received DC request for 02 from [facility] fax [phone] He has purchased (the same), oxygen unit from [facility] [phone]. Order faxed to DC their service to [facility]. documented in this encounter Plan of Treatment Care Team Description Date Type Specialty Daisy Palomo FNP 100 [facility] [address] [place] [address] 07/25/2020 Ancillary Cardiovascular Surg mike Procedure 07/25/2020 Office Visit Cardiovascular Surg mike documented as of this encounter Visit Diagnoses Not on filedocumented in this encounter
--- OUTSIDE RECORDS SUMMARY | 2019-12-06 06:20 | XMS REPORT | Encounter Summary ---
Author Author [facility], [place], [place], [place], [place] [facility] Organization [facility] [place], [place], [place], [facility] Address Unknown Phone Unavailable Care Team Providers Care Check And Transfer Beader Name Role Phone Jabari Peguero MD PCP Reason for Visit * Reason Onset Date Comments Other 12/06/2012 PATIENT HAS CALLED THEM REQUESTING CHANGE OF OVERNIGHT 02 TO THEM FOR DECREASED COST. 03-11-12 OVERNIGHT S A02 66% THEY WILL SEND NEW ORDER. Encounter Details Care Team Description Date Type Department Ramila Lu FNP NO ADDRESS ON FILE Other (PATIENT HAS CALLED THEM REQUESTIN G CHANGE OF OVERNIGHT 02 TO THEM FOR DECREASED COST. 03-11-12 OVERNIGHT SA02 66% THEY WILL SEND NEW ORDER. ) 12/06/2012 Telephone [facility] Cardia [facility] Thoracic and Vasc Surgery-[place] [address] [facility] [place] [address] Social History Date Tobacco Use Types Packs/Day Years Used Quit: 07/19/1996 Former Smoker Cigarettes 1 45 Drinks/Week oz/Week Comments Alcohol Use 1 Glasses of wine 0.8 each evening Yes Sex Assigned at Date Recorded Not on file documented as of this encounter Plan of Treatment Care Team Description Date Type Specialty Daisy Palomo FNP [address] [facility] [address] [place] [address] 07/25/2020 Ancillary Cardiovascular Surg mike Procedure 07/25/2020 Office Visit Cardiovascular Surg mike documented as of this encounter Visit Diagnoses Not on filedocumented in this encounter
--- OUTSIDE RECORDS SUMMARY | 2019-12-06 06:20 | XMS REPORT | Encounter Summary ---
Author Author [facility], [place], [place], [place], [facility] Organization [facility] [place], [place], [place], [facility] Address Unknown Phone Unavailable Care Team Providers Care Computer Support Specialist Instructor Name Role Phone Jabari Peguero MD PCP Reason for Referral * Outpatient Services (Routine) Referred By Contact Referred To Contact Status Reason Specialty Diagnoses / Procedures aRmila Lu FNP NO ADDRESS ON FILE Closed Diagnoses Hypoxemia requiring supplemental oxygen P rocedures PULSE OXIMETRY, OVERNIGHT Encounter Details Care Team Description Date Type Department Ramila Lu FNP NO ADDRESS ON FILE Hypoxemia requiring supplemental oxygen (Primary Dx); Snoring disorder 03/17/2012 Orders Only [facility] Cardia c Thoracic and Vasc Surgery-[address] [phone] Social History Date Tobacco Use Types Packs/Day Years Used Quit: 07/19/1996 Former Smoker Cigarettes 1 45 Drinks/Week oz/Week Comments Alcohol Use 1 Glasses of wine 0.8 each evening Yes Sex Assigned at Date Recorded Not on file documented as of this encounter Plan of Treatment Care Team Description Date Type Specialty Daisy Palomo FNP [address] [phone] 07/25/2020 Ancillary Cardiovascular Surg mike Procedure 07/25/2020 Office Visit Cardiovascular Surg mike documented as of this encounter Procedures Comments Procedure Name Priority Date/Time Associated Diag nosis [place] NONINVASV OXYGEN Routine 03/16/2012 Snoring di sorder SATUT,CONTINUOUS documented in this encounter Visit Diagnoses Diagnosis Hypoxemia requiring supplemental oxygen Hypoxemia Snoring disorder Other dyspnea and respiratory abnormali ty documented in this encounter
--- OUTSIDE RECORDS SUMMARY | 2019-12-06 06:22 | XMS REPORT | Continuity of Care Document ---
Demographics Preferred Language Unknown Marital Status Unknown Adventism Affiliation Unknown Race Unknown Ethnic Group Unknown Author Organization Unknown Address Unknown Phone Unavailable Allergies Active Description Code Type Severity Reaction Onset Reported/Identified Relationship to Patient Clinical Status Yes BETA ROBERTO [id number] CLASS N/A N/A Yes Beta Blockers Beta Blockers Mild Intolerance 06/23/2011 Yes Beta Blockers Beta Blockers Mild SYNCOPE 11/01/2019 Yes Beta-Blockers (Beta-Adrenergic Bloc [id number] Drug Allergy Unknown SYNCOPE 11/10/2019 Medications There is no data. 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 9 MALIGNANT NEOPLASM OF BLADDER, UNSPECIFI 06/17/1599 JEANNETTE GUTIERRES DO Ot Z01.812 ENCOUNTER FOR PREPROCEDURAL LABORATORY E 06/17/1599 JEANNETTE GUTIERRES DO Ot Z11. 59 ENCOUNTER FOR SCREENING FOR OTHER VIRAL 01/21/2013 AGUEDA ROJAS, JEFF Soares Ot 327. [...] Ot I25. 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 2 OTHER SECONDARY PULMONARY HYPERTENSION 08/15/2015 JEFF ROMEO MD Ot I47. 1 SUPRAVENTRICULAR TACHYCARDIA 08/15/2015 JEFF ROMEO MD Ot R07. 9 CHEST PAIN, UNSPECIFIED 08/15/2015 JEFF ROMEO MD Ot Z79.899 OTHER SALES FLOOR TEAM LEADER (CURRENT) DRUG THERAPY 08/15/2015 JEFF ROMEO MD [...] 414.00 08/26/2015 Ot 427.89 09/06/2015 KI COX POTATO CHIP FRYER Ot F17.211 NICOTINE DEPENDENCE, CIGARETTES, IN AM[place] 09/06/2015 KI COX POTATO CHIP FRYER Ot R33 .9 RETENTION OF URINE, UNSPECIFIED 09/06/2015 KI COX POTATO CHIP FRYER Ot Z85.46 PERSONAL HISTORY OF MALIGNANT NEOPLASM [...] CARMENCITA ROJAS, ALBA A Ot T83.018A 10/10/2015 ALBA TSE MD Ot C61 MALIGNANT NEOPLASM OF PROSTATE 10/10/2015 ALBA TSE MD Ot D62 ACUTE POSTHEMORRHAGIC ANEMIA 10/10/2015 ALBA TSE MD Ot I10 ESSENTIAL (PRIMARY) HYPERTENSION 10/10/2015 ALBA TSE MD Ot 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 10/10/2015 ALBA TSE MD, Ot K21.9 GASTRO-ESOPHAGEAL REFLUX DISEASE WITHOUT 10/10/2015 ALBA TSE MD, Ot N20.0 CALCULUS OF KIDNEY 10/10/2015 ALBA TSE MD, Ot N28.1 CYST OF KIDNEY, ACQUIRED 10/10/2015 ALBA TSE MD Ot N30.4 1 IRRADIATION CYSTITIS WITH HEMATURIA 10/10/2015 ALBA TSE MD Ot N32.8 9 OTHER SPECIFIED DISORDERS OF BLADDER 10/10/2015 ALBA TSE MD Ot N39.0 URINARY TRACT INFECTION, SITE NOT SPECIF 10/10/2015 ALBA TSE MD Ot R31.0 10/10/2015 ALBA TSE MD Ot R33.9 RETENTION OF URINE, UNSPECIFIED 10/10/2015 ALBA TSE MD Ot T83.018A BREAKDOWN (MECHANICAL) OF INDWELLING URE 10/10/2015 ALBA TSE MD Ot Z87.8 91 PERSONAL HISTORY OF NICOTINE DEPENDENCE 10/11/2015 ALBA TSE MD Ot R31.0 10/11/2015 ALBA TSE MD Ot R33.9 10/11/2015 ALBA TSE MD Ot T83.018A 10/20/2015 Ot I10 ESSENT IAL [...] BREAKDOWN (MECHANICAL) OF INDWELLING URE 10/21/2015 DWAYNE PSATOR Ot Z87.891 PERSONAL HISTORY OF NICOTINE DEPENDENCE 10/22/2015 Ot I10 10/22/2015 Ot N13.8 10/22/2015 Ot N39.0 10/22/2015 Ot R31.0 10/22/2015 Ot Z79.02 10/22/2015 Ot Z85.51 10/22/2015 DWAYNE PASTOR Ot T83.018A 10/22/2015 DWAYNE PASTOR Ot Z87.891 10/22/2015 CARMENCITA ROJAS, ALBA A Ot R31.9 10/22/2015 CARMENCITA ROJAS, ALBA A Ot N20.0 10/22/2015 CARMENCITA ROJAS, ALBA A Ot N28.8 9 10/22/2015 CARMENCITA ROJAS, ALBA A Ot R31.9 10/23/2015 CARMENCITA ROJAS, ALBA A Ot D50.0 10/23/2015 CARMENCITA ROJAS, ALBA A Ot N30.4 1 10/23/2015 CARMENCITA ROJAS, ALBA [...] Ot N30.4 1 10/31/2015 CARMENCITA ROJAS, ALBA A Ot Z79.0 2 10/31/2015 CARMENCITA ROJAS, ALBA A Ot Z79.8 2 10/31/2015 CARMENCITA ROJAS, ALBA A Ot Z85.4 6 10/31/2015 CARMENCITA ROJAS, ALBA A Ot D62 ACUTE POSTHEMORRHAGIC ANEMIA 10/31/2015 CARMENCITA ROJAS, ALBA A Ot I96 GANGRENE, NOT ELSEWHERE CLASSIFIED 10/31/2015 ALBA TSE MD Ot N30.4 1 IRRADIATION CYSTITIS WITH HEMATURIA 10/31/2015 ALBA TSE MD Ot T66.XXXA RADIATION SICKNESS, UNSPECIFIED, INITIAL 10/31/2015 ALBA TSE MD Ot Z79.0 2 GROUP HOME (CURRENT) USE OF ANTITHROMBOTI 10/31/2015 ALBA TSE MD, Ot Z79.8 2 SALES FLOOR TEAM LEADER (CURRENT) USE OF ASPIRIN 10/31/2015 ALBA TSE [...] Ot I25. 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 2 OTHER SECONDARY PULMONARY HYPERTENSION 01/30/2016 JEFF ROMEO MD Ot I48. 0 PAROXYSMAL ATRIAL FIBRILLATION 01/30/2016 JEFF ROMEO MD Ot R31. 9 HEMATURIA, UNSPECIFIED 01/30/2016 JEFF ROMEO MD Ot Z79.899 OTHER GROUP HOME (CURRENT) DRUG THERAPY 01/30/2016 JEFF ROMEO MD [...] Ot I25. 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 2 OTHER SECONDARY PULMONARY HYPERTENSION 02/25/2016 JEFF ROMEO MD Ot I48. 0 PAROXYSMAL ATRIAL FIBRILLATION 02/25/2016 JEFF ROMEO MD Ot R31. 9 HEMATURIA, UNSPECIFIED 02/25/2016 JEFF ROMEO MD, Ot Z79.899 OTHER GROUP HOME (CURRENT) DRUG THERAPY 02/25/2016 JEFF ROMEO MD [...] Ot I25. 10 ATHSCL HEART DISEASE OF [place] CORONARY 12/25/2016 JEFF ROMEO MD Ot I48. 0 PAROXYSMAL ATRIAL FIBRILLATION 12/25/2016 JEFF ROMEO MD Ot E78. 2 MIXED HYPERLIPIDEMIA 12/25/2016 JEFF ROMEO MD Ot I08. 1 RHEUMATIC DISORDERS OF BOTH MITRAL AND T 12/25/2016 JEFF ROMEO MD Ot I10 ESSENTIAL (PRIMARY) HYPERTENSION 12/25/2016 JEFF ROMEO MD Ot I25. 10 ATHSCL HEART DISEASE OF [place] CORONARY 12/25/2016 JEFF ROMEO MD Ot I48. [...] Ot I25. 10 ATHSCL HEART DISEASE OF [place] CORONARY 12/28/2016 JEFF ROMEO MD Ot I48. 0 PAROXYSMAL ATRIAL FIBRILLATION 01/14/2017 JEFF ROMEO MD Ot E78. 2 MIXED HYPERLIPIDEMIA 01/14/2017 JEFF ROMEO MD Ot I08. 1 RHEUMATIC DISORDERS OF BOTH MITRAL AND T 01/14/2017 JEFF ROMEO MD Ot I10 ESSENTIAL (PRIMARY) HYPERTENSION 01/14/2017 JEFF ROMEO MD Ot I25. 10 ATHSCL HEART DISEASE OF [place] CORONARY 01/14/2017 JEFF ROMEO MD Ot I48. [...] Ot I25. 10 ATHSCL HEART DISEASE OF [place] CORONARY 01/20/2017 JEFF ROMEO MD Ot I48. 0 PAROXYSMAL ATRIAL FIBRILLATION 01/21/2017 JEFF ROMEO MD Ot E78. 2 MIXED HYPERLIPIDEMIA 01/21/2017 JEFF ROMEO MD Ot I10 ESSENTIAL (PRIMARY) HYPERTENSION 01/21/2017 JEFF ROMEO MD Ot I25. 10 ATHSCL HEART DISEASE OF [place] CORONARY 01/21/2017 JEFF ROMEO MD Ot I48. [...] I10 ESSENTIAL (PRIMARY) HYPERTENSION 02/25/2017 JEFF ROMEO MD, Ot I25. 10 ATHSCL HEART DISEASE OF [place] CORONARY 02/25/2017 JEFF ROMEO MD Ot I48. 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 10 ATHSCL HEART DISEASE OF [place] CORONARY 03/28/2018 JEFF ROMEO MD Ot I48. 0 PAROXYSMAL ATRIAL FIBRILLATION 03/28/2018 JEFF ROMEO MD Ot E78. 2 MIXED HYPERLIPIDEMIA 03/28/2018 JEFF ROMEO MD Ot I08. 1 RHEUMATIC DISORDERS OF BOTH MITRAL AND T 03/28/2018 JEFF ROMEO MD Ot I10 ESSENTIAL (PRIMARY) HYPERTENSION 03/28/2018 JEFF ROMEO MD Ot I25. 10 ATHSCL HEART DISEASE OF [place] CORONARY 03/28/2018 AGUEDA ROJAS, JEFF Soares Ot I48. 0 PAROXYSMAL ATRIAL FIBRILLATION 03/28/2018 JEFF ROMEO MD Ot E78. 2 MIXED HYPERLIPIDEMIA 03/28/2018 AGUEDA ROJAS, JEFF Soares Ot I10 ESSENTIAL (PRIMARY) HYPERTENSION 03/28/2018 JEFF ROMEO MD Ot I25. 10 ATHSCL HEART DISEASE OF [place] CORONARY 03/28/2018 JEFF ROMEO MD Ot I48. 0 PAROXYSMAL ATRIAL FIBRILLATION 04/26/2018 ISABELLE ROCA POTATO CHIP FRYER Ot R 05 COUGH 09/22/2018 JEFF ROMEO MD Ot E78. 2 MIXED HYPERLIPIDEMIA 09/22/2018 JEFF ROMEO MD Ot I10 ESSENTIAL (PRIMARY) HYPERTENSION 09/22/2018 JEFF ROMEO MD Ot I25. 10 ATHSCL HEART DISEASE OF [place] CORONARY 09/22/2018 JEFF ROMEO MD Ot I48. 91 UNSPECIFIED ATRIAL FIBRILLATION 10/12/2018 JEFF ROMEO MD Ot E78. 2 MIXED HYPERLIPIDEMIA 10/12/2018 JEFF ROMEO MD Ot I10 ESSENTIAL (PRIMARY) HYPERTENSION 10/12/2018 JEFF ROMEO MD Ot I25. 10 ATHSCL HEART DISEASE OF [place] CORONARY 10/12/2018 JEFF ROMEO MD Ot I48. 91 UNSPECIFIED ATRIAL FIBRILLATION 09/15/2019 ANTONIETA DENG Ot E78.2 MIXED HYPERLIPIDEMIA 09/15/2019 ANTONIETA DENG Ot I10 ESSENTIAL (PRIMARY) HYPERTENSION 09/15/2019 ANTONIETA DENG Ot I25.10 ATHSCL HEART DISEASE OF [place] CORONARY 09/15/2019 ANTONIETA DENG Ot I34.0 NONRHEUMATIC MITRAL (VALVE) INSUFFICIENC 09/15/2019 ANTONIETA DENG Ot I48.91 UNSPECIFIED ATRIAL FIBRILLATION 09/15/2019 ANTONIETA DENG Ot I65.29 OCCLUSION AND STENOSIS OF UNSPECIFIED CA 10/03/2019 ANTONIETA DENG Ot E78.2 MIXED HYPERLIPIDEMIA 10/03/2019 ANTONIETA DENG Ot I10 ESSENTIAL (PRIMARY) HYPERTENSION 10/03/2019 [facility], ANTONIETA K Ot I25.10 ATHSCL HEART DISEASE OF [place] CORONARY 10/03/2019 [facility], ANTONIETA K Ot I34.0 NONRHEUMATIC MITRAL (VALVE) INSUFFICIENC 10/03/2019 [facility], ANTONIETA K Ot I48.91 UNSPECIFIED ATRIAL FIBRILLATION 10/03/2019 [facility], ANTONIETA K Ot I65.29 OCCLUSION AND STENOSIS OF UNSPECIFIED CA 10/10/2019 [facility], ANTONIETA K Ot E78.2 MIXED HYPERLIPIDEMIA 10/10/2019 [facility], ANTONIETA K Ot I10 ESSENTIAL (PRIMARY) HYPERTENSION 10/10/2019 [facility], ANTONIETA K Ot I25.10 ATHSCL HEART DISEASE OF [place] CORONARY 10/10/2019 [facility], ANTONIETA K Ot I34.0 NONRHEUMATIC MITRAL (VALVE) INSUFFICIENC 10/10/2019 [facility], ANTONIETA K Ot I48.91 UNSPECIFIED ATRIAL FIBRILLATION 10/10/2019 [facility], ANTONIETA K Ot I65.29 OCCLUSION AND STENOSIS OF UNSPECIFIED CA 10/30/2019 YANCI, [employer] Ot I10 ESSENTIAL (PRIMARY) HYPERTENSION 10/30/2019 YANCI, [employer] Ot I25.10 ATHSCL HEART DISEASE OF [place] CORONARY 10/30/2019 YANCI [employer] Ot J43.9 EMPHYSEMA, UNSPECIFIED 10/30/2019 YANCI, [employer] Ot 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 10/30/2019 YANCI, [employer] Ot M54.5 LOW BACK PAIN 10/30/2019 YANCI, [employer] Ot N13.30 UNSPECIFIED HYDRONEPHROSIS 10/30/2019 YANCI [employer] Ot N32.9 BLADDER DISORDER, UNSPECIFIED 10/30/2019 YANCI [employer] Ot Z79.82 SALES FLOOR TEAM LEADER (CURRENT) USE OF ASPIRIN 10/30/2019 YANCI [employer] Ot Z79.899 OTHER SALES FLOOR TEAM LEADER (CURRENT) DRUG THERAPY 10/30/2019 YANCI [employer] Ot Z85.46 PERSONAL HISTORY OF MALIGNANT NEOPLASM O 10/30/2019 YANCI [employer] Ot Z87.891 PERSONAL HISTORY OF NICOTINE DEPENDENCE 10/30/2019 YANCI, [employer] Ot Z92.3 PERSONAL HISTORY OF IRRADIATION 10/30/2019 YANCI, [employer] Ot Z95.1 PRESENCE OF AORTOCORONARY BYPASS GRAFT 10/30/2019 YANCI, [employer] Ot Z95.5 PRESENCE OF CORONARY ANGIOPLASTY IMPLANT 10/31/2019 YANCI, [employer] Ot I10 ESSENTIAL (PRIMARY) HYPERTENSION 10/31/2019 YANCI, [employer] Ot I25.10 ATHSCL HEART DISEASE OF [place] CORONARY 10/31/2019 YANCI, [employer] Ot J43.9 EMPHYSEMA, UNSPECIFIED 10/31/2019 YANCI, [employer] Ot 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 10/31/2019 YANCI, [employer] Ot M54.5 LOW BACK PAIN 10/31/2019 YANCI, [employer] Ot N13.30 UNSPECIFIED HYDRONEPHROSIS 10/31/2019 YANCI, [employer] Ot N32.9 BLADDER DISORDER, UNSPECIFIED 10/31/2019 YANCI, [employer] Ot Z79.82 GROUP HOME (CURRENT) USE OF ASPIRIN 10/31/2019 YANCI, [employer] Ot Z79.899 OTHER SALES FLOOR TEAM LEADER (CURRENT) DRUG THERAPY 10/31/2019 YANCI, [employer] Ot Z85.46 PERSONAL HISTORY OF MALIGNANT NEOPLASM O 10/31/2019 YANCI, [employer] Ot Z87.891 PERSONAL HISTORY OF NICOTINE DEPENDENCE 10/31/2019 YANCI, [employer] Ot Z92.3 PERSONAL HISTORY OF IRRADIATION 10/31/2019 YANCI, [employer] Ot Z95.1 PRESENCE OF AORTOCORONARY BYPASS GRAFT 10/31/2019 YANCI, [employer] Ot Z95.5 PRESENCE OF CORONARY ANGIOPLASTY IMPLANT 11/01/2019 ALBA TSE MD Ot Z01.8 18 ENCOUNTER FOR OTHER PREPROCEDURAL EXAMIN 11/02/2019 ALBA TSE MD Ot Z01.8 18 ENCOUNTER FOR OTHER PREPROCEDURAL EXAMIN 11/05/2019 YANCI, [employer] Ot I10 ESSENTIAL (PRIMARY) HYPERTENSION 11/05/2019 YANCI, [employer] Ot I25.10 ATHSCL HEART DISEASE OF [place] CORONARY 11/05/2019 YANCI, [employer] Ot J43.9 EMPHYSEMA, UNSPECIFIED 11/05/2019 YANCI, [employer] Ot 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 11/05/2019 YANCI, [employer] Ot M54.5 LOW BACK PAIN 11/05/2019 YANCI, [employer] Ot N13.30 UNSPECIFIED HYDRONEPHROSIS 11/05/2019 YANCI, [employer] Ot N32.9 BLADDER DISORDER, UNSPECIFIED 11/05/2019 YANCI, [employer] Ot Z79.82 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 TEAM LEADER (CURRENT) USE OF ASPIRIN 11/05/2019 YANCI, [employer] Ot Z79.899 OTHER GROUP HOME (CURRENT) DRUG THERAPY 11/05/2019 YANCI, [employer] Ot Z85.46 PERSONAL HISTORY OF MALIGNANT NEOPLASM O 11/05/2019 YANCI, [employer] Ot Z87.891 PERSONAL HISTORY OF NICOTINE DEPENDENCE 11/05/2019 YANCI, [employer] Ot Z92.3 PERSONAL HISTORY OF IRRADIATION 11/05/2019 YANCI, [employer] Ot Z95.1 PRESENCE OF AORTOCORONARY BYPASS GRAFT 11/05/2019 YANCI, [employer] Ot Z95.5 PRESENCE OF CORONARY ANGIOPLASTY IMPLANT 11/06/2019 JEFF ROMEO MD Ot E78. 2 MIXED HYPERLIPIDEMIA 11/06/2019 JEFF ROMEO MD Ot I10 ESSENTIAL (PRIMARY) HYPERTENSION 11/06/2019 JEFF ROMEO MD Ot I25. 10 ATHSCL HEART DISEASE OF [place] CORONARY 11/06/2019 JEFF ROMEO MD Ot I48. 0 PAROXYSMAL ATRIAL FIBRILLATION 11/06/2019 ISABELLE ROCA APRN Ot R 05 COUGH 11/06/2019 JEFF ROMEO MD Ot E78. 2 MIXED HYPERLIPIDEMIA 11/06/2019 JEFF ROMEO MD Ot I10 ESSENTIAL (PRIMARY) HYPERTENSION 11/06/2019 JEFF ROMEO MD Ot I25. 10 ATHSCL HEART DISEASE OF [place] CORONARY 11/06/2019 JEFF ROMEO MD Ot I48. 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 11/06/2019 ALBA TSE MD, Ot G47.3 3 OBSTRUCTIVE SLEEP APNEA (ADULT) (PEDIATR 11/06/2019 ALBA TSE MD Ot I10 ESSENTIAL (PRIMARY) HYPERTENSION 11/06/2019 ALBA TSE MD, Ot I25.1 0 ATHSCL HEART DISEASE OF [place] CORONARY 11/06/2019 ALBA TSE MD, Ot I48.9 1 UNSPECIFIED ATRIAL FIBRILLATION 11/06/2019 ALBA TSE MD Ot N13.5 CROSSING VESSEL AND STRICTURE OF URETER 11/06/2019 ALBA TSE MD, Ot 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, MALE, UN 11/06/2019 ALBA TSE MD, Ot 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 11/06/2019 ALBA TSE MD Ot Z79.8 99 OTHER GROUP HOME (CURRENT) DRUG THERAPY 11/06/2019 ALBA TSE MD, [...] SLEEP APNEA (ADULT) (PEDIATR 11/09/2019 ALBA TSE MD Ot I10 ESSENTIAL (PRIMARY) HYPERTENSION 11/09/2019 ALBA TSE MD, Ot I25.1 0 ATHSCL HEART DISEASE OF [place] CORONARY 11/09/2019 ALBA TSE MD, Ot I48.9 1 UNSPECIFIED ATRIAL FIBRILLATION 11/09/2019 ALBA TSE MD Ot N13.5 CROSSING VESSEL AND STRICTURE OF URETER 11/09/2019 ALBA TSE MD, Ot 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, MALE, UN 11/09/2019 ALBA TSE MD, Ot 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 11/09/2019 ALBA TSE MD, Ot Z79.8 99 OTHER SALES FLOOR TEAM LEADER (CURRENT) DRUG THERAPY 11/09/2019 ALBA TSE MD, Ot Z87.8 91 PERSONAL HISTORY OF NICOTINE DEPENDENCE 11/09/2019 ALBA TSE MD, Ot Z88.8 ALLERGY STATUS TO OT DRUG/MEDS/BIOL SUB 11/09/2019 ALBA TSE MD Ot Z90.7 9 ACQUIRED ABSENCE OF OTHER GENITAL ORGAN( 11/09/2019 ALBA TSE MD, Ot Z90.8 9 ACQUIRED ABSENCE OF OTHER ORGANS 11/09/2019 ALBA TSE MD Ot Z95.1 PRESENCE OF AORTOCORONARY BYPASS GRAFT 11/09/2019 ALBA TSE MD, Ot Z01.8 18 ENCOUNTER FOR OTHER PREPROCEDURAL EXAMIN 11/10/2019 ALBA TSE MD Ot C7A.8 OTHER MALIGNANT NEUROENDOCRINE TUMORS 11/10/2019 ALBA TSE MD, Ot G47.3 3 OBSTRUCTIVE SLEEP APNEA (ADULT) (PEDIATR 11/10/2019 ALBA TSE MD, Ot I10 ESSENTIAL (PRIMARY) HYPERTENSION 11/10/2019 ALBA TSE MD, Ot I25.1 0 ATHSCL HEART DISEASE OF [place] CORONARY 11/10/2019 ALBA TSE MD, Ot I48.9 1 UNSPECIFIED ATRIAL FIBRILLATION 11/10/2019 ALBA TSE MD Ot Z79.0 1 GROUP HOME (CURRENT) USE OF ANTICOAGULANT 11/10/2019 ALBA TSE MD, Ot Z79.8 99 OTHER SALES FLOOR TEAM LEADER (CURRENT) DRUG THERAPY 11/10/2019 ALBA TSE MD Ot Z87.8 91 PERSONAL HISTORY OF NICOTINE DEPENDENCE 11/10/2019 CARMENCITA ROJAS, ALBA Francis Ot Z88.8 ALLERGY STATUS TO OTH DRUG/MEDS/BIOL SUB 11/10/2019 ALBA TSE MD Ot Z95.1 PRESENCE OF AORTOCORONARY BYPASS GRAFT 11/12/2019 CHANELLE KEYES MD Ot C67. 9 [...] Ot I25. 10 ATHSCL HEART DISEASE OF [place] CORONARY 11/12/2019 CHANELLE KEYES MD Ot I48. [...] PERSONAL HISTORY OF MALIGNANT NEOPLASM O 11/12/2019 STEPHY ROJAS, CHANELLE Eduardo Ot Z87.891 PERSONAL HISTORY OF NICOTINE DEPENDENCE 11/12/2019 CHANELLE KEYES MD Ot Z95. 1 PRESENCE OF AORTOCORONARY BYPASS GRAFT 11/12/2019 CHANELLE KEYES MD Ot Z95. 5 PRESENCE OF CORONARY ANGIOPLASTY IMPLANT 11/12/2019 CHANELLE KEYES MD Ot Z97. 4 PRESENCE OF EXTERNAL HEARING-AID 11/12/2019 KI COX APRN Ot I10 ESSENTIAL (PRIMARY) HYPERTENSION 11/12/2019 KI COX APRN Ot I25.10 ATHSCL HEART DISEASE OF [place] CORONARY 11/12/2019 KI COX APRN Ot I48.91 UNSPECIFIED ATRIAL FIBRILLATION 11/12/2019 KI COX APRN Ot J43 .9 EMPHYSEMA, UNSPECIFIED 11/12/2019 KI COX APRN Ot R33 .9 RETENTION OF URINE, UNSPECIFIED 11/12/2019 KI COX APRN Ot Z77.22 CNTCT W AND EXPSR TO ENVIRON TOBACCO SMO 11/12/2019 KI COX APRN Ot Z82.49 FAMILY HX OF ISCHEM HEART DIS AND OTH DI 11/12/2019 KI COX APRN Ot Z85.46 PERSONAL HISTORY OF MALIGNANT NEOPLASM O 11/12/2019 KI COX APRN Ot Z87.891 PERSONAL HISTORY OF NICOTINE DEPENDENCE 11/12/2019 KI COX APRN Ot Z88 .8 ALLERGY STATUS TO OTH DRUG/MEDS/BIOL SUB 11/12/2019 KI COX APRN Ot Z95 .1 PRESENCE OF AORTOCORONARY BYPASS GRAFT 11/12/2019 KI COX APRN Ot Z95 .5 PRESENCE OF CORONARY ANGIOPLASTY IMPLANT 11/12/2019 JEFF ROMEO MD Ot E78. 2 MIXED HYPERLIPIDEMIA 11/12/2019 JEFF ROMEO MD, Ot I10 ESSENTIAL (PRIMARY) HYPERTENSION 11/12/2019 JEFF ROMEO MD Ot I25. 10 ATHSCL HEART DISEASE OF [place] CORONARY 11/12/2019 JEFF ROMEO MD Ot I48. 0 PAROXYSMAL ATRIAL FIBRILLATION 11/12/2019 ISABELLE ROCA APRN Ot R 05 COUGH 11/12/2019 JEFF ROMEO MD Ot E78. 2 MIXED HYPERLIPIDEMIA 11/12/2019 JEFF ROMEO MD Ot I10 ESSENTIAL (PRIMARY) HYPERTENSION 11/12/2019 JEFF ROMEO MD Ot I25. 10 ATHSCL HEART DISEASE OF [place] CORONARY 11/12/2019 JEFF ROMEO MD Ot I48. 91 UNSPECIFIED ATRIAL FIBRILLATION 11/12/2019 OWUSU-ANTONIETA DELGADO Ot E78.2 MIXED HYPERLIPIDEMIA 11/12/2019 OWUSU-CHANELLE MARROQUIN, ANTONIETA Nicholson Ot I10 ESSENTIAL (PRIMARY) HYPERTENSION 11/12/2019 [facility]IN Ot I25.10 ATHSCL HEART DISEASE OF [place] CORONARY 11/12/2019 [facility] M[facility]OQUIN Ot I34.0 NONRHEUMATIC MITRAL (VALVE) INSUFFICIENC 11/12/2019 [facility]-ANTONIETA DELGADO Ot I48.91 UNSPECIFIED ATRIAL FIBRILLATION 11/12/2019 [facility] MARROQUIN Ot I65.29 OCCLUSION AND STENOSIS OF UNSPECIFIED CA 11/14/2019 KI COX APRN Ot I10 ESSENTIAL (PRIMARY) HYPERTENSION 11/14/2019 KI COX APRN Ot I25.10 ATHSCL HEART DISEASE OF [place] CORONARY 11/14/2019 KI COX APRN Ot I48.91 [...] FOR OTHER PREPROCEDURAL EXAMIN 11/17/2019 ALBA TSE MD, Ot C7A.8 OTHER MALIGNANT NEUROENDOCRINE TUMORS 11/17/2019 ALBA TSE MD, Ot G47.3 3 OBSTRUCTIVE SLEEP APNEA (ADULT) (PEDIATR 11/17/2019 ALBA TSE MD, Ot I10 ESSENTIAL (PRIMARY) HYPERTENSION 11/17/2019 ALBA TSE MD, Ot I25.1 0 ATHSCL HEART DISEASE OF [place] CORONARY 11/17/2019 ALBA TSE MD, Ot I48.9 1 UNSPECIFIED ATRIAL FIBRILLATION 11/17/2019 ALBA TSE MD, Ot 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 11/17/2019 ALBA TSE MD, Ot Z79.8 99 OTHER 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 TEAM LEADER (CURRENT) DRUG THERAPY 11/17/2019 ALBA TSE MD, Ot Z87.8 91 PERSONAL HISTORY OF NICOTINE DEPENDENCE 11/17/2019 ALBA TSE MD, Ot Z88.8 ALLERGY STATUS TO [facility] DRUG/MEDS/BIOL SUB 11/17/2019 ALBA TSE MD, Ot Z95.1 PRESENCE OF AORTOCORONARY BYPASS GRAFT 11/20/2019 JEFFERY SHELBY MD, Ot I10 ESSENTIAL (PRIMARY) HYPERTENSION 11/20/2019 JEFFERY SHELBY MD Ot I25.10 ATHSCL HEART DISEASE OF [place] CORONARY 11/20/2019 JEFFERY SHELBY MD Ot I48.91 UNSPECIFIED ATRIAL FIBRILLATION 11/20/2019 JEFFERY SHELBY MD Ot N13.9 OBSTRUCTIVE AND REFLUX UROPATHY, UNSPECI 11/20/2019 JEFFERY SHELBY MD Ot R33.9 RETENTION OF URINE, UNSPECIFIED 11/20/2019 JEFFERY SHELBY MD Ot Z77.22 CNTCT W AND EXPSR TO ENVIRON TOBACCO SMO 11/20/2019 JEFFERY SHELBY MD Ot Z82.49 FAMILY HX OF ISCHEM HEART DIS AND OTH DI 11/20/2019 MEMO SHELBY MDSHUA T Ot Z85.46 PERSONAL HISTORY OF MALIGNANT NEOPLASM O 11/20/2019 JEFFERY SHELBY MD, Ot Z88.8 ALLERGY STATUS TO OTH DRUG/MEDS/BIOL SUB 11/20/2019 AFSANEH ROJAS, JEFFERY Galindo Ot Z95.1 PRESENCE OF AORTOCORONARY BYPASS GRAFT 11/20/2019 JEFFERY SHELBY MD, Ot Z95.5 PRESENCE OF CORONARY ANGIOPLASTY IMPLANT 11/23/2019 ALBA TSE MD, Ot C67.9 MALIGNANT NEOPLASM OF BLADDER, UNSPECIFI 11/23/2019 ALBA TSE MD, Ot C67.9 MALIGNANT NEOPLASM OF BLADDER, UNSPECIFI Procedures Code Description Performed By Per formed On [id number] DE STRUCTION OF BLADDER, ENDO 10/04/2015 [id number] EX TIRPATION OF MATTER FROM BLADDER, ENDO 10/04/2015 [id number] DE STRUCTION OF PROSTATE, ENDO 10/04/2015 [id number] DE STRUCTION OF BLADDER, ENDO 10/27/2015 [id number] EX TIRPATION OF MATTER FROM BLADDER, ENDO [...] with reflex to culture CULTURE PENDING NRG Bacterial urine culture - 11/10/19 22:00 Bacterial urine culture NG NRG Complete blood count (CBC) with automate [...] 11/12/19 18:15 Bacterial urine culture NG NRG Complete urinalysis with reflex to cultu re - 11/18/19 01:17 Urine color determination YELLOW NRG Urine clarity determination CLEAR NR G Urine pH measurement by test strip 6.0 5-9 Specific gravity of urine by test strip 1.010 1.016-1.022 Urine protein assay by test strip, semi-quantitative TRACE NEGATIVE Urine glucose detection by automated test [...] in u rine sediment by light microscopy 0-2 NRG Crystals detection in urine sediment by light microsco py NONE NRG Casts detection in urine sediment by light microscopy NONE NRG Mucus detection in urine sediment by light microscopy NEGATIVE NRG Complete urinalysis with reflex to culture NO NRG Coronavirus SARS-CoV-2 SO 2018 0 13:28 Coronavirus Ab [Units/volume] in Serum Negative Negative Encounters ACCT No. Visit Date/Time Discharge Status Pt. Type Provider Facility Loc./Unit Complaint [id number] 11/23/2019 12:05:38 Document Registration [id number] 12/01/2019 08:01:00 16:00:00 DIS Outpatient JEANNETTE GUTIERRES DO [facility] [facility] PREOP BLADDER CANCER [id number] 11/21/2019 10:43:00 23:59:59 CLS Outpatient ALBA TSE MD [facility] RAD MALIGNANT NEOPLASM OF B LADDER [id number] 11/18/2019 01:02:00 02:30:00 DIS Outpatient JEFFERY SHELBY MD [facility] ER CAN'T URINATE [id number] 11/12/2019 17:44:00 18:47:00 DIS Emergency KI COX APRN [facility] ER TOOK CATHETER OUT/UNABL E TO URINATE [id number] 11/11/2019 00:26:00 11:55:00 DIS Inpatient CHANELLE KEYES MD [facility] 4TH UTI,URINARY RETENTION,B LADDER MASS [id number] 11/10/2019 07:01:00 12:30:00 [facility] URETERAL STONE [id number] 11/08/2019 08:14:00 09:22:00 DIS Outpatient ALBA TSE MD [facility] PREOP TURBT, LEFT URETEROSCOP Y [id number] 11/06/2019 07:26:00 12:20:00 DIS Outpatient ALBA TSE MD [facility] SDC BLADDER MASS [id number] 11/01/2019 07:19:00 23:59:59 CLS Outpatient ALBA TSE MD [facility] PREOP BLADDER MASS [id number] 10/30/2019 17:21:00 19:48:00 DIS Emergency YANCIGRIS Gómez [facility] ER BACK PAIN / FEVER [id number] 09/13/2019 08:50:00 23:59:59 CLS Outpatient JOSSELIN DENG [facility] CARD AFIB,CAD,HT N [id number] 09/21/2018 07:18:00 019 23:59:59 CLS Outpatient JEFF ROMEO MD [facility] CARD CAD,HTN [id number] 08/16/2018 16:25:00 019 23:59:59 CLS Preadmit JEFF ROMEO MD [facility] CARD CAD, AFIB, CAROTID STACY RY STENOSIS, HTN [id number] 03/28/2018 10:17:00 018 23:59:59 CLS Outpatient ISABELLE ROCA APRN [facility] RAD R05 [id number] 05/13/2017 07:49:00 017 10:41:00 DIS Outpatient Alesha SKY MD [facility] CATH ATRIAL FIBRILLATION [id number] 12/28/2016 07:43:00 017 23:59:59 CLS Outpatient JEFF ROMEO MD [facility] CARD I48.0,I25.10,I10 [id number] 12/24/2016 08:39:00 017 23:59:59 CLS Outpatient JEFF ROMEO MD [facility] CARD I48.0,I25.10,I10 [id number] 01/29/2016 07:59:00 016 10:45:00 DIS Outpatient JEFF ROMEO MD [facility] CATH AFIB W/RVR,DYSPNEA,CAD, HTN [id number] 11/20/2015 12:40:00 15:00:00 DIS Outpatient LIZET PALACIOS MD [facility] WOUNDCARE [id number] 10/22/2015 16:59:00 15:50:00 DIS Inpatient ALBA TSE MD [facility] 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, CA OF PROSTRATE [id number] 10/21/2015 19:03:00 016 20:22:00 DIS Emergency DWAYNE PASTOR [facility] ER CATHETER ISSUES [id number] 10/07/2015 08:55:00 15:55:00 DIS Inpatient ALBA TSE MD [facility] 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;UTI [id number] 09/30/2015 08:34:00 Juan 23:59:59 CLS Outpatient ALBA TSE MD [facility] RAD RT RENAL MASS, LT RENAL STONE [id number] 09/26/2015 08:54:00 Juan 23:59:59 CLS Outpatient ALBA TSE MD [facility] RAD HEMATURIA [id number] 09/06/2015 08:58:00 Juan 11:42:00 DIS Emergency KI COX POTATO CHIP FRYER [facility] ER UNABLE TO URINATE [id number] 08/14/2015 07:22:00 016 23:59:59 CLS Outpatient JEFF ROMEO MD [facility] CATH HTN,HLP,CHEST PAIN,CAD [id number] 01/20/2013 20:00:00 013 06:25:00 DIS Outpatient JEFF ROMEO MD [facility] SLEEP SHENA [id number] 12/06/2019 13:05:00 P EN Preadmit JEANNETTE GUTIERRES DO Via [facility] SDC BLADDER CANCER [id number] 12/05/2019 08:05:[address] Outpatient SEKOU AL Via [facility] ONC [id number] 10/20/2015 08:20:00 Document Registration [id number] 08/14/2015 07:22:00 Document Registration [id number] 09/26/2014 08:20:00 Document Registration [id number] 09/19/2014 08:00:00 Document Registration [id number] 08/31/2012 07:30:00 Document Registration [id number] 08/19/2012 09:49:00 Document Registration [id number] 06/23/2011 10:47:00 Document Registration [id number] 06/22/2011 09:11:00 Document Registration [id number] 07/02/2010 07:34:00 Document Registration
[2019-12-06] MEDS ORDERED: LACTATED RINGERS 1,000 ML IV PRN (06:23)
[2019-12-06] MEDS ORDERED: ceFAZolin INJECTION 1,000 MG in WATER (STERILE) FOR INJECTION 10 ML IV ONE (06:30)
[2019-12-06] MEDS ORDERED: PROPOFOL INJECTION 50 ML IV ONE (06:58)
[2019-12-06] MEDS ORDERED: fentaNYL INJECTION 100 MCG/2 ML AMP ONE (06:58)
[2019-12-06] MEDS ORDERED: ONDANSETRON 4 MG/2 ML (SDV) Z0FRAN ONE (06:58)
[2019-12-06] MEDS ORDERED: BUP/EPI 0.5% 1:200,000 (SENSORCAINE) 30 ML VIAL ONE (06:59)
[2019-12-06] MEDS ORDERED: 0.9% SODIUM CHLORIDE PF INJ 20 ML VIAL ONE (06:59)
[2019-12-06] MEDS ORDERED: HEParin (CENTRAL IV FLUSH) 500 UNIT/5 ML SYR ONE (06:59)
--- NOTE | 2019-12-06 07:59 | Progress Note-Pre Operative ---
Pre-Operative Progress Note H&P Reviewed The H&P was reviewed, patient examined and no changes noted. Date Seen by Provider: December 06, 2019 Time Seen by Provider: 07:58 Date H&P Reviewed: December 06, 2019 Time H&P Reviewed: 07:58 Pre-Operative Diagnosis: bladder cancer JEANNETTE GUTIERRES DO December 06, 2019 07:58
[2019-12-06] MEDS ORDERED: ONDANSETRON 4 MG/2 ML (SDV) Z0FRAN IVP PRN (08:00)
[2019-12-06] MEDS ORDERED: MEPERIDINE (DEMEROL) INJ 50 MG/ML IVP ONE (08:00)
[2019-12-06] MEDS ORDERED: morphine INJ 10 MG/ML 1ML (SYR OR VIAL) IVP ONE (08:00)
--- NOTE | 2019-12-06 08:57 | Progress Note-Post Operative ---
Post-Operative Progess Note Surgeon (s)/Cable Ferry Operator (s) Surgeon JEANNETTE GUTIERRES DO Cable Ferry Operator: na Pre-Operative Diagnosis bladder cancer Post-Operative Diagnosis same Procedure & Operative Findings Date of Procedure 12/06/19 Procedure Performed/Findings PROCEDURE: Right internal jugular port placement using ultrasound guidance. COMPLICATIONS: None. INDICATIONS: The patient is a 84 year old male with bladder cancer. Patient understands the risks and benefits of port placement and wished to proceed with the procedure. Consent was signed on the chart. PROCEDURE: The patient was taken to the operating suite, was prepped and draped in the sterile fashion. A surgical pause was performed. Ultrasound was used to locate the internal jugular vein. Once located anesthetic was infiltrated above it. Using micro-access kit, the right internal vein was accessed. Dark nonpulsatile blood was withdrawn. The wire was inserted. Fluoroscopy assured proper placement. The needle was removed. The micro-access dilator was advanced over the wire and the wire was removed. The regular wire was inserted and fluoroscopy assured proper placement. The wire was then secured. Local anesthetic was used to anesthetize from the neck for tunneling down to the right chest and for pocket creation. A 15 blade scalpel was used to make an incision over the right chest. Cautery was used to dissect down to the pectoral fascia. A pocket was created with blunt dissection. The dilator sheath was then advanced over the wire under fluoroscopy and the dilator and wire were removed. The Groshong catheter was inserted through the sheath and the sheath was then removed. The Groshong wire was removed. The catheter was then tunneled to the right chest pocket. Fluoroscopy was used to cut to length and this was then attached to the port which was then placed within the pocket. The port was then accessed without difficulty. It was then flushed with saline and then heparin. The subcutaneous tissues were then reapproximated using 3-0 Vicryl. The areas were then washed and dried. Skin Affix was placed over incision. The insertion point of the neck Skin Affix was placed over the incision. The patient tolerated the procedure well without complication and was taken to recovery room in stable condition. Chest x-ray is pending. Anesthesia Type mac c local Estimated Blood Loss Estimated blood loss (mL): minimal Specimens/Packing Specimens Removed JEANNETTE Jaimes DO December 06, 2019 08:57
--- NOTE | 2019-12-06 08:59 | Discharge Inst-Simple/Standard ---
Discharge Inst-Standard Patient Instructions/Follow Up Plan of Care/Instructions/FU: 2 weeks Graciela Activity as Tolerated: No Discharge Diet: Regular Diet Other Inst to Patient Follow up Appt: Make appointment for 2 week. Instructions: No lifting greater than 10 pounds. No strenuous activity. May shower in 24 hours, no tub bath or soaking. Use incentive spirometer at home as directed. No Smoking Skin/Wound Care: You have special glue over your incision that will fall off on it's own. Place ice pack on 15 min off 30 min and repeat for next 24-48 hours. This reduces swelling and discomfort. Symptoms to Report: Appetite Changes, Extremity Discoloration, Numbness/Tingling, Swelling Increased, Bleeding Excessive, Eyesight Changes, Pain Increased, Urine Color Change, Constipation(Persistent), Fever over 101 degree F, Pain/Pressure in chest, Urinating Difficulty, Cough Up/Vomit Blood, Heart Beat Irreg/Pounding, Pain/Pressure in jaw, Vaginal Bleeding Increase, Cramps in feet or legs, Lightheadedness, Pain/Pressure in shoulder, Diarrhea(Persistent), Memory Changes Suddenly, Questions/Concerns, Weight gain consecutive days, Dizziness/Fainting, Nausea/Vomiting, Shortness of Breath, Weight gain over 2 pounds If questions or concerns contact your physician Or seek help at emergency department. JEANNETTE GUTIERRES DO December 06, 2019 08:59
--- NOTE | 2019-12-06 09:45 | Diagnostic Imaging Report ---
INDICATION: Fluoroscopy for Groshong catheter placement. Fluoroscopy was provided in the OR during Groshong catheter placement. 35 seconds of fluoroscopic time was utilized. A single image was obtained. Image demonstrates a right-sided Groshong catheter with tip overlying the SVC. IMPRESSION: Fluoroscopy for Groshong catheter placement. Dictated by: Dictated on workstation # [id number]
--- NOTE | 2019-12-06 09:49 | Diagnostic Imaging Report ---
INDICATION: Groshong catheter placement. Time of exam: 9:12 AM Correlation is made with prior chest from 11/10/2019. Changes of median sternotomy and CABG are noted. A right chest wall port has been placed and has the tip overlying the SVC. No pneumothorax is detected. Lungs are clear. IMPRESSION: Port placement. No pneumothorax is detected. Dictated by: Dictated on workstation # [id number]
--- NOTE | 2019-12-06 10:11 | Anesthesia-General Post-Op ---
MAC Patient Condition Mental Status/LOC: Same as Preop Cardiovascular: Satisfactory Nausea/Vomiting: Absent Respiratory: Satisfactory Pain: Controlled Complications: Absent Post Op Complications Complications None Follow Up Care/Instructions Patient Instructions None needed. Anesthesiology Discharge Order Discharge Order Patient is doing well, no complaints, stable vital signs, no apparent adverse anesthesia problems. No complications reported per nursing. JEANNINE WORRELL CRNA December 06, 2019 10:11
== END 2019-12-06 10:20 | disposition home or self-care (01) ==
LOC: SDC 06:16
PROVIDERS: ATTEND Surgery
DX: C67.9 Malignant neoplasm of bladder, unspecified (principal); I25.119 Atherosclerotic heart disease of native coronary artery with unspecified angina pectoris; I12.9 Hypertensive chronic kidney disease with stage 1 through stage 4 chronic kidney disease, or unspecified chronic kidney disease; I48.91 Unspecified atrial fibrillation; I65.29 Occlusion and stenosis of unspecified carotid artery; I47.1 Supraventricular tachycardia; G47.33 Obstructive sleep apnea (adult) (pediatric); J44.9 Chronic obstructive pulmonary disease, unspecified; K21.9 Gastro-esophageal reflux disease without esophagitis; N18.9 Chronic kidney disease, unspecified; E78.2 Mixed hyperlipidemia; Z88.8 Allergy status to other drugs, medicaments and biological substances; Z95.1 Presence of aortocoronary bypass graft; Z99.89 Dependence on other enabling machines and devices; Z87.891 Personal history of nicotine dependence; Z85.46 Personal history of malignant neoplasm of prostate; Z79.899 Other long term (current) drug therapy; Z90.89 Acquired absence of other organs; Z80.9 Family history of malignant neoplasm, unspecified; Z83.3 Family history of diabetes mellitus
CPT/HCPCS: 71045; 76000; 87081

== ENCOUNTER 2019-12-17 07:18 | Emergency (ER) | payer MEDICARE, OTHER ==
[~2019-12-17] VITALS: Ht 167 cm; Wt 68.4 kg
--- OUTSIDE RECORDS SUMMARY | 2019-12-17 07:25 | XMS REPORT ---
Author Author [employer] banquet [employer] [facility] [employer] Address [address] [place] [address] Care Team Providers Care Audit Partner Name Role Phone MARCUS LILLY Unavailable ABEL MARTINEZ Unavailable JEFF PRICE MD Unavailable Unavailable CARMENCITA ROJAS, ALBA Francis Unavailable Unavailable AFSANEH ROJAS, JEFFERY Galindo Unavailable Unavailable ALBA TSE MD Unavailable Unavailable DWAYNE PASTOR Unavailable Unavailable LIZET PALACIOS MD Unavailable Unavailable KI COX APRN Unavailable Unavailable ANTONIETA DENG Unavailable UnavailMARCELLE Vizcaino MD Unavailable Unavailable GRIS CALLAWAY Unavailable Unavailable CARMENCITA ROJAS, ALBA Francis Unavailable Unavailable JESSIE SKY MD Unavailable Unavailable JEFF PRICE MD Unavailable Unavailable ISABELLE ROCA APRN Unavailable Unavailable CHANELLE KEYES MD Unavailable Unavailable CHANELLE KEEYS MD Unavailable Unavailable KI COX APRN Unavailable Unavailable AFSANEH ROJAS, JEFFERY Galindo Unavailable Unavailable SEKOU AL MD Unavailable Unavailable ALBA TSE MD Unavailable Unavailable GENEVIEVE SAPP MD Unavailable Unavailable GENEVIEVE SAPP MD Unavailable Unavailable GENEVIEVE SAPP MD Unavailable Unavailable JEANNETTE GUTIERRES DO Unavailable Unavailable Unavailable Unavailable Unavailable Unavailable Unavailable Unavailable Unavailable Unavailable Allergies Normalized Allergy Reported Date of Reaction(s) Care Provider Facility Allergy Type classification allergen Allergy Onset DA (20 Unclassified Beta-Blockers 11-10-2019 - SYNCOPE JEFF PRICE , [facility] Via sources.) ([facility]54778[facility] Medications No Information Problems Active Problems Problem Normalized Date Last Normalized Normalized Provider Fa cility Classification Problem(s) Recorded Problem Problem Sta tus Duration Residual Acquired 11-22-2019 - Episodic Active ALBA CARMENCITA , [facility] Via codes; absence of MD [place] unclassified other genital Hospital - (6 sources.) organ(s) Colony (09594) Residual Acquired 11-22-2019 - Episodic Active ALBA CARMENCITA , [facility] Via codes; absence of MD [place] unclassified other organs Hospital - (10 sources.) [place] () Acute and Acute kidney 12-01-2019 - Episodic Active CHANELLE CARRILLO , [facility] Via unspecified failure, MD [place] renal failure unspecified Hospital - (4 sources.) Colony () Acute Acute Episodic Active ALBA CARMENCITA , Not Avail able posthemorrhagi posthemorrhagi (88827) sugey anemia (6 c anemia sources.) Allergic Allergy status 11-22-2019 - Episodic Active ALBA TAW [place] , [facility] Via reactions (20 to other MD [place] sources.) drugs, Hospital - medicaments [place] and biological (74806) substances status 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 JEFF BROWNING , Not Available atherosclerosi c heart (42936) s and other disease of heart disease [place] (21 sources.) coronary artery without angina pectoris Translations: [ ATHSCL HEART DISEASE OF [place] COR ART W, CORON ATHEROSCLER NOS TYPE VESSEL, NATIV] Other diseases Bladder 11-21-2019 - Chronic Active GRIS PETE , [facility] Via of bladder and disorder, MIKEY [place] urethra (6 unspecified Hospital - sources.) Colony () Calculus of Calculus of Episodic Active ALBA CARMENCITA , Not Available urinary tract kidney () (6 sources.) Nonspecific Chest pain, Episodic Active JEFF PRICE , Not Available chest pain (3 unspecified MD (71668) sources.) Chronic kidney Chronic kidney 12-01-2019 - Chronic Active ANNE-MARIE KEYES , [facility] Via disease (8 disease, MD [place] sources.) unspecified Hospital - [place]ony (77561) Residual Contact with 12-04-2019 - Episodic Active KI COX , [facility] Via codes; and ZIGGY [place] unclassified (suspected) Hospital - (7 sources.) exposure to [place]ony environmental (91036) tobacco smoke (acute) (chronic) Other lower Cough Episodic Active ISABELLE ROCA [facility] Via respiratory , ZIGGY [place] disease (4 Hospital - sources.) Colony (56801) Other diseases Crossing 11-22-2019 - Episodic Active ALBA [place]ITTLE [place] , [facility] Via of kidney and vessel and MD [place] uretermichael (6 stricture of Hospital - sources.) ureter without [place] hydronephrosis (87497) Other diseases Cyst of Episodic Active ALBAJIMBO GAOL , Not Available of kidney and kidney, (36417) ureters (3 acquired sources.) Residual 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 JEANNETTETARIQ NARANJO [place] , [facility] Via codes; other enabling DO Emmie unclassified machines and Hospital - (4 sources.) devices [place]ony (12342) Other diseases Disorder of 11-30-2019 - Episodic Active SEKOU AL , [facility] Via of kidney and kidney and MD [place] uretermichael (4 ureter, Hospital - sources.) unspecified [place]ony (97772) Chronic Emphysema, 11-21-2019 - Chronic Active GRIS YANCI , [facility] Via obstructive 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 Translations: Hospital - disease and [ CHRONIC [place] bronchiectasis OBSTRUCTIVE (86123) (18 sources.) PULMONARY DISEASE, U] Immunizations Encounter for 12-05-2019 - Episodic Active JEANNETTE GUTIERRES , [facility] Via and screening screening for Emmie for infectious other viral Hospital - disease (4 diseases [place]ony sources.) (46521) Epilepsy; Epilepsy, 12-01-2019 - Chronic Active CHANELLE KEYES , [facility] Via convulsions (4 unspecified, MD [place] sources.) not Hospital - intractable, [place]ony without status (86481) epilepticus Essential Essential 11-21-2019 - Chronic Active ALBA TSE , Not Available hypertension (primary) (50007) (21 sources.) hypertension Translations: [ HYPERTENSION NOS] Residual Family history 12-08-2019 - Episodic Active JEANNETTE FAIRBANKS , [facility] Via codes; of diabetes DO [place] unclassified mellitus Hospital - (4 sources.) Colony (92413) Residual Family history 12-04-2019 - Episodic Active KI GORDON , [facility] Via codes; of 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 disease Hospital - (7 sources.) and other [place]ony diseases of (28530) the circulatory system Residual Family history 12-08-2019 - Episodic Active JEANNETTE FAIRBANKS , [facility] Via codes; of malignant DO Emmie unclassified neoplasm, Hospital - (4 sources.) unspecified [place]ony () Gangrene (3 Gangrene, not Episodic Active ALBA CARMENCITA , No t Available sources.) elsewhere (18130) classified Esophageal Gastro-esophag 12-01-2019 - Chronic Active ALBA T AWIL , Not Available disorders (11 eal reflux (03986) sources.) disease without esophagitis Other diseases Hydronephrosis 11-30-2019 - Episodic Active REKHA AN SERVANDO , [facility] Via of kidney and with ureteral MD [place] ureters (4 stricture, not Hospital - sources.) elsewhere Colony classified (41544) Fluid and Hyperkalemia 12-01-2019 - Episodic Active CHANELLE CARRILLO , [facility] Via electrolyte MD [place] disorders (4 Hospital - sources.) Colony () Hypertension Hypertensive 12-01-2019 - Chronic Active CHANELLE KEYES , [facility] Via with chronic kidney MD [place] complications disease with Hospital - and secondary stage 1 Colony hypertension through stage () (8 sources.) 4 chronic kidney disease, or unspecified chronic kidney disease 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 , [facility]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 MIKEY [place] al disorders without Hospital - (10 sources.) diarrhea [place]ony (49450) Other senior care 11-22-2019 - Episodic Active ROMAN [facility] Via aftercare (16 (current) use MD Emmie SKY sources.) of Hospital - anticoagulants Colony (04364) Other manager terminal Episodic Active JEFFERY Not Availabl e aftercare (9 (current) use AFSANEH (41213) sources.) of antithrombotic s/antiplatelet s Other senior care 11-21-2019 - Episodic Active ALBA CARMENCITA , Not Available aftercare (9 (current) use (38670) sources.) of aspirin Spondylosis; Low back pain 11-21-2019 - Episodic Active GRIS AUGUSTE TE , [facility] Via intervertebral Translations: MIKEY [place] disc [ DORSALGIA, Hospital - disorders; UNSPECIFIED] Colony other back (34735) problems (10 sources.) Cancer of Malignant 12-01-2019 - Chronic Active CHANELLE KEYES , [facility] Via bladder (19 neoplasm of MD [place] sources.) bladder, Hospital - unspecified [place]ony Translations: (52437) [ 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] Cancer of Malignant Chronic Active ALBA CARMENCITA , Not Avai lable prostate (3 neoplasm of MD (85771) sources.) prostate 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 MIKEHAR OCTAVIO I , Not Available lipid hyperlipidemia (85650) metabolism (21 Translations: sources.) [ HYPERLIPIDEMIA , UNSPECIFIED, HYPERLIPIDEMIA NEC/NOS, PURE HYPERCHOLESTER OLEMIA, UNSPECIFIED] Neoplasms of Neoplasm of 11-22-2019 - Episodic Active ALBA TA CHI , [facility] Via unspecified unspecified MD [place] nature or behavior of Hospital - uncertain bladder [place]ony behavior (6 (74147) sources.) Substance-rela Nicotine Chronic Active KI COX Not Av ailable richelle disorders dependence, (76297) (3 sources.) cigarettes, in remission Residual Obstructive 11-22-2019 - Chronic Active JEFF PRICE , Not Available codes; sleep apnea (12302) unclassified (adult) (22 sources.) (pediatric) Residual Obstructive Chronic Active BASHAR AGUEDA , Not A vailable codes; sleep apnea (73869) unclassified (adult)(pediat (3 sources.) barbie) 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 MUHAMM AD [facility] Via stenosis of stenosis of MD Emmie SKY precerebral bilateral Hospital - arteries (16 carotid Colony sources.) arteries (38683) Translations: [ OCCLUSION AND STENOSIS OF UNSPECIFIED CA] Other Other long 11-21-2019 - Episodic Active BASGEENA PRICE , Not Available aftercare (25 term (current) (54194) sources.) drug therapy Malignant Other 12-05-2019 - Chronic Active ALBA CARMENCITA , [facility] Via neoplasm malignant MD [place] without neuroendocrine Hospital - specification tumors [place]ony of site (3 (26857) sources.) Other diseases Other Episodic Active JEFFERY Not Avai lable of kidney and obstructive BRUEGGEMANN , (32606) ureters (6 and reflux MD sources.) uropathy Pulmonary Other Chronic Active BASHAR AGUEDA , Not Avai lable heart disease secondary MD (75815) (6 sources.) pulmonary hypertension Other diseases Other Chronic Active ALBA CARMENCITA , Not Available of bladder and specified MD (21366) urethra (3 disorders of sources.) bladder Other diseases Other 12-01-2019 - Chronic Active ALBA TAW [place] , Not Available of kidney and specified (61818) ureters (7 disorders of sources.) kidney and ureter Residual Other 11-30-2019 - Episodic Active SEKOU AL [facility] Via codes; specified MD [place] unclassified postprocedural Hospital - (4 sources.) states Colony (84490) Residual Personal 11-21-2019 - Episodic Active LIZET PALACIOS Not Available codes; history of , (47239) unclassified irradiation (9 sources.) Cancer of Personal Episodic Active JEFFERY Not Available bladder (6 history of BRUEGGEMANN , (32641) sources.) malignant MD neoplasm of bladder Cancer of Personal 11-21-2019 - Episodic Active KI Martínez ot Available prostate (20 history of (08340) sources.) malignant neoplasm of prostate Screening and Personal 11-21-2019 - Episodic Active JEFF ORTIZ , Not Available history of history of MD (27132) mental health nicotine and substance dependence abuse codes (20 sources.) Coronary Presence of 11-21-2019 - Episodic Active JESSIE Vallejo Via atherosclerosi aortocoronary MD Emmie SKY s and other bypass graft Hospital - heart disease Translations: Colony (22 sources.) [ PRESENCE OF (74823) CORONARY ANGIOPLASTY IMPLANT, PRESENCE OF AORTOCORONARY BYPASS GRAFT] Coronary Presence of no information Active JEFF PRICE , Not Available atherosclerosi coronary (19883) s and other angioplasty heart disease implant and (25 sources.) graft Translations: [ PRESENCE OF AORTOCORONARY BYPASS GRAFT, ATHSCL HEART DISEASE OF [place] CORONARY , CHRONIC TOTAL OCCLUSION OF CORONARY STACY, CORONARY ANGIOPLASTY STATUS] Other ear and Presence of 12-01-2019 - Episodic Active MATTEO GUTIERREZ Via sense organ external MD [place] disorders (4 hearing-aid Hospital - sources.) Colony (89235) Other injuries Radiation Episodic Active ALBA TSE , Not Available and conditions sickness, (66690) due to unspecified, external initial causes (6 encounter sources.) Heart valve Rheumatic Chronic Active JEFF PRICE , Not A vailable disorders (15 disorders of MD (21747) sources.) both mitral and tricuspid valves Translations: [ MITRAL VALVE DISORDER, TRICUSPID VALVE DISEASE, NONRHEUMATIC MITRAL (VALVE) INSUFFICIENC] Residual Sleep apnea, 12-01-2019 - Chronic Active CHANELLE FAL K , [facility] Via codes; unspecified MD [place] unclassified Hospital - (4 sources.) Colony (14470) Cardiac Unspecified 11-22-2019 - Chronic Active JEFF PRICE , Not Available dysrhythmias atrial (56878) (21 sources.) fibrillation Translations: [ PAROXYSMAL ATRIAL FIBRILLATION, CARDIAC DYSRHYTHMIAS NEC, SUPRAVENTRICUL AR TACHYCARDIA] Other diseases Unspecified 11-21-2019 - Episodic Active GRIS HI TE , [facility] Via of kidney and hydronephrosis 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 (6 Hospital - sources.) Colony (44904) Unclassified Unspecified 11-22-2019 - Episodic Active ALBA TA CHI , [facility] Via (6 sources.) urethral MD [place] stricture, [facility] - male, Colony unspecified (14475) site Past or Other Problems Problem Normalized Date Last Normalized Normalized Provider Fa cility Classification Problem(s) Recorded Problem Problem Sta tus Duration Other lower Other Episodic Completed JEFF AGUEDA , Not Av ailable respiratory respiratory (81342) disease (4 abnormalities sources.) Procedures Procedure Normalized Procedure Procedure Result Performer Facility Date DESTRUCTION OF no information no name Not Available ( 33985) BLADDER, ENDO DESTRUCTION OF no information no name Not Available ( 41321) PROSTATE, ENDO EXTIRPATION OF MATTER no information no name Not Avai lable (41427) FROM BLADDER, ENDO Immunizations No Information Results Test Name Value Interpretation Reference Range Date Time Fa cility (Normalized) (Normalized) (Medline Reference) not yet categorized on 2019-12-12 COLONY COUNT . (no code) 12-12-2019 PENDING LOCAT ION 06:47-0400 [facility] ([id number]) COLONY COUNT >100,000/ML (no code) 12-12-2019 PENDING LOCAT ION 06:47-0400 [facility] (05396) ID CONFIRMATION Y (no code) 12-12-2019 PENDING LO CATION 06:47-0400 [facility] ([id number]) SUSCEPTIBILITY SUSCEPTIBILITY (no code) 12-12-2019 PENDING LOCATION REPORTED 12-13, 06:47-0400 [facility] ([id number]) 1231 laboratory on 2019-12-12 Ampicillin HAIDER 1 (S) 12-12-2019 PENDING LOC ATION [Susc] 06:47-0400 [facility] (82973) Bacteria PROGRESS (no code) 12-12-2019 PENDING LOCATI ON identified Cx 06:470 [facility] (83746) Nom (U) Bacteria [id number] (no code) 12-12-2019 PENDING LOCATI ON identified Cx 06:47040 [facility] (69277) Nom (U) Daptomycin HAIDER 2 (S) 12-12-2019 PENDING LOC ATION [Susc] 06:470400 [facility] (48682) Levofloxacin HAIDER <= (S) 12-12-2019 PENDING L OCATION [Susc] 06:470400 [facility] (45279) Linezolid HAIDER <= (S) 12-12-2019 PENDING LOCA TION [Susc] 06:470400 [facility] (96109) Nitrofurantoin <= (S) 12-12-2019 PENDING LOC ATION HAIDER [Susc] 06:470400 [facility] (32682) Vancomycin HAIDER 2 (S) 12-12-2019 PENDING LOC ATION [Susc] 06:470400 [facility] (49648) not yet categorized on 2019-12-06 no information NAME: (no code) PENDING LOCATIO N MAZARIEGOSSAMUELURSZULA Aline [facility] ([id number]) ~MED REC#: [id number] ~ ~PHYSICIAN: JEANNETTE GUTIERRES DO ~Post-Operative Progess Note ~Surgeon (s)/Sow Manager (s) ~Surgeon ~JEANNETTE GUTIERRES DO ~Sow Manager: na ~ ~Pre-Operative Diagnosis ~bladder cancer ~ ~Post-Operative Diagnosis ~ ~same ~ ~Procedure Operative Findings ~Date of Procedure ~12/06/19 ~Procedure Performed/Findin gs ~ ~PROCEDURE: ~Right internal jugular port placement using ultrasound guidance. ~ ~COMPLICATIONS: ~None. ~ ~INDICATIONS: ~The patient is a 84 year old male with bladder cancer. ~Patient understands the risks and benefits of port ~placement and wished to proceed with the procedure. Consent was ~signed on the chart. ~ ~PROCEDURE: ~The patient was taken to the operating suite, was prepped and ~draped in the sterile fashion. A surgical pause was performed. ~Ultrasound was used to locate the internal jugular vein. Once ~located anesthetic was infiltrated above it. Using micro-access ~kit, the right internal vein was accessed. Dark nonpulsatile ~blood was withdrawn. The wire was inserted. Fluoroscopy assured ~proper placement. The needle was removed. The micro-access ~dilator was advanced over the wire and the wire was removed. The ~regular wire was inserted and fluoroscopy assured proper ~placement. The wire was then secured. Local anesthetic was used ~to anesthetize from the neck for tunneling down to the right ~chest and for pocket creation. A 15 blade scalpel was used to ~make an incision over the right chest. Cautery was used to ~dissect down to the pectoral fascia. A pocket was created with ~blunt dissection. The dilator sheath was then advanced over the ~wire under fluoroscopy and the dilator and wire were removed. The ~Groshong catheter was inserted through the sheath and the sheath ~was then removed. The Groshong wire was removed. The catheter was ~then tunneled to the right chest pocket. Fluoroscopy was used to ~cut to length and this was then attached to the port which was ~then placed within the pocket. The port was then accessed without ~difficulty. It was then flushed with saline and then heparin. The ~subcutaneous tissues were then reapproximated using 3-0 Vicryl. ~The areas were then washed and dried. Skin Affix was placed over incision. ~The insertion point of the neck Skin Affix was ~placed over the incision. The patient tolerated the procedure ~well without complication and was taken to recovery room in ~stable condition. Chest x-ray is pending. ~Anesthesia Type ~mac c local ~ ~Estimated Blood Loss ~Estimated blood loss (mL): minimal ~ ~Specimens/Packi ng ~Specimens Removed ~na ~ ~ ~ ~JEANNETTE GUTIERRES DO December 06, 2019 08:57 ~ ~ ~<Created by JEANNETTE GUTIERRES DO> ~<Electronically signed by JEANNETTE GUTIERRES DO> 12/06/19 0857 ~ ~ no information NAME: (no code) PENDING LOCATIO N URSZULA MAZARIEGOS ([id number]) ~MED REC#: [id number] ~ ~PHYSICIAN: JEANNINE WORRELL CRNA ~MAC ~Patient Condition ~Mental Status/LOC: Same as Preop ~Cardiovascular: Satisfactory ~Nausea/Vomiting : Absent ~Respiratory: Satisfactory ~Pain: Controlled ~Complications: Absent ~ ~Post Op Complications ~Complications ~None ~ ~Follow Up Care/Instruction s ~Patient Instructions ~None needed. ~ ~Anesthesiology Discharge Order ~Discharge Order ~Patient is doing well, no complaints, stable vital signs, no apparent adverse anesthesia problems. ~ ~No complications reported per nursing. ~ ~ ~ ~JEANNINE WORRELL CRNA December 06, 2019 10:11 ~ ~ ~<Created by JEANNINE WORRELL CALENDER INSPECTOR> ~<Electronically signed by JEANNINE WORRELL CALENDER INSPECTOR> 12/06/19 1011 ~ ~ laboratory on 2019-12-06 MRSA isol Org Negative (no code) 12-06-2019 PENDING LOCA TION specific cx Ql 02:44-0400 [facility] ([id number]) (Unsp spec) laboratory on 2019-12-01 Coronavirus Ab Negative (no code) [facility] Via [facility] (S) [facility] ([id number]) Coronavirus Ab Negative (no code) 12-01-2019 PENDING LOC ATION Qn (S) 09:28-0400 [facility] (26630) laboratory on 2019-11-17 Bacteria LM Ql Negative (no code) 11-17-2019 PENDING LOC ATION (Urine sed) 21:17-0400 [facility] (88901) Bilirubin Ql (U) Negative (no code) 11-17-2019 PENDING L OCATION 21:17-0400 [facility] (54368) Casts LM Ql NONE (no code) 11-17-2019 PENDING LOCATI ON (Urine sed) 21:17-0400 [facility] (45954) Clarity (U) CLEAR (no code) 11-17-2019 PENDING LOCATI ON 21:17-0400 [facility] (86281) Color (U) YELLOW (no code) 11-17-2019 PENDING LOCATI ON 21:17-0400 [facility] ([id number]) Crystals LM Ql NONE (no code) 11-17-2019 PENDING LOC ATION (Urine sed) 21:17-0400 [facility] (56767) Epithelial 0-2 (no code) 11-17-2019 PENDING LOCATI ON cells.squamous 21:17-0400 [facility] (95362) LM Ql (Urine sed) Glucose Auto Negative (no code) 11-17-2019 PENDING LOCAT ION test strip Ql 21:17-0400 [facility] (07962) (U) Ketones Auto Negative (no code) 11-17-2019 PENDING LOCAT ION test strip Ql 21:17-0400 [facility] (91772) (U) Leukocyte 1+ (A) 11-17-2019 PENDING LOCATI ON esterase Test 21:17-0400 [facility] (69249) strip Ql (U) Mucus Ql (Urine Negative (no code) 11-17-2019 PENDING LO CATION sed) 21:17-0400 [facility] (94906) Nitrite Ql (U) Negative (no code) 11-17-2019 PENDING LOC ATION 21:17-0400 [facility] (27875) pH (U) 6.0 [pH] (no code) 4.6 - 8 [pH] 11-17-2019 PENDING L OCATION 21:17-0400 [facility] ([id number]) Protein Ql (U) TRACE (A) 11-17-2019 PENDING LOC ATION 21:17-0400 [facility] (83583) RBC LM.HPF no information (A) 11-17-2019 PENDING LOC ATION (Urine sed) 21:17-0400 [facility] ([id number]) [#/Area] RBC Ql (U) 3+ (A) 11-17-2019 PENDING LOCATI ON 21:17-0400 [facility] ([id number]) Specific gravity 1.010 (L) 11-17-2019 PENDING L OCATION (U) [Rel 21:17-0400 [facility] (24161) density] Urinalysis NO (no code) 11-17-2019 PENDING LOCATI ON complete W 21:17-0400 [facility] ([id number]) Reflex Culture panel - Urine Urobilinogen (U) 0.2 mg/dL (no code) 11-17-2019 PENDING L OCATION [Mass/Vol] 21:17-0400 [facility] (74482) WBC LM.HPF no information (no code) 11-17-2019 PENDING LOC ATION (Urine sed) 21:17-0400 [facility] (30572) [#/Area] laboratory on 2019-11-12 Anion gap 7 mmol/L (NEG) 3 - 11 mmol/L 11-12-2019 PENDING LOCATION [Moles/Vol] 00:15-0400 [facility] (40010) Bacteria NG (no code) 11-12-2019 PENDING LOCATI ON identified Cx 14:15-0400 [facility] (75723) Nom (U) Bacteria LM Ql MODERATE (A) 11-12-2019 PENDING LOC ATION (Urine sed) 14:0 [facility] (55447) Bilirubin Ql (U) Negative (no code) 11-12-2019 PENDING L OCATION 14:0 [facility] (95257) Calcium 8.4 mg/dL (L) 8.5 - 10.2 mg/dL 11-12-2019 PENDI NG LOCATION [Mass/Vol] 00:15-0400 [facility] (44322) Casts LM Ql NONE (no code) 11-12-2019 PENDING LOCATI ON (Urine sed) 14:0 [facility] (69012) Chloride 111 mmol/L (H) 95 - 106 mmol/L 11-12-2019 PENDI NG LOCATION [Moles/Vol] 00:15-0400 [facility] (86124) Clarity (U) CLOUDY (no code) 11-12-2019 PENDING LOCATI ON 14:0 [facility] (45540) CO2 [Moles/Vol] 18 mmol/L (L) 23 - 29 mmol/L 11-12-2019 P ENDING LOCATION 00:0400 [facility] (70433) Color (U) YELLOW (no code) 11-12-2019 PENDING LOCATI ON 14:0400 [facility] (20884) Creatinine 2.44 mg/dL (H) 11-12-2019 PENDING LOCATI ON [Mass/Vol] 00:15-0400 [facility] (64637) Creatinine and 25 (no code) 11-12-2019 PENDING LOC ATION Glomerular 00:15-0400 [facility] (29648) filtration rate.predicted panel - Serum, Plasma or Blood Crystals LM Ql NONE (no code) 11-12-2019 PENDING LOC ATION (Urine sed) 14:0 [facility] (43804) Epithelial 5-10 (no code) 11-12-2019 PENDING LOCATI ON cells.squamous 14:0400 [facility] (64840) LM Ql (Urine sed) Glucose 95 mg/dL (NEG) 60 - 125 mg/dL 11-12-2019 PENDING LOCATION [Mass/Vol] 00:150400 [facility] (88601) Glucose Auto Negative (no code) 11-12-2019 PENDING LOCAT ION test strip Ql 14:130400 [facility] ([id number]) (U) Ketones Auto Negative (no code) 11-12-2019 PENDING LOCAT ION test strip Ql 14:13-0400 [facility] ([id number]) (U) Leukocyte TRACE (A) 11-12-2019 PENDING LOCATI ON esterase Test 14:-0400 [facility] (27814) strip Ql (U) Mucus Ql (Urine Negative (no code) 11-12-2019 PENDING LO CATION sed) 14:13-0400 [facility] (60736) Nitrite Ql (U) Negative (no code) 11-12-2019 PENDING LOC ATION 14:13-0400 [facility] (73333) pH (U) 6.0 [pH] (no code) 4.6 - 8 [pH] 11-12-2019 PENDING L OCATION 14:-0400 [facility] (31773) Potassium 5.9 mmol/L (H) 3.7 - 5.2 mmol/L 11-12-2019 PEND ING LOCATION [Moles/Vol] 00:15-0400 [facility] (97857) Protein Ql (U) 2+ (A) 11-12-2019 PENDING LOC ATION 14:13-0400 [facility] ([id number]) RBC LM.HPF TNTC (A) 11-12-2019 PENDING LOCATI ON (Urine sed) 14:13-0400 [facility] ([id number]) [#/Area] RBC Ql (U) 3+ (A) 11-12-2019 PENDING LOCATI ON 14:-0400 [facility] (58991) Sodium 136 mmol/L (NEG) 135 - 145 mmol/L 11-12-2019 PEND ING LOCATION [Moles/Vol] 00:15-0400 [facility] ([id number]) Specific gravity 1.015 (L) 11-12-2019 PENDING L OCATION (U) [Rel 14:13-0400 [facility] (30015) density] Urea nitrogen 35 mg/dL (H) 7 - 20 mg/dL 11-12-2019 PENDI NG LOCATION [Mass/Vol] 00:15-0400 [facility] ([id number]) Urea 14 mg/mg (no code) 6 - 22 mg/mg 11-12-2019 PENDING L OCATION nitrogen/Creatin 00: [facility] (14466) ine [Mass ratio] Urinalysis YES (no code) 11-12-2019 PENDING LOCATI ON complete W 14: [facility] () Reflex Culture panel - Urine Urobilinogen (U) 0.2 mg/dL (no code) 11-12-2019 PENDING L OCATION [Mass/Vol] 14: [facility] () WBC LM.HPF no information (A) 11-12-2019 PENDING LOC ATION (Urine sed) 14: [facility] () [#/Area] laboratory on 2019-11-11 Albumin 3.3 g/dL (NEG) 3.4 - 5.4 g/dL 11-11-2019 PENDING LOCATION [Mass/Vol] 01: [facility] () ALP [Catalytic 64 U/L (NEG) 44 - 147 U/L 11-11-2019 PEND ING LOCATION activity/Vol] 01: [facility] () ALT [Catalytic 15 U/L (NEG) 4 - 40 U/L 11-11-2019 PENDIN G LOCATION activity/Vol] 01: [facility] () Anion gap 10 mmol/L (NEG) 3 - 11 mmol/L 11-11-2019 PENDING LOCATION [Moles/Vol] 01: [facility] () AST [Catalytic 21 U/L (NEG) 10 - 34 U/L 11-11-2019 PENDI NG LOCATION activity/Vol] 01: [facility] () Basophils (Bld) 0.1 10*3/uL (NEG) 0 - 0.3 10*3/uL 11-11-2019 PENDING LOCATION [#/Vol] 01: [facility] ([id number]) Basophils/100 1 % (NEG) 0.5 - 1 % 11-11-2019 PENDING LOCATION WBC (Bld) 01: [facility] () Bilirubin 0.3 mg/dL (NEG) 0.1 - 1.2 mg/dL 11-11-2019 PENDIN G LOCATION [Mass/Vol] 01: [facility] () Calcium 8.8 mg/dL (NEG) 8.5 - 10.2 mg/dL 11-11-2019 [facility] LOCATION [Mass/Vol] 01:46-0400 [facility] ([id number]) Calcium 9.4 mg/dL (NEG) 8.5 - 10.2 mg/dL 11-11-2019 [facility] LOCATION [Mass/Vol] 01:46-0400 [facility] (68421) Chloride 105 mmol/L (NEG) 95 - 106 mmol/L 11-11-2019 [facility] LOCATION [Moles/Vol] 01:46-0400 [facility] ([id number]) CO2 [Moles/Vol] 19 mmol/L (L) 23 - 29 mmol/L 11-11-2019 P ENDING LOCATION 01:46-0400 [facility] (07552) Creatinine 3.05 mg/dL (H) 11-11-2019 PENDING LOCATI ON [Mass/Vol] 01:46-0400 [facility] ([id number]) Creatinine and 20 (no code) 11-11-2019 PENDING LOC ATION Glomerular 01:46-0400 [facility] (48076) filtration rate.predicted panel - Serum, Plasma or Blood Eosinophils 0.4 10*3/uL (H) 0.05 - 0.5 11-11-2019 PENDING LOCATION (Bld) [#/Vol] 10*3/uL 01:46-0400 [facility] ([id number]) Eosinophils/100 4 % (NEG) 1 - 4 % 11-11-2019 [facility] LOCATION WBC (Bld) 01:460400 [facility] (51041) Erythrocyte 13.2 % (NEG) 11.6 - 14.6 % 11-11-2019 [facility] LOCATION distribution 01:460400 [facility] (78611) width (RBC) [Ratio] Glucose 96 mg/dL (NEG) 60 - 125 mg/dL 11-11-2019 PENDING LOCATION [Mass/Vol] 01:46-0400 [facility] ([id number]) Hematocrit (Bld) 31 % (L) 36.1 - 50.3 % 11-11-2019 P ENDING LOCATION [Volume 01:46040 [facility] (45989) fraction] Hemoglobin (Bld) 10.2 g/dL (L) 12.1 - 17.2 g/dL 11-11-2019 PENDING LOCATION [Mass/Vol] 01:46-0400 [facility] ([id number]) Lymphocytes 1.1 10*3/uL (NEG) 0.9 - 2.9 11-11-2019 PENDING LOCATION (Bld) [#/Vol] 10*3/uL 01:46-0400 [facility] (78401) Lymphocytes/100 12 % (NEG) 20 - 40 % 11-11-2019 PENDIN G LOCATION WBC (Bld) 01:46-0400 [facility] (47813) MCH (RBC) 31 pg (NEG) 27 - 31 pg 11-11-2019 PENDING LOC ATION [Entitic mass] 01:46-0400 [facility] (42710) MCHC (RBC) 33 g/dL (NEG) 32 - 36 g/dL 11-11-2019 PENDING LOCATION [Mass/Vol] 01:46-0400 [facility] ([id number]) MCV (RBC) 93 (NEG) 11-11-2019 PENDING LOCATI ON [Entitic vol] 01:46-0400 [facility] (10392) Monocytes (Bld) 0.9 10*3/uL (NEG) 0.3 - 0.9 11-11-2019 PEND ING LOCATION [#/Vol] 10*3/uL 01:46-0400 [facility] ([id number]) Monocytes/100 9 % (NEG) 2 - 8 % 11-11-2019 PENDING LOCATION WBC (Bld) 01:46-0400 [facility] (97608) Neutrophils 7.1 10*3/uL (NEG) 1.7 - 7 10*3/uL 11-11-2019 [facility] LOCATION (Bld) [#/Vol] 01:46-0400 [facility] ([id number]) Neutrophils/100 75 % (NEG) 40 - 60 % 11-11-2019 PENDIN G LOCATION WBC (Bld) 01:46-0400 [facility] ([id number]) Platelet mean 11.2 (H) 11-11-2019 PENDING LOCA TION volume (Bld) 01:46-0400 [facility] ([id number]) [Entitic vol] Platelets (Bld) 217 10*3/uL (NEG) 150 - 450 11-11-2019 PEND ING LOCATION [#/Vol] 10*3/uL 01:46-0400 [facility] (53083) Potassium 5.9 mmol/L (H) 3.7 - 5.2 mmol/L 11-11-2019 PEND ING LOCATION [Moles/Vol] 01: [facility] () Protein 6.6 g/dL (NEG) 6.4 - 8.3 g/dL 11-11-2019 PENDING LOCATION [Mass/Vol] 01: [facility] () RBC (Bld) 3.32 10*6/uL (L) 4.2 - 6.1 11-11-2019 PENDING L OCATION [#/Vol] 10*6/uL 01: [facility] () Sodium 134 mmol/L (L) 135 - 145 mmol/L 11-11-2019 PEND ING LOCATION [Moles/Vol] 01: [facility] () Urea nitrogen 42 mg/dL (H) 7 - 20 mg/dL 11-11-2019 PENDI NG LOCATION [Mass/Vol] 01: [facility] () Urea 14 mg/mg (no code) 6 - 22 mg/mg 11-11-2019 PENDING L OCATION nitrogen/Creatin 01: [facility] () ine [Mass ratio] WBC (Bld) 9.5 10*3/uL (NEG) 3.5 - 10.5 11-11-2019 PENDING L OCATION [#/Vol] 10*3/uL 01: [facility] () not yet categorized on 2019-11-10 no information NAME: (no code) PENDING LOCATIO N [facility] () ~MED REC#: [id number] ~ ~PHYSICIAN: ALBA TSE MD ~Post-Operative Progess Note ~Surgeon (s)/Sow Manager (s) ~Surgeon ~ALBA TSE MD ~Sow Manager: NONE ~ ~Pre-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 ~ ~Post-Operative Diagnosis ~ ~SAME ~ ~Procedure Operative Findings ~Date of Procedure ~11/10/19 ~Procedure Performed/Findin gs ~TURBT AND ATTEMPTED LT URETEROSCOPY ~Anesthesia Type ~GENERAL ~ ~Estimated Blood Loss ~Estimated blood loss (mL): NEGLIGIBLE ~ ~Specimens/Packi ng ~Specimens Removed ~BLADDER TUMOR ~Packing: ~NONE ~ ~ ~ ~ALBA TSE MD Nov 10, 2019 08:02 ~ ~ ~<Created by ALBA TSE MD> ~<Electronically signed by ALBA TSE MD> 11/10/19 0917 ~ ~ no information NAME: (no code) PENDING LOCSUNI Martínez [facility] ([id number]) ~MED REC#: [id number] ~ ~PHYSICIAN: HERB MILLER CRNA ~General ~Patient Condition ~Mental Status/LOC: Same as Preop ~Cardiovascular: Satisfactory ~Nausea/Vomiting : Absent ~Respiratory: Satisfactory ~Pain: Controlled ~Complications: Absent ~ ~Post Op Complications ~Complications ~None ~ ~Follow Up Care/Instruction s ~Patient Instructions ~None needed. ~ ~Anesthesia/Danielle ent Condition ~Patient Condition ~Patient is doing well, no complaints, stable vital signs, no apparent adverse anesthesia problems. ~ ~No complications reported per nursing. ~ ~ ~ ~HERB MILLER CRNA Nov 10, 2019 10:22 ~ ~ ~<Created by HERB MILLER CALENDER INSPECTOR> ~<Electronically signed by HERB MILLER CALENDER INSPECTOR> 11/10/19 1023 ~ ~ laboratory on 2019-11-10 Albumin 3.5 g/dL (NEG) 3.4 - 5.4 g/dL 11-10-2019 PENDING LOCATION [Mass/Vol] 17:30-040 [facility] ([id number]) ALP [Catalytic 68 U/L (NEG) 44 - 147 U/L 11-10-2019 PEND ING LOCATION activity/Vol] 17:30-0400 [facility] ([id number]) ALT [Catalytic 17 U/L (NEG) 4 - 40 U/L 11-10-2019 PENDIN G LOCATION activity/Vol] 17:30-0400 [facility] ([id number]) Anion gap 9 mmol/L (NEG) 3 - 11 mmol/L 11-10-2019 PENDING LOCATION [Moles/Vol] 17:30-040 [facility] (45931) aPTT Coag (PPP) 28 s (NEG) 25 - 35 s 11-10-2019 PENDIN G LOCATION [Time] 17:040 [facility] ([id number]) AST [Catalytic 21 U/L (NEG) 10 - 34 U/L 11-10-2019 PENDI NG LOCATION activity/Vol] 17:30-0400 [facility] ([id number]) Bacteria NG (no code) 11-10-2019 PENDING LOCATI ON identified Cx 17:48-0400 [facility] (28088) Nom (Bld) Bacteria NG (no code) 11-10-2019 PENDING LOCATI ON identified Cx 18:00-0400 [facility] ([id number]) Nom (U) Bacteria LM Ql MODERATE (A) 11-10-2019 PENDING LOC ATION (Urine sed) 18:00-0400 [facility] ([id number]) Basophils (Bld) 0.1 10*3/uL (NEG) 0 - 0.3 10*3/uL 11-10-2019 PENDING LOCATION [#/Vol] 17:30-0400 [facility] ([id number]) Basophils/100 1 % (NEG) 0.5 - 1 % 11-10-2019 PENDING LOCATION WBC (Bld) 17:30-0400 [facility] ([id number]) Bilirubin 0.3 mg/dL (NEG) 0.1 - 1.2 mg/dL 11-10-2019 PENDIN G LOCATION [Mass/Vol] 17:30-0400 [facility] (07460) Bilirubin Ql (U) Negative (no code) 11-10-2019 PENDING L OCATION 18:00-0400 [facility] (53535) Calcium 9.0 mg/dL (NEG) 8.5 - 10.2 mg/dL 11-10-2019 PENDI NG LOCATION [Mass/Vol] 17:30-0400 [facility] (15650) Calcium 9.4 mg/dL (NEG) 8.5 - 10.2 mg/dL 11-10-2019 PENDI NG LOCATION [Mass/Vol] 17:30-0400 [facility] (85318) Casts LM Ql NONE (no code) 11-10-2019 PENDING LOCATI ON (Urine sed) 18:00-0400 [facility] (59498) Chloride 104 mmol/L (NEG) 95 - 106 mmol/L 11-10-2019 PENDI NG LOCATION [Moles/Vol] 17:30-0400 [facility] (85177) Clarity (U) TURBID (no code) 11-10-2019 PENDING LOCATI ON 18:00-0400 [facility] (85412) CO2 [Moles/Vol] 17 mmol/L (L) 23 - 29 mmol/L 04-24-2020 P ENDING LOCATION 17:30-0400 [facility] ([id number]) Color (U) BROWN (A) 11-10-2019 PENDING LOCATI ON 18:00-0400 [facility] (69410) Creatinine 3.17 mg/dL (H) 11-10-2019 PENDING LOCATI ON [Mass/Vol] 17:30-0400 [facility] (05800) Creatinine and 19 (no code) 11-10-2019 PENDING LOC ATION Glomerular 17:30-0400 [facility] ([id number]) filtration rate.predicted panel - Serum, Plasma or Blood CRP [Mass/Vol] 6.17 (H) 11-10-2019 PENDING LOC ATION 17:30-0400 [facility] (51504) Crystals LM Ql NONE (no code) 11-10-2019 PENDING LOC ATION (Urine sed) 18:00-0400 [facility] (76027) Eosinophils 0.3 10*3/uL (NEG) 0.05 - 0.5 11-10-2019 PENDING LOCATION (Bld) [#/Vol] 10*3/uL 17:30-0400 [facility] (77049) Eosinophils/100 3 % (NEG) 1 - 4 % 11-10-2019 PENDIN G LOCATION WBC (Bld) 17:30-0400 [facility] ([id number]) Epithelial NONE (no code) 11-10-2019 PENDING LOCATI ON cells.squamous 18:00-0400 [facility] (82121) LM Ql (Urine sed) Erythrocyte 13.2 % (NEG) 11.6 - 14.6 % 11-10-2019 PENDIN G LOCATION distribution 17:30-0400 [facility] (89637) width (RBC) [Ratio] Glucose 106 mg/dL (H) 60 - 125 mg/dL 11-10-2019 PENDING LOCATION [Mass/Vol] 17:30-0400 [facility] (50006) Glucose Auto Negative (no code) 11-10-2019 PENDING LOCAT ION test strip Ql 18:00-0400 [facility] (13397) (U) Hematocrit (Bld) 32 % (L) 36.1 - 50.3 % 11-10-2019 P ENDING LOCATION [Volume 17:30-0400 [facility] (95205) fraction] Hemoglobin (Bld) 10.5 g/dL (L) 12.1 - 17.2 g/dL 11-10-2019 PENDING LOCATION [Mass/Vol] 17:30-0400 [facility] (14533) INR Coag 1.1 (NEG) 11-10-2019 PENDING LOCATI ON (Platelet poor 17:30-0400 [facility] (16001) plasma or blood) [Relative time] Ketones Auto Negative (no code) 11-10-2019 PENDING LOCAT ION test strip Ql 18:00-0400 [facility] (72868) (U) Lactate 1.29 mmol/L (NEG) 0.5 - 2.2 mmol/L 11-10-2019 [facility] LOCATION [Moles/Vol] 17:30-0400 [facility] (56903) Leukocyte 1+ (A) 11-10-2019 PENDING LOCATI ON esterase Test 18:00-0400 [facility] (95135) strip Ql (U) Lymphocytes 0.9 10*3/uL (L) 0.9 - 2.9 11-10-2019 PENDING LOCATION (Bld) [#/Vol] 10*3/uL 17:30-0400 [facility] (19009) Lymphocytes/100 9 % (L) 20 - 40 % 11-10-2019 PENDIN G LOCATION WBC (Bld) 17:30-0400 [facility] (32985) MCH (RBC) 31 pg (NEG) 27 - 31 pg 11-10-2019 PENDING LOC ATION [Entitic mass] 17:30-0400 [facility] (73692) MCHC (RBC) 33 g/dL (NEG) 32 - 36 g/dL 11-10-2019 PENDING LOCATION [Mass/Vol] 17:30-0400 [facility] (66431) MCV (RBC) 92 (NEG) 11-10-2019 PENDING LOCATI ON [Entitic vol] 17:30-0400 [facility] (29606) Monocytes (Bld) 1.1 10*3/uL (H) 0.3 - 0.9 11-10-2019 PEND ING LOCATION [#/Vol] 10*3/uL 17:30-0400 [facility] (98150) Monocytes/100 10 % (NEG) 2 - 8 % 11-10-2019 PENDING LOCATION WBC (Bld) 17:30-0400 [facility] (33237) MRSA isol Org Negative (no code) 04-24-2020 PENDING LOCA TION specific cx Ql 05:22-0400 [facility] (68776) (Unsp spec) Mucus Ql (Urine SMALL (A) 11-10-2019 PENDING LO CATION sed) 18:00-0400 [facility] (09923) Neutrophils 8.0 10*3/uL (H) 1.7 - 7 10*3/uL 11-10-2019 [facility] LOCATION (Bld) [#/Vol] 17:30-0400 [facility] (67662) Neutrophils/100 77 % (H) 40 - 60 % 11-10-2019 PENDIN G LOCATION WBC (Bld) 17:30-0400 [facility] (61886) Nitrite Ql (U) Negative (no code) 11-10-2019 PENDING LOC ATION 18:00-0400 [facility] ([id number]) pH (U) 6.0 [pH] (no code) 4.6 - 8 [pH] 11-10-2019 PENDING L OCATION 18:00-0400 [facility] (64745) Platelet mean 11.3 (H) 11-10-2019 PENDING LOCA TION volume (Bld) 17:30-0400 [facility] (27429) [Entitic vol] Platelets (Bld) 257 10*3/uL (NEG) 150 - 450 11-10-2019 PEND ING LOCATION [#/Vol] 10*3/uL 17:30-0400 [facility] (78284) Potassium 6.7 mmol/L (NEG) 3.7 - 5.2 mmol/L 11-10-2019 PEND ING LOCATION [Moles/Vol] 17:30-0400 [facility] ([id number]) Protein 6.9 g/dL (NEG) 6.4 - 8.3 g/dL 11-10-2019 PENDING LOCATION [Mass/Vol] 17:30-0400 [facility] (07879) Protein Ql (U) 3+ (A) 11-10-2019 PENDING LOC ATION 18:00-0400 [facility] ([id number]) PT Coag (PPP) 14.5 s (NEG) 9.4 - 12.5 s 11-10-2019 PENDI NG LOCATION [Time] 17:30-0400 [facility] ([id number]) RBC (Bld) 3.44 10*6/uL (L) 4.2 - 6.1 11-10-2019 PENDING L OCATION [#/Vol] 10*6/uL 17:30-0400 [facility] (19151) RBC LM.[facility] (A) 11-10-2019 PENDING LOCATI ON (Urine sed) 18:00-0400 [facility] (20514) [#/Area] RBC Ql (U) 3+ (A) 11-10-2019 PENDING LOCATI ON 18:00-0400 [facility] (68348) Sodium 130 mmol/L (L) 135 - 145 mmol/L 11-10-2019 PEND ING LOCATION [Moles/Vol] 17:30-0400 [facility] (63073) Specific gravity 1.025 (A) 11-10-2019 PENDING L OCATION (U) [Rel 18:00-0400 [facility] (49401) density] Urea nitrogen 46 mg/dL (H) 7 - 20 mg/dL 11-10-2019 PENDI NG LOCATION [Mass/Vol] 17:30-0400 [facility] (05327) Urea 15 mg/mg (no code) 6 - 22 mg/mg 11-10-2019 PENDING L OCATION nitrogen/Creatin 17:30-0400 [facility] (76859) ine [Mass ratio] Urobilinogen (U) 0.2 mg/dL (no code) 11-10-2019 PENDING L OCATION [Mass/Vol] 18:00-0400 [facility] (84903) WBC (Bld) 10.4 10*3/uL (NEG) 3.5 - 10.5 11-10-2019 PENDING LOCATION [#/Vol] 10*3/uL 17:30-0400 [facility] (09083) WBC LM.[facility] (A) 11-10-2019 PENDING LOCATI ON (Urine sed) 18:00-0400 [facility] (28305) [#/Area] not yet categorized on 2019-11-06 no information NAME: (no code) PENDING LOCATIO N [facility] ([id number]) ~MED REC#: [id number] ~ ~PHYSICIAN: ALBA TSE MD ~Post-Operative Progess Note ~Surgeon (s)/Sow Manager (s) ~Surgeon ~ALBA TSE MD ~Sow Manager: NONE ~ ~Pre-Operative Diagnosis ~STRICTURE, BLADDER TUMOR, RT URETERAL OBSTRUCTION, POSS LT RETERAL STONE ~ ~Post-Operative Diagnosis ~ ~SAME ~ ~Procedure Operative Findings ~Date of Procedure ~11/06/19 ~Procedure Performed/Findin gs ~F F DILATATION OF URETHRAL STRICTURE, CYSTOSCOPY, AND ATTEMPTED TURBT ~Anesthesia Type ~GENERAL ~ ~Estimated Blood Loss ~Estimated blood loss (mL): NONE ~ ~Specimens/Packi ng ~Specimens Removed ~NONE ~Packing: ~NONE ~ ~ ~ ~ALBA TSE MD Nov 06, 2019 08:35 ~ ~ ~<Created by ALBA TSE MD> ~<Electronically signed by ALBA TSE MD> 11/06/19 0943 ~ ~ no information NAME: (no code) PENDING LOCATIURSZULA [facility] () ~MED REC#: [id number] ~ ~PHYSICIAN: MIYA SNELL CRNA ~General ~Patient Condition ~Mental Status/LOC: Same as Preop ~Cardiovascular: Satisfactory ~Nausea/Vomiting : Absent ~Respiratory: Satisfactory ~Pain: Controlled ~Complications: Absent ~ ~Post Op Complications ~Complications ~None ~ ~Follow Up Care/Instruction s ~Patient Instructions ~None needed. ~ ~Anesthesia/Danielle ent Condition ~Patient Condition ~Patient is doing well, no complaints, stable vital signs, no apparent adverse anesthesia problems. ~ ~No complications reported per nursing. ~D/C home per [facility] Criteria: Yes ~ ~ ~ ~MIYA SNELL CRNA Nov 06, 2019 11:50 ~ ~ ~<Created by MIYA SNELL CRNA> ~<Electronically signed by MIYA SNELL CRNA> 11/06/19 1151 ~ ~ laboratory on 2019-11-06 MRSA isol Org Negative (no code) 11-06-2019 PENDING LOCA TION specific cx Ql 04:10-0400 [facility] ([id number]) (Unsp spec) laboratory on 2019-10-30 Albumin 4.0 g/dL (NEG) 3.4 - 5.4 g/dL 10-30-2019 PENDING LOCATION [Mass/Vol] 13:52-0400 [facility] (44049) ALP [Catalytic 64 U/L (NEG) 44 - 147 U/L 10-30-2019 PEND ING LOCATION activity/Vol] 13:52-0400 [facility] ([id number]) ALT [Catalytic 14 U/L (NEG) 4 - 40 U/L 10-30-2019 PENDIN G LOCATION activity/Vol] 13:52-0400 [facility] (94241) Anion gap 10 mmol/L (NEG) 3 - 11 mmol/L 10-30-2019 PENDING LOCATION [Moles/Vol] 13:52-0400 [facility] ([id number]) AST [Catalytic 20 U/L (NEG) 10 - 34 U/L 04 PENDI NG LOCATION activity/Vol] 13:52-0400 [facility] ([id number]) Bacteria LM Ql Negative (no code) 10-30-2019 PENDING LOC ATION (Urine sed) 13:040 [facility] (07551) Band form 3 % (no code) 0 - 3 % 10-30-2019 PENDING LOCA TION neutrophils/100 13:52-0400 [facility] (64987) WBC (Bld) Basophils (Bld) 0.0 10*3/uL (NEG) 0 - 0.3 10*3/uL 10-30-2019 PENDING LOCATION [#/Vol] 13:52-0400 [facility] (62904) Basophils/100 0 % (NEG) 0.5 - 1 % 10-30-2019 PENDING LOCATION WBC (Bld) 13:52-0400 [facility] (01530) Basophils/100 1 % (no code) 0.5 - 1 % 10-30-2019 PENDING LOCATION WBC (Bld) 13:520400 [facility] (75414) Bilirubin 0.5 mg/dL (NEG) 0.1 - 1.2 mg/dL 10-30-2019 PENDIN G LOCATION [Mass/Vol] 13:52-0400 [facility] (15380) Bilirubin Ql (U) Negative (no code) 10-30-2019 PENDING L OCATION 13:330400 [facility] (88951) Calcium 9.4 mg/dL (NEG) 8.5 - 10.2 mg/dL 10-30-2019 PENDI NG LOCATION [Mass/Vol] 13:520400 [facility] (85671) Casts LM Ql NONE (no code) 10-30-2019 PENDING LOCATI ON (Urine sed) 13:33-0400 [facility] (29696) Chloride 105 mmol/L (NEG) 95 - 106 mmol/L 10-30-2019 PENDI NG LOCATION [Moles/Vol] 13:52-0400 [facility] (85121) Clarity (U) CLEAR (no code) 10-30-2019 PENDING LOCATI ON 13:33-0400 [facility] (24286) CO2 [Moles/Vol] 20 mmol/L (L) 23 - 29 mmol/L 10-30-2019 P ENDING LOCATION 13:52-0400 [facility] (78755) Color (U) YELLOW (no code) 10-30-2019 PENDING LOCATI ON 13:33-0400 [facility] (47945) Creatinine 1.85 mg/dL (H) 10-30-2019 PENDING LOCATI ON [Mass/Vol] 13:52-0400 [facility] (40491) Creatinine and 35 (no code) 10-30-2019 PENDING LOC ATION Glomerular 13:52-0400 [facility] (87695) filtration rate.predicted panel - Serum, Plasma or Blood CRP [Mass/Vol] 1.49 (H) 10-30-2019 PENDING LOC ATION 13:52-0400 [facility] (59398) Crystals LM Ql NONE (no code) 10-30-2019 PENDING LOC ATION (Urine sed) 13:33-0400 [facility] (24825) Eosinophils 0.0 10*3/uL (NEG) 0.05 - 0.5 10-30-2019 PENDING LOCATION (Bld) [#/Vol] 10*3/uL 13:52-0400 [facility] (99007) Eosinophils/100 0 % (NEG) 1 - 4 % 10-30-2019 PENDIN G LOCATION WBC (Bld) 13:52-0400 [facility] (11577) Eosinophils/100 0 % (no code) 10-30-2019 PENDING LO CATION WBC (Nose) 13:52-0400 [facility] (05518) Epithelial NONE (no code) 10-30-2019 PENDING LOCATI ON cells.squamous 13:33-0400 [facility] (29117) LM Ql (Urine sed) Erythrocyte 13.0 % (NEG) 11.6 - 14.6 % 10-30-2019 PENDIN G LOCATION distribution 13:52-0400 [facility] (32299) width (RBC) [Ratio] Glucose 139 mg/dL (H) 60 - 125 mg/dL 10-30-2019 PENDING LOCATION [Mass/Vol] 13:52-0400 [facility] (11449) Glucose Auto Negative (no code) 10-30-2019 PENDING LOCAT ION test strip Ql 13:33-0400 [facility] (17269) (U) Hematocrit (Bld) 37 % (L) 36.1 - 50.3 % 10-30-2019 P ENDING LOCATION [Volume 13:52-0400 [facility] (29126) fraction] Hemoglobin (Bld) 12.7 g/dL (L) 12.1 - 17.2 g/dL 10-30-2019 PENDING LOCATION [Mass/Vol] 13:52-0400 [facility] (03037) Ketones Auto Negative (no code) 10-30-2019 PENDING LOCAT ION test strip Ql 13:33-0400 [facility] (63422) (U) Leukocyte Negative (no code) 10-30-2019 PENDING LOCATI ON esterase Test 13:33-0400 [facility] (96374) strip Ql (U) Lymphocytes 0.8 10*3/uL (L) 0.9 - 2.9 10-30-2019 PENDING LOCATION (Bld) [#/Vol] 10*3/uL 13:52-0400 [facility] (03864) Lymphocytes/100 6 % (L) 20 - 40 % 10-30-2019 PENDIN G LOCATION WBC (Bld) 13:52-0400 [facility] (76776) Lymphocytes/100 2 % (no code) 20 - 40 % 10-30-2019 [facility] LOCATION WBC (Bld) 13:52-0400 [facility] (48201) MCH (RBC) 31 pg (NEG) 27 - 31 pg 10-30-2019 PENDING LOC ATION [Entitic mass] 13:52-0400 [facility] (96187) MCHC (RBC) 34 g/dL (NEG) 32 - 36 g/dL 10-30-2019 PENDING LOCATION [Mass/Vol] 13:52-0400 [facility] (01955) MCV (RBC) 90 (NEG) 10-30-2019 PENDING LOCATI ON [Entitic vol] 13:52-0400 [facility] (33325) Monocytes (Bld) 0.9 10*3/uL (NEG) 0.3 - 0.9 10-30-2019 PEND ING LOCATION [#/Vol] 10*3/uL 13:52-0400 [facility] (45854) Monocytes/100 7 % (NEG) 2 - 8 % 10-30-2019 PENDING LOCATION WBC (Bld) 13:52-0400 [facility] (90245) Monocytes/100 4 % (no code) 2 - 8 % 10-30-2019 PENDING LOCATION WBC (Bld) 13:52-0400 [facility] (53153) Mucus Ql (Urine Negative (no code) 10-30-2019 PENDING LO CATION sed) 13:33-0400 [facility] (59652) Neutrophils 11.7 10*3/uL (H) 1.7 - 7 10*3/uL 10-30-2019 P ENDING LOCATION (Bld) [#/Vol] 13:52-0400 [facility] (24702) Neutrophils/100 87 % (H) 40 - 60 % 10-30-2019 PENDIN G LOCATION WBC (Bld) 13:52-0400 [facility] (49227) Nitrite Ql (U) Negative (no code) 10-30-2019 PENDING LOC ATION 13:33-0400 [facility] (85106) pH (U) 5.5 [pH] (no code) 4.6 - 8 [pH] 10-30-2019 PENDING L OCATION 13:33-0400 [facility] (42639) Platelet mean 12.0 (H) 10-30-2019 PENDING LOCA TION volume (Bld) 13:52-0400 [facility] ([id number]) [Entitic vol] Platelets (Bld) 219 10*3/uL (NEG) 150 - 450 10-30-2019 PEND ING LOCATION [#/Vol] 10*3/uL 13:52-0400 [facility] (97279) Potassium 4.9 mmol/L (NEG) 3.7 - 5.2 mmol/L 10-30-2019 PEND ING LOCATION [Moles/Vol] 13:52-0400 [facility] (88525) Protein 7.3 g/dL (NEG) 6.4 - 8.3 g/dL 10-30-2019 PENDING LOCATION [Mass/Vol] 13:52-0400 [facility] ([id number]) Protein Ql (U) Negative (no code) 10-30-2019 PENDING LOC ATION 13:33-0400 [facility] ([id number]) RBC (Bld) 4.13 10*6/uL (L) 4.2 - 6.1 10-30-2019 PENDING L OCATION [#/Vol] 10*6/uL 13:52-0400 [facility] ([id number]) RBC LM.HPF no information (no code) 10-30-2019 PENDING LOC ATION (Urine sed) 13:33-0400 [facility] ([id number]) [#/Area] RBC morphology NORMAL (no code) 10-30-2019 PENDING LOC ATION finding Nom 13:52-0400 [facility] ([id number]) (Bld) RBC Ql (U) TRACE-I (no code) 10-30-2019 PENDING LOCATI ON 13:33-0400 [facility] ([id number]) Segmented 90 % (no code) 35 - 80 % 10-30-2019 PENDING LOCA TION neutrophils/100 13:52-0400 [facility] ([id number]) WBC (Bld) Sodium 135 mmol/L (NEG) 135 - 145 mmol/L 10-30-2019 PEND ING LOCATION [Moles/Vol] 13:52-0400 [facility] ([id number]) Specific gravity 1.020 (no code) 10-30-2019 PENDING L OCATION (U) [Rel 13:33-0400 [facility] ([id number]) density] Urea nitrogen 29 mg/dL (H) 7 - 20 mg/dL 10-30-2019 PENDI NG LOCATION [Mass/Vol] 13:52-0400 [facility] ([id number]) Urea 16 mg/mg (no code) 6 - 22 mg/mg 10-30-2019 PENDING L OCATION nitrogen/Creatin 13:52-0400 [facility] ([id number]) ine [Mass ratio] Urinalysis NO (no code) 10-30-2019 PENDING LOCATI ON complete W 13:33-0400 [facility] ([id number]) Reflex Culture panel - Urine Urobilinogen (U) 0.2 mg/dL (no code) 10-30-2019 PENDING L OCATION [Mass/Vol] 13:33-0400 [facility] ([id number]) WBC (Bld) 13.5 10*3/uL (H) 3.5 - 10.5 04-13-2020 PENDING LOCATION [#/Vol] 10*3/uL 13:52-0400 [facility] ([id number]) WBC LM.HPF no information (no code) 10-30-2019 PENDING LOC ATION (Urine sed) 13:33-0400 [facility] ([id number]) [#/Area] Vital Signs The data below is from [...] cm 08/14/2015 11:34am Height (Calculated Centimeters) 167. 953405 cm 09/06/2015 10:20am Weight (Pounds) 160 pounds 09/06/2015 10:20am Weight (Calculated Grams) 46253.000 gm 08/15/2015 6:18am Weight (Calculated Kilograms) 72.574 780 kilograms 09/06/2015 10:20am Weight (Kilograms) 74.5 kg 08/15/2015 6:18am Calculated BMI 25.82 10:20am Vital Response Date/Time Temperature (Fahrenheit) 97.4 degree s F (97.6 - 99.5) 10/20/2015 8:56am Temperature (Calculated Celsius) 36. 06535 degrees C (36.4 - 37.5) 10/20/2015 8:56am [...] inches 10/20/2015 8:56am Height (Calculated Centimeters) 167. 291770 cm 10/20/2015 8:56am Weight (Pounds) 154 pounds 10/20/2015 8:56am Weight (Ounces) 0.0 oz 0 10/03/2015 1:21pm Weight (Calculated Grams) 54907.188 gm 10/03/2015 1:21pm Weight (Calculated Kilograms) 69.853 226 kilograms 10/20/2015 8:56am Calculated BMI 25.66 1:21pm Vital Response Date/Time Temperature (Fahrenheit) 97.9 degree s F (97.6 - 99.5) 10/21/2015 7:15pm Temperature (Calculated Celsius) 36. 87600 degrees C (36.4 - 37.5) 10/21/2015 7:15pm [...] inches 10/21/2015 7:15pm Height (Calculated Centimeters) 167. 125969 cm 10/21/2015 7:15pm Weight (Pounds) 152 pounds 10/21/2015 7:15pm Weight (Ounces) 0.0 oz 0 10/03/2015 1:21pm Weight (Calculated Grams) 74950.188 gm 10/03/2015 1:21pm Weight (Calculated Kilograms) 68.946 041 kilograms 10/21/2015 7:15pm Calculated BMI 25.66 1:21pm Vital Response Date/Time Temperature (Fahrenheit) 98.7 degree s F (97.6 - 99.5) 10/31/2015 4:14pm Temperature (Calculated Celsius) 37. 65945 degrees C (36.4 - 37.5) 10/31/2015 2:50pm [...] 158 pounds 10/30/2015 10:00pm Weight (Calculated Grams) 09294.595 gm 10/30/2015 10:00pm Weight (Calculated Kilograms) 71.667 595 kilograms 10/30/2015 10:00pm Vital Response Date/Time Temperature (Fahrenheit) 96.8 degree s F (97.6 - 99.5) 10/10/2015 2:00pm Temperature (Calculated Celsius) 36. 81040 degrees C (36.4 - 37.5) 10/10/2015 2:00pm [...] inches 10/03/2015 1:21pm Height (Calculated Centimeters) 167. 939281 cm 10/03/2015 1:21pm Weight (Pounds) 159 pounds 10/03/2015 1:21pm Weight (Ounces) 0.0 oz 0 10/03/2015 1:21pm Weight (Calculated Grams) 42656.188 gm 10/03/2015 1:21pm Weight (Calculated Kilograms) 72.121 [...] 167.6 cm 08/14/2015 11:34am Weight (Calculated Grams) 92768.000 gm 08/15/2015 6:18am Weight (Kilograms) 74.5 kg 08/15/2015 6:18am Calculated BMI 25.56 11:34am Vital Response Date/Time Temperature (Fahrenheit) 96.6 degree s F (97.6 - 99.5) 01/30/2016 8:00am Temperature (Calculated Celsius) 35. 28037 degrees C (36.4 - 37.5) 01/30/2016 8:00am [...] inches 01/29/2016 8:45am Height (Calculated Centimeters) 167. 139005 cm 01/29/2016 8:45am Weight (Pounds) 169 pounds 01/30/2016 6:36am Weight (Ounces) 6.0 oz 0 01/30/2016 6:36am Weight (Calculated Grams) 78777.208 gm 01/30/2016 6:36am Weight (Calculated Kilograms) 76.827 208 kilograms 01/30/2016 6:36am Calculated BMI 25.5 01/16 8:45am Vital Response Date/Time Temperature (Fahrenheit) 98.7 degree s F (97.6 - 99.5) 10/31/2015 4:14pm Temperature (Calculated Celsius) 37. 24574 degrees C (36.4 - 37.5) 10/31/2015 2:50pm [...] inches 10/22/2015 5:50pm Height (Calculated Centimeters) 167. 859928 cm 10/22/2015 5:50pm Weight (Pounds) 158 pounds 10/30/2015 10:00pm Weight (Ounces) 0.0 oz 0 10/22/2015 6:00pm Weight (Calculated Grams) 68040.595 gm 10/30/2015 10:00pm Weight (Calculated Kilograms) 71.667 595 kilograms 10/30/2015 10:00pm Calculated BMI 25.5 11/2015 5:50pm Vital Response Date/Time Temperature (Fahrenheit) 96.9 degree s F (97.6 - 99.5) 05/13/2017 8:02am Temperature (Calculated Celsius) 36. 90782 degrees C (36.4 - 37.5) 05/13/2017 8:02am [...] inches 05/13/2017 8:04am Height (Calculated Centimeters) 167. 027810 cm 05/13/2017 8:04am Weight (Pounds) 152 pounds 05/13/2017 8:04am Weight (Ounces) 0.0 oz 1 8:04am Weight (Calculated Grams) 40068.04 gm 05/13/2017 8:04am Weight (Calculated Kilograms) 68.946 041 kilograms 05/13/2017 8:04am Calculated BMI 24.5 04/19 8:04am Vital Response Date/Time Temperature (Fahrenheit) 96.9 degree s F (97.6 - 99.5) 05/13/2017 8:02am Temperature (Calculated Celsius) 36. 82333 degrees C (36.4 - 37.5) 05/13/2017 8:02am [...] inches 05/13/2017 8:04am Height (Calculated Centimeters) 167. 502503 cm 05/13/2017 8:04am Weight (Pounds) 152 pounds 05/13/2017 8:04am Weight (Ounces) 0.0 oz 1 8:04am Weight (Calculated Grams) 00368.04 gm 05/13/2017 8:04am Weight (Calculated Kilograms) 68.946 041 kilograms 05/13/2017 8:04am Calculated BMI 24.5 04/19 8:04am Interventions No Information Plan of Treatment The data below is from unstructured sources Discharge Date 09/06/15 11:42am Disposition 01 HOME, SELF-CARE Condition at Discharge Improved Instructions/Education Provided Acut e Urinary Retention in Women (ED) Prescriptions See Medication Section Referrals MARCUS LILLY MD - Prima Care Physician MARCUS LILLY MD - Primary [...] Men (ED) How to Care for Your Amador Catheter (ED) Prescriptions See Medication Section Referrals MARCUS LILLY MD [facility] Physician Additional Instructions/Education Fo llow-up with Dr. [...] Instructions/Education Provided How to Care for Your Amador Catheter (ED) Prescriptions See Medication Section Referrals MARCUS LILLY MD [facility] Physician Additional Instructions/Education Al l discharge instructions reviewed with patient and/or family. Voiced understanding. CONTINUE USUAL HOME MEDICATIONS AND ORDERS. FOLLOW-UP WITH DR. TSE PREVIOUSLY SCHEDULED. RETURN TO THE EMERGENCY DEPARTMENT FOR WORSENED PAIN, ABDOMINAL SWELLING, FEVER, LEAKING OF CATHETER, OR ANY OTHER CONCERNS. Prescriptions See Medication Section Discharge Date 10/10/15 3:55pm Disposition IP-[facility] TO CODE Instructions/Education Provided Acut e Hematuria [...] Diagnosis Care Provi clementine Organization Date Type 11-17-2019 Emergency department no information JEFFERY MARX [facility] - patient visit (no phone) [facility] 11-17-2019 (no phone) 11-12-2019 Emergency department no information KI GARDUNO (no [facility] - patient visit phone) [facility] 11-12-2019 (no phone) 11-10-2019 Emergency department no information MARCELLE DOMINGO MD [facility] patient visit (no phone) [facility] (no phone) 10-30-2019 Emergency department no information MARCELLE DOMINGO MD [facility] - patient visit (no phone) [facility] 10-30-2019 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 METAL WINDOW SCREEN ASSEMBLER (no phone) GRIS L YANCI METAL WINDOW SCREEN ASSEMBLER (no phone) GRIS L [facility] METAL WINDOW SCREEN ASSEMBLER (no phone) 11-10-2019 Evaluation and no information CHANELLE KEYES MD (no [facility] - management of phone) [facility] 11-12-2019 inpatient (no phone) 03-28-2018 Patient encounter no information no name no or ganization name 05-13-2017 Patient encounter no information no name no or ganization name - 05-13-2017 12-28-2016 Patient encounter no information no name no or ganization name 12-24-2016 Patient encounter no information no name no or ganization name 01-29-2016 Patient encounter no information no name no or ganization name - 01-30-2016 11-20-2015 Patient encounter no information no name no or ganization name - 11-20-2015 08-14-2015 Patient encounter no information no name no or ganization name - 08-15-2015 09-26-2014 Patient encounter no information no name no or ganization name 09-19-2014 Patient encounter no information no name no or ganization name 01-20-2013 Patient encounter no information no name no or ganization name - 01-21-2013 12-13-2019 Patient encounter no information SEKOU AL MD (no [facility] procedure phone) [facility] (no phone) 12-12-2019 Patient encounter no information SEKOU AL MD (no [facility] procedure phone) [facility] (no phone) 12-06-2019 Patient encounter no information JEANNETTE GUTIERRES DO (no [facility] - procedure phone) [facility] 12-06-2019 (no phone) 12-05-2019 Patient encounter no information SEKOU AL MD (no [facility] procedure phone) [facility] (no phone) 12-01-2019 Patient encounter no information JEANNETTE GUTIERRES DO (no [facility] - procedure phone) [facility] 12-01-2019 (no phone) 11-30-2019 Patient encounter no information SEKOU AL MD (no [facility] procedure phone) [facility] (no phone) 11-30-2019 Patient encounter no information JEANNETTE GUTIERRES DO (no [facility] procedure phone) [facility] (no phone) 11-29-2019 Patient encounter no information SEKOU AL MD (no [facility] procedure phone) [facility] (no phone) 11-28-2019 Patient encounter no information SEKOU AL MD (no [facility] procedure phone) [facility] (no phone) 11-27-2019 Patient encounter no information SEKOU AL MD (no [facility] procedure phone) [facility] (no phone) 11-23-2019 Patient encounter no information GENEVIEVE SAPP ( no [facility] - procedure phone) [place] (no phon e) 11-23-2019 11-22-2019 Patient encounter no information SEKOU AL MD (no [facility] procedure phone) [facility] (no phone) 11-21-2019 Patient encounter no information ALBA TSE MD ( no [facility] procedure phone) [facility] (no phone) 11-17-2019 Patient encounter no information JEFFERY VILLALPANDO NN [facility] procedure MD (no phone) [facility] (no phone) 11-12-2019 Patient encounter no information KI COX APRN (no [facility] procedure phone) [facility] (no phone) 11-10-2019 Patient encounter no information CHANELLE KEYES MD (no [facility] - procedure phone) [facility] 11-12-2019 (no phone) 11-10-2019 Patient encounter no information ALBA TSE MD ( no [facility] - procedure phone) [facility] 11-10-2019 (no phone) 11-08-2019 Patient encounter no information ALBA TSE MD ( no [facility] - procedure phone) [facility] 11-09-2019 (no phone) 11-06-2019 Patient encounter no information ALBA TSE MD ( no [facility] - procedure phone) [facility] 11-06-2019 (no phone) 11-01-2019 Patient encounter no information ALBA TSE MD ( no [facility] - procedure phone) [facility] 11-01-2019 (no phone) 10-30-2019 Patient encounter no information GRIS JENSEN (n o [facility] procedure phone) [facility] (no phone) 09-13-2019 Patient encounter no information ANTONIETA Nicholson [facility] procedure STARR MARROQUIN (no [facility] phone) (no phone) 09-21-2018 Patient encounter no information no name no or ganization name procedure 09-21-2018 Patient encounter no information JEFF PRICE MD (no [facility] procedure phone) [facility] (no phone) 03-28-2018 Patient encounter no information ISABELLE TUCKER RN [facility] procedure (no phone) [facility] (no phone) 05-13-2017 Patient encounter no information JESSIE COLEMAN [facility] - procedure MD (no phone) [facility] 05-13-2017 (no phone) 12-28-2016 Patient encounter no information JEFF PRICE MD (no [facility] procedure phone) [facility] (no phone) 10-20-2015 Patient encounter no information no name no or ganization name procedure 08-31-2012 Patient encounter no information no name no or ganization name procedure 08-19-2012 Patient encounter no information no name no or ganization name procedure 11-14-2019 no information Encounter for other no name no organization name preprocedural examination 11-02-2019 no information Encounter for other no name (no phone) preprocedural examination no information Encounter for no name (no phone) preprocedural laboratory examination Medical Equipment No Information Payers The data below is from unstructured sources Payer Name Policy Number Subscriber Name Relationship [employer] [id number] Urszula Hsu Self / Same As Patient s Medicare [id number] Urszula Mazariegos Self / Same As Patient Urinalysis complete W Reflex Culture panel (U) 2019-11-10 Note Type Note Facility Urinalysis CULTURE PENDING (L) culture already in progress PENDING complete W LOCATION Reflex [facility] Culture (72455) panel (U) Clinical Note Note Type Note Facility Note NAME: [facility] ~MED REC#: [id number] ~ ~PHYSICIAN: PENDING ALBA TSE MD ~Pre-Operative Progress Note ~H P Re viewed ~The H P was LOCATION reviewed, patient examined and no stein es noted. ~Date Seen by Provider: Nov 052019 ~Time Seen by Provider: 08:33 ~Date H P Reviewed : Nov 06, 2019 ~Time H P (21413) Reviewed: 08:33 ~Pre-Operative Diagnosi s: STRICTURE, BLADDER TUMOR, RT URETERAL OBSTRUCTION, LT RETERAL STONE ~ ~ ~ ~ALBA PALM MD Nov 06, 2019 08:35 ~ ~ ~<Created by ALBA TSE MD> ~<Electr onically signed by ALBA TSE MD> 11/06/19 0835 ~ ~ Clinical Note Note Type Note Facility Note NAME: [facility]ZUL[facility] MAZARIEGOS [facility] REC#: [id number] ~ ~PHYSICIAN: PENDING ALBA TSE MD ~Pre-Operative Progress Note ~H P Re viewed ~The H P was LOCATION reviewed, patient examined and no stein es noted. 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 LABS IMPROVING. S CT FINDINGS SHARED WITH PATIENT AND DAUGHTER. NO~STON ES. OBSERVE RT KIDNEY ([id number]) FINDINGS. PLAN RECHECK BMP IN AM AND DC AMADOR AND PLAN DISCHARGE ~ACCORDINGLY ~Final Diagnosis ~CA BLADDER, UTI, RT R ENAL OBSTRUCTION, AND RENAL FAILURE ~ ~ ~ ~ALBA TSE MD Nov 11, 2019 10:56 ~ ~ ~<Created by ALBA TSE MD> ~<Electronically signed by ALBA Caldwell MD> 11/11/19 1056 ~ ~ Clinical Note Note Type Note Facility Note NAME: [facility] MA[facility]IE[facility] REC#: [id number] ~ ~PHYSICIAN: PENDING ALBA TSE MD ~Progress Note-Urology ~Progress Not es/Assess Plan LOCATION ~Progress/Assessment Plan ~CONTINUES WE LL. KIDNEY FUNCTIONS BETTER. URINE CLEAR [facility] . VOIDED ONCE WITHOUT PROBLEM. OK TO DISCHARGE ~WITH SAME POSTOP PLANS ~Final (98501) Diagnosis ~CA BLADDER ~ ~ ~ ~SABRINA TSE MD Nov 12, 2019 10:52 ~ ~ ~<Created by ALBA TSE MD> ~<Electronically s igned by ALBA TSE MD> 11/12/19 1052 ~ ~ Clinical Note Note Type Note Facility Note NAME: URSZULA MAZARIEGOS [facility] REC#: [id number] ~ ~PHYSICIAN: PENDING JEANNETTE GUTIERRES DO ~Pre-Operative Progress Note ~H P R eviewed ~The H P was LOCATION reviewed, patient examined and no stein es noted. ~Date Seen by Provider: December 052019 ~Time Seen by Provider: 07:58 ~Date H P Reviewed : December 06, 2019 ~Time H P ([id number]) Reviewed: 07:58 ~Pre-Operative Diagnosi s: bladder cancer ~ ~ ~ ~JEANNETTE GUTIERRES DO December 06, 2019 07:58 ~ ~ ~<Created by JEANNETTE GUTIERRES DO> ~<Electronically signed by JEANNETTE GUTIERRES DO> 12/06/19 0 759 ~ ~ Advance Directives Directive Response Recor ded Date/Time Advance Directives No 10:23am Health Care Power of Edging Machine Setter No 09/06/15 10:23am Organ Donor Yes 09/06/15 10:23am Resuscitation Status Full Code 09/06/15 10:23am Directive Response Recor ded Date/Time Advance Directives No 9:00am Health Care Power of Edging Machine Setter Y DAUG HTER DORON 10/20/15 9:00am Organ Donor Yes 10/20/15 9:00am Resuscitation Status Full Code 10/20/15 9:00am Directive Response Recor ded Date/Time Advance Directives No 7:15pm Health Care Power of Edging Machine Setter Y DAUG HTER DORON 10/21/15 7:15pm Organ Donor Yes 10/21/15 7:15pm Resuscitation Status Full Code 10/21/15 7:15pm Directive Response Recor ded Date/Time Advance Directives No 5:01pm Health Care Power of Edging Machine Setter Y DAUG HTER DORON 10/22/15 5:01pm Organ Donor Yes 10/22/15 5:01pm Directive Response Recor ded Date/Time Advance Directives No 1:10pm Health Care Power of Edging Machine Setter Y DAUG HTER DORON 10/03/15 1:10pm Organ Donor Yes 10/03/15 1:10pm Resuscitation Status Full Code 10/03/15 1:10pm Directive Response Recor ded Date/Time Advance Directives No 11:28am Health Care Power of Edging Machine Setter No 08/14/15 11:28am Organ Donor Yes 08/14/15 11:28am Resuscitation Status Full Code 08/14/15 11:28am Directive Response Recor ded Date/Time Advance Directives No 8:45am Health Care Power of Edging Machine Setter Y DAUG HTER DORON 01/29/16 8:45am Organ Donor Yes 01/29/16 8:45am Resuscitation Status Full Code 01/29/16 8:45am Directive Response Recor ded Date/Time Advance Directives No 5:01pm Health Care Power of Edging Machine Setter Y DAUG HTER DORON 10/22/15 5:01pm Organ Donor Yes 10/22/15 5:01pm Resuscitation Status Full Code 10/22/15 5:01pm Directive Response Recor ded Date Advance Directives N 9:04am Health Care Power of Edging Machine Setter N 08/13/08 4:51pm Organ Donor Y 08/31/12 9 :04am Directive Response Recor ded Date/Time Advance Directives No 8:01am Health Care Power of Edging Machine Setter Sepideh HARMON 05/13/17 8:01am Organ Donor Yes 05/13/17 8:01am [...] This clinical document has been generated using [employer] software that has been certified by the Office of the National Coordinator for Health Information Technology (ONC 15.99.04.3023.Diam.31.00.0.905020) and the National Committee for Professor Of Radiology (NCQA, as an eMeasure certified technology). FOR [...] BASED ON T HE PRIMARY CLINICAL RECORDS. [employer] provides no warranty or guara ntee of the accuracy or completeness of information in this document.The followi ng information is based on time limited clinical information
--- OUTSIDE RECORDS SUMMARY | 2019-12-17 07:25 | XMS REPORT | Encounter Summary ---
Author Author [facility] Organization [facility] Address Unknown Phone Unavailable Care Team Providers Care Sand Mill Grinder Name Role Phone Jabari Peguero MD PCP Bin Olmos MD Unavailable Enzo Cohn MD Unavailable Louie Hernandez MD Unavailable Azael Lehman MD Unavailable Reason for Visit * Reason Comments Navigation Assessment Encounter Details Care Team Description Date Type Department Sherman Ramirez MD [address] [place] [address] [phone] Navigation Assessment 12/14/2019 Telephone [facility] [address] [place] [phone] Social History Date Tobacco Use Types Packs/Day Years Used Quit: 07/19/1996 Former Smoker Sex Assigned at Date Recorded Not on file Industry Job Start Date Occupation Not on file Not on file Not on file Travel End Travel History Travel Start No recent travel history available. documented as of this encounter Functional Status Date of Assessment Functional Status Response 10/11/2015 Does the patient have a hearing impairment: Yes documented as of this encounter Plan of Treatment Not on filedocumented as of this encounter Visit Diagnoses Not on filedocumented in this encounter
--- OUTSIDE RECORDS SUMMARY | 2019-12-17 07:25 | XMS REPORT | Clinical Summary ---
Author Author [facility] Organization [facility] Address Unknown Phone Unavailable Care Team Providers Care Live Hanger Name Role Phone Jabari Peguero MD PCP Bin Olmos MD Unavailable Enzo Cohn MD Unavailable Louie Hernandez MD Unavailable Azael Lehman MD Unavailable Source Comments Some departments are not documenting in the electronic medical record. If you d o not see the information that you expected, contact Release of Information in [facility] [employer] Information Management department at [phone] for further assistan ce in locating additional records.[facility] Allergies Comments Active Allergy Reactions Severity [...] 20 mg capsule mouth daily. Active omega 7-csd-vbe-fish oil Take 1 Cap by 0 300-1,000 mg mouth daily. capsuleIndications: Noon Indications: Noon Active vitamins, multiple tablet Take 1 Tab by 0 mouth daily. Active cholecalciferol (VITAMIN Take 1,000 0 D-3) 1,000 units tablet Units by mouth daily. Active nitroglycerin Take 1 [place] 0 (NITROLINGUAL) 400 by mouth mcg/spray translingual [...] Problems Problem Noted Date Hemorrhagic cystitis 10/10/2015 Encounters Care Team Description Date Type Specialty Sherman Ramirez MD Navigation Assessment 12/14/2019 Telephone Oncology from Last 3 Months Social History Date Tobacco Use Types Packs/Day [...] [employer] xxxxxxxxxx 2001-P PPO/ELECT/ resent MGD CHOICE -[id number] Advance Directives Patient Certified Cytotechnologist Explanation Type Date Recorded Advance 10/10/2015 3:46 PM Directive/DPOA Date Inactivated Comments Code Status Date Activated 10/13/2015 4:54 PM Full Code 10/10/2015 7:31 PM Provider has discussed Code Status Yes w/Patient or Family?
--- OUTSIDE RECORDS SUMMARY | 2019-12-17 07:26 | XMS REPORT | Continuity of Care Document ---
Demographics Preferred Language Unknown Marital Status Unknown Oriental Orthodox Affiliation Unknown Race Unknown Ethnic Group Unknown Author Organization Unknown Address Unknown Phone Unavailable Allergies Active Description Code Type Severity Reaction Onset Reported/Identified Relationship to Patient Clinical Status Yes BETA ROBERTO [id number] CLASS N/A N/A Yes Beta Blockers Beta Blockers Mild Intolerance 06/23/2011 Yes Beta Blockers Beta Blockers Mild SYNCOPE 11/01/2019 Yes Beta-Blockers (Beta-Adrenergic Bloc [id number] Drug Allergy Unknown SYNCOPE 12/06/2019 Medications There is no data. Problems Date [...] Ot I25. 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 2 OTHER SECONDARY PULMONARY HYPERTENSION 08/15/2015 JEFF ROMEO MD Ot I47. 1 SUPRAVENTRICULAR TACHYCARDIA 08/15/2015 JEFF ROMEO MD Ot R07. 9 CHEST PAIN, UNSPECIFIED 08/15/2015 JEFF ROMEO MD Ot Z79.899 OTHER SENIOR JAVA PROGRAMMER (CURRENT) DRUG THERAPY 08/15/2015 JEFF ROMEO MD [...] 414.00 08/26/2015 Ot 427.89 09/06/2015 KI COX VP PRODUCT Ot F17.211 NICOTINE DEPENDENCE, CIGARETTES, IN [place] 09/06/2015 KI COX VP PRODUCT Ot R33 .9 RETENTION OF URINE, UNSPECIFIED 09/06/2015 KI COX VP PRODUCT Ot Z85.46 PERSONAL HISTORY OF MALIGNANT NEOPLASM [...] Ot I25.1 19 ATHSCL HEART DISEASE OF [place] COR ART W 10/10/2015 ALBA TSE MD, [...] A Ot N30.4 1 10/23/2015 CARMENCITA ROJAS, LABA A Ot Z79.0 2 10/23/2015 CARMENCITA ROJAS, [...] ROJAS, ALBA A Ot Z79.8 2 10/31/2015 CARMENCIAT ROJAS, ALBA A Ot Z85.4 6 10/31/2015 CARMENCITA ROJAS, ALBA A Ot D62 ACUTE POSTHEMORRHAGIC ANEMIA 10/31/2015 CARMENCITA ROJAS, ALBA A Ot I96 GANGRENE, NOT ELSEWHERE CLASSIFIED 10/31/2015 ALBA TSE MD Ot 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 2 OTHER SECONDARY PULMONARY HYPERTENSION 01/30/2016 JEFF ROMEO MD Ot I48. 0 PAROXYSMAL ATRIAL FIBRILLATION 01/30/2016 JEFF ROMEO MD Ot R31. 9 HEMATURIA, UNSPECIFIED 01/30/2016 JEFF ROMEO MD Ot Z79.899 OTHER JAIL (CURRENT) DRUG THERAPY 01/30/2016 JEFF ROMEO MD [...] Ot I25. 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 2 OTHER SECONDARY PULMONARY HYPERTENSION 02/25/2016 JEFF ROMEO MD Ot I48. 0 PAROXYSMAL ATRIAL FIBRILLATION 02/25/2016 JEFF ROMEO MD Ot R31. 9 HEMATURIA, UNSPECIFIED 02/25/2016 JEFF ROMEO MD, Ot Z79.899 OTHER JAIL (CURRENT) DRUG THERAPY 02/25/2016 JEFF ROMEO MD [...] HISTORY OF MALIGNANT NEOPLASM O 04/18/2016 DWAYNE PASOTR Ot T83.018A BREAKDOWN (MECHANICAL) OF INDWELLING URE [...] Ot I25. 10 ATHSCL HEART DISEASE OF [place] CORONARY 12/25/2016 JEFF ROMEO MD Ot I48. 0 PAROXYSMAL ATRIAL FIBRILLATION 12/25/2016 JEFF ROMEO MD Ot E78. 2 MIXED HYPERLIPIDEMIA 12/25/2016 JEFF ROMEO MD Ot I08. 1 RHEUMATIC DISORDERS OF BOTH MITRAL AND T 12/25/2016 JEFF ROMEO MD Ot I10 ESSENTIAL (PRIMARY) HYPERTENSION 12/25/2016 JEFF ROMEO MD Ot I25. 10 ATHSCL HEART DISEASE OF [place] CORONARY 12/25/2016 JEFF ROMEO MD Ot I48. [...] Ot I25. 10 ATHSCL HEART DISEASE OF [place] CORONARY 12/28/2016 JEFF ROMEO MD Ot I48. 0 PAROXYSMAL ATRIAL FIBRILLATION 01/14/2017 JEFF ROMEO MD Ot E78. 2 MIXED HYPERLIPIDEMIA 01/14/2017 JEFF ROMEO MD Ot I08. 1 RHEUMATIC DISORDERS OF BOTH MITRAL AND T 01/14/2017 JEFF ROMEO MD Ot I10 ESSENTIAL (PRIMARY) HYPERTENSION 01/14/2017 JEFF ROMEO MD Ot I25. 10 ATHSCL HEART DISEASE OF [place] CORONARY 01/14/2017 JEFF ROMEO MD Ot I48. [...] Ot I25. 10 ATHSCL HEART DISEASE OF [place] CORONARY 01/20/2017 JEFF ROMEO MD Ot I48. 0 PAROXYSMAL ATRIAL FIBRILLATION 01/21/2017 JEFF ROMEO MD Ot E78. 2 MIXED HYPERLIPIDEMIA 01/21/2017 JEFF ROMEO MD Ot I10 ESSENTIAL (PRIMARY) HYPERTENSION 01/21/2017 JEFF ROMEO MD Ot I25. 10 ATHSCL HEART DISEASE OF [place] CORONARY 01/21/2017 JEFF ROMEO MD Ot I48. [...] Ot I25. 10 ATHSCL HEART DISEASE OF [place] CORONARY 02/25/2017 JEFF ROMEO MD Ot I48. 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 10 ATHSCL HEART DISEASE OF [place] CORONARY 03/28/2018 JEFF ROMEO MD Ot I48. 0 PAROXYSMAL ATRIAL FIBRILLATION 03/28/2018 JEFF ROMEO MD Ot E78. 2 MIXED HYPERLIPIDEMIA 03/28/2018 JEFF ROMEO MD Ot I08. 1 RHEUMATIC DISORDERS OF BOTH MITRAL AND T 03/28/2018 JEFF ROMEO MD Ot I10 ESSENTIAL (PRIMARY) HYPERTENSION 03/28/2018 JEFF ROMEO MD Ot I25. 10 ATHSCL HEART DISEASE OF [place] CORONARY 03/28/2018 AGUEDA ROJAS, JEFF Soares Ot I48. 0 PAROXYSMAL ATRIAL FIBRILLATION 03/28/2018 JEFF ROMEO MD Ot E78. 2 MIXED HYPERLIPIDEMIA 03/28/2018 AGUEDA ROJAS, JEFF Soares Ot I10 ESSENTIAL (PRIMARY) HYPERTENSION 03/28/2018 JEFF ROMEO MD Ot I25. 10 ATHSCL HEART DISEASE OF [place] CORONARY 03/28/2018 JEFF ROMEO MD Ot I48. 0 PAROXYSMAL ATRIAL FIBRILLATION 04/26/2018 ISABELLE ROCA VP PRODUCT Ot R 05 COUGH 09/22/2018 JEFF ROMEO MD Ot E78. 2 MIXED HYPERLIPIDEMIA 09/22/2018 JEFF ROMEO MD Ot I10 ESSENTIAL (PRIMARY) HYPERTENSION 09/22/2018 JEFF ROMEO MD Ot I25. 10 ATHSCL HEART DISEASE OF [place] CORONARY 09/22/2018 JEFF ROMEO MD Ot I48. 91 UNSPECIFIED ATRIAL FIBRILLATION 10/12/2018 JEFF ROMEO MD Ot E78. 2 MIXED HYPERLIPIDEMIA 10/12/2018 JEFF ROMEO MD Ot I10 ESSENTIAL (PRIMARY) HYPERTENSION 10/12/2018 JEFF ROMEO MD Ot I25. 10 ATHSCL HEART DISEASE OF [place] CORONARY 10/12/2018 JEFF ROMEO MD Ot I48. 91 UNSPECIFIED ATRIAL FIBRILLATION 09/15/2019 ANTONIETA DENG Ot E78.2 MIXED HYPERLIPIDEMIA 09/15/2019 ANTONIETA DENG Ot I10 ESSENTIAL (PRIMARY) HYPERTENSION 09/15/2019 ANTONIETA DENG Ot I25.10 ATHSCL HEART DISEASE OF [place] CORONARY 09/15/2019 ANTONIETA DENG Ot I34.0 NONRHEUMATIC MITRAL (VALVE) INSUFFICIENC 09/15/2019 ANTONIETA DENG Ot I48.91 UNSPECIFIED ATRIAL FIBRILLATION 09/15/2019 ANTONIETA DENG Ot I65.29 OCCLUSION AND STENOSIS OF UNSPECIFIED CA 10/03/2019 ANTONIETA DENG Ot E78.2 MIXED HYPERLIPIDEMIA 10/03/2019 ANTONIETA DENG Ot I10 ESSENTIAL (PRIMARY) HYPERTENSION 10/03/2019 [facility] LOPEZ, ANTONIETA K Ot I25.10 ATHSCL HEART DISEASE OF [place] CORONARY 10/03/2019 [facility] PA, ANTONIETA K Ot I34.0 NONRHEUMATIC MITRAL (VALVE) INSUFFICIENC 10/03/2019 [facility] PA, ANTONIETA K Ot I48.91 UNSPECIFIED ATRIAL FIBRILLATION 10/03/2019 [facility] PA, ANTONIETA K Ot I65.29 OCCLUSION AND STENOSIS OF UNSPECIFIED CA 10/10/2019 [facility] PA, ANTONIETA K Ot E78.2 MIXED HYPERLIPIDEMIA 10/10/2019 [facility] PA, ANTONIETA K Ot I10 ESSENTIAL (PRIMARY) HYPERTENSION 10/10/2019 [facility], ANTONIETA K Ot I25.10 ATHSCL HEART DISEASE OF [place] CORONARY 10/10/2019 [facility], ANTONIETA K Ot I34.0 NONRHEUMATIC MITRAL (VALVE) INSUFFICIENC 10/10/2019 [facility], ANTONIETA K Ot I48.91 UNSPECIFIED ATRIAL FIBRILLATION 10/10/2019 [facility] PA, ANTONIETA K Ot I65.29 OCCLUSION AND STENOSIS OF UNSPECIFIED CA 10/30/2019 YANCI, GRIS CIG[employer] PACKER AND GRADER Ot I10 ESSENTIAL (PRIMARY) HYPERTENSION 10/30/2019 YANCI, GRIS [employer] PACKER AND GRADER Ot I25.10 ATHSCL HEART DISEASE OF [place] CORONARY 10/30/2019 YANCI [employer] P[employer]ER [employer] GRADER Ot J43.9 EMPHYSEMA, UNSPECIFIED 10/30/2019 YANCI, GRIS [employer] P[employer]ER AND GRADER Ot 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 10/30/2019 YANCI, GRIS [employer] P[employer]ER AND GRADER Ot M54.5 LOW BACK PAIN 10/30/2019 YANCI, GRIS [employer] P[employer]ER AND GRADER Ot N13.30 UNSPECIFIED HYDRONEPHROSIS 10/30/2019 YANCI [employer] P[employer]ER AND GRADER Ot N32.9 BLADDER DISORDER, UNSPECIFIED 10/30/2019 YANCI [employer] GRADER Ot Z79.82 SENIOR JAVA PROGRAMMER (CURRENT) USE OF ASPIRIN 10/30/2019 YANCI [employer]IS [employer] P[employer]ER AND GRADER Ot Z79.899 OTHER SENIOR JAVA PROGRAMMER (CURRENT) DRUG THERAPY 10/30/2019 YANCI GRIS [employer] PACKER AND GRADER Ot Z85.46 PERSONAL HISTORY OF MALIGNANT NEOPLASM O 10/30/2019 YANCI [employer] P[employer]ER AND GRADER Ot Z87.891 PERSONAL HISTORY OF NICOTINE DEPENDENCE 10/30/2019 YANCI, GRIS [employer] P[employer]ER AND GRADER Ot Z92.3 PERSONAL HISTORY OF IRRADIATION 10/30/2019 YANCI, GRIS [employer] PACKER AND GRADER Ot Z95.1 PRESENCE OF AORTOCORONARY BYPASS GRAFT 10/30/2019 YANCI, GRIS [employer]IG[employer] PACKER AND GRADER Ot Z95.5 PRESENCE OF CORONARY ANGIOPLASTY IMPLANT 10/31/2019 YANIC, GRIS [employer]IG[employer] PACKER AND GRADER Ot I10 ESSENTIAL (PRIMARY) HYPERTENSION 10/31/2019 YANCI, GRIS CIG[employer] PACKER AND GRADER Ot I25.10 ATHSCL HEART DISEASE OF [place] CORONARY 10/31/2019 YANCI, GRIS [employer]IG[employer] PACKER AND GRADER Ot J43.9 EMPHYSEMA, UNSPECIFIED 10/31/2019 YANCI, GRIS [employer] PACKER AND GRADER Ot 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 10/31/2019 YANCI, GRIS [employer] P[employer]ER AND GRADER Ot M54.5 LOW BACK PAIN 10/31/2019 YANCI, GRIS [employer] P[employer]ER AND GRADER Ot N13.30 UNSPECIFIED HYDRONEPHROSIS 10/31/2019 YANCI, GRIS [employer] PACKER AND GRADER Ot N32.9 BLADDER DISORDER, UNSPECIFIED 10/31/2019 YANCI, GRIS [employer] P[employer]ER AND GRADER Ot Z79.82 JAIL (CURRENT) USE OF ASPIRIN 10/31/2019 YANCI, GRIS [employer] P[employer]ER AND GRADER Ot Z79.899 OTHER SENIOR JAVA PROGRAMMER (CURRENT) DRUG THERAPY 10/31/2019 YANCI, GRIS [employer] PACKER AND GRADER Ot Z85.46 PERSONAL HISTORY OF MALIGNANT NEOPLASM O 10/31/2019 YANCI, GRIS CIG[employer] PACKER AND GRADER Ot Z87.891 PERSONAL HISTORY OF NICOTINE DEPENDENCE 10/31/2019 YANCI, GRIS [employer] PACKER AND GRADER Ot Z92.3 PERSONAL HISTORY OF IRRADIATION 10/31/2019 YANCI, GRIS [employer]IG[employer] PACKER AND GRADER Ot Z95.1 PRESENCE OF AORTOCORONARY BYPASS GRAFT 10/31/2019 YANCI, GRIS CIG[employer] PACKER AND GRADER Ot Z95.5 PRESENCE OF CORONARY ANGIOPLASTY IMPLANT 11/01/2019 ALBA TSE MD Ot Z01.8 18 ENCOUNTER FOR OTHER PREPROCEDURAL EXAMIN 11/02/2019 ALBA TSE MD Ot Z01.8 18 ENCOUNTER FOR OTHER PREPROCEDURAL EXAMIN 11/05/2019 YANCI, GRIS [employer]IG[employer] PACKER AND GRADER Ot I10 ESSENTIAL (PRIMARY) HYPERTENSION 11/05/2019 YANCI, GRIS CIG[employer] PACKER AND GRADER Ot I25.10 ATHSCL HEART DISEASE OF [place] CORONARY 11/05/2019 YANCI, GRIS CIG[employer] PACKER AND GRADER Ot J43.9 EMPHYSEMA, UNSPECIFIED 11/05/2019 YANCI, GRIS [employer]IG[employer] PACKER AND GRADER Ot 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 11/05/2019 YANCI, GRIS CIG[employer] PACKER AND GRADER Ot M54.5 LOW BACK PAIN 11/05/2019 YANCI, GRIS [employer]IG[employer] PACKER AND GRADER Ot N13.30 UNSPECIFIED HYDRONEPHROSIS 11/05/2019 YANCI, GRIS [employer]IG[employer] PACKER AND GRADER Ot N32.9 BLADDER DISORDER, UNSPECIFIED 11/05/2019 YANCI, GRIS [employer] PACKER AND GRADER Ot Z79.82 SENIOR JAVA PROGRAMMER (CURRENT) USE OF ASPIRIN 11/05/2019 YANCI, GRIS [employer] P[employer]ER AND GRADER Ot Z79.899 OTHER JAIL (CURRENT) DRUG THERAPY 11/05/2019 YANCI, GRIS [employer] PACKER AND GRADER Ot Z85.46 PERSONAL HISTORY OF MALIGNANT NEOPLASM O 11/05/2019 YANCI, GRIS [employer] P[employer]ER AND GRADER Ot Z87.891 PERSONAL HISTORY OF NICOTINE DEPENDENCE 11/05/2019 YANCI, GRIS [employer] P[employer]ER AND GRADER Ot Z92.3 PERSONAL HISTORY OF IRRADIATION 11/05/2019 YANCI, GRIS [employer] P[employer]ER AND GRADER Ot Z95.1 PRESENCE OF AORTOCORONARY BYPASS GRAFT 11/05/2019 YANCI, GRIS [employer] P[employer]ER AND GRADER Ot Z95.5 PRESENCE OF CORONARY ANGIOPLASTY IMPLANT 11/06/2019 JEFF ROMEO MD Ot E78. 2 MIXED HYPERLIPIDEMIA 11/06/2019 JEFF ROMEO MD Ot I10 ESSENTIAL (PRIMARY) HYPERTENSION 11/06/2019 JEFF ROMEO MD Ot I25. 10 ATHSCL HEART DISEASE OF [place] CORONARY 11/06/2019 JEFF ROMEO MD Ot I48. 0 PAROXYSMAL ATRIAL FIBRILLATION 11/06/2019 ISABELLE ROCA APRN Ot R 05 COUGH 11/06/2019 JEFF ROMEO MD Ot E78. 2 MIXED HYPERLIPIDEMIA 11/06/2019 JEFF ROMEO MD Ot I10 ESSENTIAL (PRIMARY) HYPERTENSION 11/06/2019 JEFF ROMEO MD Ot I25. 10 ATHSCL HEART DISEASE OF [place] CORONARY 11/06/2019 JEFF ROMEO MD Ot I48. 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, MALE, UN 11/06/2019 ALBA TSE MD, Ot Z79.0 1 SENIOR JAVA PROGRAMMER (CURRENT) USE OF ANTICOAGULANT 11/06/2019 ALBA TSE MD Ot Z79.8 99 OTHER JAIL (CURRENT) DRUG THERAPY 11/06/2019 ALBA TSE MD, [...] Ot I25.1 0 ATHSCL HEART DISEASE OF [place] CORONARY 11/09/2019 ALBA TSE MD, Ot I48.9 1 UNSPECIFIED ATRIAL FIBRILLATION 11/09/2019 ALBA TSE MD Ot N13.5 CROSSING VESSEL AND STRICTURE OF URETER 11/09/2019 ALBA TSE MD, Ot 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 10 ATHSCL HEART DISEASE OF [place] CORONARY 11/12/2019 CHANELLE KEYES MD Ot I48. [...] APRN Ot I25.10 ATHSCL HEART DISEASE OF [place] CORONARY 11/12/2019 KI COX APRN Ot I48.91 [...] Ot I25. 10 ATHSCL HEART DISEASE OF [place] CORONARY 11/12/2019 JEFF ROMEO MD Ot I48. 0 PAROXYSMAL ATRIAL FIBRILLATION 11/12/2019 ISABELLE ROCA APRN Ot R 05 COUGH 11/12/2019 JEFF ROMEO MD Ot E78. 2 MIXED HYPERLIPIDEMIA 11/12/2019 JEFF ROMEO MD Ot I10 ESSENTIAL (PRIMARY) HYPERTENSION 11/12/2019 JEFF ROMEO MD Ot I25. 10 ATHSCL HEART DISEASE OF [place] CORONARY 11/12/2019 JEFF ROMEO MD Ot I48. 91 UNSPECIFIED ATRIAL FIBRILLATION 11/12/2019 OWUSU-ANTONIETA DELGADO Ot E78.2 MIXED HYPERLIPIDEMIA 11/12/2019 OWUSU-CHANELLE MARROQUIN, ANTONIETA Nicholson Ot I10 ESSENTIAL (PRIMARY) HYPERTENSION 11/12/2019 [facility] ANTONIETA MARROQUIN Ot I25.10 ATHSCL HEART DISEASE OF [place] CORONARY 11/12/2019 [facility] ANTONIETA MARROQUIN Ot I34.0 NONRHEUMATIC MITRAL (VALVE) INSUFFICIENC 11/12/2019 OWUSU-ANTONIETA DELGADO Ot I48.91 UNSPECIFIED ATRIAL FIBRILLATION 11/12/2019 [facility] ANTONIETA MARROQUIN Ot I65.29 OCCLUSION AND STENOSIS OF UNSPECIFIED CA 11/14/2019 KI COX APRN Ot I10 ESSENTIAL (PRIMARY) HYPERTENSION 11/14/2019 KI COX APRN Ot I25.10 ATHSCL HEART DISEASE OF [place] CORONARY 11/14/2019 KI COX APRN Ot I48.91 [...] Ot I25.1 0 ATHSCL HEART DISEASE OF [place] CORONARY 11/17/2019 ALBA TSE MD, Ot I48.9 1 UNSPECIFIED ATRIAL FIBRILLATION 11/17/2019 ALBA TSE MD, Ot Z79.0 1 SENIOR JAVA PROGRAMMER (CURRENT) USE OF ANTICOAGULANT 11/17/2019 ALBA TSE MD, Ot Z79.8 99 OTHER SENIOR JAVA PROGRAMMER (CURRENT) DRUG THERAPY 11/17/2019 ALBA TSE MD, Ot Z87.8 91 PERSONAL HISTORY OF NICOTINE DEPENDENCE 11/17/2019 ALBA TSE MD, Ot Z88.8 ALLERGY STATUS TO [facility] DRUG/MEDS/BIOL SUB 11/17/2019 ALBA TSE MD, Ot Z95.1 PRESENCE OF AORTOCORONARY BYPASS GRAFT 11/18/2019 JEFFERY SHELBY MD, Ot I10 ESSENTIAL (PRIMARY) HYPERTENSION 11/18/2019 JEFFERY SHELBY MD Ot I25.10 ATHSCL HEART DISEASE OF [place] CORONARY 11/18/2019 JEFFERY SHELBY MD Ot I48.91 UNSPECIFIED ATRIAL FIBRILLATION 11/18/2019 JEFFERY SHELBY MD Ot N13.9 OBSTRUCTIVE AND REFLUX UROPATHY, UNSPECI 11/18/2019 JEFFERY SHELBY MD Ot R33.9 RETENTION OF URINE, UNSPECIFIED 11/18/2019 JEFFERY SHELBY MD Ot Z77.22 CNTCT W AND EXPSR TO ENVIRON TOBACCO SMO 11/18/2019 JEFFERY SHELBY MD Ot Z82.49 FAMILY HX OF ISCHEM HEART DIS AND OTH DI 11/18/2019 JEFFERY SHELBY MD Ot Z85.46 PERSONAL HISTORY OF MALIGNANT NEOPLASM O 11/18/2019 JEFFERY SHELBY MD, Ot Z88.8 ALLERGY STATUS TO OTH DRUG/MEDS/BIOL SUB 11/18/2019 JEFFERY SHELBY MD Ot Z95.1 PRESENCE OF AORTOCORONARY BYPASS GRAFT 11/18/2019 JEFFERY SHELBY MD Ot Z95.5 PRESENCE OF CORONARY ANGIOPLASTY IMPLANT 11/20/2019 JEFFERY SHELBY MD Ot I10 ESSENTIAL (PRIMARY) HYPERTENSION 11/20/2019 JEFFERY SHELBY MD, Ot I25.10 ATHSCL HEART DISEASE OF [place] CORONARY 11/20/2019 JEFFERY SHELBY MD Ot I48.91 UNSPECIFIED ATRIAL FIBRILLATION 11/20/2019 JEFFERY SHELBY MD, Ot N13.9 OBSTRUCTIVE AND REFLUX UROPATHY, UNSPECI 11/20/2019 JEFFERY SHELBY MD, Ot R33.9 RETENTION OF URINE, UNSPECIFIED 11/20/2019 JEFFERY SHELBY MD, Ot Z77.22 CNTCT W AND EXPSR TO ENVIRON TOBACCO SMO 11/20/2019 JEFFERY SHELBY MD, Ot Z82.49 FAMILY HX OF ISCHEM HEART DIS AND OTH DI 11/20/2019 JEFFERY SHELBY MD, Ot Z85.46 PERSONAL HISTORY OF MALIGNANT NEOPLASM O 11/20/2019 JEFFERY SHELBY MD, Ot Z88.8 ALLERGY STATUS TO OTH DRUG/MEDS/BIOL SUB 11/20/2019 JEFFERY SHELBY MD Ot Z95.1 PRESENCE OF AORTOCORONARY BYPASS GRAFT 11/20/2019 JEFFERY SHELBY MD Ot Z95.5 PRESENCE OF CORONARY ANGIOPLASTY IMPLANT 11/23/2019 ALBA TSE MD Ot C67.9 MALIGNANT NEOPLASM OF BLADDER, UNSPECIFI 11/23/2019 ALBA TSE MD Ot C67.9 MALIGNANT NEOPLASM OF BLADDER, UNSPECIFI 12/01/2019 JEANNETTE GUTIERRES DO Ot C67. 9 MALIGNANT NEOPLASM OF BLADDER, UNSPECIFI 12/01/2019 JEANNETTE GUTIERRES DO Ot Z01.812 ENCOUNTER FOR PREPROCEDURAL LABORATORY E 12/01/2019 JEANNETTE GUTIERRES DO Ot Z11. 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 9 MALIGNANT NEOPLASM OF BLADDER, UNSPECIFI 12/06/2019 JEANNETTE GUTIERRES DO Ot E78. 2 MIXED HYPERLIPIDEMIA 12/06/2019 GUTIERRES DOJEANNETTE Ot G47. 33 OBSTRUCTIVE SLEEP APNEA (ADULT) (PEDIATR 12/06/2019 GUTIERRES DOJEANNETTE Ot I12. 9 HYPERTENSIVE CHRONIC KIDNEY DISEASE W ST 12/06/2019 JEANNETTE GUTIERRES DO Ot I25.119 ATHSCL HEART DISEASE OF [place] COR ART W 12/06/2019 GUTIERRES DOJEANNETTE Ot I47. 1 SUPRAVENTRICULAR TACHYCARDIA 12/06/2019 GUTIERRES DOJEANNETTE Ot I48. 91 UNSPECIFIED ATRIAL FIBRILLATION 12/06/2019 BHAVIK DOJEANNETTE Ot I65. 29 OCCLUSION AND STENOSIS OF UNSPECIFIED CA 12/06/2019 JEANNETTE GUTIERRES DO Ot J44. 9 CHRONIC OBSTRUCTIVE PULMONARY DISEASE, U 12/06/2019 JEANNETTE GUTIERRES DO Ot K21. 9 GASTRO-ESOPHAGEAL REFLUX DISEASE WITHOUT 12/06/2019 JEANNETTE GUTIERRES DO Ot N18. 9 CHRONIC KIDNEY DISEASE, UNSPECIFIED 12/06/2019 GUTIERRES JEANNETTE PAULINO Ot Z79.899 OTHER JAIL (CURRENT) DRUG THERAPY 12/06/2019 JEANNETTE GUTIERRES DO Ot Z80. 9 FAMILY HISTORY OF MALIGNANT NEOPLASM, UN 12/06/2019 GUTIERRES JEANNETTE PAULINO Ot Z83. 3 FAMILY HISTORY OF DIABETES MELLITUS 12/06/2019 GUTIERRES JEANNETTE PAULINO Ot Z85. 46 PERSONAL HISTORY OF MALIGNANT NEOPLASM O 12/06/2019 GUTIERRES JEANNETTE PAULINO Ot Z87.891 PERSONAL HISTORY OF NICOTINE DEPENDENCE 12/06/2019 [facility] 8 [facility]ERGY STATUS TO [facility] DRUG/MEDS/BIOL SUB 12/06/2019 GUTIERRES DOJEANNETTE Ot Z90. 89 ACQUIRED ABSENCE OF OTHER ORGANS 12/06/2019 GUTIERRES DOJEANNETTE Ot Z95. 1 PRESENCE OF AORTOCORONARY BYPASS GRAFT 12/06/2019 GUTIERRES DOJEANNETTE Ot Z99. 89 DEPENDENCE ON OTHER ENABLING MACHINES AN 12/08/2019 JEANNETTE GUTIERRES DO Ot C67. 9 MALIGNANT NEOPLASM OF BLADDER, UNSPECIFI 12/08/2019 GUTIERRES DOJEANNETTE Ot E78. 2 MIXED HYPERLIPIDEMIA 12/08/2019 GUTIERRES JEANNETTE PAULINO Ot G47. 33 OBSTRUCTIVE SLEEP APNEA (ADULT) (PEDIATR 12/08/2019 JEANNETTE GUTIERRES DO Ot I12. 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 1 SUPRAVENTRICULAR TACHYCARDIA 12/08/2019 JEANNETTE GUTIERRES DO Ot I48. 91 UNSPECIFIED ATRIAL FIBRILLATION 12/08/2019 GUTIERRES JEANNETTE PAULINO Ot I65. 29 OCCLUSION AND STENOSIS OF UNSPECIFIED CA 12/08/2019 JEANNETTE GUTIERRES DO Ot J44. 9 CHRONIC OBSTRUCTIVE PULMONARY DISEASE, U 12/08/2019 JEANNETTE GUTIERRES DO Ot K21. 9 GASTRO-ESOPHAGEAL REFLUX DISEASE WITHOUT 12/08/2019 GUTIERRES JEANNETTE PAULINO Ot N18. 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 9 FAMILY HISTORY OF MALIGNANT NEOPLASM, UN 12/08/2019 [facility]. 3 FAMILY HISTORY OF DIABETES MELLITUS 12/08/2019 [facility] Z[facility]. 46 PERSONAL HISTORY OF MALIGNANT NEOPLASM O 12/08/2019 [facility] Z87.891 PERSONAL HISTORY OF NICOTINE DEPENDENCE 12/08/2019 [facility]. 8 ALLERGY STATUS TO OTH DRUG/MEDS/BIOL SUB 12/08/2019 [facility] Z90. 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 1 PRESENCE OF AORTOCORONARY BYPASS GRAFT 12/08/2019 [facility] Z99. 89 DEPENDENCE ON OTHER ENABLING MACHINES AN 12/15/2019 CARMENCITA ROJAS, ALBA Francis Ot C67.9 MALIGNANT NEOPLASM OF BLADDER, UNSPECIFI Procedures Code Description Performed By Per formed On [id number] DE STRUCTION OF BLADDER, ENDO 10/04/2015 [id number] EX TIRPATION OF MATTER FROM BLADDER, ENDO 10/04/2015 [id number] DE STRUCTION OF PROSTATE, ENDO 10/04/2015 [id number] DE STRUCTION OF BLADDER, ENDO 10/27/2015 [id number] EX TIRPATION OF MATTER FROM BLADDER, ENDO [...] culture NO NRG Coronavirus SARS-CoV-2 SO 2018 - 0 13:28 Coronavirus Ab [Units/volume] in Serum Negative Negative Methicillin resistant Staphylococcus aur eus (MRSA) screening culture - 12/06/19 06:44 Methicillin resistant Staphylococcus aureus (MRSA) scr eening culture NEG NRG Bacterial urine culture - 12/12/19 10:47 Bacterial urine culture [id number] NRG COLONY COUNT >100,000/ML NRG SUSCEPTIBILITY SUSCEPTIBILITY REPORTED 1230 NRG Dirithromycin susceptibility test by dis k diffusion - 12/12/19 10:47 Vancomycin susceptibility test by minimum inhibitory c oncentration 2 NRG Levofloxacin susceptibility test by minimum inhibitory concentration <= NRG Ampicillin susceptibility test by minimum inhibitory c oncentration 1 NRG Nitrofurantoin susceptibility test by mi nimum inhibitory concentration <= NRG Linezolid susceptibility test by minimum inhibitory co ncentration <= NRG Daptomycin susc HAIDER 2 NRG Encounters ACCT No. Visit Date/Time Discharge Status Pt. Type Provider Facility Loc./Unit Complaint [id number] 11/23/2019 12:05:38 Document Registration [id number] 12/13/2019 15:55:00 23:59:59 CLS Outpatient SEKOU AL [facility] ONC [id number] 12/06/2019 06:16:00 10:20:00 DIS Outpatient JEANNETTE GUTIERRES DO [facility] SDC BLADDER CANCER [id number] 12/01/2019 08:01:00 16:00:00 DIS Outpatient JEANNETTE GUTIERRES DO [facility] PREOP BLADDER CANCER [id number] 11/21/2019 10:43:00 23:59:59 CLS Outpatient CARMENCITA ROJAS, ALBA Francis [facility] RAD MALIGNANT NEOPLASM OF B LADDER [id number] 11/18/2019 01:02:00 02:30:00 DIS Emergency JEFFERY SHELBY MD [facility] ER CAN'T URINATE [id number] 11/12/2019 17:44:00 18:47:00 DIS Emergency KI COX APRN [facility] ER TOOK CATHETER OUT/UNABL E TO URINATE [id number] 11/11/2019 00:26:00 11:55:00 DIS Inpatient STEPHY ROJAS, CHANELLE Eduardo [facility] 4TH UTI,URINARY RETENTION,B LADDER MASS [id number] 11/10/2019 07:01:00 12:30:00 DIS [facility], POSSIBLE LEFT URETERAL STONE [id number] 11/08/2019 08:14:00 09:22:00 DIS Outpatient ALBA TSE MD [facility] PREOP TURBT, LEFT URETEROSCOP Y [id number] 11/06/2019 07:26:00 12:20:00 DIS Outpatient ALBA TSE MD [facility] SDC BLADDER MASS [id number] 11/01/2019 07:19:00 23:59:59 CLS Outpatient ALBA TSE MD [facility] PREOP BLADDER MASS [id number] 10/30/2019 17:21:00 19:48:00 DIS Emergency GRIS PETE [facility] ER BACK PAIN / FEVER [id number] 09/13/2019 08:50:00 23:59:59 CLS Outpatient JOSSELIN DENG [facility] CARD AFIB,CAD,HT N [id number] 09/21/2018 07:18:00 03/06/2 019 23:59:59 CLS Outpatient JEFF ROMEO MD [facility] CARD CAD,HTN [id number] 08/16/2018 16:25:00 019 23:59:59 CLS Preadmit JEFF ROMEO MD [facility] CAD, AFIB, CAROTID STACY RY STENOSIS, HTN [id number] 03/28/2018 10:17:00 018 23:59:59 CLS Outpatient ISABELLE ROCA APRN [facility] RAD R05 [id number] 05/13/2017 07:49:00 017 10:41:00 DIS Outpatient JOSE DANIEL ROJAS, Alesha FERRARI [facility] ATRIAL FIBRILLATION [id number] 12/28/2016 07:43:00 017 23:59:59 CLS Outpatient JEFF ROMEO MD [facility] CARD I48.0,I25.10,I10 [id number] 12/24/2016 08:39:00 017 23:59:59 CLS Outpatient JEFF ROMEO MD [facility] CARD I48.0,I25.10,I10 [id number] 01/29/2016 07:59:00 016 10:45:00 DIS Outpatient JEFF ROMEO MD [facility] AFIB W/RVR,DYSPNEA,CAD, HTN [id number] 11/20/2015 12:40:00 016 15:00:00 DIS Outpatient LIZET PALACIOS MD [facility] WOUNDCARE [id number] 10/22/2015 16:59:00 016 15:50:00 DIS Inpatient ALBA TSE MD [facility] 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, CA OF PROSTRATE [id number] 10/21/2015 19:03:00 016 20:22:00 DIS Emergency DWAYNE PASTOR [facility] ER CATHETER ISSUES [id number] 10/07/2015 08:55:00 016 15:55:00 DIS Inpatient ALBA TSE MD [facility] 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;UTI [id number] 09/30/2015 08:34:00 016 23:59:59 CLS Outpatient ALBA TSE MD [facility] RAD RT RENAL MASS, LT RENAL STONE [id number] 09/26/2015 08:54:00 016 23:59:59 CLS Outpatient ALBA TSE MD [facility] RAD HEMATURIA [id number] 09/06/2015 08:58:00 016 11:42:00 DIS Emergency KI COX [employer] [facility] ER UNABLE TO URINATE [id number] 08/14/2015 07:22:00 23:59:59 CLS Outpatient JEFF ROMEO MD [facility] CATH HTN,HLP,CHEST PAIN,CAD [id number] 01/20/2013 20:00:00 013 06:25:00 DIS Outpatient JEFF ROMEO MD [facility] SLEEP SHENA [id number] 10/20/2015 08:20:00 Document Registration [id number] 08/14/2015 07:22:00 Document Registration [id number] 09/26/2014 08:20:00 Document Registration [id number] 09/19/2014 08:00:00 Document Registration [id number] 08/31/2012 07:30:00 Document Registration [id number] 08/19/2012 09:49:00 Document Registration [id number] 06/23/2011 10:47:00 Document Registration [id number] 06/22/2011 09:11:00 Document Registration [id number] 07/02/2010 07:34:00 Document Registration
[2019-12-17 07:46] LABS: BASOPHILS % (AUTO) 1 % (0-10); EOSINOPHILS % (AUTO) 0 % (0-10); HEMATOCRIT 29 % (40-54); HEMOGLOBIN 9.5 G/DL (13.3-17.7); LYMPHOCYTES % (AUTO) 15 % (12-44); MEAN CORPUSCULAR HEMOGLOBIN 30 PG (25-34); MEAN CORPUSCULAR HGB CONC 33 G/DL (32-36); MEAN CORPUSCULAR VOLUME 92 FL (80-99); MEAN PLATELET VOLUME 9.9 FL (7.4-10.4); MONOCYTES # (AUTO) 1.2 X 10^3 (0.0-1.0); MONOCYTES % (AUTO) 17 % (0-12); NEUTROPHILS # (AUTO) 4.6 X 10^3 (1.8-7.8); NEUTROPHILS % (AUTO) 66 % (42-75); PLATELET COUNT 329 10^3/uL (130-400); RED CELL DISTRIBUTION WIDTH 13.5 % (10.0-14.5); WHITE BLOOD COUNT 6.9 10^3/uL (4.3-11.0)
[2019-12-17 07:49] LABS: ALBUMIN 3.6 GM/DL (3.2-4.5); POTASSIUM 4.6 MMOL/L (3.6-5.0)
[2019-12-17 07:51] LABS: CALCIUM 9.2 MG/DL (8.5-10.1)
[2019-12-17 07:52] LABS: TOTAL PROTEIN 6.7 GM/DL (6.4-8.2)
[2019-12-17 07:53] LABS: BILIRUBIN,TOTAL 0.2 MG/DL (0.1-1.0)
[2019-12-17 07:55] LABS: CREATININE SERUM 1.51 MG/DL (0.60-1.30)
[2019-12-17 07:58] LABS: MAGNESIUM 2.1 MG/DL (1.6-2.4)
--- NOTE | 2019-12-17 08:17 | ED Cardiac General ---
History of Present Illness General Chief Complaint: Cardiac/General Problems Stated Complaint: PULSE DROPPING Nursing Triage Note: PT PRESENTS TO ED WITH COMPLAINTS IRREGULAR HR X 3 DAYS. PT DENIES CP. PT REPORTS RECENT PORT PLACEMENT FOR TREATMENT OF BLADDER CA. Source: patient Exam Limitations: no limitations History of Present Illness Date Seen by Provider: December 17, 2019 Time Seen by Provider: 07:38 Initial Comments This 84-year-old gentleman presents to the emergency room today because of concerns about heart rate variations. He states his heart rate gets up to the 110 range with activity. He thought that this was too fast. He does have a history of atrial fibrillation. He is in sinus rhythm at present. He had been off Eliquis for a few days to have a port placed in his right chest. He has ta kevin Eliquis for the past 2 days. He does not know how often he is in atrial fibrillation. He reports his loop recorder battery a year ago. He is currently being treated for bladder cancer and anticipates a bladder resection in the near future. Allergies and Home Medications Allergies Coded Allergies: Beta-Blockers (Beta-Adrenergic Bloc (Verified Adverse Reaction, Unknown, SYNCOPE, 12/06/19) Home Medications Diltiazem HCl 120 Mg Tablet, 120 MG PO DAILY, (Reported) Lisinopril 10 Mg Tablet, 10 MG PO DAILY, (Reported) Pantoprazole Sodium 40 Mg Tablet.dr, 40 MG PO DAILY, (Reported) Patient Home Medication List Home Medication List Reviewed: Yes Review of Systems Review of Systems Constitutional: no symptoms reported EENTM: No Symptoms Reported Respiratory: No Symptoms Reported Cardiovascular: See HPI Gastrointestinal: No Symptoms Reported Genitourinary: No Symptoms Reported Musculoskeletal: no symptoms reported Skin: see HPI Psychiatric/Neurological: No Symptoms Reported Endocrine: No Symptoms Reported Hematologic/Lymphatic: No Symptoms Reported Past Fifojkh-Nxlvfr-Nsdttd Hx Past Med/Social Hx: Reviewed Nursing Past Med/Soc Hx Patient Social History Alcohol Use: Regular Use Number of Drinks Today: Alcohol Beverage of Choice: Wine Recreational Drug Use: No Type Used: Cigarettes Former Smoker, Quit: Jul 19, 1996 2nd Hand Smoke Exposure: Yes Recent Foreign Travel: No Contact w/Someone Who Travel: No Recent Infectious Disease Expo: No Recent Hopitalizations: No Physical Abuse: No Sexual Abuse: No Mistreated: No Fear: No Immunizations Up To Date Tetanus Booster (TDap): Unknown Date of Pneumonia Vaccine: Apr 12, 2017 Date of Influenza Vaccine: Apr 24, 2019 Seasonal Allergies Seasonal Allergies: Yes Past Medical History Surgeries: Yes (NASAL, OPEN HEART, CARDIAC STENTS, BRACHY THERAPY-PROSTATE, turp) Bladder Surgery, CABG, Coronary Stent Respiratory: Yes Sleep Apnea, Emphysema Currently Using CPAP: No Currently Using BIPAP: No Cardiac: Yes Atrial Fibrillation, Coronary Artery Disease, Hypertension Neurological: No Reproductive Disorders: No Sexually Transmitted Disease: No HIV/AIDS: No Genitourinary: Yes (bladder ca) Prostate Problems, Bladder Infection, Kidney Stones Gastrointestinal: Yes Gastroesophageal Reflux, Chronic Constipation, Irritable Bowel Musculoskeletal: Yes Chronic Back Pain Endocrine: No HEENT: Yes (GLASSES) Loss of Vision: Denies Hearing Impairment: Hard of Hearing, Bilateral Hearing Aide Cancer: Yes (with radiation [place] 1999) Bladder, Prostate Did You Recieve Any Treatments: Yes What Type of Treatment Did You: Radiation Psychosocial: No Integumentary: No Blood Disorders: No Adverse Reaction/Blood Tranf: No (HAS HAD BLOOD WITH NO REACTION) Family Medical History Reviewed Nursing Family Hx Cardiovascular disease 19 FATHER G8 BROTHER Diabetes mellitus G8 BROTHER Hypertension 19 FATHER G8 BROTHER Neoplasm G8 BROTHER No Pertinent Family Hx Physical Exam Vital Signs Vital Signs - First Documented 12/17/19 12/17/19 07:34 08:45 Pulse 92 Resp 12 B/P (MAP) 141/63 (89) Pulse Ox 100 O2 Delivery Room Air Capillary Refill : Less Than 3 Seconds Height, Weight, BMI Height: 5'6.00" Weight: 166lbs. 0.0oz. 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 Norm as Tested Skin: Warm/Dry, Ecchymosis (right chest op site) Progress/Results/Core Measures Results/Orders Lab Results Laboratory Tests Test 12/17/19 07:30 Range/Units White Blood Count 6.9 4.3-11.0 10^3/uL Red Blood Count 3.12 L 4.35-5.85 10^6/uL Hemoglobin 9.5 L 13.3-17.7 G/DL Hematocrit 29 L 40-54 % Mean Corpuscular Volume 92 80-99 FL Mean Corpuscular Hemoglobin 30 25-34 PG Mean Corpuscular Hemoglobin Concent 33 32-36 G/DL Red Cell Distribution Width 13.5 10.0-14.5 % Platelet Count 329 130-400 10^3/uL Mean Platelet Volume 9.9 7.4-10.4 FL Neutrophils (%) (Auto) 66 42-75 % Lymphocytes (%) (Auto) 15 12-44 % Monocytes (%) (Auto) 17 H 0-12 % Eosinophils (%) (Auto) 0 0-10 % Basophils (%) (Auto) 1 0-10 % Neutrophils # (Auto) 4.6 1.8-7.8 X 10^3 Lymphocytes # (Auto) 1.0 1.0-4.0 X 10^3 Monocytes # (Auto) 1.2 H 0.0-1.0 X 10^3 Eosinophils # (Auto) 0.0 0.0-0.3 10^3/uL Basophils # (Auto) 0.0 0.0-0.1 10^3/uL Neutrophils % (Manual) 51 % Lymphocytes % (Manual) 20 % Monocytes % (Manual) 13 % Eosinophils % (Manual) 0 % Basophils % (Manual) 0 % Metamyelocytes % 3 % Myelocytes % 3 % Band Neutrophils 10 % Blood Morphology Comment NORMAL Sodium Level 135 135-145 MMOL/L Potassium Level 4.6 3.6-5.0 MMOL/L Chloride Level 104 98-107 MMOL/L Carbon Dioxide Level 22 21-32 MMOL/L Anion Gap 9 5-14 MMOL/L Blood Urea Nitrogen 35 H 7-18 MG/DL Creatinine 1.51 H 0.60-1.30 MG/DL Estimat Glomerular Filtration Rate 44 BUN/Creatinine Ratio 23 Glucose Level 96 70-105 MG/DL Calcium Level 9.2 8.5-10.1 MG/DL Corrected Calcium 9.5 8.5-10.1 MG/DL Magnesium Level 2.1 1.6-2.4 MG/DL Total Bilirubin 0.2 0.1-1.0 MG/DL Aspartate Amino Transf (AST/SGOT) 19 5-34 U/L Alanine Aminotransferase (ALT/SGPT) 18 0-55 U/L Alkaline Phosphatase 77 40-136 U/L Total Protein 6.7 6.4-8.2 GM/DL Albumin 3.6 3.2-4.5 GM/DL My Orders Orders - JEFFERY SHELBY MD Cbc With Automated Diff (12/17/19 07:37) Comprehensive Metabolic Panel (12/17/19 07:37) Magnesium (12/17/19 07:37) Ed Iv/Invasive Line Start (12/17/19 07:37) Ekg Tracing (12/17/19 07:37) Monitor-Rhythm Ecg Trace Only (12/17/19 07:37) Manual Differential (12/17/19 07:30) Vital Signs/I&O 12/17/19 12/17/19 07:34 08:45 Pulse 92 76 Resp 12 16 B/P (MAP) 141/63 (89) 132/65 Pulse Ox 100 100 O2 Delivery Room Air Blood Pressure Mean: 89 Progress Progress Note : Progress Note Workup was unremarkable. He remained in sinus rhythm throughout the ER stay. See discharge instructions. Initial ECG Impression Date: December 17, 2019 Initial ECG Impression Time: 07:22 Initial ECG Rate: 89 Initial ECG Rhythm: Normal Sinus Initial ECG Intervals: Normal Initial ECG Impression: Normal Comment Normal sinus rhythm with no ST elevation or depression. MN interval 249 or axis deviation. Departure Impression Primary Impression: History of atrial fibrillation Additional Impression: Bladder cancer Qualified Codes: C67.9 - Malignant neoplasm of bladder, unspecified Disposition: 01 HOME, SELF-CARE Condition: Stable Departure-Patient Inst. Decision time for Depature: 08:11 Referrals: ABEL MARTINEZ MD (PCP/Family) Primary Care Physician Patient Instructions: Atrial Fibrillation Add. Discharge Instructions: Your evaluation with blood work, EKG, and rhythm monitoring was reassuring today. Follow-up with Dr. Price this week. Discuss management of your anticoagulation and atrial fibrillation with him before you commit to bladder resection or other major surgeries. Also discuss rhythm monitoring to evaluate the extensiveness in frequency of your atrial fibrillation. Continue with all of your medications including Eliquis until otherwise instructed by your doctors. You may use the following parameters for your heart rate when trying to decide if you should be seen or contact your doctor: Resting heart rate should be between 50 and 100. Heart rate with activity should be between 60 and 120. If your heart rate is outside of these parameters for a prolonged period of time, contact your doctor or come to the emergency room. If your heart rate is outside of these parameters and you're having symptoms such as unusual shortness of breath, chest pain, etc., please return to the emergency room. All discharge instructions reviewed with patient and/or family. Voiced understanding. Copy Copies To 1: JEFF PRICE MD Copies To 2: ALBA TSE MD, JOSHUA T MD December 17, 2019 08:16
[2019-12-17 08:45] VITALS: BP 132/65
[2019-12-17 09:12] LABS: BAND NEUTROPHILS 10 %; BASOPHILS % (MANUAL) 0 %; EOSINOPHILS % (MANUAL) 0 %; LYMPHOCYTES % (MANUAL) 20 %; METAMYELOCYTES % 3 %; MONOCYTES % (MANUAL) 13 %; NEUTROPHILS % (MANUAL) 51 %
[2019-12-17 09:13] LABS: MYELOCYTES % 3 %; RBC MORPH NORMAL
== END 2019-12-17 08:45 | disposition home or self-care (01) ==
LOC: EDUNIT# 07:18 → ER 07:20
DX: C67.9 Malignant neoplasm of bladder, unspecified (principal); I48.91 Unspecified atrial fibrillation; I10 Essential (primary) hypertension; K21.9 Gastro-esophageal reflux disease without esophagitis; Z79.01 Long term (current) use of anticoagulants; Z88.8 Allergy status to other drugs, medicaments and biological substances; Z85.46 Personal history of malignant neoplasm of prostate; Z87.891 Personal history of nicotine dependence; Z77.22 Contact with and (suspected) exposure to environmental tobacco smoke (acute) (chronic); Z95.5 Presence of coronary angioplasty implant and graft; Z95.1 Presence of aortocoronary bypass graft; Z82.49 Family history of ischemic heart disease and other diseases of the circulatory system
CPT/HCPCS: 36415; 80053; 83735; 85007; 85025; 85027; 93005; 93041

== ENCOUNTER 2020-01-10 15:01 | Emergency (ER) | payer MEDICARE, OTHER ==
[~2020-01-10] VITALS: Ht 167.7 cm; Wt 70.0 kg
--- NOTE | 2020-01-10 15:04 | ED GU-Female ---
General Chief Complaint: - Urinary Stated Complaint: BLADDER WON'T EMPTY Source: patient Exam Limitations: no limitations History of Present Illness Date Seen by Provider: Jan 10, 2020 Time Seen by Provider: 15:03 Initial Comments To ER with reports of urinary retention and need for suprapubic catheter placement. He was at Dr. Tse's office and unable to pass a urethral catheter due to strictures and bladder cancer. Timing/Duration: constant Severity/Quality: moderate Location: suprapubic Radiation: none Activities at Onset: none Prior Genitourinary Problems: none Associated Symptoms: denies symptoms Allergies and Home Medications Allergies Coded Allergies: Beta-Blockers (Beta-Adrenergic Bloc (Verified Adverse Reaction, Unknown, SYNCOPE, 12/06/19) Home Medications Diltiazem HCl 120 Mg Tablet, 120 MG PO DAILY, (Reported) Lisinopril 10 Mg Tablet, 10 MG PO DAILY, (Reported) Pantoprazole Sodium 40 Mg Tablet.dr, 40 MG PO DAILY, (Reported) Patient Home Medication List Home Medication List Reviewed: Yes Review of Systems Review of Systems Constitutional: see HPI EENTM: see HPI Respiratory: no symptoms reported Cardiovascular: no symptoms reported Genitourinary: see HPI Musculoskeletal: no symptoms reported Skin: no symptoms reported Psychiatric/Neurological: No Symptoms Reported Endocrine: No Symptoms Reported Past Zrjlnwc-Urppnf-Muecxq Hx Patient Social History Alcohol Beverage of Choice: Wine Type Used: Cigarettes Former Smoker, Quit: Jul 19, 1996 2nd Hand Smoke Exposure: Yes Recent Foreign Travel: No Contact w/Someone Who Travel: No Recent Hopitalizations: No Immunizations Up To Date Tetanus Booster (TDap): Unknown Date of Pneumonia Vaccine: Apr 12, 2017 Date of Influenza Vaccine: Apr 24, 2019 Seasonal Allergies Seasonal Allergies: Yes Past Medical History Surgeries: Yes (NASAL, OPEN HEART, CARDIAC STENTS, BRACHY THERAPY-PROSTATE, turp) Bladder Surgery, CABG, Coronary Stent Respiratory: Yes Sleep Apnea, Emphysema Currently Using CPAP: No Currently Using BIPAP: No Cardiac: Yes Atrial Fibrillation, Coronary Artery Disease, Hypertension Neurological: No Reproductive Disorders: No Sexually Transmitted Disease: No HIV/AIDS: No Genitourinary: Yes (bladder ca) Prostate Problems, Bladder Infection, Kidney Stones Gastrointestinal: Yes Gastroesophageal Reflux, Chronic Constipation, Irritable Bowel Musculoskeletal: Yes Chronic Back Pain Endocrine: No HEENT: Yes (GLASSES) Loss of Vision: Denies Hearing Impairment: Hard of Hearing, Bilateral Hearing Aide Cancer: Yes (with radiation [place] 1999) Bladder, Prostate Did You Recieve Any Treatments: Yes What Type of Treatment Did You: Radiation Psychosocial: No Integumentary: No Blood Disorders: No Adverse Reaction/Blood Tranf: No (HAS HAD BLOOD WITH NO REACTION) Family Medical History Cardiovascular disease 19 FATHER G8 BROTHER Diabetes mellitus G8 BROTHER Hypertension 19 FATHER G8 BROTHER Neoplasm G8 BROTHER No Pertinent Family Hx Physical Exam Vital Signs Vital Signs - First Documented 01/10/20 15:03 Temp 36.9 Pulse 100 Resp 18 B/P (MAP) 142/64 (90) Pulse Ox 98 O2 Delivery Room Air Capillary Refill : Height, Weight, BMI Height: 5'6.00" Weight: 166lbs. 0.0oz. 75.587531xj; 24.00 BMI Method:Stated General Appearance: WD/WN, no apparent distress Progress/Results/Core Measures Suspected Sepsis SIRS Temperature: Pulse: Respiratory Rate: Laboratory Tests 01/10/20 15:13: White Blood Count 18.9H Blood Pressure / Mean: Laboratory Tests 01/10/20 15:13: Creatinine 1.41H, INR Comment 1.2, Platelet Count 94L Results/Orders Lab Results Laboratory Tests Test 01/10/20 15:13 Range/Units White Blood Count 18.9 H 4.3-11.0 10^3/uL Red Blood Count 2.42 L 4.35-5.85 10^6/uL Hemoglobin 7.5 L 13.3-17.7 G/DL Hematocrit 23 L 40-54 % Mean Corpuscular Volume 93 80-99 FL Mean Corpuscular Hemoglobin 31 25-34 PG Mean Corpuscular Hemoglobin Concent 33 32-36 G/DL Red Cell Distribution Width 15.1 H 10.0-14.5 % Platelet Count 94 L 130-400 10^3/uL Mean Platelet Volume 10.7 H 7.4-10.4 FL Neutrophils (%) (Auto) 84 H 42-75 % Lymphocytes (%) (Auto) 6 L 12-44 % Monocytes (%) (Auto) 9 0-12 % Eosinophils (%) (Auto) 0 0-10 % Basophils (%) (Auto) 0 0-10 % Neutrophils # (Auto) 15.8 H 1.8-7.8 X 10^3 Lymphocytes # (Auto) 1.2 1.0-4.0 X 10^3 Monocytes # (Auto) 1.8 H 0.0-1.0 X 10^3 Eosinophils # (Auto) 0.0 0.0-0.3 10^3/uL Basophils # (Auto) 0.0 0.0-0.1 10^3/uL Neutrophils % (Manual) 73 % Lymphocytes % (Manual) 6 % Monocytes % (Manual) 7 % Metamyelocytes % 3 % Myelocytes % 1 % Band Neutrophils 10 % Anisocytosis SLIGHT Prothrombin Time 15.8 H 12.2-14.7 SEC INR Comment 1.2 0.8-1.4 Sodium Level 131 L 135-145 MMOL/L Potassium Level 4.1 3.6-5.0 MMOL/L Chloride Level 103 98-107 MMOL/L Carbon Dioxide Level 19 L 21-32 MMOL/L Anion Gap 9 5-14 MMOL/L Blood Urea Nitrogen 26 H 7-18 MG/DL Creatinine 1.41 H 0.60-1.30 MG/DL Estimat Glomerular Filtration Rate 48 BUN/Creatinine Ratio 18 Glucose Level 155 H 70-105 MG/DL Calcium Level 8.1 L 8.5-10.1 MG/DL My Orders Orders - KI COX APRN Cbc With Automated Diff (01/10/20 15:02) Basic Metabolic Panel (01/10/20 15:02) Protime With Inr (01/10/20 15:02) Ed Iv/Invasive Line Start (01/10/20 15:02) Fentanyl Injection (Sublimaze Injection (01/10/20 15:15) Lidocaine/Epi 2% 1:100,000 (Xylocaine/Ep (01/10/20 15:15) Manual Differential (01/10/20 15:13) Ceftriaxone For Iv Use (Rocephin For I (01/10/20 16:00) Medications Given in ED Current Medications Medications Dose Ordered Sig/[place] Route Start Time Stop Time Status Last Admin Dose Admin Fentanyl Citrate 50 mcg ONCE ONCE IVP 01/10/20 15:15 01/10/20 15:16 DC 01/10/20 15:18 50 MCG Lidocaine/ Epinephrine 20 ml ONCE ONCE INJ 01/10/20 15:15 01/10/20 15:16 DC 01/10/20 15:20 20 ML Vital Signs/I&O 01/10/20 15:03 Temp 36.9 Pulse 100 Resp 18 B/P (MAP) 142/64 (90) Pulse Ox 98 O2 Delivery Room Air Capillary Refill : Departure Communication (Admissions) Dr. Owens and Dr. Tse were here who placed a suprapubic catheter. This without the bedside under local anesthesia. 1600-discuss the leukocytosis with Dr. Tse. He would like to continue the oral antibiotics (levaquin 500 daily #7) and see the patient in 2 days. Patient has no fevers. Given a dose of Rocephin here. He did receive filgastrim on 12/30/19. He denies feeling ill, states he feels well now that his bladder is draining. Impression Primary Impression: suprapubic catheter placement Additional Impressions: Urinary retention Leukocytosis Disposition: HOME, SELF-CARE Condition: Stable Departure-Patient Inst. Decision time for Depature: 15:48 Referrals: ABEL MARTINEZ MD (PCP/Family) Primary Care Physician Patient Instructions: Urinary Retention (DC) Add. Discharge Instructions: 1. Return to ER for any concerns 2. Follow-up with Dr. Tse this Wednesday as scheduled. Return to ER for any concerns. All discharge instructions reviewed with patient and/or family. Voiced understanding. Copy Copies To 1: SEKOU AL; ALBA TSE MD, PETER J APRN Jan 10, 2020 15:04
[2020-01-10] MEDS ORDERED: fentaNYL INJECTION 100 MCG/2 ML AMP IVP ONE (15:15)
[2020-01-10] MEDS ORDERED: LIDOCAINE/EPI 2% 1:100,00 (XYLOCAINE) 20 ML VIAL INJ ONE (15:15)
--- NOTE | 2020-01-10 15:15 | NUR ---
DR. TSE ET DR. GUTIERRES IN ROOM WITH PT.
[2020-01-10 15:26] LABS: BASOPHILS % (AUTO) 0 % (0-10); EOSINOPHILS % (AUTO) 0 % (0-10); HEMATOCRIT 23 % (40-54); HEMOGLOBIN 7.5 G/DL (13.3-17.7); LYMPHOCYTES # (AUTO) 1.2 X 10^3 (1.0-4.0); LYMPHOCYTES % (AUTO) 6 % (12-44); MEAN CORPUSCULAR HEMOGLOBIN 31 PG (25-34); MEAN CORPUSCULAR HGB CONC 33 G/DL (32-36); MEAN CORPUSCULAR VOLUME 93 FL (80-99); MEAN PLATELET VOLUME 10.7 FL (7.4-10.4); MONOCYTES # (AUTO) 1.8 X 10^3 (0.0-1.0); MONOCYTES % (AUTO) 9 % (0-12); NEUTROPHILS # (AUTO) 15.8 X 10^3 (1.8-7.8); NEUTROPHILS % (AUTO) 84 % (42-75); PLATELET COUNT 94 10^3/uL (130-400); RED CELL DISTRIBUTION WIDTH 15.1 % (10.0-14.5); WHITE BLOOD COUNT 18.9 10^3/uL (4.3-11.0)
[2020-01-10 15:30] LABS: POTASSIUM 4.1 MMOL/L (3.6-5.0)
[2020-01-10 15:31] LABS: CALCIUM 8.1 MG/DL (8.5-10.1)
[2020-01-10 15:35] LABS: CREATININE SERUM 1.41 MG/DL (0.60-1.30)
[2020-01-10 15:41] LABS: INR 1.2 (0.8-1.4); PROTHROMBIN TIME PATIENT 15.8 SEC (12.2-14.7)
[2020-01-10 15:55] LABS: ANISOCYTOSIS SLIGHT; BAND NEUTROPHILS 10 %; LYMPHOCYTES % (MANUAL) 6 %; METAMYELOCYTES % 3 %; MONOCYTES % (MANUAL) 7 %; MYELOCYTES % 1 %; NEUTROPHILS % (MANUAL) 73 %
[2020-01-10] MEDS ORDERED: cefTRIAXone FOR IV USE 1,000 MG in WATER (STERILE) FOR INJECTION 10 ML IV ONE (16:00)
[2020-01-10 16:15] VITALS: BP 123/61
--- NOTE | 2020-01-11 02:17 | OPERATIVE REPORT ---
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 OPERATION PERFORMED: Punch cystostomy tube placement. SURGEON: Maikel Tse MD. ANESTHESIA: Local. COMPLICATIONS: None. DESCRIPTION OF PROCEDURE: With the patient supine on the stretcher in the emergency room, the abdomen and genitalia were prepped and draped in the usual sterile fashion. I went ahead and infiltrated the skin and subcutaneous tissue two fingers above the symphysis pubis in the midline and made a cruciate incision with a knife into the skin, subcutaneous tissue and fascia. Then, using the special ____ cystostomy tube, I inserted the trocar with the catheter then drained the urine. I inserted the stylet into the Moses catheter then off the trocar that was then removed and the catheter was pushed into the bladder. The stylet was removed. The balloon was inflated to 10 mL and the bladder was drained. Urine was clear orange color from Pyridium. The catheter was secured in position with 2-0 silk suture. The patient tolerated the procedure and anesthesia well and was sent home in stable condition. He is to come to my office Scott morning to check repeat his white count. He is to finish the antibiotic prescription he has at home. To call or come to the emergency room with any problem and to drink plenty of liquids to keep his urine clear and to stay off the Eliquis. All the instructions were given to the patient. Job ID: [id number] DocumentID: [id number] Dictated Date: 01/10/2020 19:37:27 Heavy Lift Rigger Date: 01/11/2020 01:55:36 Dictated By: MAIKEL TSE MD
== END 2020-01-10 16:16 | disposition home or self-care (01) ==
LOC: EDUNIT# 15:01 → ER 15:02
DX: Z46.6 Encounter for fitting and adjustment of urinary device (principal); R33.9 Retention of urine, unspecified; D72.829 Elevated white blood cell count, unspecified; I10 Essential (primary) hypertension; I25.10 Atherosclerotic heart disease of native coronary artery without angina pectoris; K21.9 Gastro-esophageal reflux disease without esophagitis; K58.1 Irritable bowel syndrome with constipation; G89.29 Other chronic pain; M54.9 Dorsalgia, unspecified; Z88.8 Allergy status to other drugs, medicaments and biological substances; Z87.891 Personal history of nicotine dependence; Z95.1 Presence of aortocoronary bypass graft; Z95.5 Presence of coronary angioplasty implant and graft; Z77.22 Contact with and (suspected) exposure to environmental tobacco smoke (acute) (chronic); Z85.46 Personal history of malignant neoplasm of prostate; Z85.51 Personal history of malignant neoplasm of bladder; Z82.49 Family history of ischemic heart disease and other diseases of the circulatory system
CPT/HCPCS: 36415; 51702; 80048; 85007; 85027; 85610

== ENCOUNTER → 2020-01-18 | Outpatient (CLI) | payer MEDICARE, OTHER ==
[~2020-01-18] MED LIST changes: +DIATRIZOATE 30% 300 ML (CYSTOGRAFIN) VIAL UR ONE
--- NOTE | 2020-01-18 15:44 | Diagnostic Imaging Report ---
INDICATION: Urethral stricture. EXAMINATION: Patient brought to the fluoroscopy suite and placed on table in the supine position. 25 mL of Cystografin contrast was injected in a retrograde fashion through the urethra during fluoroscopic observation. 29 seconds of fluoroscopic time was utilized. Multiple images were obtained. FINDINGS: Initial image does show a segment of persistent luminal narrowing involving the anterior urethra near the junction of the penile and bulbous urethra. However, contrast did pass into the posterior urethra and into the urinary bladder. A 2nd injection demonstrated contrast in a adrienne-urethral distribution consistent with venous intravasation. IMPRESSION: Findings consistent with anterior urethral stricture. Dictated by: Dictated on workstation # [id number]
== END ==
LOC: RAD 13:38
PROVIDERS: ATTEND Urology
DX: N35.914 Unspecified anterior urethral stricture, male (principal)
CPT/HCPCS: 74450

== ENCOUNTER 2020-02-13 08:08 | Outpatient (RCR) | payer MEDICARE, OTHER ==
[2019-11-22 12:40] LABS: BASOPHILS # (AUTO) 0.1 10^3/uL (0.0-0.1); BASOPHILS % (AUTO) 1 % (0-10); EOSINOPHILS # (AUTO) 0.1 10^3/uL (0.0-0.3); EOSINOPHILS % (AUTO) 1 % (0-10); HEMATOCRIT 34 % (40-54); HEMOGLOBIN 11.3 G/DL (13.3-17.7); LYMPHOCYTES # (AUTO) 1.5 X 10^3 (1.0-4.0); LYMPHOCYTES % (AUTO) 14 % (12-44); MEAN CORPUSCULAR HEMOGLOBIN 30 PG (25-34); MEAN CORPUSCULAR HGB CONC 33 G/DL (32-36); MEAN CORPUSCULAR VOLUME 91 FL (80-99); MEAN PLATELET VOLUME 10.3 FL (7.4-10.4); MONOCYTES % (AUTO) 9 % (0-12); NEUTROPHILS # (AUTO) 8.1 X 10^3 (1.8-7.8); NEUTROPHILS % (AUTO) 75 % (42-75); PLATELET COUNT 393 10^3/uL (130-400); RED CELL DISTRIBUTION WIDTH 13.2 % (10.0-14.5); WHITE BLOOD COUNT 10.8 10^3/uL (4.3-11.0)
[2019-11-22 13:01] LABS: BILIRUBIN,TOTAL 0.3 MG/DL (0.1-1.0); CALCIUM 9.1 MG/DL (8.5-10.1); CREATININE SERUM 1.54 MG/DL (0.60-1.30); POTASSIUM 4.5 MMOL/L (3.6-5.0); TOTAL PROTEIN 7.6 GM/DL (6.4-8.2)
[2019-11-28 13:36] LABS: CALCIUM 8.7 MG/DL (8.5-10.1); CREATININE SERUM 1.6 MG/DL (0.60-1.30); POTASSIUM 4.4 MMOL/L (3.6-5.0)
[2019-12-05 08:24] LABS: BASOPHILS % (AUTO) 0 % (0-10); EOSINOPHILS % (AUTO) 1 % (0-10); HEMATOCRIT 33 % (40-54); HEMOGLOBIN 10.9 G/DL (13.3-17.7); LYMPHOCYTES # (AUTO) 0.5 X 10^3 (1.0-4.0); LYMPHOCYTES % (AUTO) 7 % (12-44); MEAN CORPUSCULAR HEMOGLOBIN 31 PG (25-34); MEAN CORPUSCULAR HGB CONC 33 G/DL (32-36); MEAN CORPUSCULAR VOLUME 92 FL (80-99); MEAN PLATELET VOLUME 11.3 FL (7.4-10.4); MONOCYTES % (AUTO) 0 % (0-12); NEUTROPHILS # (AUTO) 6.8 X 10^3 (1.8-7.8); NEUTROPHILS % (AUTO) 92 % (42-75); PLATELET COUNT 195 10^3/uL (130-400); RED CELL DISTRIBUTION WIDTH 12.8 % (10.0-14.5); WHITE BLOOD COUNT 7.4 10^3/uL (4.3-11.0)
[2019-12-05 08:41] LABS: CALCIUM 9.2 MG/DL (8.5-10.1); CREATININE SERUM 1.35 MG/DL (0.60-1.30); POTASSIUM 5.4 MMOL/L (3.6-5.0)
[2019-12-12 10:49] LABS: BASOPHILS % (AUTO) 3 % (0-10); EOSINOPHILS % (AUTO) 1 % (0-10); HEMATOCRIT 29 % (40-54); HEMOGLOBIN 9.5 G/DL (13.3-17.7); LYMPHOCYTES # (AUTO) 0.7 X 10^3 (1.0-4.0); LYMPHOCYTES % (AUTO) 41 % (12-44); MEAN CORPUSCULAR HEMOGLOBIN 30 PG (25-34); MEAN CORPUSCULAR HGB CONC 33 G/DL (32-36); MEAN CORPUSCULAR VOLUME 91 FL (80-99); MEAN PLATELET VOLUME 10.4 FL (7.4-10.4); MONOCYTES # (AUTO) 0.7 X 10^3 (0.0-1.0); MONOCYTES % (AUTO) 42 % (0-12); NEUTROPHILS # (AUTO) 0.2 X 10^3 (1.8-7.8); NEUTROPHILS % (AUTO) 14 % (42-75); PLATELET COUNT 147 10^3/uL (130-400); RED CELL DISTRIBUTION WIDTH 13.1 % (10.0-14.5); WHITE BLOOD COUNT 1.6 10^3/uL (4.3-11.0)
[2019-12-12 10:57] LABS: CLARITY,URINE CLEAR; COLOR,URINE YELLOW; GLUCOSE, URINE (UA) TRACE (NEGATIVE); KETONES,URINE NEGATIVE (NEGATIVE); LEUKOCYTE ESTERASE ,URINE 1+ (NEGATIVE); NITRITE,URINE POSITIVE (NEGATIVE); PROTEIN,URINE 3+ (NEGATIVE)
[2019-12-12 11:07] LABS: BACTERIA,URINE MODERATE /HPF; BILIRUBIN,URINE 1+ (NEGATIVE); RBC,URINE RARE /HPF; WBC,URINE 50-100 /HPF
[2019-12-12 11:18] LABS: CREATININE SERUM 1.34 MG/DL (0.60-1.30); POTASSIUM 4.7 MMOL/L (3.6-5.0)
[2019-12-19 08:17] LABS: BASOPHILS % (AUTO) 0 % (0-10); EOSINOPHILS % (AUTO) 0 % (0-10); HEMATOCRIT 28 % (40-54); HEMOGLOBIN 9.1 G/DL (13.3-17.7); LYMPHOCYTES # (AUTO) 1.2 X 10^3 (1.0-4.0); LYMPHOCYTES % (AUTO) 13 % (12-44); MEAN CORPUSCULAR HEMOGLOBIN 30 PG (25-34); MEAN CORPUSCULAR HGB CONC 33 G/DL (32-36); MEAN CORPUSCULAR VOLUME 92 FL (80-99); MEAN PLATELET VOLUME 9.7 FL (7.4-10.4); MONOCYTES # (AUTO) 1.2 X 10^3 (0.0-1.0); MONOCYTES % (AUTO) 14 % (0-12); NEUTROPHILS # (AUTO) 6.5 X 10^3 (1.8-7.8); NEUTROPHILS % (AUTO) 73 % (42-75); PLATELET COUNT 372 10^3/uL (130-400); RED CELL DISTRIBUTION WIDTH 13.7 % (10.0-14.5)
[2019-12-19 08:39] LABS: CALCIUM 8.8 MG/DL (8.5-10.1); CREATININE SERUM 1.37 MG/DL (0.60-1.30); POTASSIUM 4.8 MMOL/L (3.6-5.0)
[2019-12-27 11:23] LABS: BASOPHILS # (AUTO) 0.1 10^3/uL (0.0-0.1); BASOPHILS % (AUTO) 1 % (0-10); EOSINOPHILS % (AUTO) 0 % (0-10); HEMATOCRIT 28 % (40-54); HEMOGLOBIN 9.2 G/DL (13.3-17.7); LYMPHOCYTES # (AUTO) 0.9 X 10^3 (1.0-4.0); LYMPHOCYTES % (AUTO) 12 % (12-44); MEAN CORPUSCULAR HEMOGLOBIN 31 PG (25-34); MEAN CORPUSCULAR HGB CONC 33 G/DL (32-36); MEAN CORPUSCULAR VOLUME 93 FL (80-99); MEAN PLATELET VOLUME 10.8 FL (7.4-10.4); MONOCYTES # (AUTO) 0.7 X 10^3 (0.0-1.0); MONOCYTES % (AUTO) 9 % (0-12); NEUTROPHILS # (AUTO) 5.8 X 10^3 (1.8-7.8); NEUTROPHILS % (AUTO) 77 % (42-75); PLATELET COUNT 320 10^3/uL (130-400); RED CELL DISTRIBUTION WIDTH 14.5 % (10.0-14.5); WHITE BLOOD COUNT 7.6 10^3/uL (4.3-11.0)
[2019-12-27 12:37] LABS: ALBUMIN 3.7 GM/DL (3.2-4.5); BILIRUBIN,TOTAL 0.3 MG/DL (0.1-1.0); CALCIUM 8.9 MG/DL (8.5-10.1); CREATININE SERUM 1.29 MG/DL (0.60-1.30); MAGNESIUM 2.1 MG/DL (1.6-2.4); POTASSIUM 4.8 MMOL/L (3.6-5.0); TOTAL PROTEIN 6.8 GM/DL (6.4-8.2)
[2020-01-03 08:20] LABS: BASOPHILS % (AUTO) 0 % (0-10); EOSINOPHILS # (AUTO) 0.1 10^3/uL (0.0-0.3); EOSINOPHILS % (AUTO) 1 % (0-10); HEMATOCRIT 28 % (40-54); HEMOGLOBIN 9.3 G/DL (13.3-17.7); LYMPHOCYTES # (AUTO) 0.5 X 10^3 (1.0-4.0); LYMPHOCYTES % (AUTO) 7 % (12-44); MEAN CORPUSCULAR HEMOGLOBIN 31 PG (25-34); MEAN CORPUSCULAR HGB CONC 33 G/DL (32-36); MEAN CORPUSCULAR VOLUME 94 FL (80-99); MEAN PLATELET VOLUME 11.4 FL (7.4-10.4); MONOCYTES # (AUTO) 0.3 X 10^3 (0.0-1.0); MONOCYTES % (AUTO) 4 % (0-12); NEUTROPHILS # (AUTO) 6.3 X 10^3 (1.8-7.8); NEUTROPHILS % (AUTO) 88 % (42-75); PLATELET COUNT 204 10^3/uL (130-400); RED CELL DISTRIBUTION WIDTH 14.3 % (10.0-14.5); WHITE BLOOD COUNT 7.1 10^3/uL (4.3-11.0)
[2020-01-03 08:45] LABS: CALCIUM 8.9 MG/DL (8.5-10.1); CREATININE SERUM 1.32 MG/DL (0.60-1.30); POTASSIUM 4.8 MMOL/L (3.6-5.0)
[2020-01-08 12:01] LABS: BILIRUBIN,URINE NEGATIVE (NEGATIVE); CLARITY,URINE CLEAR; COLOR,URINE YELLOW; GLUCOSE, URINE (UA) NEGATIVE (NEGATIVE); KETONES,URINE NEGATIVE (NEGATIVE); LEUKOCYTE ESTERASE ,URINE 1+ (NEGATIVE); NITRITE,URINE NEGATIVE (NEGATIVE); PROTEIN,URINE 1+ (NEGATIVE)
[2020-01-08 12:03] LABS: BILIRUBIN,URINE NEGATIVE (NEGATIVE); CLARITY,URINE CLEAR; COLOR,URINE YELLOW; GLUCOSE, URINE (UA) NEGATIVE (NEGATIVE); KETONES,URINE NEGATIVE (NEGATIVE); LEUKOCYTE ESTERASE ,URINE 1+ (NEGATIVE); NITRITE,URINE NEGATIVE (NEGATIVE); PH,URINE 6.5 (5-9); PROTEIN,URINE 2+ (NEGATIVE)
[2020-01-08 12:31] LABS: AMORPHOUS SEDIMENT,UR FEW AMOR URATES /LPF; BACTERIA,URINE FEW /HPF
[2020-01-08 12:32] LABS: BACTERIA,URINE TRACE /HPF; RBC,URINE 25-50 /HPF; SQUAMOUS EPITHELIAL CELL,UR 0-2 /HPF; WBC,URINE 25-50 /HPF
[2020-01-10 08:12] LABS: BASOPHILS # (AUTO) 0.1 10^3/uL (0.0-0.1); BASOPHILS % (AUTO) 0 % (0-10); EOSINOPHILS # (AUTO) 0.1 10^3/uL (0.0-0.3); EOSINOPHILS % (AUTO) 0 % (0-10); HEMATOCRIT 26 % (40-54); HEMOGLOBIN 8.5 G/DL (13.3-17.7); LYMPHOCYTES # (AUTO) 1.2 X 10^3 (1.0-4.0); LYMPHOCYTES % (AUTO) 6 % (12-44); MEAN CORPUSCULAR HEMOGLOBIN 31 PG (25-34); MEAN CORPUSCULAR HGB CONC 33 G/DL (32-36); MEAN CORPUSCULAR VOLUME 92 FL (80-99); MEAN PLATELET VOLUME 10.8 FL (7.4-10.4); MONOCYTES # (AUTO) 2.5 X 10^3 (0.0-1.0); MONOCYTES % (AUTO) 11 % (0-12); NEUTROPHILS # (AUTO) 17.8 X 10^3 (1.8-7.8); NEUTROPHILS % (AUTO) 82 % (42-75); PLATELET COUNT 98 10^3/uL (130-400); RED CELL DISTRIBUTION WIDTH 15.4 % (10.0-14.5); WHITE BLOOD COUNT 21.5 10^3/uL (4.3-11.0)
[2020-01-10 08:36] LABS: CALCIUM 8.9 MG/DL (8.5-10.1); CREATININE SERUM 1.58 MG/DL (0.60-1.30); POTASSIUM 4.4 MMOL/L (3.6-5.0); SMEAR SCAN COMMENT YES
[2020-01-17 09:55] LABS: BASOPHILS # (AUTO) 0.1 10^3/uL (0.0-0.1); BASOPHILS % (AUTO) 1 % (0-10); EOSINOPHILS % (AUTO) 0 % (0-10); HEMATOCRIT 26 % (40-54); HEMOGLOBIN 8.5 G/DL (13.3-17.7); LYMPHOCYTES # (AUTO) 1.3 X 10^3 (1.0-4.0); LYMPHOCYTES % (AUTO) 9 % (12-44); MEAN CORPUSCULAR HEMOGLOBIN 31 PG (25-34); MEAN CORPUSCULAR HGB CONC 33 G/DL (32-36); MEAN CORPUSCULAR VOLUME 93 FL (80-99); MEAN PLATELET VOLUME 9.7 FL (7.4-10.4); MONOCYTES # (AUTO) 1.2 X 10^3 (0.0-1.0); MONOCYTES % (AUTO) 9 % (0-12); NEUTROPHILS % (AUTO) 80 % (42-75); PLATELET COUNT 578 10^3/uL (130-400); WHITE BLOOD COUNT 13.6 10^3/uL (4.3-11.0)
[2020-01-17 09:59] LABS: CALCIUM 9.1 MG/DL (8.5-10.1); CREATININE SERUM 1.52 MG/DL (0.60-1.30); POTASSIUM 4.7 MMOL/L (3.6-5.0)
[2020-01-23 10:34] LABS: BASOPHILS # (AUTO) 0.2 10^3/uL (0.0-0.1); BASOPHILS % (AUTO) 2 % (0-10); EOSINOPHILS % (AUTO) 0 % (0-10); HEMATOCRIT 27 % (40-54); HEMOGLOBIN 8.7 G/DL (13.3-17.7); LYMPHOCYTES # (AUTO) 1.3 X 10^3 (1.0-4.0); LYMPHOCYTES % (AUTO) 15 % (12-44); MEAN CORPUSCULAR HEMOGLOBIN 30 PG (25-34); MEAN CORPUSCULAR HGB CONC 33 G/DL (32-36); MEAN CORPUSCULAR VOLUME 93 FL (80-99); MEAN PLATELET VOLUME 9.6 FL (7.4-10.4); MONOCYTES # (AUTO) 0.9 X 10^3 (0.0-1.0); MONOCYTES % (AUTO) 10 % (0-12); NEUTROPHILS # (AUTO) 6.6 X 10^3 (1.8-7.8); NEUTROPHILS % (AUTO) 74 % (42-75); PLATELET COUNT 528 10^3/uL (130-400); RED CELL DISTRIBUTION WIDTH 15.2 % (10.0-14.5)
[2020-01-23 11:00] LABS: ALBUMIN 3.7 GM/DL (3.2-4.5); BILIRUBIN,TOTAL 0.4 MG/DL (0.1-1.0); CREATININE SERUM 1.46 MG/DL (0.60-1.30); POTASSIUM 4.7 MMOL/L (3.6-5.0); TOTAL PROTEIN 6.9 GM/DL (6.4-8.2)
[2020-01-30 13:13] LABS: BASOPHILS % (AUTO) 0 % (0-10); EOSINOPHILS % (AUTO) 0 % (0-10); HEMATOCRIT 24 % (40-54); HEMOGLOBIN 7.7 G/DL (13.3-17.7); LYMPHOCYTES # (AUTO) 0.7 X 10^3 (1.0-4.0); LYMPHOCYTES % (AUTO) 7 % (12-44); MEAN CORPUSCULAR HEMOGLOBIN 30 PG (25-34); MEAN CORPUSCULAR HGB CONC 32 G/DL (32-36); MEAN CORPUSCULAR VOLUME 94 FL (80-99); MEAN PLATELET VOLUME 10.8 FL (7.4-10.4); MONOCYTES # (AUTO) 0.3 X 10^3 (0.0-1.0); MONOCYTES % (AUTO) 3 % (0-12); NEUTROPHILS # (AUTO) 8.8 X 10^3 (1.8-7.8); NEUTROPHILS % (AUTO) 90 % (42-75); PLATELET COUNT 225 10^3/uL (130-400); RED CELL DISTRIBUTION WIDTH 15.2 % (10.0-14.5); WHITE BLOOD COUNT 9.9 10^3/uL (4.3-11.0)
[2020-01-30 13:31] LABS: CALCIUM 8.1 MG/DL (8.5-10.1); CREATININE SERUM 1.35 MG/DL (0.60-1.30); POTASSIUM 4.6 MMOL/L (3.6-5.0)
[2020-02-05 10:27] LABS: BILIRUBIN,URINE NEGATIVE (NEGATIVE); CLARITY,URINE SL CLOUDY; COLOR,URINE YELLOW; GLUCOSE, URINE (UA) NEGATIVE (NEGATIVE); KETONES,URINE NEGATIVE (NEGATIVE); LEUKOCYTE ESTERASE ,URINE 1+ (NEGATIVE); NITRITE,URINE NEGATIVE (NEGATIVE); PROTEIN,URINE 1+ (NEGATIVE)
[2020-02-05 10:28] LABS: BASOPHILS # (AUTO) 0.1 10^3/uL (0.0-0.1); BASOPHILS % (AUTO) 1 % (0-10); EOSINOPHILS # (AUTO) 0.1 10^3/uL (0.0-0.3); EOSINOPHILS % (AUTO) 0 % (0-10); HEMATOCRIT 24 % (40-54); HEMOGLOBIN 7.9 G/DL (13.3-17.7); LYMPHOCYTES # (AUTO) 1.6 X 10^3 (1.0-4.0); LYMPHOCYTES % (AUTO) 7 % (12-44); MEAN CORPUSCULAR HEMOGLOBIN 31 PG (25-34); MEAN CORPUSCULAR HGB CONC 33 G/DL (32-36); MEAN CORPUSCULAR VOLUME 94 FL (80-99); MEAN PLATELET VOLUME 10.3 FL (7.4-10.4); MONOCYTES # (AUTO) 2.4 X 10^3 (0.0-1.0); MONOCYTES % (AUTO) 10 % (0-12); NEUTROPHILS # (AUTO) 19.4 X 10^3 (1.8-7.8); NEUTROPHILS % (AUTO) 82 % (42-75); PLATELET COUNT 103 10^3/uL (130-400); RED CELL DISTRIBUTION WIDTH 15.5 % (10.0-14.5); WHITE BLOOD COUNT 23.7 10^3/uL (4.3-11.0)
[2020-02-05 10:28] LABS: BILIRUBIN,URINE NEGATIVE (NEGATIVE); CLARITY,URINE SL CLOUDY; COLOR,URINE YELLOW; GLUCOSE, URINE (UA) NEGATIVE (NEGATIVE); KETONES,URINE NEGATIVE (NEGATIVE); LEUKOCYTE ESTERASE ,URINE TRACE (NEGATIVE); NITRITE,URINE NEGATIVE (NEGATIVE); PROTEIN,URINE 2+ (NEGATIVE)
[2020-02-05 10:43] LABS: CALCIUM 8.8 MG/DL (8.5-10.1); CREATININE SERUM 1.33 MG/DL (0.60-1.30); POTASSIUM 4.6 MMOL/L (3.6-5.0)
[2020-02-05 10:49] LABS: BACTERIA,URINE MODERATE /HPF; RBC,URINE 0-2 /HPF; WBC,URINE 25-50 /HPF; WBC,URINE 50-100 /HPF
[~2020-02-13] VITALS: Ht 167.6 cm; Wt 70.8 kg
[~2020-02-13 08:08] MED LIST changes: -DIATRIZOATE 30% 300 ML (CYSTOGRAFIN) VIAL UR ONE; +ETOPOSIDE 150 MG in NORMAL SALINE (CANCER CENTER) 500 ML IV SCH; +FOSAPREPITANT (CANCER CENTER) 150 MG in NS (IVPB) CANCER CENTER ONLY 150 ML IV SCH; +NS IV 1000 ML (CANCER CTR) IV SCH; +NS IV 500 ML (CANCER CENTER) 500 ML ONE; +PEGFILGRASTIM 6 MG/0.6 ML ONPRO KIT SQ SCH
[2020-02-13 08:15] LABS: BASOPHILS # (AUTO) 0.1 10^3/uL (0.0-0.1); BASOPHILS % (AUTO) 1 % (0-10); EOSINOPHILS # (AUTO) 0.1 10^3/uL (0.0-0.3); EOSINOPHILS % (AUTO) 1 % (0-10); HEMATOCRIT 25 % (40-54); HEMOGLOBIN 8.2 G/DL (13.3-17.7); LYMPHOCYTES # (AUTO) 1.1 X 10^3 (1.0-4.0); LYMPHOCYTES % (AUTO) 12 % (12-44); MEAN CORPUSCULAR HEMOGLOBIN 30 PG (25-34); MEAN CORPUSCULAR HGB CONC 33 G/DL (32-36); MEAN CORPUSCULAR VOLUME 93 FL (80-99); MEAN PLATELET VOLUME 9.2 FL (7.4-10.4); MONOCYTES # (AUTO) 1.2 X 10^3 (0.0-1.0); MONOCYTES % (AUTO) 12 % (0-12); NEUTROPHILS # (AUTO) 7.3 X 10^3 (1.8-7.8); NEUTROPHILS % (AUTO) 75 % (42-75); PLATELET COUNT 451 10^3/uL (130-400); RED CELL DISTRIBUTION WIDTH 15.3 % (10.0-14.5); WHITE BLOOD COUNT 9.8 10^3/uL (4.3-11.0)
[2020-02-13 08:34] LABS: CALCIUM 9.1 MG/DL (8.5-10.1); CREATININE SERUM 1.45 MG/DL (0.60-1.30); POTASSIUM 4.8 MMOL/L (3.6-5.0)
== END 2020-02-20 | disposition home or self-care (01) ==
LOC: ONC 08:08
PROVIDERS: ATTEND Internal Medicine Hematology & Oncology
DX: Z51.11 Encounter for antineoplastic chemotherapy (principal); C67.2 Malignant neoplasm of lateral wall of bladder; N13.1 Hydronephrosis with ureteral stricture, not elsewhere classified; N28.9 Disorder of kidney and ureter, unspecified; I25.10 Atherosclerotic heart disease of native coronary artery without angina pectoris; I10 Essential (primary) hypertension; E78.00 Pure hypercholesterolemia, unspecified; Z95.1 Presence of aortocoronary bypass graft; Z95.5 Presence of coronary angioplasty implant and graft; Z98.890 Other specified postprocedural states
CPT/HCPCS: 80053; 83615; 85025; G0463 ×2; 36415; 36591; 80048; 81000; 83735; 87077; 87088; 87186; 96367; 96375; 96377; 96413; 96417; 99211; 99213; 99214; J2505

== ENCOUNTER → 2020-02-27 | Outpatient (CLI) | payer MEDICARE, OTHER ==
[~2020-02-27] MED LIST changes: -ETOPOSIDE 150 MG in NORMAL SALINE (CANCER CENTER) 500 ML IV SCH; -FOSAPREPITANT (CANCER CENTER) 150 MG in NS (IVPB) CANCER CENTER ONLY 150 ML IV SCH; -NS IV 1000 ML (CANCER CTR) IV SCH; -NS IV 500 ML (CANCER CENTER) 500 ML ONE; -PEGFILGRASTIM 6 MG/0.6 ML ONPRO KIT SQ SCH
--- NOTE | 2020-02-27 13:47 | Diagnostic Imaging Report ---
INDICATION: Metastatic bladder carcinoma. This study is performed for subsequent restaging and treatment response. TECHNIQUE: Serum blood glucose level at the time of injection is 142 mg/dL. The patient was administered 12.7 mCi of F-18 FDG intravenously in the right antecubital location and whole body PET imaging was performed. Noncontrast CT was also performed for attenuation correction and anatomic correlation. Correlation is made with prior PET/CT study from 11/21/2019. FINDINGS: There is symmetric activity throughout the brain. The soft tissues of the neck are unremarkable. No mediastinal or hilar hypermetabolism is identified. No pulmonary parenchymal hypermetabolism is identified. Physiologic activity within the GI and tracts is noted. Patient has a right-sided percutaneous nephrostomy tube in place. No definite retroperitoneal or mesenteric hypermetabolism is detected. There is a suprapubic catheter decompressing the urinary bladder. No inguinal or iliac hypermetabolism is identified. Lower extremities are unremarkable for hypermetabolism. IMPRESSION: Unremarkable whole body PET/CT study. No suspicious hypermetabolic foci are detected to suggest metastatic disease. Dictated by: Dictated on workstation # [id number]
== END ==
LOC: RAD 09:21
PROVIDERS: ATTEND Urology
DX: C67.9 Malignant neoplasm of bladder, unspecified (principal)
CPT/HCPCS: 78816; A9552

== ENCOUNTER → 2020-03-04 | Outpatient (CLI) | payer MEDICARE, OTHER | LOC: LABNPT 06:51 | PROVIDERS: ATTEND Urology | DX: Z11.59 Encounter for screening for other viral diseases (principal); C67.8 Malignant neoplasm of overlapping sites of bladder | CPT/HCPCS: 87635 ==

== ENCOUNTER → 2020-04-05 | Outpatient (CLI) | payer MEDICARE, OTHER ==
[~2020-04-05] MED LIST changes: +ASPI-1238 PO; -ASPI-983 PO; +LEVO750T9 PO; -PANT40TA3 PO; +PANT40TA52 PO
== END ==
LOC: LAB 09:57
PROVIDERS: ATTEND Internal Medicine
DX: D64.9 Anemia, unspecified (principal); Z20.828 Contact with and (suspected) exposure to other viral communicable diseases

== ENCOUNTER → 2020-04-05 | Outpatient (CLI) | payer MEDICARE, OTHER | LOC: LAB 09:56 | PROVIDERS: ATTEND Physician Assistant | DX: I48.91 Unspecified atrial fibrillation (principal); I25.10 Atherosclerotic heart disease of native coronary artery without angina pectoris; I10 Essential (primary) hypertension; I47.1 Supraventricular tachycardia ==

== ENCOUNTER 2020-04-19 09:11 | Outpatient (RCR) | payer MEDICARE, OTHER ==
[2020-02-21 09:34] LABS: BASOPHILS # (AUTO) 0.2 10^3/uL (0.0-0.1); BASOPHILS % (AUTO) 2 % (0-10); EOSINOPHILS % (AUTO) 1 % (0-10); HEMATOCRIT 28 % (40-54); HEMOGLOBIN 8.8 G/DL (13.3-17.7); LYMPHOCYTES # (AUTO) 0.8 X 10^3 (1.0-4.0); LYMPHOCYTES % (AUTO) 10 % (12-44); MEAN CORPUSCULAR HEMOGLOBIN 30 PG (25-34); MEAN CORPUSCULAR HGB CONC 32 G/DL (32-36); MEAN CORPUSCULAR VOLUME 94 FL (80-99); MEAN PLATELET VOLUME 9.7 FL (7.4-10.4); MONOCYTES # (AUTO) 0.7 X 10^3 (0.0-1.0); MONOCYTES % (AUTO) 9 % (0-12); NEUTROPHILS # (AUTO) 6.6 X 10^3 (1.8-7.8); NEUTROPHILS % (AUTO) 79 % (42-75); PLATELET COUNT 388 10^3/uL (130-400); WHITE BLOOD COUNT 8.4 10^3/uL (4.3-11.0)
[2020-02-21 09:54] LABS: ALBUMIN 3.9 GM/DL (3.2-4.5); BILIRUBIN,TOTAL 0.3 MG/DL (0.1-1.0); CALCIUM 9.1 MG/DL (8.5-10.1); CREATININE SERUM 1.41 MG/DL (0.60-1.30); MAGNESIUM 2.1 MG/DL (1.6-2.4); TOTAL PROTEIN 6.8 GM/DL (6.4-8.2)
[2020-02-28 10:05] LABS: BILIRUBIN,URINE NEGATIVE (NEGATIVE); CLARITY,URINE CLEAR; COLOR,URINE YELLOW; GLUCOSE, URINE (UA) NEGATIVE (NEGATIVE); KETONES,URINE NEGATIVE (NEGATIVE); LEUKOCYTE ESTERASE ,URINE 2+ (NEGATIVE); NITRITE,URINE NEGATIVE (NEGATIVE); PH,URINE 5.5 (5-9); PROTEIN,URINE 1+ (NEGATIVE)
[2020-02-28 10:07] LABS: BILIRUBIN,URINE NEGATIVE (NEGATIVE); CLARITY,URINE CLEAR; COLOR,URINE YELLOW; GLUCOSE, URINE (UA) NEGATIVE (NEGATIVE); KETONES,URINE NEGATIVE (NEGATIVE); LEUKOCYTE ESTERASE ,URINE 2+ (NEGATIVE); NITRITE,URINE NEGATIVE (NEGATIVE); PH,URINE 5.5 (5-9); PROTEIN,URINE 2+ (NEGATIVE)
[2020-02-28 10:37] LABS: BACTERIA,URINE MODERATE /HPF; WBC,URINE 50-100 /HPF
[2020-02-28 10:38] LABS: AMORPHOUS SEDIMENT,UR MOD AMOR URATES /LPF; BACTERIA,URINE MODERATE /HPF; RBC,URINE 50-100 /HPF; WBC,URINE 50-100 /HPF
[~2020-04-19 09:11] MED LIST changes: +AMLO-251 PO; -AMLO10TA7 PO
[2020-04-19 09:26] LABS: BASOPHILS # (AUTO) 0.1 10^3/uL (0.0-0.1); BASOPHILS % (AUTO) 1 % (0-10); EOSINOPHILS # (AUTO) 0.3 10^3/uL (0.0-0.3); EOSINOPHILS % (AUTO) 5 % (0-10); HEMATOCRIT 32 % (40-54); HEMOGLOBIN 10.2 g/dL (13.3-17.7); LYMPHOCYTES # (AUTO) 1.2 10^3/uL (1.0-4.0); LYMPHOCYTES % (AUTO) 22 % (12-44); MEAN CORPUSCULAR HEMOGLOBIN 28 pg (25-34); MEAN CORPUSCULAR HGB CONC 32 g/dL (32-36); MEAN CORPUSCULAR VOLUME 88 fL (80-99); MEAN PLATELET VOLUME 10.6 fL (9.0-12.2); MONOCYTES # (AUTO) 0.6 10^3/uL (0.0-1.0); MONOCYTES % (AUTO) 10 % (0-12); NEUTROPHILS # (AUTO) 3.4 10^3/uL (1.8-7.8); NEUTROPHILS % (AUTO) 62 % (42-75); PLATELET COUNT 246 10^3/uL (130-400); WHITE BLOOD COUNT 5.5 10^3/uL (4.3-11.0)
[2020-04-19 09:52] LABS: ALBUMIN 3.9 GM/DL (3.2-4.5); BILIRUBIN,TOTAL 0.4 MG/DL (0.1-1.0); CALCIUM 9.3 MG/DL (8.5-10.1); CREATININE SERUM 1.33 MG/DL (0.60-1.30); MAGNESIUM 1.9 MG/DL (1.6-2.4); POTASSIUM 4.9 MMOL/L (3.6-5.0)
== END 2020-05-21 | disposition home or self-care (01) ==
LOC: ONC 09:11
PROVIDERS: ATTEND Internal Medicine Hematology & Oncology
DX: C67.2 Malignant neoplasm of lateral wall of bladder (principal); N13.1 Hydronephrosis with ureteral stricture, not elsewhere classified; N28.9 Disorder of kidney and ureter, unspecified; I25.10 Atherosclerotic heart disease of native coronary artery without angina pectoris; I10 Essential (primary) hypertension; E78.00 Pure hypercholesterolemia, unspecified; Z95.1 Presence of aortocoronary bypass graft; Z95.5 Presence of coronary angioplasty implant and graft; Z98.890 Other specified postprocedural states; R82.998 Other abnormal findings in urine
CPT/HCPCS: 80053; 83615; 83735; 85025; G0463; 81000; 87077; 87088; 87186; 87324; 87449; 99213

== ENCOUNTER → 2020-05-20 | Outpatient (CLI) | payer MEDICARE, OTHER ==
[~2020-05-20] MED LIST changes: +HOLD METFORMIN - RECEIVED CONTRAST 20 ML VIAL IV SCH; +IOHEXOL 350 MG/ML 100 ML (OMNIPAQUE 350) VIAL IV ONE; +NS 100 ML (IVPB) BAG IV ONE
[2020-05-20] MEDS: CATHETER FLUSH 10 ML SYR IV PRN ×2 (11:14→11:19)
--- NOTE | 2020-05-20 12:20 | Diagnostic Imaging Report ---
PROCEDURE: CT chest with contrast, CT abdomen and pelvis with and without contrast. TECHNIQUE: Pre and post intravenous contrast axial imaging of the abdomen and pelvis and post contrast axial imaging of the chest were performed. Auto Exposure Controls were utilized during the CT exam to meet ALARA standards for radiation dose reduction. INDICATION: Bladder cancer, follow-up. COMPARISON: Comparison is made with prior noncontrast CT abdomen and pelvis study from 11/10/2019. FINDINGS: CT chest: Left chest wall cardiac pacemaker is noted. There is a right chest wall port. No axillary lymphadenopathy is detected. No definite mediastinal or hilar lymphadenopathy is identified. No pericardial or pleural fluid is detected. Pulmonary parenchymal evaluation shows a tiny approximately 2 mm subpleural nodule in right middle lobe. This is indeterminate. Remainder of the lung garcia are clear. No infiltrates are seen. Osseous structures demonstrate healing right-sided fourth, fifth and sixth anterior rib fractures. IMPRESSION: 1. Pulmonary micronodule in right middle lobe. CT chest is otherwise unremarkable. No thoracic lymphadenopathy is detected. 2. Healing right-sided rib fractures. CT abdomen and pelvis: No discrete liver mass is detected. Gallbladder is unremarkable. No biliary ductal dilatation is seen. Pancreas and spleen are unremarkable. No adrenal mass is detected. Right kidney contains a low-density lesion in anterior cortex measuring 14 mm in size, consistent with a cyst. Circumscribed low-density lesion in left kidney measures 3.4 cm compared with 3.9 cm on prior exam and consistent with a cyst. Aorta is heavily calcified but non-aneurysmal. No central, retroperitoneal or mesenteric lymphadenopathy is detected. Small and large bowel loops are normal caliber. There are postsurgical changes of cystectomy. Patient does have an ostomy in the right paramidline upper abdomen. No definite pelvic lymphadenopathy is seen. Bony structures appear nonacute. IMPRESSION: 1. Status post cystectomy. No abdominal or pelvic lymphadenopathy or evidence of metastatic disease is identified. 2. Bilateral renal low densities suggestive of cysts. Dictated by: Dictated on workstation # [id number]
--- NOTE | 2020-05-20 14:58 | Diagnostic Imaging Report ---
INDICATION: Bladder and prostate cancer. TECHNIQUE: Patient was administered 27 mCi technetium 99m MDP intravenously and whole body imaging was performed after a three-hour delay. COMPARISON: No prior bone scan is available for comparison. FINDINGS: There is normal uptake of activity by the axial and appendicular skeleton. There is uptake by the kidneys with excretion into the right lower quadrant bag. Patient has had prior cystectomy. There is uptake involving right-sided anterior fourth, fifth, and sixth ribs. In reviewing CT study from the same day, this appears to represent areas of healing rib fractures. No other suspicious foci are identified. There are no findings to suggest osseous metastatic disease. IMPRESSION: Healing right-sided anterior rib fractures, likely post traumatic. There is no scintigraphic evidence of osseous metastatic disease. Dictated by: Dictated on workstation # [id number]
== END ==
LOC: CARD 10:54
PROVIDERS: ATTEND Internal Medicine Hematology & Oncology
DX: C67.2 Malignant neoplasm of lateral wall of bladder (principal); C61 Malignant neoplasm of prostate; N28.89 Other specified disorders of kidney and ureter; Z90.89 Acquired absence of other organs
CPT/HCPCS: 71260; 74178; 78306; A9503

== ENCOUNTER 2020-06-20 08:59 | Outpatient (RCR) | payer MEDICARE, OTHER ==
[~2020-06-20 08:59] MED LIST changes: -HOLD METFORMIN - RECEIVED CONTRAST 20 ML VIAL IV SCH; -IOHEXOL 350 MG/ML 100 ML (OMNIPAQUE 350) VIAL IV ONE; -NS 100 ML (IVPB) BAG IV ONE
== END 2020-08-16 09:27 | disposition home or self-care (01) ==
LOC: ONC 08:59
PROVIDERS: ATTEND Internal Medicine Hematology & Oncology
DX: C67.2 Malignant neoplasm of lateral wall of bladder (principal); N13.1 Hydronephrosis with ureteral stricture, not elsewhere classified; I25.10 Atherosclerotic heart disease of native coronary artery without angina pectoris; I12.9 Hypertensive chronic kidney disease with stage 1 through stage 4 chronic kidney disease, or unspecified chronic kidney disease; N18.9 Chronic kidney disease, unspecified; E78.2 Mixed hyperlipidemia; Z95.1 Presence of aortocoronary bypass graft; Z95.5 Presence of coronary angioplasty implant and graft; Z98.890 Other specified postprocedural states; Z92.21 Personal history of antineoplastic chemotherapy; Z85.46 Personal history of malignant neoplasm of prostate; Z92.3 Personal history of irradiation
CPT/HCPCS: 96523; 99213

== ENCOUNTER → 2020-08-22 | Outpatient (CLI) | payer MEDICARE, OTHER ==
[~2020-08-22] MED LIST changes: +HOLD METFORMIN - RECEIVED CONTRAST 20 ML VIAL IV SCH; +IOHEXOL 350 MG/ML 100 ML (OMNIPAQUE 350) VIAL IV ONE; +NS 100 ML (IVPB) BAG IV ONE
[2020-08-22] MEDS: CATHETER FLUSH 10 ML SYR IV PRN ×2 (10:52→11:08)
--- NOTE | 2020-08-22 12:28 | Diagnostic Imaging Report ---
PROCEDURE: CT chest with contrast, CT abdomen and pelvis with and without contrast. TECHNIQUE: Pre and post intravenous contrast axial imaging of the abdomen and pelvis and post contrast axial imaging of the chest were performed. Auto Exposure Controls were utilized during the CT exam to meet ALARA standards for radiation dose reduction. INDICATION: Bladder carcinoma, follow-up. Correlation is made with prior CT from 05/20/2020. CT CHEST: A right chest wall port has the tip in the SVC. There is a left chest wall cardiac pacemaker. There are changes of median sternotomy. No pericardial or pleural fluid is detected. No axillary, hilar or mediastinal lymphadenopathy is detected. Tiny subpleural nodule in the right middle lobe is stable. No new pulmonary masses are seen. There are no infiltrates. Bony structures are nonacute. IMPRESSION: Stable CT chest since study from 05/20/2020. No thoracic lymphadenopathy is seen. No definite findings to suggest pulmonary metastatic disease are identified. CT ABDOMEN AND PELVIS: No discrete liver mass is detected. Gallbladder is contracted. There is no biliary ductal dilatation. Pancreas and spleen are unremarkable. There is no adrenal mass. Numerous renal cortical low-attenuation masses are again noted. Mass in the right kidney anterior cortex is stable at approximately 16 mm. A mass in the left kidney is stable at 3.2 cm. Aorta and iliac vessels are heavily calcified. No central retroperitoneal or mesenteric lymphadenopathy is identified. Small and large bowel loops are normal caliber. Postoperative changes of cystectomy are noted. There is an ostomy in the right lower quadrant. No free fluid or fluid collection is identified. There is a left iliac node which was not present on prior exam measuring 1.2 cm. Slightly prominent lymph nodes in the left obturator regions are also noted. A solitary node measures approximately 12 mm. No inguinal lymphadenopathy is seen. The patient has developed a right iliac enlarged lymph node measuring 18 mm. Slightly prominent right obturator node is noted measuring 1.1 cm. The bony structures are nonacute. IMPRESSION: Patient has developed some prominent lymph nodes in the pelvis, specifically in the left iliac and obturator region as well as a right iliac and right obturator region. This is concerning for developing metastatic disease. Dictated by: Dictated on workstation # [id number]
--- NOTE | 2020-08-22 14:38 | Diagnostic Imaging Report ---
INDICATION: Bladder cancer. TECHNIQUE: Patient was administered 27.1 mCi technetium 99m MDP intravenously and whole body imaging was performed after a three-hour delay. COMPARISON: Correlation is made with prior bone scan from 05/20/2020. FINDINGS: Uptake in the axial and appendicular skeleton is noted. There is uptake by both kidneys. Activity is excreted into the right lower quadrant where patient does have a urinary diversion. The abnormal foci of uptake involving right-sided ribs are less prominent on today's exam, consistent with healing fractures. No new focus of tracer accumulation is seen to suggest osseous metastatic disease. IMPRESSION: No scintigraphic evidence of osseous metastatic disease. Dictated by: Dictated on workstation # [id number]
== END ==
LOC: CARD 11:00
PROVIDERS: ATTEND Internal Medicine Hematology & Oncology
DX: C67.2 Malignant neoplasm of lateral wall of bladder (principal)
CPT/HCPCS: 71260; 74178; 78306; A9503

== ENCOUNTER → 2020-10-09 | Outpatient (CLI) | payer MEDICARE, OTHER ==
[~2020-10-09] MED LIST changes: -CIPR500T4 PO; +CIPR500T5 PO; -HOLD METFORMIN - RECEIVED CONTRAST 20 ML VIAL IV SCH; -IOHEXOL 350 MG/ML 100 ML (OMNIPAQUE 350) VIAL IV ONE; -LISI10TA2 PO; +LISI10TA25 PO; -NS 100 ML (IVPB) BAG IV ONE
--- NOTE | 2020-10-09 14:27 | Diagnostic Imaging Report ---
EXAMINATION: CT Chest, Abdomen and Pelvis without intravenous contrast. TECHNIQUE: Multiple contiguous axial images were obtained through the chest, abdomen and pelvis without intravenous contrast. All CT scans use one or more of the following dose optimizing techniques: automated exposure control, MA and/or KvP adjustment based on a patient size and exam type, or iterative reconstruction. HISTORY: Bladder cancer. COMPARISON: CT chest, abdomen and pelvis 08/22/2020. FINDINGS: Thyroid: The thyroid is normal. Mediastinum: Heart size is normal without significant pericardial effusion. Calcifications of the aorta and coronary vessels. Thoracic aorta is normal in caliber. No suspicious lymphadenopathy. Lungs and airways: Mild emphysematous changes of the lungs. Scattered calcified granulomas. No consolidation, pleural effusion, or pneumothorax. Bilateral micronodules measuring up to 0.3 cm in the left upper lobe are not changed from 08/22/2020. No new suspicious pulmonary lesion. The airways are normal. Solid organs: The liver is normal. The gallbladder is normal. There is no biliary ductal dilation. Pancreas is normal. Spleen is normal. Adrenal glands are normal. There is mild bilateral hydronephrosis which is new from 08/22/2020. Bilateral renal cysts are unchanged. Bowel: Surgical changes of small bowel. No bowel obstruction. Colon is unremarkable. No findings of acute appendicitis. Peritoneum: There is no intraperitoneal free fluid or free air. There are multiple enlarged retroperitoneal lymph nodes measuring up to 2.1 x 1.8 cm along the left iliac chain which have increased in size from prior exam (series 2 image 92). Vasculature: Calcification of the aorta without aneurysm. Musculoskeletal: Degenerative changes of the spine without suspicious osseous lesion or compression fracture. Surgical changes from median sternotomy and CABG. Pelvis: The prostate gland is surgically absent. The urinary bladder is surgically absent. There is mild amount of fluid in the pelvis. There are prominent soft tissue or lymph nodes along the right pelvic sidewall measuring up to 2.7 x 2.8 cm (series 2 image 96). IMPRESSION: 1. Enlarging retroperitoneal and pelvic lymphadenopathy compared to 08/22/2020 concerning for progression of willi metastasis. 2. Increasing bilateral hydronephrosis which may be postoperative or secondary to obstruction. Dictated by: Dictated on workstation # [id number]
== END ==
LOC: RAD 13:30
PROVIDERS: ATTEND Internal Medicine Hematology & Oncology
DX: C67.2 Malignant neoplasm of lateral wall of bladder (principal); N13.30 Unspecified hydronephrosis
CPT/HCPCS: 71250; 74176

== ENCOUNTER → 2020-10-15 | Outpatient (CLI) | payer MEDICARE, OTHER ==
--- NOTE | 2020-10-15 18:30 | Diagnostic Imaging Report ---
EXAMINATION: PET/CT INDICATION: Malignant neoplasm of bladder. EXAMINATION: After intravenous administration of 11.34 mCi of F18-FDG injected into right antecubital fossa, a series of overlapping emission and transmission PET images was obtained. In the coronal, transaxial and sagittal planes, the area imaged extended from the skull base through the upper thighs. The patient's height is 5' 6" and his weight is 150. Blood glucose at the time of exam was 111 mg/dL. The previous PET CT exam performed on 02/27/2020 failed to show any sign of malignancy. In the interval since the prior exam the patient has undergone a cystectomy and an ileal conduit. On the subsequent CT chest abdomen and pelvis exam of 08/22/2020 there ws development of prominent lymph nodes within the pelvis and in both iliac chains and obturator regions. On the CT chest, abdomen and pelvis exam performed on 10/09/2020 there was continued progression of the retroperitoneal and pelvic lymphadenopathy. There also appeared to be bilateral hydronephrosis. It was not certain whether the hydronephrosis was secondary to prior surgery or to obstruction secondary to the neoplastic adenopathy. On this exam there are indeed multiple hypermetabolic nodes in the low abdomen and pelvis. The largest of these nodes measure approximately 3.4 cm and has a maximum SUV of 8.7. There also are number of smaller nodes anterior to the lower lumbar spine in this region and in the left iliac chain. These nodes have SUV values in the 7.8-8.2 range. I do feel that the willi adenopathy involving the pelvis does result in partial obstruction of both collecting systems. There is no other hypermetabolic activity to suggest malignancy. There is physiologic activity in the kidneys, bowel and bladder. The nephrostomy tube on the right seen on the previous PET/CT exam has been removed. The CT images failed to show any sign of an acute abnormality. As noted on the recent CT chest, abdomen and pelvis exam of 10/09/2020 there is a small amount of nonspecific free fluid low in the pelvis. IMPRESSION: 1. The appearance of the PET/CT exam has worsened since the initial PET study of 02/27/2020 as numerous large hypermetabolic nodes have developed in the pelvis. These enlarged nodes should be considered neoplastic until proven otherwise. 2. The willi adenopathy is also most likely partially obstructing both collecting systems accounting for the hydronephrosis of both kidneys. 3. There is no other hyper metabolic activity seen to suggest the presence of malignancy. 4. There is no acute abnormality identified. The small amount of free fluid low in the pelvis seen previously is again evident and unchanged. Dictated by: Dictated on workstation # [id number]
== END ==
LOC: RAD 09:36
PROVIDERS: ATTEND Internal Medicine Hematology & Oncology
DX: C67.2 Malignant neoplasm of lateral wall of bladder (principal); R94.4 Abnormal results of kidney function studies
CPT/HCPCS: 78815; A9552

== ENCOUNTER → 2020-10-28 | Outpatient (CLI) | payer MEDICARE, OTHER | LOC: CARD 08:27 | PROVIDERS: ATTEND Internal Medicine Cardiovascular Disease | DX: I10 Essential (primary) hypertension (principal); I35.1 Nonrheumatic aortic (valve) insufficiency | CPT/HCPCS: 93306 ==

== ENCOUNTER 2020-11-04 10:01 | Observation (INO) | payer MEDICARE, OTHER ==
[~2020-11-04] VITALS: Ht 167 cm; Wt 65.7 kg
[2020-11-04] MEDS ORDERED: NS IV 1000 ML 1,000 ML IV SCH (10:30)
[2020-11-04 10:43] LABS: BASOPHILS # (AUTO) 0.1 10^3/uL (0.0-0.1); BASOPHILS % (AUTO) 1 % (0-10); EOSINOPHILS # (AUTO) 0.2 10^3/uL (0.0-0.3); EOSINOPHILS % (AUTO) 2 % (0-10); HEMATOCRIT 29 % (40-54); HEMOGLOBIN 9.5 g/dL (13.3-17.7); LYMPHOCYTES # (AUTO) 0.9 10^3/uL (1.0-4.0); LYMPHOCYTES % (AUTO) 11 % (12-44); MEAN CORPUSCULAR HEMOGLOBIN 31 pg (25-34); MEAN CORPUSCULAR HGB CONC 32 g/dL (32-36); MEAN CORPUSCULAR VOLUME 96 fL (80-99); MEAN PLATELET VOLUME 11.4 fL (9.0-12.2); MONOCYTES # (AUTO) 0.8 10^3/uL (0.0-1.0); MONOCYTES % (AUTO) 9 % (0-12); NEUTROPHILS # (AUTO) 6.6 10^3/uL (1.8-7.8); NEUTROPHILS % (AUTO) 77 % (42-75); PLATELET COUNT 250 10^3/uL (130-400); WHITE BLOOD COUNT 8.6 10^3/uL (4.3-11.0)
--- NOTE | 2020-11-04 10:43 | ED Abdominal Pain ---
General Chief Complaint: Abdominal/GI Problems Stated Complaint: CONSTIPATION X6 DAYS,MULTIPLE ISSUES Nursing Triage Note: PT PRESENTS TO ED VIA POV FROM HOME WITH COMPLAINTS OF LOWER ABDOMINAL PAIN AND CONSTIPATION X 6 DAYS. REPORTS HE HAS BEEN TAKING STOOL SOFTNERS AND MIRALAX WITHOUT IMPROVEMENT. PT REPORTS HE HAD A URETER STENT PLACED BY [facility] LAST WEDNESDAY. Sepsis Screen: No Definite Risk Source of Information: Patient Exam Limitations: No Limitations History of Present Illness Date Seen by Provider: Nov 04, 2020 Time Seen by Provider: 10:27 Initial Comments Patient presents ER by private conveyance with his significant other and chief complaint of about 1 to 2 weeks of abdominal discomfort, constipation only passing small loose smears. He has a history of aggressive bladder cancer post cystectomy and ileal conduit. Last week on Wednesday, 5 days ago [facility] put in stents. He has been doing okay from that standpoint and had a follow-up appointment with Dr. Michelle, urology today but said he could not make it because of the weakness and pain. He took some oxycodone that he was given after the stents were placed and it helped the pain some it is now a 5 out of 10 however it did not help his constipation. He has been using MiraLAX and enemas as well as Dulcolax and no relief of symptoms. Denies appendectomy, cholecystectomy. His pain is mostly located in his right lower quadrant abdomen. He denies nausea fever chills cough. Allergies and Home Medications Allergies Coded Allergies: Beta-Blockers (Beta-Adrenergic Bloc (Verified Adverse Reaction, Unknown, SYNCOPE, 12/06/19) Home Medications Diltiazem HCl 120 Mg Tablet, 120 MG PO DAILY, (Reported) Levofloxacin 750 Mg Tablet, 750 MG PO Q48H TAKE ONE TABLET EVERY OTHER DAY, FIRST DOSE 04/04 Prescribed by: JAYLIN QUINN on 04/02/20 1258 Lisinopril 10 Mg Tablet, 10 MG PO DAILY, (Reported) Pantoprazole Sodium 40 Mg Tablet., 40 MG PO DAILY, (Reported) Patient Home Medication List Home Medication List Reviewed: Yes Review of Systems Review of Systems Constitutional: No chills, No fever EENTM: No Blurred Vision, No Double Vision Respiratory: Denies Cough, Denies Shortness of Air Cardiovascular: Denies Chest Pain, Denies Lightheadedness Gastrointestinal: See HPI, Abdomen Distended, Abdominal Pain, Constipated; Denies Nausea Genitourinary: Denies Burning, Denies Discharge Musculoskeletal: No back pain, No joint pain All Other Systems Reviewed Negative Unless Noted: Yes Past Dxfqpdc-[id number]-Cmgrjb Hx Patient Social History Alcohol Use: Occasionally Uses Number of Drinks Today: Alcohol Beverage of Choice: Wine Smoking Status: Former Smoker Type Used: Cigarettes Former Smoker, Quit: Jul 19, 1996 2nd Hand Smoke Exposure: Yes Recent Infectious Disease Expo: No Recent Hopitalizations: No Immunizations Up To Date Tetanus Booster (TDap): Unknown Date of Pneumonia Vaccine: May 15, 2017 Date of Influenza Vaccine: Apr 24, 2019 Seasonal Allergies Seasonal Allergies: Yes Past Medical History Surgeries: Yes (NASAL, OPEN HEART, CARDIAC STENTS, BRACHY THERAPY-PROSTATE, turp) Bladder Surgery, CABG, Coronary Stent, Pacemaker, Prostatectomy Respiratory: Yes Sleep Apnea, Emphysema Currently Using CPAP: No Currently Using BIPAP: No Cardiac: Yes (history cardiac arrest requiring CPR) Atrial Fibrillation, Coronary Artery Disease, Hypertension Neurological: No Reproductive Disorders: No Sexually Transmitted Disease: No HIV/AIDS: No Genitourinary: Yes (bladder ca) Prostate Problems, Bladder Infection, Kidney Stones Gastrointestinal: Yes Gastroesophageal Reflux, Chronic Constipation, Irritable Bowel Musculoskeletal: Yes Chronic Back Pain Endocrine: No HEENT: Yes (GLASSES) Loss of Vision: Denies Hearing Impairment: Hard of Hearing, Bilateral Hearing Aide Cancer: Yes (with radiation [place] 1999) Bladder, Prostate Did You Recieve Any Treatments: Yes What Type of Treatment Did You: Chemotherapy, Radiation Psychosocial: No Integumentary: No Blood Disorders: No Adverse Reaction/Blood Tranf: No (HAS HAD BLOOD WITH NO REACTION) Family Medical History Cardiovascular disease 19 FATHER G8 BROTHER Diabetes mellitus G8 BROTHER Hypertension 19 FATHER G8 BROTHER Neoplasm G8 BROTHER No Pertinent Family Hx Physical Exam Vital Signs Vital Signs - First Documented 11/04/20 10:17 Temp 35.6 Pulse 90 Resp 20 B/P (MAP) 141/56 (84) Pulse Ox 98 Capillary Refill : Less Than 3 Seconds Height/Weight/BMI Height: 5'6.00" Weight: 166lbs. 0.0oz. 75.897567ti; 23.00 BMI Method:Stated General Appearance: WD/WN, mild distress HEENT: PERRL/EOMI, pharynx normal Neck: full range of motion, supple, normal inspection Respiratory: lungs clear, no respiratory distress, no accessory muscle use Cardiovascular: normal peripheral pulses, regular rate, rhythm Peripheral Pulses: 2+ Radial Pulses (R), 2+ Radial Pulses (L) Gastrointestinal: soft, abnormal bowel sounds (Very active bowel sounds), distended, tenderness (Right lower quadrant) Extremities: normal range of motion, non-tender, normal capillary refill Neurologic/Psychiatric: alert, normal mood/affect, oriented x 3 Skin: normal color, warm/dry Progress/Results/Core Measures Results/Orders Lab Results Laboratory Tests Test 11/04/20 10:38 11/04/20 11:00 Range/Units White Blood Count 8.6 4.3-11.0 10^3/uL Red Blood Count 3.06 L 4.30-5.52 10^6/uL Hemoglobin 9.5 L 13.3-17.7 g/dL Hematocrit 29 L 40-54 % Mean Corpuscular Volume 96 80-99 fL Mean Corpuscular Hemoglobin 31 25-34 pg Mean Corpuscular Hemoglobin Concent 32 32-36 g/dL Red Cell Distribution Width 12.8 10.0-14.5 % Platelet Count 250 130-400 10^3/uL Mean Platelet Volume 11.4 9.0-12.2 fL Immature Granulocyte % (Auto) 1 % Neutrophils (%) (Auto) 77 H 42-75 % Lymphocytes (%) (Auto) 11 L 12-44 % Monocytes (%) (Auto) 9 0-12 % Eosinophils (%) (Auto) 2 0-10 % Basophils (%) (Auto) 1 0-10 % Neutrophils # (Auto) 6.6 1.8-7.8 10^3/uL Lymphocytes # (Auto) 0.9 L 1.0-4.0 10^3/uL Monocytes # (Auto) 0.8 0.0-1.0 10^3/uL Eosinophils # (Auto) 0.2 0.0-0.3 10^3/uL Basophils # (Auto) 0.1 0.0-0.1 10^3/uL Immature Granulocyte # (Auto) 0.1 0.0-0.1 10^3/uL Sodium Level 133 L 135-145 MMOL/L Potassium Level 5.5 H 3.6-5.0 MMOL/L Chloride Level 109 H 98-107 MMOL/L Carbon Dioxide Level 15 L 21-32 MMOL/L Anion Gap 9 5-14 MMOL/L Blood Urea Nitrogen 57 H 7-18 MG/DL Creatinine 2.78 H 0.60-1.30 MG/DL Estimat Glomerular Filtration Rate 22 BUN/Creatinine Ratio 21 Glucose Level 113 H 70-105 MG/DL Calcium Level 8.5 8.5-10.1 MG/DL Corrected Calcium 8.8 8.5-10.1 MG/DL Total Bilirubin 0.3 0.1-1.0 MG/DL Aspartate Amino Transf (AST/SGOT) 24 5-34 U/L Alanine Aminotransferase (ALT/SGPT) 10 0-55 U/L Alkaline Phosphatase 55 40-136 U/L C-Reactive Protein High Sensitivity 0.84 H 0.00-0.50 MG/DL Total Protein 6.3 L 6.4-8.2 GM/DL Albumin 3.6 3.2-4.5 GM/DL Urine Color RED H Urine Clarity TURBID Urine pH 6.5 5-9 Urine Specific [place] 1.025 H 1.016-1.022 Urine Protein 3+ H NEGATIVE Urine Glucose (UA) NEGATIVE NEGATIVE Urine Ketones TRACE H NEGATIVE Urine Nitrite POSITIVE H NEGATIVE Urine Bilirubin NEGATIVE NEGATIVE Urine Urobilinogen 1.0 < = 1.0 MG/DL Urine Leukocyte Esterase 2+ H NEGATIVE Urine RBC (Auto) 3+ H NEGATIVE Urine RBC TNTC H /HPF Urine WBC 5-10 H /HPF Urine Squamous Epithelial Cells NONE /HPF Urine Crystals NONE /LPF Urine Bacteria MODERATE H /HPF Urine Casts NONE /LPF Urine Mucus NEGATIVE /LPF Urine Culture Indicated YES My Orders Orders - VANESSA DRIVER Cbc With Automated Diff (11/04/20 10:17) Comprehensive Metabolic Panel (11/04/20 10:17) Hs C Reactive Protein (11/04/20 10:17) Ua Culture If Indicated (11/04/20 10:17) Ed Iv/Invasive Line Start (11/04/20 10:17) Ns Iv 1000 Ml (Sodium Chloride 0.9%) (11/04/20 10:30) Urine Culture (11/04/20 11:00) Ct Abdomen/Pelvis Wo (11/04/20 12:16) Vital Signs/I&O 11/04/20 10:17 Temp 35.6 Pulse 90 Resp 20 B/P (MAP) 141/56 (84) Pulse Ox 98 Blood Pressure Mean: 84 Progress Progress Note #1: Time: 10:42 Progress Note Suspicion for bowel obstruction. Plan to get a CT of his abdomen and pelvis. He declined anything for pain at this time. We will get some labs we will collect a urine culture. Aseptic vital signs. Progress Note #2: Time: 14:16 Progress Note Patient states he is not feeling any better than when he arrived. We discussed that likely his symptoms are related to obstipation and since he has done a rather reasonable effort outpatient to relieve the obstipation unsuccessfully we have offered an observation stay for colon cleanout and to let his urologist and oncologist weigh in. Diagnostic Imaging Diagonstic Imaging: CT Plain Films/CT/US/NM/MRI: abdomen, pelvis Comments NAME: URSZULA MAZARIEGOS MED REC#: [id number] PT STATUS: REG ER : 1935 PHYSICIAN: VANESSA DRIVER MD ADMIT DATE: 11/04/20/ER Draft Date of Exam:11/04/20 CT ABDOMEN/PELVIS WO PROCEDURE: CT abdomen and pelvis without contrast. TECHNIQUE: Multiple contiguous axial images were obtained through the abdomen and pelvis without the use of intravenous contrast. Auto Exposure Controls were utilized during the CT exam to meet ALARA standards for radiation dose reduction. INDICATION: Abdominal pain and constipation for 6 days. Patient has history of bladder carcinoma. Comparison is made with prior CT from 10/09/2020. FINDINGS: The lung bases are clear. The liver is heterogeneous. There are regions of low density within the liver which are concerning for a hepatic metastatic disease. This is more prominent than prior exam but is compromised due to absence of IV contrast. Gallbladder is unremarkable. There is no biliary duct dilatation. Pancreas and spleen are unremarkable. No adrenal mass is identified. Both kidneys now contain bilateral nephroureteral stents extending into the right lower quadrant ostomy. Aorta is nonaneurysmal. There are some mildly prominent lymph nodes in the left periaortic central retroperitoneum which are bigger than prior exam. The retroperitoneal lymph node below the level of the aortic bifurcation now measures 2.8 x 2.0 cm compared with 2.1 x 1.8 cm. Large right iliac chain node measures 3.3 x 3.6 cm compared with 2.8 x 2.7 cm on prior. Abnormal soft tissue in the low left pelvic sidewall appears much more prominent measuring 4.5 x 4.5 cm compared with 3.3 x 3.2 cm on prior. No inguinal lymphadenopathy is seen. Bladder is surgically absent. Bowel loops are normal caliber although there is moderate stool throughout the colon consistent with constipation. No free fluid or fluid collection is identified. Bony structures are nonacute. IMPRESSION: 1. Heterogeneous appearance of liver with ill-defined areas of low density, suspicious for development of hepatic metastatic disease. 2. Worsening abdominal and pelvic lymphadenopathy. 3. Moderate stool consistent with constipation. Dictated on workstation # [id number] Dict: 11/04/20 1231 Trans: 11/04/20 1244 [id number] Interpreted by: HUSSAIN FERNANDES MD Electronically signed by: Reviewed: Reviewed by Me Departure Communication (Admissions) Time/Spoke to Admitting Phy: 14:15 Discussed the case and she would like to consult urology and oncology. She agrees with milk and molasses enema, MiraLAX 4 times daily and IV rehydration. Time/Spoke to Consulting Phy: 14:20 Discussed the case with Dr. Michelle and he agrees to consult on the case. Discussed the case with Dr. Hernandez and he agrees to consult on the case Impression Primary Impression: Obstipation Additional Impression: Dehydration Disposition: ADMITTED INPATIENT Condition: Stable Admissions Decision to Admit Reason: Admit from ER (General) Decision to Admit/Date: Nov 04, 2020 Time/Decision to Admit Time: 14:00 Departure-Patient Inst. Referrals: ABEL MARTINEZ MD (PCP/Family) Primary Care Physician VANESSA DRIVER Nov 04, 2020 10:43
[2020-11-04 10:55] LABS: ALBUMIN 3.6 GM/DL (3.2-4.5); POTASSIUM 5.5 MMOL/L (3.6-5.0)
[2020-11-04 10:57] LABS: CALCIUM 8.5 MG/DL (8.5-10.1)
[2020-11-04 10:58] LABS: TOTAL PROTEIN 6.3 GM/DL (6.4-8.2)
[2020-11-04 11:00] LABS: BILIRUBIN,TOTAL 0.3 MG/DL (0.1-1.0)
[2020-11-04 11:05] LABS: CLARITY,URINE TURBID; COLOR,URINE RED; GLUCOSE, URINE (UA) NEGATIVE (NEGATIVE); KETONES,URINE TRACE (NEGATIVE); LEUKOCYTE ESTERASE ,URINE 2+ (NEGATIVE); NITRITE,URINE POSITIVE (NEGATIVE); PH,URINE 6.5 (5-9); PROTEIN,URINE 3+ (NEGATIVE)
[2020-11-04 11:13] LABS: BACTERIA,URINE MODERATE /HPF; RBC,URINE TNTC /HPF
[2020-11-04 11:14] LABS: BILIRUBIN,URINE NEGATIVE (NEGATIVE)
[2020-11-04 11:14] LABS: CREATININE SERUM 2.78 MG/DL (0.60-1.30)
--- NOTE | 2020-11-04 13:46 | Diagnostic Imaging Report ---
PROCEDURE: CT abdomen and pelvis without contrast. TECHNIQUE: Multiple contiguous axial images were obtained through the abdomen and pelvis without the use of intravenous contrast. Auto Exposure Controls were utilized during the CT exam to meet ALARA standards for radiation dose reduction. INDICATION: Abdominal pain and constipation for 6 days. Patient has history of bladder carcinoma. Comparison is made with prior CT from 10/09/2020. FINDINGS: The lung bases are clear. The liver is heterogeneous. There are regions of low density within the liver which are concerning for a hepatic metastatic disease. This is more prominent than prior exam but is compromised due to absence of IV contrast. Gallbladder is unremarkable. There is no biliary duct dilatation. Pancreas and spleen are unremarkable. No adrenal mass is identified. Both kidneys now contain bilateral nephroureteral stents extending into the right lower quadrant ostomy. Aorta is nonaneurysmal. There are some mildly prominent lymph nodes in the left periaortic central retroperitoneum which are bigger than prior exam. The retroperitoneal lymph node below the level of the aortic bifurcation now measures 2.8 x 2.0 cm compared with 2.1 x 1.8 cm. Large right iliac chain node measures 3.3 x 3.6 cm compared with 2.8 x 2.7 cm on prior. Abnormal soft tissue in the low left pelvic sidewall appears much more prominent measuring 4.5 x 4.5 cm compared with 3.3 x 3.2 cm on prior. No inguinal lymphadenopathy is seen. Bladder is surgically absent. Bowel loops are normal caliber although there is moderate stool throughout the colon consistent with constipation. No free fluid or fluid collection is identified. Bony structures are nonacute. IMPRESSION: 1. Heterogeneous appearance of liver with ill-defined areas of low density, suspicious for development of hepatic metastatic disease. 2. Worsening abdominal and pelvic lymphadenopathy. 3. Moderate stool consistent with constipation. Dictated by: Dictated on workstation # [id number]
[2020-11-04] MEDS ORDERED: CATHETER FLUSH 10 ML SYR IV PRN (15:30)
[2020-11-04] MEDS ORDERED: ACETAMINOPHEN 325 MG TABLET PO PRN (15:30)
[2020-11-04] MEDS ORDERED: CRAN400C PO (15:49)
[2020-11-04] MEDS ORDERED: NITR4.9S6 SL (15:49)
[2020-11-04] MEDS ORDERED: ASCO-262 PO (15:49)
[2020-11-04] MEDS ORDERED: ACET-2267 PO (15:49)
[2020-11-04] MEDS ORDERED: APIX5TAB PO (15:49)
[2020-11-04] MEDS ORDERED: OXYC5TAB PO (15:49)
[2020-11-04] MEDS ORDERED: DILT-27 PO (15:49)
[2020-11-04] MEDS ORDERED: MTP25TSR PO (15:49)
[2020-11-04] MEDS ORDERED: ROSU5TAB13 PO (15:49)
[2020-11-04 16:00] VITALS: BP 164/67
[2020-11-04] MEDS: NS IV 1000 ML 1,000 ML IV SCH (16:10)
[2020-11-04 20:00] VITALS: BP 151/75
[2020-11-04] MEDS: polyethylene glycoL POWDER 17 GM (MIRALAX) PACK PO SCH (20:07)
[2020-11-04] MEDS: DOCUSATE SODIUM 100 MG (COLACE) CAP PO SCH (20:07)
--- NOTE | 2020-11-04 22:06 | CONSULTATION REPORT ---
DATE OF SERVICE: 11/04/2020 The patient is admitted to room 410. PRIMARY PHYSICIAN: Zeke Frey MD IMPRESSION: 1. An 85-year-old male admitted with increasing abdominal discomfort and constipation. 2. CT scan of the abdomen and pelvis done at the emergency room showing increasing lymphadenopathy in the abdomen and pelvis consistent with metastatic disease as well as evidence of constipation. 3. 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 4. Recent bilateral hydronephrosis, most likely due to progressive/recurrent cancer, status post bilateral stent placement at [facility]. RECOMMENDATIONS: 1. Continue management of constipation/obstruction as you are doing. If oral laxatives and stool softeners does not work, the patient may need enema. 2. With regards to progressive large cell neuroendocrine carcinoma, the patient was scheduled to start palliative chemotherapy this week. I will hold chemotherapy until the obstipation has relieved and he is ready to be discharged from the hospital. 3. The patient understands treatment is palliative in nature and not curative. 4. I will follow the patient with you. 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 He underwent chemotherapy with carboplatin and etoposide regimen x3 cycles followed by radical cystoprostatectomy and lymph node biopsies on 03/06/2020 with a high-grade neuroendocrine carcinoma, small cell carcinoma. Postoperatively, he developed asystolic cardiac arrest requiring CPR and a dual-chamber pacemaker insertion. Recently, he was noted to have enlarged retroperitoneal lymph nodes causing obstruction to bilateral collecting system and had bilateral ureteral stent placement. He complained of constipation and did not have a bowel movement for several days with worsening abdominal discomfort and came to the emergency room. He was admitted to the hospital after evaluation for further management. Medical oncology consultation was requested for concurrent care. PAST MEDICAL HISTORY: Significant for high-grade neuroendocrine carcinoma of the bladder as mentioned previously. He has history of coronary artery disease diagnosed at 55 years of age and required a quadruple bypass graft in 1990. Since then, he has had multiple stent placements. He was diagnosed with prostate cancer in 1999 and underwent brachytherapy as well as external beam radiation. 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 History of hypertension for more than 35 years, as well as hypercholesterolemia. PAST SURGICAL HISTORY: Include the quadruple CABG in 1990, stent placements in 2007 and 2015. Multiple cystoscopies with cauterization in 2016. Radical cystoprostatectomy and lymph node biopsies in 2019. Pacemaker insertion. SOCIAL HISTORY: The patient is and lives by himself in [place], [place]. He has two daughters, both of them live close by. 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 He smoked a pack of cigarettes daily for 45 years and quit in 1996. He uses alcohol socially averaging 1 to 2 drinks per evening. Denied any recreational drug use. FAMILY HISTORY: Significant for his father, who was diagnosed with prostate cancer while in his 80s and a brother with prostate cancer in his 70s. No other significant malignancies or medical problems in the family that the patient knows of. PHYSICAL EXAMINATION: GENERAL: Today showed an elderly male, well developed and nourished, awake and oriented, in mild discomfort due to the abdominal pain. VITAL SIGNS: Temperature was 35.9 degrees centigrade, pulse rate of 70, respirations 20, blood pressure 164/67 with oxygen saturation 100% on room air. HEENT: Normocephalic with male pattern baldness, extraocular muscles intact, conjunctivae pink, oral mucosa moist. NECK: Supple, with no JVD. No cervical, supraclavicular or axillary lymphadenopathy palpable. CHEST: Symmetrical with a right-sided port and left-sided pacemaker. LUNGS: Fairly clear to auscultation without wheezes or rales. CARDIOVASCULAR: Regular in rate and rhythm. No murmurs or gallops heard. ABDOMEN: Soft with a right lower quadrant ileostomy. No obvious hepatosplenomegaly or other masses palpable. EXTREMITIES: Showed no edema. NEUROLOGIC: Grossly intact without focal motor deficits. LABORATORY DATA: CBC done today showed WBC 8.6, hemoglobin 9.5, platelet count 250,000 with neutrophil count 6.6 and lymphocyte count 0.9. Chemistry panel showed sodium level of 133, potassium 5.5 with BUN 57 and creatinine 2.79 and GFR 22 mL per minute. Liver function studies were within normal limits. CT scan of the abdomen and pelvis done at the emergency room showed worsening abdominal and pelvic lymphadenopathy. Moderate stool consistent with constipation. Heterogeneous appearance of liver with ill-defined areas of low density, suspicious for development of hepatic metastatic disease. This CT scan was done without contrast. Thank you for allowing me to participate in this patient's care. I will follow the patient with you and make appropriate recommendations. Job ID: [id number] DocumentID: [id number] Dictated Date: 11/04/2020 18:14:49 Business Intelligence Director Date: 11/04/2020 22:05:16 Dictated By: SEKOU AL MD
[2020-11-05] VITALS: BP 156/74
[2020-11-05] MEDS: NS IV 1000 ML 1,000 ML IV SCH ×2 (00:44→08:27)
[2020-11-05 04:19] VITALS: BP 159/74
[2020-11-05 04:46] LABS: BASOPHILS # (AUTO) 0.1 10^3/uL (0.0-0.1); BASOPHILS % (AUTO) 1 % (0-10); EOSINOPHILS # (AUTO) 0.4 10^3/uL (0.0-0.3); EOSINOPHILS % (AUTO) 6 % (0-10); HEMATOCRIT 26 % (40-54); HEMOGLOBIN 8.6 g/dL (13.3-17.7); LYMPHOCYTES # (AUTO) 0.9 10^3/uL (1.0-4.0); LYMPHOCYTES % (AUTO) 14 % (12-44); MEAN CORPUSCULAR HEMOGLOBIN 31 pg (25-34); MEAN CORPUSCULAR HGB CONC 33 g/dL (32-36); MEAN CORPUSCULAR VOLUME 94 fL (80-99); MEAN PLATELET VOLUME 11.6 fL (9.0-12.2); MONOCYTES # (AUTO) 0.6 10^3/uL (0.0-1.0); MONOCYTES % (AUTO) 10 % (0-12); NEUTROPHILS # (AUTO) 4.3 10^3/uL (1.8-7.8); NEUTROPHILS % (AUTO) 68 % (42-75); PLATELET COUNT 216 10^3/uL (130-400); WHITE BLOOD COUNT 6.4 10^3/uL (4.3-11.0)
[2020-11-05 04:51] LABS: POTASSIUM 5.4 MMOL/L (3.6-5.0)
[2020-11-05 04:52] LABS: CALCIUM 8.2 MG/DL (8.5-10.1)
[2020-11-05 04:56] LABS: CREATININE SERUM 2.45 MG/DL (0.60-1.30)
[2020-11-05 08:08] VITALS: BP 153/67
[2020-11-05] MEDS: DOCUSATE SODIUM 100 MG (COLACE) CAP PO SCH (08:25)
[2020-11-05] MEDS: polyethylene glycoL POWDER 17 GM (MIRALAX) PACK PO SCH (08:26)
[2020-11-05] MEDS ORDERED: dilTIAZem120 MG (CARDIZEM CD) CAP PO SCH (09:00)
[2020-11-05] MEDS ORDERED: PANTOPRAZOLE 40 MG (PROTONIX) TAB PO SCH (09:00)
--- NOTE | 2020-11-05 09:02 | Diagnostic Imaging Report ---
Portable supine abdomen at 357h. INDICATION: Obstipation As noted on the previous CT abdomen/pelvis exam of 11/04/2020 there are bilateral ureteral stents in place and an ileostomy. There is gas in both the large and small bowel in a nonspecific fashion. There is no sign of a bowel obstruction. There is a moderate amount of fecal material in the descending and ascending colon. There is no mass, organomegaly or pathological calcifications evident. The hepatic masses and the lymphadenopathy seen on the CT exam are not well visualized on this study. The osseous structures are intact. IMPRESSION: 1. The bowel gas pattern is nonspecific. There is no acute abnormality identified. 2. There is a moderate amount of fecal material in the ascending and descending colon. Dictated by: Dictated on workstation # [id number]
--- NOTE | 2020-11-05 09:02 | Diagnostic Imaging Report ---
EXAMINATION: Portable erect AP chest at 355 hours. INDICATION: Obstipation. FINDINGS: The heart size is within normal limits and stable when compared to 04/01/2020. The sternal wires and surgical clips and a left-sided defibrillator device and right-sided Port-A-Cath seen previously are again evident and no different. The lungs are generally clear. There is no sign of failure, pneumonia or pleural effusion. The mediastinum is not widened. The osseous structures are intact. IMPRESSION: There is no evidence for active disease. Dictated by: Dictated on workstation # [id number]
--- NOTE | 2020-11-05 09:36 | Short Stay Summary-Hospitalist ---
History of Present Illness HPI/Chief Complaint Pt is an 85yoCM with a PMH of aggressive bladder cancer who presented to the ER due to abdominal pain and constipation. He states that he has not really had a bowel movement for at least a week. He was recently at [facility] and had ureteral stenting done. He had to take some of his hydrocodone following this. He has been hesitate to take it because he was so constipated. He has since been doing less and more weak. He tried taking miralax, dulcolax, and enemas without relief. Imaging revealed moderate constipation without impaction. He was admitted to observation due to constipation. He reports that the enema he was given last night helped and he has already had multiple bowel movements. He is requesting DC home so that he can start on chemotherapy as soon as possible with Dr Kirby. Source: patient, family Exam Limitations: no limitations Date Seen 11/05/20 Time Seen by a Provider: 09:36 Attending Physician Chanelle Montoya MD PCP Zeke Frey MD Referring Physician Date of Admission Nov 04, 2020 at 14:40 Home Medications & Allergies Home Medications Reviewed patient Home Medication Reconciliation performed by pharmacy medication reconciliations public health sanitarian technician and/or nursing. Patients Allergies have been reviewed. Allergies Allergies Coded Allergies Beta-Blockers (Beta-Adrenergic Bloc (Verified Adverse Reaction, Unknown, SYNCOPE, 12/06/19) Past Uwgtdtb-Bqlqyd-Iiauji Hx Past Med/Social Hx: Reviewed Nursing Past Med/Soc Hx Patient Social History Alcohol Use: Occasionally Uses Alcohol Beverage of Choice: Wine Recreational Drug Use: No Smoking Status: Former Smoker Former Smoker, Quit: Jul 19, 1996 Type Used: Cigarettes 2nd Hand Smoke Exposure: Yes Recent Foreign Travel: No Contact w/other who traveled: No Recent Hopitalizations: No Recent Infectious Disease Expo: No Immunizations Up To Date Tetanus Booster (TDap): Unknown Date of Pneumonia Vaccine: May 15, 2017 Date of Influenza Vaccine: Apr 18, 2021 Seasonal Allergies Seasonal Allergies: Yes Past Medical History Surgeries: Bladder Surgery, CABG, Coronary Stent, Pacemaker, Prostatectomy Currently Using CPAP: No Currently Using BIPAP: No Cardiac: Atrial Fibrillation, Coronary Artery Disease, Hypertension Reproductive: No Sexually Transmitted Disease: No HIV/AIDS: No Genitourinary: Prostate Problems, Bladder Infection, Kidney Stones Gastrointestinal: Gastroesophageal Reflux, Chronic Constipation, Irritable Bowel Musculoskeletal: Chronic Back Pain Loss of Vision: Denies Hearing Impairment: Hard of Hearing, Bilateral Hearing Aide Cancer: Bladder, Prostate Did You Recieve Any Treatments: Yes What Type of Treatment Did You: Chemotherapy, Radiation History of Blood Disorders: No Adverse Reaction to Blood Villanueva: No (HAS HAD BLOOD WITH NO REACTION) Family History Cardiovascular disease 19 FATHER G8 BROTHER Diabetes mellitus G8 BROTHER Hypertension 19 FATHER G8 BROTHER Neoplasm G8 BROTHER No Pertinent Family Hx Review of Systems Constitutional: No chills, No fever; weakness EENTM: no symptoms reported Respiratory: no symptoms reported Cardiovascular: no symptoms reported Gastrointestinal: abdominal pain, constipation, nausea Genitourinary: no symptoms reported Musculoskeletal: no symptoms reported Skin: no symptoms reported Psychiatric/Neurological: No Symptoms Reported Physical Exam Physical Exam Vital Signs Vital Signs - First Documented 11/04/20 11/04/20 10:17 15:39 Temp 35.6 Pulse 90 Resp 20 B/P (MAP) 141/56 (84) Pulse Ox 98 O2 Delivery Room Air Capillary Refill : Less Than 3 Seconds Height, Weight, BMI Height: 5'6.00" Weight: 166lbs. 0.0oz. 75.926926td; 23.55 BMI Method:Stated General Appearance: No Apparent Distress, WD/WN HEENT: PERRL/EOMI, Moist Mucous Membranes; No Scleral Icterus (L), No Scleral Icterus (R) Neck: Normal Inspection, Supple Respiratory: Lungs Clear, No Accessory Muscle Use, No Respiratory Distress Cardiovascular: Regular Rate, Rhythm, No Murmur Gastrointestinal: Normal Bowel Sounds, Non Tender, Soft Extremity: No Calf Tenderness, No Pedal Edema Neurologic/Psychiatric: Alert, Oriented x3, Normal Mood/Affect Results Results/Procedures Labs Patient resulted labs reviewed. Imaging: Reviewed Imaging Report Imaging [facility], [place] NAME: URSZULA MAZARIEGOS [facility] REC#: [id number] PT STATUS: ADM Prema : 1935 PHYSICIAN: CHANELLE MONTOYA MD ADMIT DATE: 11/04/20 Signed Date of Exam:11/05/20 ABDOMEN/KUB 1VIEW Portable supine abdomen at 357h. INDICATION: Obstipation As noted on the previous CT abdomen/pelvis exam of 11/04/2020 there are bilateral ureteral stents in place and an ileostomy. There is gas in both the large and small bowel in a nonspecific fashion. There is no sign of a bowel obstruction. There is a moderate amount of fecal material in the descending and ascending colon. There is no mass, organomegaly or pathological calcifications evident. The hepatic masses and the lymphadenopathy seen on the CT exam are not well visualized on this study. The osseous structures are intact. IMPRESSION: 1. The bowel gas pattern is nonspecific. There is no acute abnormality identified. 2. There is a moderate amount of fecal material in the ascending and descending colon. Dictated by: Dictated on workstation # [id number] Dict: 11/05/20621 Trans: 11/05/20900 [facility] [id number] Interpreted by: TIEN ACOSTA MD Electronically signed by: TIEN ACOSTA MD 11/05/20900 [facility], [place] NAME: URSZULA MAZARIEGOS [facility] REC#: [id number] PT STATUS: ADM Prema : 1935 PHYSICIAN: VANESSA DRIVER MD ADMIT DATE: 11/04/20 Signed Date of Exam:11/04/20 CT ABDOMEN/PELVIS WO PROCEDURE: CT abdomen and pelvis without contrast. TECHNIQUE: Multiple contiguous axial images were obtained through the abdomen and pelvis without the use of intravenous contrast. Auto Exposure Controls were utilized during the CT exam to meet ALARA standards for radiation dose reduction. INDICATION: Abdominal pain and constipation for 6 days. Patient has history of bladder carcinoma. Comparison is made with prior CT from 10/09/2020. FINDINGS: The lung bases are clear. The liver is heterogeneous. There are regions of low density within the liver which are concerning for a hepatic metastatic disease. This is more prominent than prior exam but is compromised due to absence of IV contrast. Gallbladder is unremarkable. There is no biliary duct dilatation. Pancreas and spleen are unremarkable. No adrenal mass is identified. Both kidneys now contain bilateral nephroureteral stents extending into the right lower quadrant ostomy. Aorta is nonaneurysmal. There are some mildly prominent lymph nodes in the left periaortic central retroperitoneum which are bigger than prior exam. The retroperitoneal lymph node below the level of the aortic bifurcation now measures 2.8 x 2.0 cm compared with 2.1 x 1.8 cm. Large right iliac chain node measures 3.3 x 3.6 cm compared with 2.8 x 2.7 cm on prior. Abnormal soft tissue in the low left pelvic sidewall appears much more prominent measuring 4.5 x 4.5 cm compared with 3.3 x 3.2 cm on prior. No inguinal lymphadenopathy is seen. Bladder is surgically absent. Bowel loops are normal caliber although there is moderate stool throughout the colon consistent with constipation. No free fluid or fluid collection is identified. Bony structures are nonacute. IMPRESSION: 1. Heterogeneous appearance of liver with ill-defined areas of low density, suspicious for development of hepatic metastatic disease. 2. Worsening abdominal and pelvic lymphadenopathy. 3. Moderate stool consistent with constipation. Dictated by: Dictated on workstation # [id number] Dict: 11/04/20 1231 Trans: 11/04/20 1555 [id number] Interpreted by: HUSSAIN FERNANDES MD Electronically signed by: HUSSAIN FERNANDES MD 11/04/20 1555 Short Stay Diagnosis Discharge Diagnosis-Short Stay Admission Diagnosis Constipation Final Discharge Diagnosis Constipation Conclusion Plan Constipation Resolved with scheduled Miralax and enema Recommended continue Miralax TID and to slow down as needed Advised him to increase bowel regimen if he needs pain medication Bladder cancer generalized weakness Offered to set up for outpatient therapy but he declines Would like to be taught exercises here Will DC home so he can start chemotherapy promptly Diagnosis/Problems Diagnosis/Problems (1) Obstipation Status: Acute (2) Bladder cancer (3) Dehydration Status: Acute CHANELLE MONTOYA MD Nov 05, 2020 09:36
[2020-11-05] MEDS ORDERED: POLY17PO54 PO (09:39)
--- NOTE | 2020-11-05 10:44 | Physical Therapy Evaluation ---
PT Evaluation-General Medical Diagnosis Admission Date Nov 04, 2020 at 14:40 Medical Diagnosis: obstipation Onset Date: Nov 04, 2020 Therapy Diagnosis Therapy Diagnosis: debility Height/Weight Height (Feet): 5 Height (Inches): 6.00 Weight (Pounds): 166 Weight (Ounces): 0.0 Precautions Precautions/Isolations: Fall Prevention, Standard Precautions Referral Physician: Jan Reason for Referral: Evaluation/Treatment Medical History Pertinent Medical History: Atrial Fib, CABG, CAD, HTN Additional Medical History pacemaker/bladder cancer Current History ER secondary to constipation Reviewed History: Yes Social History Home: Single Level Current Living Status: Alone Entry Into Home: Stairs With Railing PT Steps Into Home: 2 Prior Prior Level of Function SCALE: Activities may be completed with or without assistive devices. 4-Jflziwolcs-ueplvjz completes the activity by him/herself with no assistance from a helper. 5-Set-up or Clean-up Assistance-helper sets up or cleans up; patient completes activity. Knapp assists only prior to or following the activity. 4-Supervision or Touching Assistance-helper provides verbal cues and/or touching/steadying and/or contact guard assistance as patient completes activity. Assistance may be provided throughout the activity or intermittently. 3-Partial/Moderate Assistance-helper does LESS THAN HALF the effort. Knapp lifts, holds or supports trunk or limbs, but provides less than half the effort. 2-Substantial/Maximal Assistance-helper does MORE THAN HALF the effort. Knapp lifts or holds trunk or limbs and provides more than half the effort. 5-Tlyjucepm-zbltqm does ALL the effort. Patient does none of the effort to complete the activity. Or, the assistance of 2 or more helpers is required for the patient to complete the activity. If activity was not attempted, code reason: 7-Patient Refused. 9-Not Applicable-not attempted and the patient did not perform the activity before the current illness, exacerbation or injury. 10-Not Attempted due to Environmental Limitations-(lack of equipment, weather restraints, etc.). 88-Not Attempted due to Medical Conditions or Safety Concerns. Bed Mobility: 6 Transfers (B,C,W/C): 6 Gait: 6 Stairs: 6 Indoor Mobility (Ambulation): Independent Stairs: Independent Prior Devices Use: None PT Evaluation-Current Subjective Patient agrees to PT. Up independently in room. Pain Numeric Pain Scale: 0-No Pain Location: No Pain Reported Objective Patient Orientation: Normal For Age Attachments: IV ROM/Strength ROM Lower Extremities bilateral LE WFL Strength Lower Extremities 4/5 grossly bilateral LE Integumentary/Posture Integumentary refer to nursing notes Bowel Incontinence: No Bladder Incontinence: No Posture slightly kyphotic Neuromuscular (Tone, Coordination, Reflexes) grossly intact Sensory Vision: Wears Glasses Hearing: Functional Sensation Right Lower Extremit: Intact Sensation Left Lower Extremity: Intact Transfers Sit to Stand (QC): 6 Gait Does the Patient Walk?: Yes Mode of Locomotion: Walk Anticipated Mode of Locomotion: Walk Walk 10 feet (QC): 6 Walk 50 ft with 2 Turns(QC): 6 Walk 150 ft (QC): 6 Distance: 800' Gait Assistive Device: None Comments/Gait Description safe and functional with no deviation Wheelchair Training Does the Pt Use a Wheelchair?: No Balance Sitting Static: Normal Sitting Dynamic: Normal Standing Static: Normal Standing Dynamic: Normal Picking up an Object (QC): 6 Treatment bilateral LE exercises in recliner LAQ, AP, hip flexion 20 reps (instructed patient to perform 4/day) Assessment/Needs 85 y.o. male, is currently at [facility] with all gross motor skills safely and issues exercise program to perform at home upon dismissal. No skilled PT indicated. Rehab Potential: Fair PT Plan Treatment/Plan Treatment Plan: Discontinue PT, goals met Treatment Duration: Nov 05, 2020 Frequency: 1 time per week Estimated Hrs Per Day: .25 hour per day Patient and/or Family Agrees t: Yes Time/GCodes Time In: 1010 Time Out: 1023 Total Billed Treatment Time: 13 Total Billed Treatment 1 visit EVMod 13 min ABDIRIZAK ANGELA PT Nov 05, 2020 10:44
--- NOTE | 2020-11-05 11:38 | Discharge Inst-Simple/Standard ---
Discharge Inst-Standard Discharge Medications New, Converted or Re-Newed RX: Transmitted to Pharmacy Patient Instructions/Follow Up Plan of Care/Instructions/FU: Please continue to take your medications as written. Please follow up with your primary care doctor to follow up this hospital stay. Activity as Tolerated: Yes Discharge Diet: No Restrictions Return to The Hospital For: Chest pain, shortness of breath, worsening pain, no BM for over 3 days, if you feel you are getting worse. CHANELLE KEYES MD Nov 05, 2020 11:38
[2020-11-05 12:18] VITALS: BP 153/67
--- NOTE | 2020-11-05 12:29 | CONSULTATION REPORT ---
DATE OF SERVICE: 11/05/2020 ATTENDING PHYSICIAN: Dr. Montoya. 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 He was due to have chemotherapy today, but he came to the emergency room yesterday because of abdominal pain and constipation. CT scan revealed increased lymph node enlargement in the abdomen and the pelvis consistent with the above, the patient is feeling much better today. He would like to hold off on his chemotherapy for now until he recovers better at home, which is appropriate with me. IMPRESSION: Advanced metastatic carcinoma of the bladder with abdominal discomfort and constipation resolved. RECOMMENDATIONS: Okay to dismiss from the standpoint. The patient is to contact Dr. Kirby later on for resuming the chemotherapy. I will see him at the office on a p.r.n. basis. Job ID: [id number] DocumentID: [id number] Dictated Date: 11/05/2020 10:26:45 Mental Health Practitioner Date: 11/05/2020 12:28:39 Dictated By: ALBA TSE MD
== END 2020-11-05 12:26 | disposition home or self-care (01) ==
LOC: EDUNIT# 10:01 → ER 10:04 → 4TH 14:40
PROVIDERS: ADMIT Family Medicine; ATTEND Family Medicine
DX: K59.00 Constipation, unspecified (principal); E86.0 Dehydration; I10 Essential (primary) hypertension; J43.9 Emphysema, unspecified; I48.91 Unspecified atrial fibrillation; E78.00 Pure hypercholesterolemia, unspecified; R59.0 Localized enlarged lymph nodes; I25.10 Atherosclerotic heart disease of native coronary artery without angina pectoris; K21.9 Gastro-esophageal reflux disease without esophagitis; Z96.0 Presence of urogenital implants; Z85.51 Personal history of malignant neoplasm of bladder; Z90.6 Acquired absence of other parts of urinary tract; Z88.8 Allergy status to other drugs, medicaments and biological substances; Z79.899 Other long term (current) drug therapy; Z87.891 Personal history of nicotine dependence; Z98.890 Other specified postprocedural states; Z95.1 Presence of aortocoronary bypass graft; Z95.0 Presence of cardiac pacemaker; Z95.5 Presence of coronary angioplasty implant and graft; Z87.442 Personal history of urinary calculi; Z83.3 Family history of diabetes mellitus
CPT/HCPCS: 71045; 74018; 74176; 80048; 80053; 81000; 85025 ×2; 86141; 87088; 97162; 99283; G0378; 36415

== ENCOUNTER 2020-11-16 13:26 | Observation (INO) | payer MEDICARE, OTHER ==
[~2020-11-16] VITALS: Ht 167.7 cm; Wt 65.7 kg
[~2020-11-16 13:26] MED LIST changes: +ACET-2267 PO; +ASCO-262 PO; +CRAN400C PO; +DILT-27 PO; +MTP25TSR PO; +NITR4.9S6 SL; +OXYC5TAB PO; +POLY17PO54 PO; +ROSU5TAB13 PO
[2020-11-16] MEDS ORDERED: ASPIRIN 81 MG CHEW (CHILDREN'S ASA) PO ONE (13:45)
--- NOTE | 2020-11-16 13:51 | ED Back Pain ---
General Stated Complaint: WEAKNESS/PAIN IN SHOULDERS Source of Information: Patient Exam Limitations: No Limitations History of Present Illness Date Seen by Provider: November 16, 2020 Time Seen by Provider: 13:37 Initial Comments To ER by private vehicle with reports of pain across his upper back from the upper scapula on one side to the same location on the other side. No known injury. He does have some ongoing shortness of breath. He was given Lasix last week by Dr. Ness. 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 He underwent chemotherapy for 3 cycles followed by cystoprostatectomy. Recently he then had enlarged retroperitoneal lymph nodes causing obstruction to the bilateral collecting systems and had bilateral ureteral stents placed at the [facility]. He was admitted here last week for obstipation. He denies any improvement in the shortness of breath despite the Lasix use. He is on Eliquis for history of atrial fibrillation. He denies chest pain. He does have 5 coronary stents and follows with Dr. Price Location: C-Spine, T-Spine Timing/Duration: 1-2 Days Severity: Moderate Pain/Injury Location: Back Method of Injury: Unknown Associated Symptoms: denies symptoms Allergies and Home Medications Allergies Coded Allergies: Beta-Blockers (Beta-Adrenergic Bloc (Verified Adverse Reaction, Unknown, SYNCOPE, 12/06/19) Home Medications Acetaminophen 500 Mg Tablet, 500-1,000 MG PO Q8H PRN for PAIN-MILD (1-4), (Reported) Apixaban 5 Mg Tablet, 5 MG PO BID, (Reported) Ascorbate Calcium 500 Mg Tablet, 500 MG PO DAILY, (Reported) Cranberry 400 Mg Capsule, 400 MG PO DAILY, (Reported) Diltiazem HCl 120 Mg Cap.er.24h, 120 MG PO 1800, (Reported) Lisinopril 10 Mg Tablet, 10 MG PO DAILY, (Reported) Metoprolol Succinate 25 Mg Tab.er.24h, 25 MG PO 1800, (Reported) Nitroglycerin 4.9 Gm [place], 1-2 SPRAYS SL UD PRN for CHEST PAIN (ANGINA), (Reported) Oxycodone HCl 5 Mg Tablet, 5 MG PO Q6H PRN for PAIN-SEVERE (8-10), (Reported) Polyethylene Glycol 3350 17 Gm Powd.pack, 17 GM PO TID Prescribed by: CHANELLE KEYES on 11/05/20 0939 Rosuvastatin Calcium 5 Mg Tablet, 5 MG PO 1800, (Reported) Patient Home Medication List Home Medication List Reviewed: Yes Review of Systems Constitutional: see HPI; No chills, No fever EENTM: see HPI Respiratory: see HPI, short of breath Cardiovascular: No chest pain Genitourinary: no symptoms reported Musculoskeletal: no symptoms reported Skin: no symptoms reported Psychiatric/Neurological: No Symptoms Reported Past Ymekcvq-Mhgvqh-Mxfxik Hx Patient Social History Alcohol Beverage of Choice: Wine Type Used: Cigarettes Former Smoker, Quit: Jul 19, 1996 2nd Hand Smoke Exposure: Yes Recent Hopitalizations: No Immunizations Up To Date Tetanus Booster (TDap): Unknown Date of Pneumonia Vaccine: May 15, 2017 Date of Influenza Vaccine: Apr 18, 2021 Seasonal Allergies Seasonal Allergies: Yes Past Medical History Surgeries: Yes (NASAL, OPEN HEART, CARDIAC STENTS, BRACHY THERAPY-PROSTATE, turp) Bladder Surgery, CABG, Coronary Stent, Pacemaker, Prostatectomy Respiratory: Yes Sleep Apnea, Emphysema Currently Using CPAP: No Currently Using BIPAP: No Cardiac: Yes (history cardiac arrest requiring CPR) Atrial Fibrillation, Coronary Artery Disease, Hypertension Neurological: No Reproductive Disorders: No Sexually Transmitted Disease: No HIV/AIDS: No Genitourinary: Yes (bladder ca) Prostate Problems, Bladder Infection, Kidney Stones Gastrointestinal: Yes Gastroesophageal Reflux, Chronic Constipation, Irritable Bowel Musculoskeletal: Yes Chronic Back Pain Endocrine: No HEENT: Yes (GLASSES) Loss of Vision: Denies Hearing Impairment: Hard of Hearing, Bilateral Hearing Aide Cancer: Yes (with radiation [place] 1999) Bladder, Prostate Did You Recieve Any Treatments: Yes What Type of Treatment Did You: Chemotherapy, Radiation Psychosocial: No Integumentary: No Blood Disorders: No Adverse Reaction/Blood Tranf: No (HAS HAD BLOOD WITH NO REACTION) Family Medical History Cardiovascular disease 19 FATHER G8 BROTHER Diabetes mellitus G8 BROTHER Hypertension 19 FATHER G8 BROTHER Neoplasm G8 BROTHER No Pertinent Family Hx Physical Exam Vital Signs Vital Signs - First Documented 11/16/20 13:38 Pulse 64 Resp 20 B/P (MAP) 128/59 (82) Pulse Ox 100 O2 Delivery Room Air Capillary Refill : Height, Weight, BMI Height: 5'6.00" Weight: 166lbs. 0.0oz. 75.930549ha; 23.55 BMI Method:Stated General Appearance: No Apparent Distress, WD/WN, Other (Distress heart rate 76 sinus on arrival. Oxygen saturation 100% room air. Blood pressure 137/59. Respiratory rate 12.) HEENT: PERRL/EOMI, TMs Normal Neck: Full Range of Motion, Normal Inspection Cardiovascular: Regular Rate, Rhythm, Normal Peripheral Pulses Respiratory: Normal Breath Sounds, No Accessory Muscle Use, No Respiratory Distress Gastrointestinal: Normal Bowel Sounds, Non Tender, Soft Extremity: Normal Capillary Refill, Normal Inspection Neurologic/Psychiatric: Alert, Oriented x3 Skin: Normal Color, Warm/Dry Progress/Results/Core Measures Results/Orders Lab Results Laboratory Tests Test 11/16/20 14:00 11/16/20 15:26 11/16/20 16:10 Range/Units White Blood Count 8.2 4.3-11.0 10^3/uL Red Blood Count 2.50 L 4.30-5.52 10^6/uL Hemoglobin 7.8 L 13.3-17.7 g/dL Hematocrit 24 L 40-54 % Mean Corpuscular Volume 96 80-99 fL Mean Corpuscular Hemoglobin 31 25-34 pg Mean Corpuscular Hemoglobin Concent 33 32-36 g/dL Red Cell Distribution Width 13.0 10.0-14.5 % Platelet Count 228 130-400 10^3/uL Mean Platelet Volume 11.4 9.0-12.2 fL Immature Granulocyte % (Auto) 1 % Neutrophils (%) (Auto) 91 H 42-75 % Lymphocytes (%) (Auto) 7 L 12-44 % Monocytes (%) (Auto) 1 0-12 % Eosinophils (%) (Auto) 1 0-10 % Basophils (%) (Auto) 0 0-10 % Neutrophils # (Auto) 7.5 1.8-7.8 10^3/uL Lymphocytes # (Auto) 0.6 L 1.0-4.0 10^3/uL Monocytes # (Auto) 0.1 0.0-1.0 10^3/uL Eosinophils # (Auto) 0.1 0.0-0.3 10^3/uL Basophils # (Auto) 0.0 0.0-0.1 10^3/uL Immature Granulocyte # (Auto) 0.0 0.0-0.1 10^3/uL Neutrophils % (Manual) 83 % Lymphocytes % (Manual) 9 % Monocytes % (Manual) 1 % Eosinophils % (Manual) 2 % Band Neutrophils 5 % Hypochromasia SLIGHT Prothrombin Time 15.9 H 12.2-14.7 SEC INR Comment 1.2 0.8-1.4 Activated Partial Thromboplast Time 27 24-35 SEC Sodium Level 134 L 135-145 MMOL/L Potassium Level 4.7 3.6-5.0 MMOL/L Chloride Level 109 H 98-107 MMOL/L Carbon Dioxide Level 16 L 21-32 MMOL/L Anion Gap 9 5-14 MMOL/L Blood Urea Nitrogen 56 H 7-18 MG/DL Creatinine 2.03 H 0.60-1.30 MG/DL Estimat Glomerular Filtration Rate 31 BUN/Creatinine Ratio 28 Glucose Level 178 H 70-105 MG/DL Calcium Level 8.0 L 8.5-10.1 MG/DL Corrected Calcium 8.5 8.5-10.1 MG/DL Magnesium Level 1.8 1.6-2.4 MG/DL Total Bilirubin 0.3 0.1-1.0 MG/DL Aspartate Amino Transf (AST/SGOT) 30 5-34 U/L Alanine Aminotransferase (ALT/SGPT) 33 0-55 U/L Alkaline Phosphatase 62 40-136 U/L Myoglobin 71.1 10.0-92.0 NG/ML Troponin I < 0.028 < 0.028 <0.028 NG/ML B-Type Natriuretic Peptide 216.7 H <100.0 PG/ML Total Protein 5.7 L 6.4-8.2 GM/DL Albumin 3.4 3.2-4.5 GM/DL Urine Color RED H Urine Clarity TURBID Urine pH 5.5 5-9 Urine Specific [place] 1.025 H 1.016-1.022 Urine Protein 3+ H NEGATIVE Urine Glucose (UA) NEGATIVE NEGATIVE Urine Ketones NEGATIVE NEGATIVE Urine Nitrite POSITIVE H NEGATIVE Urine Bilirubin 1+ H NEGATIVE Urine Urobilinogen 1.0 < = 1.0 MG/DL Urine Leukocyte Esterase 2+ H NEGATIVE Urine RBC (Auto) 3+ H NEGATIVE Urine RBC TNTC H /HPF Urine WBC 5-10 H /HPF Urine Squamous Epithelial Cells NONE /HPF Urine Crystals NONE /LPF Urine Bacteria FEW H /HPF Urine Casts NONE /LPF Urine Mucus NEGATIVE /LPF Urine Yeast FEW H /HPF Urine Culture Indicated YES My Orders Orders - [facility] DO[facility] NUCLEAR MEDICINE Cbc With Automated Diff (11/16/20 13:32) Magnesium (11/16/20 13:32) Chest 1 View, Ap/Pa Only (11/16/20 13:32) Ekg Tracing (11/16/20 13:32) Comprehensive Metabolic Panel (11/16/20 13:32) Myoglobin Serum (11/16/20 13:32) Protime With Inr (11/16/20 13:32) Partial Thromboplastin Time (11/16/20 13:32) O2 (11/16/20 13:32) Monitor-Rhythm Ecg Trace Only (11/16/20 13:32) Lipid Panel (11/17/20 06:00) Ed Iv/Invasive Line Start (11/16/20 13:32) BNP (11/16/20 13:32) Aspirin Chewable Tablet (Baby Aspirin Ch (11/16/20 13:45) Ct Cervical/Thoracic Spine Wo (11/16/20 13:46) Manual Differential (11/16/20 14:00) Troponin I (11/16/20 14:00) Red Cells Leukocytes Reduced (11/16/20 14:54) Type And Screen (11/16/20 14:54) Ua Culture If Indicated (11/16/20 15:05) Urine Culture (11/16/20 15:26) Fluconazole Tablet (Ed Only) (Diflucan T (11/16/20 16:00) Ceftriaxone For Iv Use (Rocephin For I (11/16/20 16:00) Troponin I (11/16/20 16:01) Medications Given in ED Current Medications Medications Dose Ordered Sig/[place] Route Start Time Stop Time Status Last Admin Dose Admin Aspirin 324 mg ONCE ONCE PO 11/16/20 13:45 11/16/20 13:46 DC 11/16/20 13:48 324 MG Ceftriaxone Sodium 1000 mg/ Sterile Water 10 ml @ 200 mls/hr ONCE ONCE IV 11/16/20 16:00 11/16/20 16:02 DC 11/16/20 17:08 200 MLS/HR Fluconazole 150 mg ONCE ONCE PO 11/16/20 16:00 11/16/20 16:01 DC 11/16/20 17:08 150 MG Vital Signs/I&O 11/16/20 13:38 Pulse 64 Resp 20 B/P (MAP) 128/59 (82) Pulse Ox 100 O2 Delivery Room Air Diagnostic Imaging Diagonstic Imaging: CT Comments NAME: URSZULA MAZARIEGOS [facility] REC#: [id number] PT STATUS: REG ER : 1935 PHYSICIAN: KI COX APRN ADMIT DATE: 11/16/20/ER Draft Date of Exam:11/16/20 CT CERVICAL/THORACIC SPINE WO Indication: Neck and upper back pain. TECHNIQUE: Routine CT of the thoracic and cervical spine was performed without contrast. 2-D coronal and sagittal reformats were created and evaluated. Comparison: None. Discussion: Advanced degenerative disease noted within the cervical spine. Prominent disc osteophyte complex noted at C5-C6 which likely contributes to severe central canal stenosis. There is a smaller disc osteophyte complex at C6-C7. There is some calcification of the ligamentum flavum at C3-C4 which likely also contributes to significant central canal stenosis. There is neural foraminal narrowing diffusely. Mildly accentuated thoracic kyphosis is noted. There is mild anterior wedging of the T7 and T8 vertebral bodies which appears chronic with associated advanced degenerative disc disease. No other acute fracture identified. Adjacent soft tissues are unremarkable. Impression: 1. Degenerative changes of the cervical and thoracic spine as described with severe central canal stenosis present within the cervical spine. There is no acute fracture. Dictated on workstation # [id number] Dict: 11/16/20 1449 Trans: 11/16/20 1456 [id number] Interpreted by: MATT CRUZ MD Electronically signed by: Departure Communication (Admissions) [id number]-patient has worsening anemia with 5 coronary stents and atrial fibrillation as well as shortness of breath over the past week. The pain between both shoulder blades that he presented for is now gone however the weakness that he also presented for persists. Discussed that we could give him a unit of blood and discharge home. Daughter and friend states that he is very weak and was unable to go from the couch to the chair today without assistance. He lives at home alone. They would like to see him stay overnight and this is not unreasonable. He is agreeable with this plan. Spoke with Dr. [place], we will admit. Observation status transfuse 1 unit of packed red cells. He does wish to remain full CODE STATUS NAME: URSZULA MAZARIEGOS [facility] REC#: [id number] PT STATUS: REG ER : 1935 PHYSICIAN: KI COX APRN ADMIT DATE: 11/16/20/ER Signed Date of Exam:11/16/20 CHEST 1 VIEW, AP/PA ONLY EXAMINATION: Chest radiograph, portable AP view. DATE: 11/16/2020 2:23 PM INDICATION: 85-year-old male, chest pain. COMPARISON: November 05, 2020. FINDINGS: There is a left-sided cardiac assist device with leads. Leads appear intact. The left-sided port catheter with tip overlying the upper SVC. There are median sternotomy wires. There are mediastinal surgical clips. Heart size and mediastinal contours are unchanged. There is no identified pneumothorax. There is no large pleural effusion. There is no identified focal airspace consolidation. There is a sclerotic lesion in the right proximal humerus measuring 2.3 cm in size. This is unchanged since at least August 14, 2015. IMPRESSION: 1. No identified acute cardiopulmonary abnormality. 2. Sclerotic lesion in the right proximal humerus most likely relating to an enchondroma or bone infarct. Dictated by: Dictated on workstation # [id number] Dict: 11/16/20 1424 Trans: 11/16/20 1457 [facility] [id number] Interpreted by: HUMA LA MD Electronically signed by: HUMA LA MD 11/16/20 1457 Impression Primary Impression: UTI (urinary tract infection) Additional Impressions: Anemia Bladder cancer Disposition: ADMITTED INPATIENT Condition: Stable Admissions Decision to Admit Reason: Admit from ER (General) Decision to Admit/Date: November 16, 2020 Time/Decision to Admit Time: 16:43 Departure-Patient Inst. Referrals: ABEL MARTINEZ MD (PCP/Family) Primary Care Physician KI COX APRN November 16, 2020 13:51
[2020-11-16 14:10] LABS: BASOPHILS % (AUTO) 0 % (0-10); EOSINOPHILS # (AUTO) 0.1 10^3/uL (0.0-0.3); EOSINOPHILS % (AUTO) 1 % (0-10); HEMATOCRIT 24 % (40-54); HEMOGLOBIN 7.8 g/dL (13.3-17.7); LYMPHOCYTES # (AUTO) 0.6 10^3/uL (1.0-4.0); LYMPHOCYTES % (AUTO) 7 % (12-44); MEAN CORPUSCULAR HEMOGLOBIN 31 pg (25-34); MEAN CORPUSCULAR HGB CONC 33 g/dL (32-36); MEAN CORPUSCULAR VOLUME 96 fL (80-99); MEAN PLATELET VOLUME 11.4 fL (9.0-12.2); MONOCYTES # (AUTO) 0.1 10^3/uL (0.0-1.0); MONOCYTES % (AUTO) 1 % (0-12); NEUTROPHILS # (AUTO) 7.5 10^3/uL (1.8-7.8); NEUTROPHILS % (AUTO) 91 % (42-75); PLATELET COUNT 228 10^3/uL (130-400); WHITE BLOOD COUNT 8.2 10^3/uL (4.3-11.0)
[2020-11-16 14:21] LABS: INR 1.2 (0.8-1.4); PROTHROMBIN TIME PATIENT 15.9 SEC (12.2-14.7)
[2020-11-16 14:25] LABS: BAND NEUTROPHILS 5 %; EOSINOPHILS % (MANUAL) 2 %; HYPOCHROMASIA SLIGHT; LYMPHOCYTES % (MANUAL) 9 %; MONOCYTES % (MANUAL) 1 %; NEUTROPHILS % (MANUAL) 83 %
[2020-11-16 14:26] LABS: ALBUMIN 3.4 GM/DL (3.2-4.5); CHLORIDE 109 MMOL/L (98-107); POTASSIUM 4.7 MMOL/L (3.6-5.0); SODIUM 134 MMOL/L (135-145)
[2020-11-16 14:28] LABS: GLUCOSE 178 MG/DL (70-105)
[2020-11-16 14:29] LABS: TOTAL PROTEIN 5.7 GM/DL (6.4-8.2)
[2020-11-16 14:30] LABS: BILIRUBIN,TOTAL 0.3 MG/DL (0.1-1.0); CARBON DIOXIDE 16 MMOL/L (21-32)
[2020-11-16 14:32] LABS: ALKALINE PHOSPHATASE 62 U/L (40-136); CREATININE SERUM 2.03 MG/DL (0.60-1.30); GFR ESTIMATED 31
[2020-11-16 14:33] LABS: BUN/CREATININE RATIO 28
--- NOTE | 2020-11-16 14:34 | Diagnostic Imaging Report ---
EXAMINATION: Chest radiograph, portable AP view. DATE: 11/16/2020 2:23 PM INDICATION: 85-year-old male, chest pain. COMPARISON: November 05, 2020. FINDINGS: There is a left-sided cardiac assist device with leads. Leads appear intact. The left-sided port catheter with tip overlying the upper SVC. There are median sternotomy wires. There are mediastinal surgical clips. Heart size and mediastinal contours are unchanged. There is no identified pneumothorax. There is no large pleural effusion. There is no identified focal airspace consolidation. There is a sclerotic lesion in the right proximal humerus measuring 2.3 cm in size. This is unchanged since at least August 14, 2015. IMPRESSION: 1. No identified acute cardiopulmonary abnormality. 2. Sclerotic lesion in the right proximal humerus most likely relating to an enchondroma or bone infarct. Dictated by: Dictated on workstation # [id number]
[2020-11-16 14:35] LABS: ALANINE AMINOTRANSFERASE 33 U/L (0-55); MAGNESIUM 1.8 MG/DL (1.6-2.4)
--- NOTE | 2020-11-16 14:57 | Diagnostic Imaging Report ---
Indication: Neck and upper back pain. TECHNIQUE: Routine CT of the thoracic and cervical spine was performed without contrast. 2-D coronal and sagittal reformats were created and evaluated. Comparison: None. Discussion: Advanced degenerative disease noted within the cervical spine. Prominent disc osteophyte complex noted at C5-C6 which likely contributes to severe central canal stenosis. There is a smaller disc osteophyte complex at C6-C7. There is some calcification of the ligamentum flavum at C3-C4 which likely also contributes to significant central canal stenosis. There is neural foraminal narrowing diffusely. Mildly accentuated thoracic kyphosis is noted. There is mild anterior wedging of the T7 and T8 vertebral bodies which appears chronic with associated advanced degenerative disc disease. No other acute fracture identified. Adjacent soft tissues are unremarkable. Impression: 1. Degenerative changes of the cervical and thoracic spine as described with severe central canal stenosis present within the cervical spine. There is no acute fracture. Dictated by: Dictated on workstation # [id number]
[2020-11-16 15:31] LABS: CLARITY,URINE TURBID; COLOR,URINE RED; GLUCOSE, URINE (UA) NEGATIVE (NEGATIVE); KETONES,URINE NEGATIVE (NEGATIVE); LEUKOCYTE ESTERASE ,URINE 2+ (NEGATIVE); NITRITE,URINE POSITIVE (NEGATIVE); PH,URINE 5.5 (5-9); PROTEIN,URINE 3+ (NEGATIVE)
[2020-11-16 15:46] LABS: BACTERIA,URINE FEW /HPF; BILIRUBIN,URINE 1+ (NEGATIVE); RBC,URINE TNTC /HPF; YEAST,URINE FEW /HPF
[2020-11-16] MEDS ORDERED: FLUCONAZOLE 150 MG TABLET (ED ONLY) PO ONE (16:00)
[2020-11-16] MEDS ORDERED: cefTRIAXone FOR IV USE 1,000 MG in WATER (STERILE) FOR INJECTION 10 ML IV ONE (16:00)
[2020-11-16] MEDS ORDERED: WATER (STERILE) FOR INJECTION 10 ML ONE (17:00)
[2020-11-16] MEDS ORDERED: cefTRIAXone 1,000 MG IV (ROCEPHIN) VIAL ONE (17:00)
[2020-11-16] MEDS ORDERED: NS IV 500 ML 500 ML IV ONE (18:45)
[2020-11-16] MEDS ORDERED: NS IV 500 ML 500 ML ONE (19:23)
[2020-11-16 19:39] VITALS: BP 115/63
[2020-11-16 19:40] VITALS: BP 141/70
[2020-11-16 19:58] VITALS: BP 124/70
[2020-11-16] MEDS ORDERED: CATHETER FLUSH 10 ML SYR IV PRN (21:00)
[2020-11-16] MEDS: CATHETER FLUSH 10 ML SYR IV SCH (22:19)
[2020-11-16 22:22] VITALS: BP 128/60
[2020-11-16 22:37] VITALS: BP 147/78
[2020-11-17 00:05] VITALS: BP 142/68
[2020-11-17] MEDS: CATHETER FLUSH 10 ML SYR IV SCH (03:45)
[2020-11-17] MEDS ORDERED: ACETAMINOPHEN 500 MG TAB (TYLENOL) PO PRN (03:45)
[2020-11-17 04:52] VITALS: BP 136/71
[2020-11-17 05:27] LABS: BASOPHILS % (AUTO) 0 % (0-10); EOSINOPHILS # (AUTO) 0.1 10^3/uL (0.0-0.3); EOSINOPHILS % (AUTO) 1 % (0-10); HEMATOCRIT 26 % (40-54); HEMOGLOBIN 8.6 g/dL (13.3-17.7); LYMPHOCYTES # (AUTO) 0.6 10^3/uL (1.0-4.0); LYMPHOCYTES % (AUTO) 8 % (12-44); MEAN CORPUSCULAR HEMOGLOBIN 31 pg (25-34); MEAN CORPUSCULAR HGB CONC 33 g/dL (32-36); MEAN CORPUSCULAR VOLUME 94 fL (80-99); MEAN PLATELET VOLUME 11.3 fL (9.0-12.2); MONOCYTES # (AUTO) 0.1 10^3/uL (0.0-1.0); MONOCYTES % (AUTO) 1 % (0-12); NEUTROPHILS # (AUTO) 6.8 10^3/uL (1.8-7.8); NEUTROPHILS % (AUTO) 89 % (42-75); PLATELET COUNT 180 10^3/uL (130-400); WHITE BLOOD COUNT 7.6 10^3/uL (4.3-11.0)
[2020-11-17 05:48] LABS: CHOLESTEROL 113 MG/DL (< 200); HDL CHOLESTEROL 47 MG/DL (40-60); TRIGLYCERIDES 95 MG/DL (<150); VLDL CHOLESTEROL 19 MG/DL (5-40)
[2020-11-17 08:00] VITALS: BP 136/60
[2020-11-17] MEDS ORDERED: ONDANSETRON 4 MG (ZOFRAN) ORAL DISSOLVE TAB PO PRN (08:15)
[2020-11-17] MEDS ORDERED: MELATONIN 3 MG TABLET PO PRN (08:15)
[2020-11-17] MEDS ORDERED: polyethylene glycoL POWDER 17 GM (MIRALAX) PACK PO PRN (08:15)
[2020-11-17] MEDS ORDERED: ANTACID SUSP 30 ML UDC (MYLANTA) PO PRN (08:15)
[2020-11-17] MEDS ORDERED: ONDANSETRON 4 MG/2 ML (SDV) Z0FRAN IV PRN (08:15)
[2020-11-17 08:17] LABS: POTASSIUM 5.3 MMOL/L (3.6-5.0)
[2020-11-17 08:23] LABS: CREATININE SERUM 1.82 MG/DL (0.60-1.30)
[2020-11-17] MEDS ORDERED: fluCOnazole (DIFLUCAN) 100 MG TAB PO SCH (09:00)
[2020-11-17] MEDS ORDERED: SENNOSIDES 8.6 MG (SENOKOT) TAB PO SCH (09:00)
[2020-11-17] MEDS ORDERED: DOCUSATE SODIUM 100 MG (COLACE) CAP PO SCH (09:00)
[2020-11-17] MEDS ORDERED: CEFD300C3 PO (10:55)
--- NOTE | 2020-11-17 11:54 | Discharge Summary ---
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 He received a blood transfusion and his symptoms improved. He was also found to have a urinary tract infection and was started on antibiotics. He was feeling a bit more debilitated than usual. He was offered home health care but refused. He was agreeable to outpatient physical therapy. He has appointments scheduled tomorrow with Drs. Kirby and Shante. Labs and Pending Lab Test: Laboratory Tests 11/16/20 14:00: White Blood Count 8.2, Red Blood Count 2.50L, Hemoglobin 7.8L, Hematocrit 24L, Mean Corpuscular Volume 96, Mean Corpuscular Hemoglobin 31, Mean Corpuscular Hemoglobin Concent 33, Red Cell Distribution Width 13.0, Platelet Count 228, Mean Platelet Volume 11.4, Immature Granulocyte % (Auto) 1, Neutrophils (%) (Auto) 91H, Lymphocytes (%) (Auto) 7L, Monocytes (%) (Auto) 1, Eosinophils (%) (Auto) 1, Basophils (%) (Auto) 0, Neutrophils # (Auto) 7.5, Lymphocytes # (Auto) 0.6L, Monocytes # (Auto) 0.1, Eosinophils # (Auto) 0.1, Basophils # (Auto) 0.0, Immature Granulocyte # (Auto) 0.0, Neutrophils % (Manual) 83, Lymphocytes % (Manual) 9, Monocytes % (Manual) 1, Eosinophils % (Manual) 2, Band Neutrophils 5, Hypochromasia SLIGHT, Prothrombin Time 15.9H, INR Comment 1.2, Activated Partial Thromboplast Time 27, Sodium Level 134L, Potassium Level 4.7, Chloride Level 109H, Carbon Dioxide Level 16L, Anion Gap 9, Blood Urea Nitrogen 56H, Creatinine 2.03H, Estimat Glomerular Filtration Rate 31, BUN/Creatinine Ratio 28, Glucose Level 178H, Calcium Level 8.0L, Corrected Calcium 8.5, Magnesium Level 1.8, Total Bilirubin 0.3, Aspartate Amino Transf (AST/SGOT) 30, Alanine Aminotransferase (ALT/SGPT) 33, Alkaline Phosphatase 62, Myoglobin 71.1, Troponin I < 0.028, B-Type Natriuretic Peptide 216.7H, Total Protein 5.7L, Albumin 3.4 11/16/20 15:26: Urine Color REDH, Urine Clarity TURBID, Urine pH 5.5, Urine Specific [place] 1.025H, Urine Protein 3+H, Urine Glucose (UA) NEGATIVE, Urine Ketones NEGATIVE, Urine Nitrite POSITIVEH, Urine Bilirubin 1+H, Urine Urobilinogen 1.0, Urine Leukocyte Esterase 2+H, Urine RBC (Auto) 3+H, Urine RBC TNTCH, Urine WBC 5-10H, Urine Squamous Epithelial Cells NONE, Urine Crystals NONE, Urine Bacteria FEWH, Urine Casts NONE, Urine Mucus NEGATIVE, Urine Yeast FEWH, Urine Culture Indicated YES 11/16/20 16:10: Troponin I < 0.028 11/17/20 05:15: White Blood Count 7.6, Red Blood Count 2.79L, Hemoglobin 8.6L, Hematocrit 26L, Mean Corpuscular Volume 94, Mean Corpuscular Hemoglobin 31, Mean Corpuscular Hemoglobin Concent 33, Red Cell Distribution Width 13.4, Platelet Count 180, Mean Platelet Volume 11.3, Immature Granulocyte % (Auto) 1, Neutrophils (%) (Auto) 89H, Lymphocytes (%) (Auto) 8L, Monocytes (%) (Auto) 1, Eosinophils (%) (Auto) 1, Basophils (%) (Auto) 0, Neutrophils # (Auto) 6.8, Lymphocytes # (Auto) 0.6L, Monocytes # (Auto) 0.1, Eosinophils # (Auto) 0.1, Basophils # (Auto) 0.0, Immature Granulocyte # (Auto) 0.1, Sodium Level 134L, Potassium Level 5.3H, Chloride Level 110H, Carbon Dioxide Level 16L, Anion Gap 8, Blood Urea Nitrogen 55H, Creatinine 1.82H, Estimat Glomerular Filtration Rate 35, BUN/Creatinine Ratio 30, Glucose Level 100, Calcium Level 8.0L, Iron Level [Pending], Total Iron Binding Capacity [Pending], Unsaturated Iron Binding Capacity [Pending], Transferrin % Saturation [Pending], Ferritin [Pending], Triglycerides Level 95, Cholesterol Level 113, LDL Cholesterol Direct 44, VLDL Cholesterol 19, HDL Cholesterol 47, Vitamin B12 Level [Pending], Folate [Pending] Home Meds Active Cefdinir 300 Mg Capsule 300 Mg PO BID 7 Days Polyethylene Glycol 3350 17 Gm Powd.pack 17 Gm PO TID Reported Tylenol Extra Strength (Acetaminophen) 500 Mg Tablet 500-1,000 Mg PO Q8H PRN Cranberry 400 Mg Capsule 400 Mg PO DAILY Vitamin C (Ascorbate Calcium) 500 Mg Tablet 500 Mg PO DAILY Nitroglycerin 4.9 Gm [place] 1-2 Sprays SL UD PRN Diltiazem 24Hr ER (Diltiazem HCl) 120 Mg Cap.er.24h 120 Mg PO 1800 Eliquis (Apixaban) 5 Mg Tablet 5 Mg PO BID Rosuvastatin Calcium 5 Mg Tablet 5 Mg PO 1800 Metoprolol Succinate 25 Mg Tab.er.24h 25 Mg PO 1800 Oxycodone HCl 5 Mg Tablet 5 Mg PO Q6H PRN Lisinopril 10 Mg Tablet 10 Mg PO DAILY Assessment/Pt Instructions Take medications as prescribed. Complete your course of antibiotics even if you are feeling better. You are being set up with physical therapy. Follow-up with oncology and your primary care doctor as scheduled. Return with worsening weakness or if you feel like you are getting worse. Discharge Planning: <30 minutes discharge planning Discharge Instructions Discharge Diet: No Restrictions Activity as Tolerated: Yes Discharge Physical Examination Vital Signs Vital Signs Date Time Temp Pulse Resp B/P (MAP) Pulse Ox O2 Delivery O2 Flow Rate FiO2 11/17/20 11:27 11/17/20 08:00 36.2 88 18 100 Room Air 11/17/20 04:52 2.00 General Appearance: No Apparent Distress, WD/WN, Chronically ill HEENT: PERRL/EOMI, Pharynx Normal Respiratory: Lungs Clear, Normal Breath Sounds, No Respiratory Distress Cardiovascular: Regular Rate, Rhythm, No Murmur Gastrointestinal: Normal Bowel Sounds, Non Tender, Soft, Other (Ileostomy in place) Extremity: Normal Inspection, Non Tender, No Pedal Edema Skin: Normal Color, Warm/Dry Neurologic/Psychiatric: Alert, Oriented x3, No Motor/Sensory Deficits, Normal Mood/Affect Allergies: Coded Allergies: Beta-Blockers (Beta-Adrenergic Bloc (Verified Adverse Reaction, Unknown, SYNCOPE, 12/06/19) Copy Copies To 1: ABEL MARTINEZ MD Copies To 2: SEKOU KIRBY Discharge Summary Date of Admission November 16, 2020 at 16:21 Date of Discharge November 17, 2020 at 11:30 Discharge Date: November 17, 2020 Discharge Time: 11:30 Admission Diagnosis Anemia associated with chemotherapy Discharge Diagnosis (1) Anemia associated with chemotherapy Status: Acute (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
[2020-11-17] MEDS ORDERED: cefTRIAXone 1,000 MG/SWFI 10 ML IV PUSH IV SCH ×2 (16:00)
== END 2020-11-17 10:54 | disposition home or self-care (01) ==
LOC: EDUNIT# 13:26 → ER 13:30 → UNDOADMOB 16:21 → 4TH 16:21 → UNDODISOB 11-17 11:30
PROVIDERS: ADMIT Internal Medicine; ATTEND Internal Medicine
DX: D64.81 Anemia due to antineoplastic chemotherapy (principal); C7B.02 Secondary carcinoid tumors of liver; C67.9 Malignant neoplasm of bladder, unspecified; N30.01 Acute cystitis with hematuria; J43.9 Emphysema, unspecified; G47.30 Sleep apnea, unspecified; I10 Essential (primary) hypertension; I25.10 Atherosclerotic heart disease of native coronary artery without angina pectoris; I48.91 Unspecified atrial fibrillation; K21.9 Gastro-esophageal reflux disease without esophagitis; G89.29 Other chronic pain; M54.9 Dorsalgia, unspecified; Z73.3 Stress, not elsewhere classified; Z79.01 Long term (current) use of anticoagulants; Z79.899 Other long term (current) drug therapy; Z88.8 Allergy status to other drugs, medicaments and biological substances; Z87.891 Personal history of nicotine dependence; Z80.9 Family history of malignant neoplasm, unspecified
CPT/HCPCS: 36430; 71045; 72125; 72128; 80048; 80053; 80061; 81000; 82607; 82728; 82746; 83540; 83550; 83735; 83874; 83880; 84484; 85007; 85025; 85027; 85610; 85730; 86850; 86900; 86901; 86920; 87077; 87088; 87186; 93005; 93041; 99285; G0378; P9016; 36415; 96374

== ENCOUNTER 2020-11-18 09:17 | Outpatient (RCR) | payer MEDICARE, OTHER ==
[2020-08-21 08:45] LABS: BASOPHILS # (AUTO) 0.1 10^3/uL (0.0-0.1); BASOPHILS % (AUTO) 2 % (0-10); EOSINOPHILS # (AUTO) 0.2 10^3/uL (0.0-0.3); EOSINOPHILS % (AUTO) 4 % (0-10); HEMATOCRIT 33 % (40-54); HEMOGLOBIN 10.7 g/dL (13.3-17.7); LYMPHOCYTES # (AUTO) 1.4 10^3/uL (1.0-4.0); LYMPHOCYTES % (AUTO) 23 % (12-44); MEAN CORPUSCULAR HEMOGLOBIN 30 pg (25-34); MEAN CORPUSCULAR HGB CONC 32 g/dL (32-36); MEAN CORPUSCULAR VOLUME 94 fL (80-99); MONOCYTES # (AUTO) 0.7 10^3/uL (0.0-1.0); MONOCYTES % (AUTO) 11 % (0-12); NEUTROPHILS # (AUTO) 3.9 10^3/uL (1.8-7.8); NEUTROPHILS % (AUTO) 61 % (42-75); PLATELET COUNT 203 10^3/uL (130-400); WHITE BLOOD COUNT 6.3 10^3/uL (4.3-11.0)
[2020-08-21 09:08] LABS: ALBUMIN 4.1 GM/DL (3.2-4.5); BILIRUBIN,TOTAL 0.6 MG/DL (0.1-1.0); CALCIUM 9.1 MG/DL (8.5-10.1); CREATININE SERUM 1.47 MG/DL (0.60-1.30); POTASSIUM 4.8 MMOL/L (3.6-5.0); TOTAL PROTEIN 6.9 GM/DL (6.4-8.2)
[2020-10-09 12:21] LABS: BASOPHILS # (AUTO) 0.1 10^3/uL (0.0-0.1); BASOPHILS % (AUTO) 2 % (0-10); EOSINOPHILS # (AUTO) 0.3 10^3/uL (0.0-0.3); EOSINOPHILS % (AUTO) 4 % (0-10); HEMATOCRIT 32 % (40-54); HEMOGLOBIN 10.4 g/dL (13.3-17.7); LYMPHOCYTES % (AUTO) 14 % (12-44); MEAN CORPUSCULAR HEMOGLOBIN 31 pg (25-34); MEAN CORPUSCULAR HGB CONC 32 g/dL (32-36); MEAN CORPUSCULAR VOLUME 95 fL (80-99); MEAN PLATELET VOLUME 11.5 fL (9.0-12.2); MONOCYTES # (AUTO) 0.8 10^3/uL (0.0-1.0); MONOCYTES % (AUTO) 11 % (0-12); NEUTROPHILS # (AUTO) 4.9 10^3/uL (1.8-7.8); NEUTROPHILS % (AUTO) 69 % (42-75); PLATELET COUNT 216 10^3/uL (130-400); WHITE BLOOD COUNT 7.1 10^3/uL (4.3-11.0)
[2020-10-09 12:37] LABS: BILIRUBIN,TOTAL 0.3 MG/DL (0.1-1.0); CALCIUM 8.9 MG/DL (8.5-10.1); CREATININE SERUM 2.51 MG/DL (0.60-1.30); POTASSIUM 5.8 MMOL/L (3.6-5.0)
[2020-10-17 10:34] LABS: BASOPHILS # (AUTO) 0.1 10^3/uL (0.0-0.1); BASOPHILS % (AUTO) 1 % (0-10); EOSINOPHILS # (AUTO) 0.2 10^3/uL (0.0-0.3); EOSINOPHILS % (AUTO) 2 % (0-10); HEMATOCRIT 32 % (40-54); HEMOGLOBIN 10.3 g/dL (13.3-17.7); LYMPHOCYTES % (AUTO) 13 % (12-44); MEAN CORPUSCULAR HEMOGLOBIN 31 pg (25-34); MEAN CORPUSCULAR HGB CONC 33 g/dL (32-36); MEAN CORPUSCULAR VOLUME 95 fL (80-99); MEAN PLATELET VOLUME 11.1 fL (9.0-12.2); MONOCYTES # (AUTO) 0.9 10^3/uL (0.0-1.0); MONOCYTES % (AUTO) 11 % (0-12); NEUTROPHILS # (AUTO) 5.7 10^3/uL (1.8-7.8); NEUTROPHILS % (AUTO) 72 % (42-75); PLATELET COUNT 228 10^3/uL (130-400); WHITE BLOOD COUNT 7.9 10^3/uL (4.3-11.0)
[2020-10-17 10:52] LABS: ALBUMIN 4.1 GM/DL (3.2-4.5); BILIRUBIN,TOTAL 0.3 MG/DL (0.1-1.0); CREATININE SERUM 2.52 MG/DL (0.60-1.30); POTASSIUM 5.7 MMOL/L (3.6-5.0)
[~2020-11-18] VITALS: Ht 167.6 cm; Wt 68.9 kg
[~2020-11-18 09:17] MED LIST changes: +CARBOPLATIN IV SCH; +CEFD300C3 PO; +D5W IV SCH; +ETOPOSIDE 160 MG in NORMAL SALINE (CANCER CENTER) 500 ML IV SCH; +FOSAPREPITANT (CANCER CENTER) 150 MG in NS (IVPB) CANCER CENTER ONLY 150 ML IV SCH; +NS IV 1000 ML (CANCER CTR) 1,000 ML ONE; +NS IV 1000 ML (CANCER CTR) IV SCH
[2020-11-18 10:10] LABS: BASOPHILS # (AUTO) 0.1 10^3/uL (0.0-0.1); BASOPHILS % (AUTO) 1 % (0-10); EOSINOPHILS # (AUTO) 0.1 10^3/uL (0.0-0.3); EOSINOPHILS % (AUTO) 1 % (0-10); HEMATOCRIT 28 % (40-54); LYMPHOCYTES # (AUTO) 0.8 10^3/uL (1.0-4.0); LYMPHOCYTES % (AUTO) 11 % (12-44); MEAN CORPUSCULAR HEMOGLOBIN 30 pg (25-34); MEAN CORPUSCULAR HGB CONC 32 g/dL (32-36); MEAN CORPUSCULAR VOLUME 96 fL (80-99); MEAN PLATELET VOLUME 11.1 fL (9.0-12.2); MONOCYTES # (AUTO) 0.1 10^3/uL (0.0-1.0); MONOCYTES % (AUTO) 1 % (0-12); NEUTROPHILS # (AUTO) 5.6 10^3/uL (1.8-7.8); NEUTROPHILS % (AUTO) 83 % (42-75); PLATELET COUNT 217 10^3/uL (130-400); WHITE BLOOD COUNT 6.8 10^3/uL (4.3-11.0)
[2020-11-18 10:24] LABS: CALCIUM 8.5 MG/DL (8.5-10.1); CREATININE SERUM 2.22 MG/DL (0.60-1.30); POTASSIUM 5.5 MMOL/L (3.6-5.0)
== END 2020-11-19 | disposition home or self-care (01) ==
LOC: ONC 09:17
PROVIDERS: ATTEND Internal Medicine Hematology & Oncology
DX: C67.2 Malignant neoplasm of lateral wall of bladder (principal); N13.1 Hydronephrosis with ureteral stricture, not elsewhere classified; I25.10 Atherosclerotic heart disease of native coronary artery without angina pectoris; I12.9 Hypertensive chronic kidney disease with stage 1 through stage 4 chronic kidney disease, or unspecified chronic kidney disease; N18.9 Chronic kidney disease, unspecified; E78.2 Mixed hyperlipidemia; I89.0 Lymphedema, not elsewhere classified; Z95.1 Presence of aortocoronary bypass graft; Z95.5 Presence of coronary angioplasty implant and graft; Z98.890 Other specified postprocedural states; Z92.21 Personal history of antineoplastic chemotherapy; Z85.46 Personal history of malignant neoplasm of prostate; Z92.3 Personal history of irradiation
CPT/HCPCS: 36591; 80048; 80053; 83615; 85025; 96360; 96367; 96375; 96413; 96417; 99213

== ENCOUNTER 2020-11-25 12:28 | Outpatient (CLI) | payer MEDICARE, OTHER ==
[~2020-11-25 12:28] MED LIST changes: -CARBOPLATIN IV SCH; -D5W IV SCH; -ETOPOSIDE 160 MG in NORMAL SALINE (CANCER CENTER) 500 ML IV SCH; -FOSAPREPITANT (CANCER CENTER) 150 MG in NS (IVPB) CANCER CENTER ONLY 150 ML IV SCH; -NS IV 1000 ML (CANCER CTR) 1,000 ML ONE; -NS IV 1000 ML (CANCER CTR) IV SCH
[2020-11-25] MEDS ORDERED: NS IV 500 ML 500 ML IV ONE (13:15)
[2020-11-25 14:39] VITALS: BP 144/68
[2020-11-25 14:54] VITALS: BP 135/92
[2020-11-25 15:37] VITALS: BP 153/61
[2020-11-25 16:45] VITALS: BP 135/58
[2020-11-25 16:54] VITALS: BP 168/75
== END 2020-11-25 17:30 | disposition home or self-care (01) ==
LOC: SDC 12:28
PROVIDERS: ATTEND Internal Medicine
DX: D64.9 Anemia, unspecified (principal)
CPT/HCPCS: 36430; 86850; 86900; 86901; 86920; P9016; 36415

== ENCOUNTER → 2020-11-26 | Outpatient (CLI) | payer MEDICARE, OTHER ==
[~2020-11-26] MED LIST changes: +APIX2.5T PO; +HYDR-3923 PO; +LEVO750T39 PO
[2020-11-26 14:00] LABS: CLARITY,URINE CLEAR; COLOR,URINE RED; GLUCOSE, URINE (UA) NEGATIVE (NEGATIVE); KETONES,URINE TRACE (NEGATIVE); LEUKOCYTE ESTERASE ,URINE 2+ (NEGATIVE); NITRITE,URINE POSITIVE (NEGATIVE); PROTEIN,URINE 3+ (NEGATIVE)
[2020-11-26 14:17] LABS: BACTERIA,URINE TRACE /HPF; BILIRUBIN,URINE 2+ (NEGATIVE); RBC,URINE TNTC /HPF
== END ==
LOC: LABNPT 08:25
PROVIDERS: ATTEND Internal Medicine
DX: Z01.89 Encounter for other specified special examinations (principal)
CPT/HCPCS: 81000; 87088

== ENCOUNTER 2020-11-27 10:15 | Outpatient (RCR) | payer MEDICARE, OTHER ==
[~2020-11-27 10:15] MED LIST changes: -APIX2.5T PO; -HYDR-3923 PO; -LEVO750T39 PO
== END 2020-11-27 13:11 | disposition home or self-care (01) ==
PROVIDERS: ATTEND Internal Medicine Hematology & Oncology
DX: M62.81 Muscle weakness (generalized) (principal)

== ENCOUNTER 2020-11-28 16:14 | Observation (INO) | payer MEDICARE, OTHER ==
[~2020-11-28] VITALS: Ht 167 cm; Wt 65.0 kg
--- NOTE | 2020-11-28 16:37 | ED General ---
General Stated Complaint: LOW HEMOGLOBIN Source of Information: Patient Exam Limitations: No Limitations History of Present Illness Date Seen by Provider: November 28, 2020 Time Seen by Provider: 16:15 Initial Comments To ER by private vehicle with reports of abnormal labs. He states that Dr. Frey ordered some blood work today and he was told that his hemoglobin was down around 7 again and his kidneys were not working very well. 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 He underwent chemotherapy for 3 cycles followed by cystoprostatectomy. Recently he then had enlarged retroperitoneal lymph nodes causing obstruction to the bilateral collecting systems and had bilateral ureteral stents placed at the [facility]. He was admitted here 11/16/2020 for urinary tract infection and anemia which is believed to be secondary to chemotherapy. Timing/Duration: 1-2 Days Severity: Moderate Associated Systoms: Denies Symptoms Allergies and Home Medications Allergies Coded Allergies: Beta-Blockers (Beta-Adrenergic Bloc (Verified Adverse Reaction, Unknown, SYNCOPE, 12/06/19) Home Medications Acetaminophen 500 Mg Tablet, 500-1,000 MG PO Q8H PRN for PAIN-MILD (1-4), (Reported) Apixaban 5 Mg Tablet, 5 MG PO BID, (Reported) Ascorbate Calcium 500 Mg Tablet, 500 MG PO DAILY, (Reported) Cefdinir 300 Mg Capsule, 300 MG PO BID Prescribed by: JAYLIN QUINN on 11/17/20 1055 Cranberry 400 Mg Capsule, 400 MG PO DAILY, (Reported) Diltiazem HCl 120 Mg Cap.er.24h, 120 MG PO 1800, (Reported) Lisinopril 10 Mg Tablet, 10 MG PO DAILY, (Reported) Metoprolol Succinate 25 Mg Tab.er.24h, 25 MG PO 1800, (Reported) Nitroglycerin 4.9 Gm [place], 1-2 SPRAYS SL UD PRN for CHEST PAIN (ANGINA), (Reported) Oxycodone HCl 5 Mg Tablet, 5 MG PO Q6H PRN for PAIN-SEVERE (8-10), (Reported) Polyethylene Glycol 3350 17 Gm Powd.pack, 17 GM PO TID Prescribed by: CHANELLE KEYES on 11/05/20 0939 Rosuvastatin Calcium 5 Mg Tablet, 5 MG PO 1800, (Reported) Patient Home Medication List Home Medication List Reviewed: Yes Review of Systems Review of Systems Constitutional: see HPI; No chills, No fever EENTM: see HPI Respiratory: see HPI, dyspnea on exertion Cardiovascular: see HPI; No chest pain Genitourinary: no symptoms reported Musculoskeletal: no symptoms reported Skin: no symptoms reported Psychiatric/Neurological: No Symptoms Reported Hematologic/Lymphatic: No Symptoms Reported Immunological/Allergic: no symptoms reported Past Aggglts-Mebtnu-Unersx Hx Patient Social History Alcohol Beverage of Choice: Wine Type Used: Cigarettes Former Smoker, Quit: Jul 19, 1996 2nd Hand Smoke Exposure: Yes Recent Hopitalizations: No Immunizations Up To Date Tetanus Booster (TDap): Unknown Date of Pneumonia Vaccine: May 15, 2017 Date of Influenza Vaccine: Apr 18, 2020 Seasonal Allergies Seasonal Allergies: Yes Past Medical History Surgeries: Yes (NASAL, OPEN HEART, CARDIAC STENTS, BRACHY THERAPY-PROSTATE, turp) Bladder Surgery, CABG, Coronary Stent, Pacemaker, Prostatectomy Respiratory: Yes Sleep Apnea, Emphysema Currently Using CPAP: No Currently Using BIPAP: No Cardiac: Yes (history cardiac arrest requiring CPR) Atrial Fibrillation, Coronary Artery Disease, Hypertension Neurological: No Reproductive Disorders: No Sexually Transmitted Disease: No HIV/AIDS: No Genitourinary: Yes (bladder ca) Prostate Problems, Bladder Infection, Kidney Stones Gastrointestinal: Yes Gastroesophageal Reflux, Chronic Constipation, Irritable Bowel Musculoskeletal: Yes Chronic Back Pain Endocrine: No HEENT: Yes (GLASSES) Loss of Vision: Denies Hearing Impairment: Hard of Hearing, Bilateral Hearing Aide Cancer: Yes (with radiation IN 1999) Bladder, Prostate Did You Recieve Any Treatments: Yes What Type of Treatment Did You: Chemotherapy, Radiation Psychosocial: No Integumentary: No Blood Disorders: No Adverse Reaction/Blood Tranf: No (HAS HAD BLOOD WITH NO REACTION) Family Medical History Cardiovascular disease 19 FATHER G8 BROTHER Diabetes mellitus G8 BROTHER Hypertension 19 FATHER G8 BROTHER Neoplasm G8 BROTHER No Pertinent Family Hx Physical Exam Vital Signs Vital Signs - First Documented 11/28/20 16:39 Temp 36.4 Pulse 78 Resp 18 B/P (MAP) 157/73 (101) Pulse Ox 99 O2 Delivery Room Air Capillary Refill : Height, Weight, BMI Height: 5'6.00" Weight: 166lbs. 0.0oz. [id number]; 23.36 BMI Method:Stated General Appearance: No Apparent Distress, WD/WN Eyes: Bilateral Eye Normal Inspection, Bilateral Eye PERRL Respiratory: No Accessory Muscle Use, No Respiratory Distress Cardiovascular: Regular Rate, Rhythm, Normal Peripheral Pulses Gastrointestinal: Normal Bowel Sounds, Non Tender, Soft Extremity: Normal Capillary Refill, Normal Inspection Neurologic/Psychiatric: Alert, Oriented x3 Skin: Normal Color, Warm/Dry Progress/Results/Core Measures Suspected Sepsis SIRS Temperature: Pulse: Respiratory Rate: Laboratory Tests 11/28/20 16:32: White Blood Count 4.2L Blood Pressure / Mean: Laboratory Tests 11/28/20 16:32: Creatinine 3.50H, Platelet Count 183 Results/Orders Lab Results Laboratory Tests Test 11/28/20 16:32 Range/Units White Blood Count 4.2 L 4.3-11.0 10^3/uL Red Blood Count 2.48 L 4.30-5.52 10^6/uL Hemoglobin 7.5 L 13.3-17.7 g/dL Hematocrit 23 L 40-54 % Mean Corpuscular Volume 91 80-99 fL Mean Corpuscular Hemoglobin 30 25-34 pg Mean Corpuscular Hemoglobin Concent 33 32-36 g/dL Red Cell Distribution Width 13.4 10.0-14.5 % Platelet Count 183 130-400 10^3/uL Mean Platelet Volume 10.0 9.0-12.2 fL Immature Granulocyte % (Auto) 14 % Neutrophils (%) (Auto) 45 42-75 % Lymphocytes (%) (Auto) 18 12-44 % Monocytes (%) (Auto) 22 H 0-12 % Eosinophils (%) (Auto) 1 0-10 % Basophils (%) (Auto) 1 0-10 % Neutrophils # (Auto) 1.9 1.8-7.8 10^3/uL Lymphocytes # (Auto) 0.8 L 1.0-4.0 10^3/uL Monocytes # (Auto) 0.9 0.0-1.0 10^3/uL Eosinophils # (Auto) 0.0 0.0-0.3 10^3/uL Basophils # (Auto) 0.0 0.0-0.1 10^3/uL Immature Granulocyte # (Auto) 0.6 H 0.0-0.1 10^3/uL Sodium Level 132 L 135-145 MMOL/L Potassium Level 5.1 H 3.6-5.0 MMOL/L Chloride Level 107 98-107 MMOL/L Carbon Dioxide Level 14 L 21-32 MMOL/L Anion Gap 11 5-14 MMOL/L Blood Urea Nitrogen 55 H 7-18 MG/DL Creatinine 3.50 H 0.60-1.30 MG/DL Estimat Glomerular Filtration Rate 17 BUN/Creatinine Ratio 16 Glucose Level 112 H 70-105 MG/DL Calcium Level 8.3 L 8.5-10.1 MG/DL B-Type Natriuretic Peptide 143.1 H <100.0 PG/ML My Orders Orders - KI COX APRN Cbc With Automated Diff (11/28/20 16:22) Basic Metabolic Panel (11/28/20 16:22) BNP (11/28/20 16:22) Red Cells Leukocytes Reduced (11/28/20 16:22) Ed Iv/Invasive Line Start (11/28/20 16:22) Type And Screen (11/28/20 16:22) Vital Signs/I&O 11/28/20 16:39 Temp 36.4 Pulse 78 Resp 18 B/P (MAP) 157/73 (101) Pulse Ox 99 O2 Delivery Room Air Capillary Refill : Departure Communication (Admissions) Dr. Quinn, we will admit observation status to hydrate gently and recheck in the morning. Hold off on blood for now. Impression Primary Impression: Metastatic malignant neuroendocrine tumor to liver Additional Impression: ENRIQUETA (acute kidney injury) Disposition: ADMITTED INPATIENT Condition: Critical Admissions Decision to Admit Reason: Admit from ER (General) Decision to Admit/Date: November 28, 2020 Time/Decision to Admit Time: 17:19 Departure-Patient Inst. Referrals: SEKOU AL (PCP/Family) Primary Care Physician KI COX APRN November 28, 2020 16:36
[2020-11-28 16:41] LABS: BASOPHILS % (AUTO) 1 % (0-10); EOSINOPHILS % (AUTO) 1 % (0-10); HEMATOCRIT 23 % (40-54); HEMOGLOBIN 7.5 g/dL (13.3-17.7); LYMPHOCYTES # (AUTO) 0.8 10^3/uL (1.0-4.0); LYMPHOCYTES % (AUTO) 18 % (12-44); MEAN CORPUSCULAR HEMOGLOBIN 30 pg (25-34); MEAN CORPUSCULAR HGB CONC 33 g/dL (32-36); MEAN CORPUSCULAR VOLUME 91 fL (80-99); MONOCYTES # (AUTO) 0.9 10^3/uL (0.0-1.0); MONOCYTES % (AUTO) 22 % (0-12); NEUTROPHILS # (AUTO) 1.9 10^3/uL (1.8-7.8); NEUTROPHILS % (AUTO) 45 % (42-75); PLATELET COUNT 183 10^3/uL (130-400); WHITE BLOOD COUNT 4.2 10^3/uL (4.3-11.0)
[2020-11-28 16:52] LABS: POTASSIUM 5.1 MMOL/L (3.6-5.0)
[2020-11-28 16:53] LABS: CALCIUM 8.3 MG/DL (8.5-10.1)
[2020-11-28 16:57] LABS: CREATININE SERUM 3.5 MG/DL (0.60-1.30)
[2020-11-28 18:15] VITALS: BP 168/69
[2020-11-28] MEDS: LACTATED RINGERS 1,000 ML IV SCH (18:39)
[2020-11-28] MEDS ORDERED: ONDANSETRON 4 MG (ZOFRAN) ORAL DISSOLVE TAB PO PRN (18:45)
[2020-11-28] MEDS ORDERED: ONDANSETRON 4 MG/2 ML (SDV) Z0FRAN IV PRN (18:45)
[2020-11-28] MEDS ORDERED: CATHETER FLUSH 10 ML SYR IV PRN (18:45)
[2020-11-28] MEDS ORDERED: polyethylene glycoL POWDER 17 GM (MIRALAX) PACK PO PRN (18:45)
[2020-11-28] MEDS ORDERED: ACETAMINOPHEN 325 MG TABLET PO PRN (18:45)
[2020-11-28] MEDS ORDERED: ANTACID SUSP 30 ML UDC (MYLANTA) PO PRN (18:45)
[2020-11-28] MEDS ORDERED: MELATONIN 3 MG TABLET PO PRN (18:45)
[2020-11-28] MEDS: APIXABAN 5 MG (ELIQUIS) TABLET PO SCH (19:49)
[2020-11-28] MEDS: dilTIAZem120 MG (CARDIZEM CD) CAP PO SCH (19:49)
[2020-11-28 20:00] VITALS: BP 132/57
[2020-11-28] MEDS ORDERED: APIXABAN 5 MG (ELIQUIS) TABLET PO SCH (21:00)
[2020-11-28 23:43] VITALS: BP 126/60
[2020-11-29 03:10] VITALS: BP 134/72
[2020-11-29] MEDS: LACTATED RINGERS 1,000 ML IV SCH ×2 (05:26→15:40)
[2020-11-29 06:03] LABS: BASOPHILS % (AUTO) 0 % (0-10); EOSINOPHILS % (AUTO) 0 % (0-10); HEMATOCRIT 22 % (40-54); HEMOGLOBIN 7.3 g/dL (13.3-17.7); LYMPHOCYTES # (AUTO) 0.9 10^3/uL (1.0-4.0); LYMPHOCYTES % (AUTO) 16 % (12-44); MEAN CORPUSCULAR HEMOGLOBIN 31 pg (25-34); MEAN CORPUSCULAR HGB CONC 33 g/dL (32-36); MEAN CORPUSCULAR VOLUME 94 fL (80-99); MEAN PLATELET VOLUME 10.4 fL (9.0-12.2); MONOCYTES % (AUTO) 17 % (0-12); NEUTROPHILS % (AUTO) 54 % (42-75); PLATELET COUNT 187 10^3/uL (130-400); WHITE BLOOD COUNT 5.6 10^3/uL (4.3-11.0)
[2020-11-29 06:12] LABS: POTASSIUM 5.5 MMOL/L (3.6-5.0)
[2020-11-29 06:13] LABS: CALCIUM 8.5 MG/DL (8.5-10.1)
[2020-11-29 06:17] LABS: CREATININE SERUM 3.23 MG/DL (0.60-1.30); PHOSPHORUS 3.9 MG/DL (2.3-4.7)
[2020-11-29 06:20] LABS: MAGNESIUM 1.7 MG/DL (1.6-2.4)
[2020-11-29 06:37] LABS: BAND NEUTROPHILS 10 %; LYMPHOCYTES % (MANUAL) 20 %; METAMYELOCYTES % 2 %; MONOCYTES % (MANUAL) 16 %; MYELOCYTES % 2 %; NEUTROPHILS % (MANUAL) 49 %; REACTIVE LYMPHOCYTES 1 %
[2020-11-29 06:38] LABS: RBC MORPH NORMAL
[2020-11-29 08:00] VITALS: BP 137/74
[2020-11-29] MEDS ORDERED: SOD POLYSTERENE 15 GM/60 ML (KAYEXALATE) UNIT DOSE PO ONE (08:00)
[2020-11-29] MEDS ORDERED: PHARMACY TO DOSE SQ SCH (09:00)
[2020-11-29] MEDS: APIXABAN 5 MG (ELIQUIS) TABLET PO SCH ×2 (09:00→19:51)
[2020-11-29 12:00] VITALS: BP 133/72
--- NOTE | 2020-11-29 12:03 | Diagnostic Imaging Report ---
EXAMINATION: CT abdomen and pelvis without contrast. TECHNIQUE: Multiple contiguous axial images were obtained through the abdomen and pelvis without the use of intravenous contrast. All CT scans use one or more of the following dose optimizing techniques: automated exposure control, MA and/or KvP adjustment based on patient size and exam type or iterative reconstruction. HISTORY: Renal failure. COMPARISON: 11/04/2020. FINDINGS: Limited views of the lower thorax show pacemaker and coronary artery calcifications. A low attenuating right hemiliver lesion measuring 8 mm is unchanged. There is no biliary ductal dilation. Gallbladder is normal. Pancreas is normal. Spleen is normal. Adrenal glands are normal. There are bilateral nephroureteral stents extending into an ileal conduit. There is slightly increased moderate left hydronephrosis. Cysts in the left kidney measuring 2.9 cm is unchanged. Urinary bladder has been resected. There is an unchanged area of soft tissue thickening in the left aspect of the pelvis measuring 4.5 x 5.1 cm, previously 4.5 x 5.1 cm. A superior pelvis presacral lymph node measures 2.6 x 1.6 cm, previously 2.6 x 1.7 cm. Visualized bowel is normal in caliber without obstruction or inflammation. No free fluid or air. A 16 mm iliac bifurcation lymph node in the left previously measured 16 mm. Aorta is normal in caliber without aneurysm. There are no suspicious osseous lesions. IMPRESSION: 1. Unchanged low attenuating right hemiliver lesion concerning for metastatic disease. 2. Unchanged soft tissue thickening in the left aspect of the pelvis and retroperitoneal lymphadenopathy. 3. Bilateral nephroureteral stents with slightly increased, now moderate left hydronephrosis. Dictated by: Dictated on workstation # [id number]
[2020-11-29] MEDS ORDERED: LEVO750T39 PO (12:27)
[2020-11-29] MEDS ORDERED: POLY17PO6 PO (12:27)
--- NOTE | 2020-11-29 12:48 | History & Physical-Hospitalist ---
History of Present Illness HPI/Chief Complaint Stephen Fraser is an 85-year-old male with metastatic malignant neuroendocrine tumor to the liver, status post radical cystectomy with diverting ileostomy requiring ureteral stents due to bulky lymphadenopathy, chronic kidney disease, who presented with weakness. He denies fevers but reports having some chills. He denies any shortness of breath or cough. He denies any chest pain or palpitations. He denies any abdominal pain. He has not had any nausea or vomiting. He denies any diarrhea. He has not noticed any change in his ileostomy output. It has been blood-tinged since he had the stents placed. He has noticed a bit of increased lower extremity swelling. He has never seen a investigation clerk. He has seen a urologist who put his stents in place. He says no one has ever talked to him about dialysis. Source: patient Exam Limitations: no limitations Date Seen 11/29/20 Time Seen by a Provider: 10:05 Attending Physician Jaylin Quinn MD PCP Radha Kirby Referring Physician Date of Admission November 28, 2020 at 17:15 Home Medications & Allergies Home Medications Reviewed patient Home Medication Reconciliation performed by pharmacy medication reconciliations design technician and/or nursing. Patients Allergies have been reviewed. Allergies Allergies Coded Allergies Beta-Blockers (Beta-Adrenergic Bloc (Verified Adverse Reaction, Unknown, SYNCOPE, 12/06/19) Patient Social History Tobacco Use?: No Smoking Status: Former Smoker Use of E-Cig and/or Vaping dev: No Substance use?: No Alcohol Use?: No Pt stated abuse/neglect: No Immunizations Up To Date Influenza Vaccine Up-to-Date: Yes; Up-to-Date First/Initial COVID19 Vaccinat: 08/19/20 Second COVID19 Vaccination Sherif: 09/17/20 Tetanus Booster (TDap): Unknown Hepatitis A: No Hepatitis B: No TB Skin Test: None Date of Pneumonia Vaccine: May 15, 2017 Current Status Do you have an Advance Directi: Yes Advance Directive Location: Home Communicates: Verbally Primary Language: Guamanian Preferred Spoken Language: Guamanian Is interpretation needed?: No Sensory deficits: Vision impairment, Hearing impairment Implanted or Applied Medical D: Pacemaker Past Medical History Metastatic malignant neuroendocrine tumor to the liver Chronic kidney disease Family Medical History Family Hx: Noncontributory Review of Systems Constitutional: chills, weakness EENTM: no symptoms reported Respiratory: no symptoms reported Cardiovascular: no symptoms reported Gastrointestinal: no symptoms reported Genitourinary: hematuria Musculoskeletal: no symptoms reported Skin: no symptoms reported Psychiatric/Neurological: No Symptoms Reported Physical Exam Physical Exam Vital Signs Vital Signs - First Documented 11/28/20 16:39 Temp 36.4 Pulse 78 Resp 18 B/P (MAP) 157/73 (101) Pulse Ox 99 O2 Delivery Room Air Capillary Refill : Less Than 3 Seconds Height, Weight, BMI Height: 5'6.00" Weight: 166lbs. 0.0oz. 75.483568ie; 23.30 BMI Method:Stated General Appearance: No Apparent Distress, WD/WN HEENT: PERRL/EOMI, Pharynx Normal Neck: Normal Inspection, Supple Respiratory: Lungs Clear, Normal Breath Sounds, No Respiratory Distress Cardiovascular: Regular Rate, Rhythm, No Murmur Gastrointestinal: Normal Bowel Sounds, Non Tender, Soft, Other (Ileostomy in place) Extremity: Normal Inspection, Non Tender, Pedal Edema Neurologic/Psychiatric: Alert, Oriented x3, Normal Mood/Affect, Motor Weakness Skin: Normal Color, Warm/Dry Results Results/Procedures Labs Laboratory Tests 11/28/20 16:32 11/29/20 06:00 Patient resulted labs reviewed. Imaging: Reviewed Imaging Report Assessment/Plan Admission Diagnosis Acute kidney injury superimposed on chronic kidney disease Admission Status: Observation Assessment and Plan Acute kidney injury superimposed on chronic kidney disease Metastatic malignant neuroendocrine tumor to the liver Advanced age Poor prognosis s/p radical cystectomy with diverting ileostomy s/p bilateral ureteral stents due to bulky lymphadenopathy Consult Urology, Dr. Michelle, appreciate assistance Obtain CT Abdomen Consult Oncology, Dr. Kirby, appreciate assistance Recent CT Abdomen with worsening lymphadenopathy Currently on second line palliative chemotherapy Consult Palliative Care, appreciate assistance Cr elevated from baseline, potassium elevated, bicarb decreased Continue IV fluids HTN AFib HLD Continue home meds Diagnosis/Problems Diagnosis/Problems (1) Acute kidney injury superimposed on chronic kidney disease Status: Acute (2) Metastatic malignant neuroendocrine tumor to liver Status: Acute (3) Advanced age Status: Chronic (4) Poor prognosis Status: Acute JAYLIN QUINN MD November 29, 2020 12:48
[2020-11-29 16:00] VITALS: BP 163/73
[2020-11-29 16:19] LABS: BILIRUBIN,URINE NEGATIVE (NEGATIVE); CLARITY,URINE CLOUDY; COLOR,URINE ORANGE; GLUCOSE, URINE (UA) NEGATIVE (NEGATIVE); KETONES,URINE NEGATIVE (NEGATIVE); LEUKOCYTE ESTERASE ,URINE 2+ (NEGATIVE); NITRITE,URINE NEGATIVE (NEGATIVE); PROTEIN,URINE 2+ (NEGATIVE)
[2020-11-29 16:30] LABS: BACTERIA,URINE NEGATIVE /HPF; RBC,URINE 50-100 /HPF; WBC,URINE 25-50 /HPF
--- NOTE | 2020-11-29 19:17 | CONSULTATION REPORT ---
DATE OF SERVICE: 11/29/2020 ATTENDING PHYSICIAN: Dr. Beverly. SUMMARY: An 85-year-old white man known to me for many years with advanced metastatic cancer of the bladder post-radical cystectomy and ileal loop conduit, later on chemotherapy and bilateral ureteral stent for ureteral obstruction and renal insufficiency. He has received already 1 course of chemo and due for the next in I believe on the with Dr. Kirby. He has been having anemia and early this week received some blood transfusion. He has been admitted with weakness and dehydration. His creatinine has increased to above 3, little bit better today after hydration with BUN elevated as well. He is still anemic with hemoglobin of 7.5. A CAT scan is slightly more hydro; however, the stent seems to be functioning and the stoma is functioning well. IMPRESSION: Metastatic advanced cancer of the bladder. PLAN: I had a lengthy discussion again with the patient regarding his options: 1. one comfort hospice care, but at that time, we will have to stop all other treatments. 2. Continue like we are, hydrate him and see how the best creatinine and BUN we can achieve and is amenable to chemotherapy. 3. Dr. Kirby is working on finding the reason for his anemia. I told the patient that we will talk to his family again regarding all the options and try to make a decision according to what he wants. Job ID: [id number] DocumentID: [id number] Dictated Date: 11/29/2020 16:00:41 Bulk Station Agent Date: 11/29/2020 19:17:17 Dictated By: ALBA TSE MD
[2020-11-29 19:40] VITALS: BP 162/65
[2020-11-29] MEDS: dilTIAZem120 MG (CARDIZEM CD) CAP PO SCH (19:51)
[2020-11-30 00:24] VITALS: BP 132/71
[2020-11-30] MEDS: LACTATED RINGERS 1,000 ML IV SCH (02:06)
[2020-11-30 03:48] LABS: BASOPHILS % (AUTO) 0 % (0-10); EOSINOPHILS % (AUTO) 0 % (0-10); HEMATOCRIT 21 % (40-54); LYMPHOCYTES # (AUTO) 0.9 10^3/uL (1.0-4.0); LYMPHOCYTES % (AUTO) 13 % (12-44); MEAN CORPUSCULAR HEMOGLOBIN 30 pg (25-34); MEAN CORPUSCULAR HGB CONC 33 g/dL (32-36); MEAN CORPUSCULAR VOLUME 91 fL (80-99); MEAN PLATELET VOLUME 10.6 fL (9.0-12.2); MONOCYTES # (AUTO) 1.2 10^3/uL (0.0-1.0); MONOCYTES % (AUTO) 16 % (0-12); NEUTROPHILS # (AUTO) 4.1 10^3/uL (1.8-7.8); NEUTROPHILS % (AUTO) 56 % (42-75); PLATELET COUNT 236 10^3/uL (130-400); WHITE BLOOD COUNT 7.3 10^3/uL (4.3-11.0)
[2020-11-30 03:50] LABS: POTASSIUM 5.2 MMOL/L (3.6-5.0)
[2020-11-30 03:51] LABS: CALCIUM 8.2 MG/DL (8.5-10.1)
[2020-11-30 03:55] LABS: CREATININE SERUM 2.71 MG/DL (0.60-1.30)
[2020-11-30 04:56] VITALS: BP 159/69
[2020-11-30 08:09] VITALS: BP 147/83
[2020-11-30] MEDS: APIXABAN 5 MG (ELIQUIS) TABLET PO SCH (09:24)
--- NOTE | 2020-11-30 10:52 | Progress Note - Urology ---
Progress Note-Urology Progress Notes/Assess & Plan Progress/Assessment & Plan STABLE. WANTS TO GO HOME. OK WITH . H&H STABLE CREATININE BETTER. HE WILL DISCUSS WITH DR AL PLAN ON CHEMO Final Diagnosis CA BLADDER ALBA TSE MD November 30, 2020 10:52
[2020-11-30] MEDS ORDERED: HYDR-3923 PO (11:12)
[2020-11-30] MEDS ORDERED: APIX2.5T PO (11:12)
[2020-11-30 11:16] VITALS: BP 154/77
[2020-11-30 13:41] VITALS: BP 154/77
--- NOTE | 2020-11-30 20:05 | Discharge Summary ---
Discharge Summary Hospital Course Problems/Dx: (1) Acute kidney injury superimposed on chronic kidney disease Status: Acute (2) Metastatic malignant neuroendocrine tumor to liver Status: Acute (3) Advanced age Status: Chronic (4) Poor prognosis Status: Acute Hospital Course Date of Admission: November 28, 2020 at 17:15 Admission Diagnosis : Acute kidney injury superimposed on chronic kidney disease Family Physician/Provider: Sekou Kirby Date of Discharge: 11/30/20 Discharge Diagnosis: Acute kidney injury superimposed on chronic kidney disease Hospital Course: Stephen Fraser is an 85 year old male with metastatic malignant neuroendocrine tumor to the liver currently undergoing second line chemotherapy who presented with weakness and was admitted with acute kidney injury superimposed on chronic kidney disease. He previously underwent a radical cystectomy for his malignant neuroendocrine tumor of the bladder and he has an ileostomy. He has undergone ureteral stenting due to obstruction caused by bulky lymphadenopathy. His recent imaging has shown worsening of his abdominal/pelvic lymphadenopathy, but this chavez s been stable since his last scan a month ago. He was shown to have worsening left sided hydroureteronephrosis. His creatinine was increased from his baseline and increased with IV fluids, but did not return to normal. Dr. Michelle, urology, was consulted and recommended hospice care vs supportive care in an attempt to try another round of chemotherapy. We discussed all options and he will have repeat labs on Wednesday and discuss his options further with Dr. Kirby. He was discharged home in guarded condition. Labs and Pending Lab Test: Laboratory Tests 11/30/20 03:22: White Blood Count 7.3, Red Blood Count 2.35L, Hemoglobin 7.0L, Hematocrit 21L, Mean Corpuscular Volume 91, Mean Corpuscular Hemoglobin 30, Mean Corpuscular Hemoglobin Concent 33, Red Cell Distribution Width 13.5, Platelet Count 236, Mean Platelet Volume 10.6, Immature Granulocyte % (Auto) 15, Neutrophils (%) (Auto) 56, Lymphocytes (%) (Auto) 13, Monocytes (%) (Auto) 16H, Eosinophils (%) (Auto) 0, Basophils (%) (Auto) 0, Neutrophils # (Auto) 4.1, Lymphocytes # (Auto) 0.9L, Monocytes # (Auto) 1.2H, Eosinophils # (Auto) 0.0, Basophils # (Auto) 0.0, Immature Granulocyte # (Auto) 1.1H, Sodium Level 135, Potassium Level 5.2H, Chlo ride Level 107, Carbon Dioxide Level 19L, Anion Gap 9, Blood Urea Nitrogen 41H, Creatinine 2.71#H, Estimat Glomerular Filtration Rate 22, BUN/Creatinine Ratio 15, Glucose Level 102, Calcium Level 8.2L Microbiology 11/29/20 Urine Culture - Preliminary, Resulted Staphylococcus epidermidis Home Meds Active Hydralazine HCl 25 Mg Tablet 25 Mg PO TID PRN 30 Days Eliquis (Apixaban) 2.5 Mg Tablet 2.5 Mg PO BID 30 Days Reported Miralax (Polyethylene Glycol 3350) 17 Gm Powd.pack 17 Gm PO DAILY PRN Levofloxacin 750 Mg Tablet 750 Mg PO Q48H FILLED 11-27-2020 #4/8 DAY SUPPLY Tylenol Extra Strength (Acetaminophen) 500 Mg Tablet 500-1,000 Mg PO Q8H PRN Cranberry 400 Mg Capsule 400 Mg PO DAILY Vitamin C (Ascorbate Calcium) 500 Mg Tablet 500 Mg PO DAILY Nitroglycerin 4.9 Gm [place] 1-2 Sprays SL UD PRN Diltiazem 24Hr ER (Diltiazem HCl) 120 Mg Cap.er.24h 120 Mg PO 1800 Rosuvastatin Calcium 5 Mg Tablet 5 Mg PO 1800 Assessment/Pt Instructions Take medications as prescribed. Follow up with Dr. Kirby. Have labs drawn on Wednesday at the cancer center. Return with worsening symptoms. Discharge Instructions Discharge Diet: No Restrictions Activity as Tolerated: Yes Discharge Physical Examination Vital Signs Vital Signs Date Time Temp Pulse Resp B/P (MAP) Pulse Ox O2 Delivery O2 Flow Rate FiO2 11/30/20 13:41 35.9 57 20 154/77 97 Room Air General Appearance: No Apparent Distress, Chronically ill Respiratory: Lungs Clear, Normal Breath Sounds, No Respiratory Distress Cardiovascular: Regular Rate, Rhythm, No Murmur Gastrointestinal: Normal Bowel Sounds, Non Tender, Soft, Other (ileostomy) Extremity: Normal Inspection, Non Tender, Pedal Edema Skin: Normal Color, Warm/Dry Neurologic/Psychiatric: Alert, Oriented x3, No Motor/Sensory Deficits, Normal Mood/Affect Allergies: Coded Allergies: Beta-Blockers (Beta-Adrenergic Bloc (Verified Adverse Reaction, Unknown, SYNCOPE, 12/06/19) Copy Copies To 1: SEKOU KIRBY Discharge Summary Date of Admission November 28, 2020 at 17:15 Date of Discharge November 30, 2020 at 12:20 Discharge Date: November 30, 2020 Discharge Time: 12:20 Admission Diagnosis Acute kidney injury superimposed on chronic kidney disease Comfort Measures/ End of Life Care: Pallative Care Discharge Diagnosis Acute kidney injury superimposed on chronic kidney disease, Metastatic malignant neuroendocrine tumor to the liver (1) Acute kidney injury superimposed on chronic kidney disease Status: Acute (2) Metastatic malignant neuroendocrine tumor to liver Status: Acute (3) Advanced age Status: Chronic (4) Poor prognosis Status: Acute JAYLIN QUINN MD November 30, 2020 19:58
== END 2020-11-30 12:20 | disposition home or self-care (01) ==
LOC: EDUNIT# 16:14 → ER 16:16 → 4TH 17:15
PROVIDERS: ADMIT Internal Medicine; ATTEND Internal Medicine
DX: N17.9 Acute kidney failure, unspecified (principal); D64.9 Anemia, unspecified; C7B.02 Secondary carcinoid tumors of liver; G47.30 Sleep apnea, unspecified; J43.9 Emphysema, unspecified; I48.91 Unspecified atrial fibrillation; I25.10 Atherosclerotic heart disease of native coronary artery without angina pectoris; I10 Essential (primary) hypertension; M54.5 Low back pain; K21.9 Gastro-esophageal reflux disease without esophagitis; K59.09 Other constipation; K58.9 Irritable bowel syndrome, unspecified; Z79.01 Long term (current) use of anticoagulants; Z88.8 Allergy status to other drugs, medicaments and biological substances; Z79.891 Long term (current) use of opiate analgesic; Z79.899 Other long term (current) drug therapy; Z95.1 Presence of aortocoronary bypass graft; Z95.0 Presence of cardiac pacemaker; Z90.79 Acquired absence of other genital organ(s); Z85.46 Personal history of malignant neoplasm of prostate; Z85.51 Personal history of malignant neoplasm of bladder; Z92.3 Personal history of irradiation; Z92.21 Personal history of antineoplastic chemotherapy; Z83.3 Family history of diabetes mellitus
CPT/HCPCS: 74176; 80048 ×3; 81000; 83735; 83880; 84100; 85007; 85025 ×2; 85027; 86850; 86900; 86901; 86920; 87077; 87088; 87186; 99283; G0378; 36415

== ENCOUNTER 2020-12-17 12:02 | Outpatient (RCR) | payer MEDICARE, OTHER ==
[2020-12-02 09:20] LABS: BASOPHILS % (AUTO) 0 % (0-10); EOSINOPHILS % (AUTO) 0 % (0-10); HEMATOCRIT 23 % (40-54); HEMOGLOBIN 7.6 g/dL (13.3-17.7); LYMPHOCYTES # (AUTO) 1.1 10^3/uL (1.0-4.0); LYMPHOCYTES % (AUTO) 9 % (12-44); MEAN CORPUSCULAR HEMOGLOBIN 31 pg (25-34); MEAN CORPUSCULAR HGB CONC 33 g/dL (32-36); MEAN CORPUSCULAR VOLUME 94 fL (80-99); MEAN PLATELET VOLUME 9.9 fL (9.0-12.2); MONOCYTES # (AUTO) 1.5 10^3/uL (0.0-1.0); MONOCYTES % (AUTO) 12 % (0-12); NEUTROPHILS # (AUTO) 8.4 10^3/uL (1.8-7.8); NEUTROPHILS % (AUTO) 67 % (42-75); PLATELET COUNT 379 10^3/uL (130-400); WHITE BLOOD COUNT 12.5 10^3/uL (4.3-11.0)
[2020-12-02 09:36] LABS: CALCIUM 8.6 MG/DL (8.5-10.1); CREATININE SERUM 2.71 MG/DL (0.60-1.30); POTASSIUM 4.8 MMOL/L (3.6-5.0)
[2020-12-09 13:17] LABS: ABSOLUTE RETIC # 64 10e9/uL (24-90); BASOPHILS # (AUTO) 0.1 10^3/uL (0.0-0.1); BASOPHILS % (AUTO) 1 % (0-10); EOSINOPHILS % (AUTO) 0 % (0-10); HEMATOCRIT 22 % (40-54); HEMOGLOBIN 7.3 g/dL (13.3-17.7); LYMPHOCYTES # (AUTO) 1.1 10^3/uL (1.0-4.0); LYMPHOCYTES % (AUTO) 9 % (12-44); MEAN CORPUSCULAR HEMOGLOBIN 30 pg (25-34); MEAN CORPUSCULAR HGB CONC 33 g/dL (32-36); MEAN CORPUSCULAR VOLUME 92 fL (80-99); MEAN PLATELET VOLUME 10.5 fL (9.0-12.2); MONOCYTES % (AUTO) 8 % (0-12); NEUTROPHILS % (AUTO) 81 % (42-75); PLATELET COUNT 427 10^3/uL (130-400); RETICULOCYTE % 2.62 % (0.50-2.40); WHITE BLOOD COUNT 12.3 10^3/uL (4.3-11.0)
[2020-12-09 13:43] LABS: ALBUMIN 3.1 GM/DL (3.2-4.5); BILIRUBIN,TOTAL 0.2 MG/DL (0.1-1.0); CALCIUM 8.5 MG/DL (8.5-10.1); CREATININE SERUM 2.99 MG/DL (0.60-1.30); POTASSIUM 4.5 MMOL/L (3.6-5.0)
[~2020-12-17 12:02] MED LIST changes: +APIX2.5T PO; +CARBOPLATIN IV SCH; +D5W IV SCH; +ETOPOSIDE 160 MG in NORMAL SALINE (CANCER CENTER) 500 ML IV SCH; +FOSAPREPITANT (CANCER CENTER) 150 MG in NS (IVPB) CANCER CENTER ONLY 150 ML IV SCH; +HYDR-3923 PO; +LEVO750T39 PO; +NS (IVPB) CANCER CENTER 250 ML ONE; +NS IV 1000 ML (CANCER CTR) IV SCH; -SULF1TAB35 PO; +SULF1TAB38 PO
== END 2021-03-02 | disposition home or self-care (01) ==
LOC: ONC 12:02
PROVIDERS: ATTEND Internal Medicine Hematology & Oncology
DX: C67.2 Malignant neoplasm of lateral wall of bladder (principal); C77.9 Secondary and unspecified malignant neoplasm of lymph node, unspecified; N13.1 Hydronephrosis with ureteral stricture, not elsewhere classified; I25.10 Atherosclerotic heart disease of native coronary artery without angina pectoris; I12.9 Hypertensive chronic kidney disease with stage 1 through stage 4 chronic kidney disease, or unspecified chronic kidney disease; N18.9 Chronic kidney disease, unspecified; G47.33 Obstructive sleep apnea (adult) (pediatric); E78.2 Mixed hyperlipidemia; I89.0 Lymphedema, not elsewhere classified; Z95.1 Presence of aortocoronary bypass graft; Z95.5 Presence of coronary angioplasty implant and graft; Z98.890 Other specified postprocedural states; Z92.21 Personal history of antineoplastic chemotherapy; Z85.46 Personal history of malignant neoplasm of prostate; Z92.3 Personal history of irradiation; Z79.01 Long term (current) use of anticoagulants; Z79.899 Other long term (current) drug therapy; Z79.891 Long term (current) use of opiate analgesic; Z95.0 Presence of cardiac pacemaker; Z87.891 Personal history of nicotine dependence
CPT/HCPCS: 80048; 85025; G0463; 36430; 36591; 80053; 82668; 82728; 83540; 83550; 83615; 83735; 85045; 86850; 86900; 86901; 86920; 99213